=== PATIENT | female | born 1990 | race African-American/Black ===

== ENCOUNTER 2021-01-15 01:08 | Inpatient (IN) ==
[2021-01-15] MEDS ORDERED: PIPERACILLIN/TAZOBACTAM 3,375 MG in SODIUM CHLORIDE 0.9% 100 ML IV STA (02:18)
[2021-01-15] MEDS ORDERED: ONDANSETRON 4 MG/2 ML VIAL IV STA (02:18)
[2021-01-15] MEDS ORDERED: AZITHROMYCIN INJ 500 MG in SODIUM CHLORIDE 0.9% 250 ML IV STA (02:18)
[2021-01-15] MEDS ORDERED: SODIUM CHLORIDE 0.9% 500 ML IV STA (02:18)
[2021-01-15] MEDS ORDERED: ENOXAPARIN 100 MG/ML SYRINGE SUBCUT STA (02:18)
[2021-01-15] MEDS ORDERED: DEXAMETHASONE 4 MG/1 ML VIAL MISC INJ STA (02:18)
[2021-01-15] MEDS ORDERED: FUROSEMIDE 40 MG/4 ML VIAL ONE (02:50)
[2021-01-15 02:53] LABS: Basophils % 0.2 % (0.0-0.8); Hematocrit 34.8 VOL% (35.7-47.0); Hemoglobin 10.3 GM/DL (12.0-16.0); Immature Granulocytes % 0.5 %; Immature Granulocytes Absolute 0.03 #; Lymphocytes # 1.1 10*3/uL (1.4-4.0); Lymphocytes % 16.1 % (21.3-54.2); Mean Corpuscular HGB Conc 29.6 GM/DL (32-36); Mean Corpuscular Volume 82.9 FL (87-102); Mean Platelet Volume 11.2 FL (9.6-12.0); Monocytes % 2.9 % (1.7-12.7); Neutrophils % 80.3 % (38.7-73.9); Platelet Count 293 T/CUMM (130-400); White Blood Count 6.7 T/CUMM (4-12)
[2021-01-15 02:53] LABS: ABG Base Excess -2.7 MMOL/L (-2.5-2.5); ABG HCO3 21.8 MMOL/L (20-26); ABG Oxygen Saturation 78.5 % (95-100); ABG PCO2 38.6 MM HG (35-48); ABG PH 7.368 (7.35-7.45); ABG PO2 49.6 MM HG (80-95); ABG TCO2 20.4 MMOL/L (23-27); Allen Test Positive; Pt O2 Delivery Device Other
[2021-01-15 03:05] LABS: PT Patient Result 10.9 SECS (10.5-12.0)
[2021-01-15] MEDS ORDERED: FUROSEMIDE 40 MG/4 ML VIAL IV STA (03:10)
[2021-01-15 03:19] LABS: Band Neutrophils 3 % (0-10); Lymphocytes 15 % (20-55); Segmented Neutrophils 78 % (50-85)
[2021-01-15 03:20] LABS: Hypochromasia 1+; Platelet Estimate Normal; Total Cells Counted 100
[2021-01-15] MEDS ORDERED: GLUCAGON 1 MG VIAL IM PRN (03:34)
[2021-01-15] MEDS ORDERED: DEXTROSE 50% 25 GM/50 ML VIAL IV PRN (03:34)
[2021-01-15 03:51] LABS: Albumin 2.7 G/DL (3.4-5.0); Bilirubin,Total 0.6 MG/DL (0.20-1.00); Calcium 7.9 MG/DL (8.5-10.1); Ferritin 444.6 ng/ml (8-252); Osmolality,Calculated 280.3 MOS/KG (273-304); Potassium 4.1 MMOL/L (3.5-5.1); Total Protein 6.7 G/DL (6.4-8.2)
[2021-01-15 04:03] LABS: Bacteria,Urine Occasional /HPF (Few); Bilirubin,Urine Negative (Negative); Blood, Urine Negative (Negative); Glucose,Urine (UA) Negative (Negative); Granular Casts,Urine 1 /LPF (0-1); Ketones,Urine Negative (Negative); Mucus,Urine Occasional /LPF (Occasional); Nitrite,Urine Negative (Negative); Protein,Urine 100 MG/DL; RBC,Urine 1 /HPF (0-4); Renal Epithelial Cells,Urine Occasional /HPF (<1); Squamous Epithelial Cell,Urine Occasional /HPF (0-10); Urine Appearance Slightly Hazy (Clear); Urine Color Yellow (Yellow); Urine Specific Gravity 1.015 (1.001-1.035); Urine Urobilinogen < 2.0 EU/DL (0.2-1.0)
[2021-01-15 06:01] LABS: Basophils % 0.1 % (0.0-0.8); Hematocrit 35.6 VOL% (35.7-47.0); Hemoglobin 10.7 GM/DL (12.0-16.0); Immature Granulocytes % 0.4 %; Immature Granulocytes Absolute 0.03 #; Lymphocytes % 12.8 % (21.3-54.2); Mean Corpuscular HGB Conc 30.1 GM/DL (32-36); Mean Corpuscular Volume 83.6 FL (87-102); Mean Platelet Volume 11.2 FL (9.6-12.0); Monocytes % 1.6 % (1.7-12.7); Neutrophils % 85.1 % (38.7-73.9); Platelet Count 278 T/CUMM (130-400); Red Blood Count 4.26 MC/CUMM (3.8-5.5); Red Cell Distribution Width 17.1 % (9.3-17.3); White Blood Count 8.1 T/CUMM (4-12)
[2021-01-15 06:37] LABS: Ferritin 415.6 ng/ml (8-252)
[2021-01-15 06:39] LABS: Anisocytosis 1+; Band Neutrophils 29 % (0-10); Lymphocytes 12 % (20-55); Platelet Estimate Normal; Segmented Neutrophils 56 % (50-85); Total Cells Counted 100
[2021-01-15] MEDS ORDERED: ENOXAPARIN 40 MG/0.4 ML SYRINGE SUBCUT SCH (09:00)
[2021-01-15] MEDS: CETIRIZINE 10 MG TABLET PO SCH (10:24)
[2021-01-15] MEDS: ASCORBIC ACID 500 MG TABLET PO SCH ×2 (10:24→20:25)
[2021-01-15] MEDS: CHOLECALCIFEROL 1,000 UNIT TABLET PO SCH (10:24)
[2021-01-15] MEDS: FAMOTIDINE 20 MG TABLET PO SCH ×2 (10:25→20:25)
[2021-01-15] MEDS: ZINC GLUCONATE 50 MG TABLET PO SCH (10:25)
[2021-01-15] MEDS: PIPERACILLIN/TAZOBACTAM 3,375 MG in SODIUM CHLORIDE 0.9% 100 ML IV SCH ×2 (10:29→18:35)
[2021-01-15] MEDS ORDERED: REMDESIVIR 200 MG in SODIUM CHLORIDE 0.9% 210 ML IV ONE (14:00)
[2021-01-15] MEDS: ONDANSETRON 4 MG/2 ML VIAL IV PRN ×2 (18:34→22:31)
[2021-01-15 19:48] LABS: Bilirubin,Urine Negative (Negative); Blood, Urine Negative (Negative); Glucose,Urine (UA) Negative (Negative); Ketones,Urine Negative (Negative); Nitrite,Urine Negative (Negative); Protein,Urine 30 MG/DL; RBC,Urine 1 /HPF (0-4); Squamous Epithelial Cell,Urine Occasional /HPF (0-10); Urine Appearance CLEAR (Clear); Urine Color Yellow (Yellow); Urine Specific Gravity 1.033 (1.001-1.035); Urine Urobilinogen < 2.0 EU/DL (0.2-1.0)
[2021-01-15] MEDS: ENOXAPARIN 60 MG/0.6 ML SYRINGE SUBCUT SCH (20:24)
[2021-01-15] MEDS: MELATONIN 3 MG TABLET PO PRN (22:31)
[2021-01-16] MEDS: PIPERACILLIN/TAZOBACTAM 3,375 MG in SODIUM CHLORIDE 0.9% 100 ML IV SCH ×3 (01:38→17:58)
[2021-01-16 06:00] LABS: Albumin 2.5 G/DL (3.4-5.0); Bilirubin,Total 0.7 MG/DL (0.20-1.00); Calcium 7.8 MG/DL (8.5-10.1); Potassium 4.4 MMOL/L (3.5-5.1)
[2021-01-16 06:01] LABS: Basophils % 0.2 % (0.0-0.8); Hematocrit 31.9 VOL% (35.7-47.0); Hemoglobin 9.9 GM/DL (12.0-16.0); Immature Granulocytes Absolute 0.06 #; Lymphocytes # 1.6 10*3/uL (1.4-4.0); Lymphocytes % 25.1 % (21.3-54.2); Mean Corpuscular Volume 82.2 FL (87-102); Mean Platelet Volume 10.9 FL (9.6-12.0); Monocytes % 10.2 % (1.7-12.7); NRBC # 0.02 10*3/uL; Neutrophils % 63.5 % (38.7-73.9); Platelet Count 252 T/CUMM (130-400); Red Blood Count 3.88 MC/CUMM (3.8-5.5); Red Cell Distribution Width 16.9 % (9.3-17.3); White Blood Count 6.3 T/CUMM (4-12)
[2021-01-16 06:08] LABS: Ferritin 593.6 ng/ml (8-252)
[2021-01-16 06:10] LABS: Lymphocytes 29 % (20-55); Metamyelocytes 1 %; Segmented Neutrophils 56 % (50-85); Total Cells Counted 100
[2021-01-16 06:12] LABS: Hypochromasia 1+; Platelet Estimate Normal; Reactive Lymphocytes Few
[2021-01-16] MEDS: AZITHROMYCIN INJ 500 MG in SODIUM CHLORIDE 0.9% 250 ML IV SCH (08:15)
[2021-01-16] MEDS: ZINC GLUCONATE 50 MG TABLET PO SCH (08:45)
[2021-01-16] MEDS: ENOXAPARIN 60 MG/0.6 ML SYRINGE SUBCUT SCH ×2 (08:45→21:55)
[2021-01-16] MEDS: DEXAMETHASONE 10 MG/1 ML VIAL IV SCH (08:45)
[2021-01-16] MEDS: CETIRIZINE 10 MG TABLET PO SCH (08:45)
[2021-01-16] MEDS: ASCORBIC ACID 500 MG TABLET PO SCH ×2 (08:45→22:00)
[2021-01-16] MEDS: FAMOTIDINE 20 MG TABLET PO SCH ×2 (08:45→22:00)
[2021-01-16] MEDS: CHOLECALCIFEROL 1,000 UNIT TABLET PO SCH (08:45)
[2021-01-16] MEDS: ONDANSETRON 4 MG/2 ML VIAL IV PRN ×2 (08:47→22:00)
[2021-01-16] MEDS: REMDESIVIR 100 MG in SODIUM CHLORIDE 0.9% 100 ML IV SCH (10:33)
[2021-01-16] MEDS: ALBUTEROL INHALER 18 GM INH SCH ×2 (13:45→19:20)
[2021-01-17] MEDS: ALBUTEROL INHALER 18 GM INH SCH ×4 (01:00→18:35)
[2021-01-17] MEDS: PIPERACILLIN/TAZOBACTAM 3,375 MG in SODIUM CHLORIDE 0.9% 100 ML IV SCH ×3 (03:25→18:35)
[2021-01-17 04:28] LABS: ABG Base Excess -1.7 MMOL/L (-2.5-2.5); ABG PCO2 36.3 MM HG (35-48); ABG PH 7.403 (7.35-7.45); ABG TCO2 20.8 MMOL/L (23-27); Allen Test Positive; Pt O2 Delivery Device BIPAP
[2021-01-17 05:38] LABS: Albumin 2.5 G/DL (3.4-5.0); Potassium 4.1 MMOL/L (3.5-5.1); Total Protein 7.1 G/DL (6.4-8.2)
[2021-01-17 05:56] LABS: Ferritin 432.1 ng/ml (8-252)
[2021-01-17 06:38] LABS: Basophils % 0.2 % (0.0-0.8); Hematocrit 32.6 VOL% (35.7-47.0); Hemoglobin 9.8 GM/DL (12.0-16.0); Immature Granulocytes % 2.7 %; Immature Granulocytes Absolute 0.15 #; Lymphocytes % 18.2 % (21.3-54.2); Mean Corpuscular HGB Conc 30.1 GM/DL (32-36); Mean Corpuscular Volume 83.6 FL (87-102); Monocytes % 14.7 % (1.7-12.7); NRBC # 0.03 10*3/uL; Neutrophils % 64.2 % (38.7-73.9); Platelet Count 301 T/CUMM (130-400); Red Cell Distribution Width 17.7 % (9.3-17.3); White Blood Count 5.6 T/CUMM (4-12)
[2021-01-17 06:57] LABS: % Iron Saturation 34.9 % (18-50); Ferritin 400.5 ng/ml (8-252)
[2021-01-17 06:59] LABS: Folate > 24.00 NG/ML (5.38-24.0); Vitamin B12 1602 PG/ML (211-911)
[2021-01-17 07:07] LABS: Hypochromasia 1+; Lymphocytes 21 % (20-55); Nucleated Red Blood Cells 1 (0-5); Segmented Neutrophils 64 % (50-85); Total Cells Counted 100
[2021-01-17 07:08] LABS: Microcytosis 1+; Platelet Estimate Normal
[2021-01-17 07:56] LABS: Sedimentation Rate-Westergren 28 MM/HR (0-20)
[2021-01-17 08:35] LABS: Hemoglobin A1 (Alkaline) 97.8 % (96.5-98.5); Hemoglobin A2 (Alkaline) 2.2 % (1.5-3.5)
[2021-01-17] MEDS: AZITHROMYCIN INJ 500 MG in SODIUM CHLORIDE 0.9% 250 ML IV SCH (09:13)
[2021-01-17] MEDS: DEXAMETHASONE 10 MG/1 ML VIAL IV SCH (09:14)
[2021-01-17] MEDS: ASCORBIC ACID 500 MG TABLET PO SCH ×2 (09:15→20:58)
[2021-01-17] MEDS: ENOXAPARIN 60 MG/0.6 ML SYRINGE SUBCUT SCH ×2 (09:15→20:57)
[2021-01-17] MEDS: CETIRIZINE 10 MG TABLET PO SCH (09:15)
[2021-01-17] MEDS: FAMOTIDINE 20 MG TABLET PO SCH ×2 (09:15→20:58)
[2021-01-17] MEDS: CHOLECALCIFEROL 1,000 UNIT TABLET PO SCH (09:16)
[2021-01-17] MEDS: ZINC GLUCONATE 50 MG TABLET PO SCH (09:16)
[2021-01-17] MEDS: REMDESIVIR 100 MG in SODIUM CHLORIDE 0.9% 100 ML IV SCH (10:11)
[2021-01-17] MEDS ORDERED: SODIUM BICARBONATE 50 MEQ/50 ML VIAL IV ONE (16:31)
[2021-01-18] MEDS: PIPERACILLIN/TAZOBACTAM 3,375 MG in SODIUM CHLORIDE 0.9% 100 ML IV SCH ×3 (01:37→23:52)
[2021-01-18] MEDS: ALBUTEROL INHALER 18 GM INH SCH ×4 (01:37→18:21)
[2021-01-18 04:35] LABS: ABG Base Excess -1.4 MMOL/L (-2.5-2.5); ABG HCO3 23.2 MMOL/L (20-26); ABG Oxygen Saturation 95.4 % (95-100); ABG PH 7.446 (7.35-7.45); ABG PO2 78.6 MM HG (80-95); ABG TCO2 20.1 MMOL/L (23-27)
[2021-01-18 06:29] LABS: Basophils % 0.1 % (0.0-0.8); Hematocrit 31.7 VOL% (35.7-47.0); Hemoglobin 9.7 GM/DL (12.0-16.0); Immature Granulocytes % 3.2 %; Immature Granulocytes Absolute 0.25 #; Lymphocytes # 1.2 10*3/uL (1.4-4.0); Lymphocytes % 14.8 % (21.3-54.2); Mean Corpuscular HGB Conc 30.6 GM/DL (32-36); Mean Corpuscular Volume 82.3 FL (87-102); Mean Platelet Volume 11.1 FL (9.6-12.0); Monocytes % 12.8 % (1.7-12.7); Neutrophils % 69.1 % (38.7-73.9); Platelet Count 284 T/CUMM (130-400); Red Blood Count 3.85 MC/CUMM (3.8-5.5); Red Cell Distribution Width 16.4 % (9.3-17.3); White Blood Count 7.9 T/CUMM (4-12)
[2021-01-18 07:00] LABS: Albumin 2.8 G/DL (3.4-5.0); Bilirubin,Total 0.9 MG/DL (0.20-1.00); Calcium 8.4 MG/DL (8.5-10.1); Osmolality,Calculated 294.4 MOS/KG (273-304); Potassium 3.5 MMOL/L (3.5-5.1); Total Protein 7.1 G/DL (6.4-8.2)
[2021-01-18 07:01] LABS: Risk Ratio 3.67; VLDL Cholesterol 39.2 MG/DL
[2021-01-18 07:07] LABS: Ferritin 295.2 ng/ml (8-252)
[2021-01-18 07:52] LABS: Hypochromasia 1+; Microcytosis 2+; Ovalocytes Few; Platelet Estimate Normal
[2021-01-18] MEDS: ASPIRIN EC 325 MG TABLET PO SCH (08:09)
[2021-01-18] MEDS: CHOLECALCIFEROL 1,000 UNIT TABLET PO SCH (08:10)
[2021-01-18] MEDS: ZINC GLUCONATE 50 MG TABLET PO SCH (08:10)
[2021-01-18] MEDS: ASCORBIC ACID 500 MG TABLET PO SCH ×2 (08:10→20:23)
[2021-01-18] MEDS: CETIRIZINE 10 MG TABLET PO SCH (08:10)
[2021-01-18] MEDS: AZITHROMYCIN INJ 500 MG in SODIUM CHLORIDE 0.9% 250 ML IV SCH (09:13)
[2021-01-18] MEDS: ENOXAPARIN 60 MG/0.6 ML SYRINGE SUBCUT SCH ×2 (09:13→20:24)
[2021-01-18] MEDS: DEXAMETHASONE 10 MG/1 ML VIAL IV SCH (09:14)
[2021-01-18] MEDS: ONDANSETRON 4 MG/2 ML VIAL IV PRN (09:48)
[2021-01-18] MEDS ORDERED: LORazepam 2 MG/1 ML VIAL IV ONE (09:52)
[2021-01-18] MEDS ORDERED: LORazepam 2 MG/1 ML VIAL ONE (09:55)
[2021-01-18] MEDS: LACTULOSE 20 GM/30 ML UDCUP PO SCH ×2 (10:05→20:23)
[2021-01-18] MEDS: atenoloL 50 MG TABLET PO SCH ×2 (11:30→20:23)
[2021-01-18] MEDS: FAMOTIDINE 20 MG TABLET PO SCH ×2 (11:42→20:22)
[2021-01-18] MEDS: REMDESIVIR 100 MG in SODIUM CHLORIDE 0.9% 100 ML IV SCH (11:42)
[2021-01-18] MEDS: hydrALAZINE 20 MG/1 ML VIAL IV PRN (12:39)
[2021-01-18] MEDS: MENTHOL/ZINC OXIDE OINT 71 GM JAR TOP SCH ×2 (13:27→20:24)
[2021-01-18] MEDS: amLODIPine 5 MG TABLET PO SCH (16:50)
[2021-01-18] MEDS: INSULIN REGULAR 100 UNIT/ML SUBCUT SCH (18:20)
[2021-01-18 22:08] LABS: Bilirubin,Urine Negative (Negative); Blood, Urine Negative (Negative); Glucose,Urine (UA) Negative (Negative); Ketones,Urine 20 mg/dL (Negative); Nitrite,Urine Negative (Negative); Protein,Urine 30 MG/DL; RBC,Urine 4 /HPF (0-4); Urine Appearance CLEAR (Clear); Urine Color Yellow (Yellow); Urine Specific Gravity 1.021 (1.001-1.035); Urine Urobilinogen < 2.0 EU/DL (0.2-1.0)
[2021-01-19] MEDS: ALBUTEROL INHALER 18 GM INH SCH ×4 (00:49→19:18)
[2021-01-19] MEDS: INSULIN REGULAR 100 UNIT/ML SUBCUT SCH ×4 (00:49→18:05)
[2021-01-19] MEDS: hydrALAZINE 20 MG/1 ML VIAL IV PRN (03:37)
[2021-01-19 05:28] LABS: ABG Base Excess -2.7 MMOL/L (-2.5-2.5); ABG HCO3 22.1 MMOL/L (20-26); ABG Oxygen Saturation 93.5 % (95-100); ABG PCO2 31.4 MM HG (35-48); ABG PO2 70.9 MM HG (80-95); ABG TCO2 18.9 MMOL/L (23-27); Allen Test Positive; Pt O2 Delivery Device BIPAP
[2021-01-19 05:46] LABS: Basophils % 0.3 % (0.0-0.8); Hemoglobin 9.8 GM/DL (12.0-16.0); Immature Granulocytes % 6.4 %; Immature Granulocytes Absolute 0.66 #; Lymphocytes # 1.4 10*3/uL (1.4-4.0); Lymphocytes % 13.3 % (21.3-54.2); Mean Corpuscular HGB Conc 30.6 GM/DL (32-36); Mean Corpuscular Volume 81.8 FL (87-102); Mean Platelet Volume 11.2 FL (9.6-12.0); NRBC # 0.03 10*3/uL; Platelet Count 324 T/CUMM (130-400); Red Blood Count 3.91 MC/CUMM (3.8-5.5); Red Cell Distribution Width 16.6 % (9.3-17.3); White Blood Count 10.4 T/CUMM (4-12)
[2021-01-19] MEDS: PIPERACILLIN/TAZOBACTAM 3,375 MG in SODIUM CHLORIDE 0.9% 100 ML IV SCH ×2 (05:55→15:46)
[2021-01-19 06:23] LABS: Calcium 8.9 MG/DL (8.5-10.1); Osmolality,Calculated 307.6 MOS/KG (273-304); Potassium 3.3 MMOL/L (3.5-5.1)
[2021-01-19 06:35] LABS: Ferritin 239.4 ng/ml (8-252)
[2021-01-19 06:42] LABS: Anisocytosis 1+; Band Neutrophils 5 % (0-10); Lymphocytes 12 % (20-55); Metamyelocytes 2 %; Nucleated Red Blood Cells 1 (0-5); Platelet Estimate Normal; Segmented Neutrophils 69 % (50-85); Total Cells Counted 100
[2021-01-19] MEDS: amLODIPine 5 MG TABLET PO SCH (08:00)
[2021-01-19] MEDS: atenoloL 50 MG TABLET PO SCH ×2 (08:00→20:57)
[2021-01-19] MEDS: FAMOTIDINE 20 MG TABLET PO SCH ×2 (08:00→20:57)
[2021-01-19] MEDS: CHOLECALCIFEROL 1,000 UNIT TABLET PO SCH (08:00)
[2021-01-19] MEDS: ASPIRIN EC 325 MG TABLET PO SCH (08:00)
[2021-01-19] MEDS: CETIRIZINE 10 MG TABLET PO SCH (08:01)
[2021-01-19] MEDS: MULTIVITAMIN LIQUID (CENTRUM) 60 ML BOTTLE PO SCH (08:01)
[2021-01-19] MEDS: ENOXAPARIN 60 MG/0.6 ML SYRINGE SUBCUT SCH ×2 (08:01→21:01)
[2021-01-19] MEDS: LACTULOSE 20 GM/30 ML UDCUP PO SCH ×2 (08:01→21:00)
[2021-01-19] MEDS: ZINC GLUCONATE 50 MG TABLET PO SCH (08:01)
[2021-01-19] MEDS: MENTHOL/ZINC OXIDE OINT 71 GM JAR TOP SCH ×2 (08:02→21:00)
[2021-01-19] MEDS ORDERED: ASCORBIC ACID 500 MG/1 ML VIAL IV SCH (09:00)
[2021-01-19] MEDS: REMDESIVIR 100 MG in SODIUM CHLORIDE 0.9% 100 ML IV SCH (10:24)
[2021-01-19] MEDS ORDERED: AZITHROMYCIN INJ 500 MG in SODIUM CHLORIDE 0.9% 250 ML IV SCH (11:45)
[2021-01-19] MEDS: ASCORBIC ACID 500 MG TABLET PO SCH ×2 (11:48→20:57)
[2021-01-19] MEDS: AZITHROMYCIN INJ 500 MG in SODIUM CHLORIDE 0.9% 250 ML IV SCH (11:50)
[2021-01-19] MEDS: methylPREDNISolone SOD SUC 40 MG/1 ML VIAL IV SCH ×2 (11:50→19:18)
[2021-01-19] MEDS: POTASSIUM CHLORIDE RIDER 10 MEQ/100 ML PREMIX IV PRN ×3 (14:00→21:02)
[2021-01-20] MEDS: PIPERACILLIN/TAZOBACTAM 3,375 MG in SODIUM CHLORIDE 0.9% 100 ML IV SCH ×4 (00:14→21:35)
[2021-01-20] MEDS: methylPREDNISolone SOD SUC 40 MG/1 ML VIAL IV SCH ×5 (00:38→23:18)
[2021-01-20] MEDS: INSULIN REGULAR 100 UNIT/ML SUBCUT SCH ×5 (00:38→23:26)
[2021-01-20] MEDS: ALBUTEROL INHALER 18 GM INH SCH ×4 (01:00→18:17)
[2021-01-20] MEDS: POTASSIUM CHLORIDE RIDER 10 MEQ/100 ML PREMIX IV PRN ×3 (01:13→14:29)
[2021-01-20 04:38] LABS: ABG HCO3 17.6 MMOL/L (20-26); ABG Oxygen Saturation 92.6 % (95-100); ABG PCO2 28.6 MM HG (35-48); ABG PH 7.407 (7.35-7.45); ABG PO2 68.9 MM HG (80-95); ABG TCO2 18.5 MMOL/L (23-27); Allen Test Positive; Pt O2 Delivery Device BIPAP
[2021-01-20 05:27] LABS: Basophils % 0.3 % (0.0-0.8); Eosinophils % 0.1 % (0.00-10.9); Hematocrit 31.8 VOL% (35.7-47.0); Hemoglobin 9.8 GM/DL (12.0-16.0); Immature Granulocytes % 9.4 %; Lymphocytes # 1.4 10*3/uL (1.4-4.0); Lymphocytes % 10.9 % (21.3-54.2); Mean Corpuscular HGB Conc 30.8 GM/DL (32-36); Mean Platelet Volume 11.3 FL (9.6-12.0); Monocytes % 6.1 % (1.7-12.7); NRBC # 0.07 10*3/uL; Neutrophils % 73.2 % (38.7-73.9); Platelet Count 306 T/CUMM (130-400); Red Blood Count 3.88 MC/CUMM (3.8-5.5); White Blood Count 12.8 T/CUMM (4-12)
[2021-01-20 05:59] LABS: Band Neutrophils 9 % (0-10); Lymphocytes 12 % (20-55); Metamyelocytes 4 %; Nucleated Red Blood Cells 1 (0-5); Platelet Estimate Normal; Segmented Neutrophils 70 % (50-85); Smudge Cells Few; Total Cells Counted 100
[2021-01-20 06:00] LABS: Anisocytosis 1+
[2021-01-20 06:08] LABS: Ferritin 187.2 ng/ml (8-252)
[2021-01-20 06:17] LABS: Calcium 8.8 MG/DL (8.5-10.1); Osmolality,Calculated 312.6 MOS/KG (273-304); Potassium 3.8 MMOL/L (3.5-5.1)
[2021-01-20] MEDS: CETIRIZINE 10 MG TABLET PO SCH (08:51)
[2021-01-20] MEDS: CHOLECALCIFEROL 1,000 UNIT TABLET PO SCH (08:51)
[2021-01-20] MEDS: LACTULOSE 20 GM/30 ML UDCUP PO SCH ×3 (08:51→23:17)
[2021-01-20] MEDS: atenoloL 50 MG TABLET PO SCH ×2 (08:51→20:40)
[2021-01-20] MEDS: ZINC GLUCONATE 50 MG TABLET PO SCH (08:51)
[2021-01-20] MEDS: ASCORBIC ACID 500 MG TABLET PO SCH ×2 (08:51→20:39)
[2021-01-20] MEDS: FAMOTIDINE 20 MG TABLET PO SCH ×2 (08:51→20:40)
[2021-01-20] MEDS: amLODIPine 5 MG TABLET PO SCH (08:51)
[2021-01-20] MEDS: ENOXAPARIN 60 MG/0.6 ML SYRINGE SUBCUT SCH ×2 (08:51→20:37)
[2021-01-20] MEDS: ASPIRIN EC 325 MG TABLET PO SCH (08:51)
[2021-01-20] MEDS: MENTHOL/ZINC OXIDE OINT 71 GM JAR TOP SCH ×2 (08:52→21:10)
[2021-01-20] MEDS: MULTIVITAMIN LIQUID (CENTRUM) 60 ML BOTTLE PO SCH (08:52)
[2021-01-20 09:03] LABS: Alanine Aminotransferase 31 U/L (13-56); Albumin 2.7 G/DL (3.4-5.0); Alkaline Phosphatase 66 U/L (45-117); Aspartate Amino Transferase 29 U/L (0-37); Bilirubin,Direct < 0.100 MG/DL (0.0-0.20); Bilirubin,Indirect 0.3 MG/DL (0.0-1.0); Bilirubin,Total < 0.39 MG/DL (0.20-1.00); Total Protein 7.2 G/DL (6.4-8.2)
[2021-01-20 10:00] LABS: Calcium 8.9 MG/DL (8.5-10.1); Osmolality,Calculated 309.9 MOS/KG (273-304); Potassium 3.6 MMOL/L (3.5-5.1)
[2021-01-20] MEDS ORDERED: ALBUMIN 5% 25 GM/500 ML VIAL IV SCH ×2 (11:30→14:00)
[2021-01-20] MEDS: ALBUMIN 25% 25 GM/100 ML VIAL IV SCH ×4 (13:34→23:43)
[2021-01-20] MEDS: FUROSEMIDE 20 MG/2 ML VIAL IV SCH ×3 (14:28→21:39)
[2021-01-20] MEDS ORDERED: INSULIN GLARGINE 100 UNIT/ML SUBCUT SCH (21:00)
[2021-01-20] MEDS: ACETAMINOPHEN 325 MG TABLET PO PRN (21:17)
[2021-01-21] MEDS: FUROSEMIDE 20 MG/2 ML VIAL IV SCH ×3 (00:48→12:25)
[2021-01-21] MEDS: ALBUTEROL INHALER 18 GM INH SCH ×4 (00:48→21:14)
[2021-01-21] MEDS: ALBUMIN 25% 25 GM/100 ML VIAL IV SCH ×2 (04:07→10:15)
[2021-01-21 04:51] LABS: Basophils % 0.2 % (0.0-0.8); Hematocrit 28.6 VOL% (35.7-47.0); Hemoglobin 8.6 GM/DL (12.0-16.0); Immature Granulocytes % 8.1 %; Immature Granulocytes Absolute 1.05 #; Lymphocytes # 1.2 10*3/uL (1.4-4.0); Lymphocytes % 9.5 % (21.3-54.2); Mean Corpuscular HGB Conc 30.1 GM/DL (32-36); Mean Corpuscular Volume 83.4 FL (87-102); Mean Platelet Volume 11.1 FL (9.6-12.0); Monocytes % 3.5 % (1.7-12.7); NRBC # 0.09 10*3/uL; Neutrophils % 78.7 % (38.7-73.9); Platelet Count 379 T/CUMM (130-400); Red Blood Count 3.43 MC/CUMM (3.8-5.5); Red Cell Distribution Width 17.3 % (9.3-17.3)
[2021-01-21 05:04] LABS: ABG HCO3 21.4 MMOL/L (20-26); ABG Oxygen Saturation 97.5 % (95-100); ABG PCO2 35.8 MM HG (35-48); ABG PH 7.395 (7.35-7.45); ABG PO2 113.4 MM HG (80-95); ABG TCO2 22.5 MMOL/L (23-27); Allen Test Positive; Pt O2 Delivery Device BIPAP
[2021-01-21 05:14] LABS: Calcium 9.6 MG/DL (8.5-10.1); Osmolality,Calculated 317.7 MOS/KG (273-304); Potassium 3.5 MMOL/L (3.5-5.1)
[2021-01-21] MEDS: PIPERACILLIN/TAZOBACTAM 3,375 MG in SODIUM CHLORIDE 0.9% 100 ML IV SCH ×3 (05:42→21:16)
[2021-01-21] MEDS: methylPREDNISolone SOD SUC 40 MG/1 ML VIAL IV SCH (05:42)
[2021-01-21] MEDS: INSULIN REGULAR 100 UNIT/ML SUBCUT SCH ×3 (05:42→18:37)
[2021-01-21 06:19] LABS: Anisocytosis 2+; Band Neutrophils 9 % (0-10); Hypersegmented Neutrophil Few; Lymphocytes 7 % (20-55); Metamyelocytes 6 %; Myelocytes 1 %; Nucleated Red Blood Cells 2 (0-5); Platelet Estimate Normal; Polychromasia Slight; Segmented Neutrophils 74 % (50-85); Total Cells Counted 100
[2021-01-21 06:20] LABS: Ovalocytes Few; Poikilocytosis Slight
[2021-01-21] MEDS: FAMOTIDINE 20 MG TABLET PO SCH ×2 (08:05→21:13)
[2021-01-21] MEDS: ZINC GLUCONATE 50 MG TABLET PO SCH (08:05)
[2021-01-21] MEDS: ASCORBIC ACID 500 MG TABLET PO SCH ×2 (08:05→21:13)
[2021-01-21] MEDS: ASPIRIN EC 325 MG TABLET PO SCH (08:05)
[2021-01-21] MEDS: atenoloL 50 MG TABLET PO SCH ×2 (08:05→21:13)
[2021-01-21] MEDS: LACTULOSE 20 GM/30 ML UDCUP PO SCH ×2 (08:05→16:14)
[2021-01-21] MEDS: CHOLECALCIFEROL 1,000 UNIT TABLET PO SCH (08:05)
[2021-01-21] MEDS: amLODIPine 5 MG TABLET PO SCH (08:06)
[2021-01-21] MEDS: CETIRIZINE 10 MG TABLET PO SCH (08:06)
[2021-01-21] MEDS: MENTHOL/ZINC OXIDE OINT 71 GM JAR TOP SCH ×2 (08:06→21:14)
[2021-01-21] MEDS: MULTIVITAMIN LIQUID (CENTRUM) 60 ML BOTTLE PO SCH (08:06)
[2021-01-21] MEDS: ENOXAPARIN 60 MG/0.6 ML SYRINGE SUBCUT SCH ×2 (08:07→21:14)
[2021-01-21] MEDS ORDERED: FUROSEMIDE 20 MG/2 ML VIAL IV ONE (12:25)
[2021-01-21] MEDS: ACETAMINOPHEN 325 MG TABLET PO PRN ×2 (16:55→21:49)
[2021-01-21] MEDS ORDERED: methylPREDNISolone SOD SUC 125 MG/2 ML VIAL IV SCH (18:00)
[2021-01-21] MEDS: methylPREDNISolone SOD SUC 125 MG/2 ML VIAL IV SCH (18:38)
[2021-01-21] MEDS ORDERED: INSULIN GLARGINE 100 UNIT/ML SUBCUT SCH (21:00)
[2021-01-22] MEDS: LACTULOSE 20 GM/30 ML UDCUP PO SCH ×4 (00:52→23:10)
[2021-01-22] MEDS: INSULIN REGULAR 100 UNIT/ML SUBCUT SCH ×5 (00:52→23:42)
[2021-01-22] MEDS: methylPREDNISolone SOD SUC 125 MG/2 ML VIAL IV SCH ×3 (01:23→18:17)
[2021-01-22] MEDS: ONDANSETRON 4 MG/2 ML VIAL IV PRN (01:49)
[2021-01-22] MEDS: ALBUTEROL INHALER 18 GM INH SCH ×4 (01:51→18:21)
[2021-01-22 03:50] LABS: ABG Base Excess -3.7 MMOL/L (-2.5-2.5); ABG HCO3 21.3 MMOL/L (20-26); ABG Oxygen Saturation 94.9 % (95-100); ABG PCO2 37.8 MM HG (35-48); ABG PO2 80.1 MM HG (80-95); ABG TCO2 19.7 MMOL/L (23-27)
[2021-01-22 05:38] LABS: Basophils % 0.2 % (0.0-0.8); Hematocrit 31.1 VOL% (35.7-47.0); Hemoglobin 9.3 GM/DL (12.0-16.0); Immature Granulocytes % 4.8 %; Immature Granulocytes Absolute 0.77 #; Lymphocytes # 0.8 10*3/uL (1.4-4.0); Lymphocytes % 4.8 % (21.3-54.2); Mean Corpuscular HGB Conc 29.9 GM/DL (32-36); Mean Corpuscular Volume 84.3 FL (87-102); Mean Platelet Volume 11.4 FL (9.6-12.0); Monocytes % 3.8 % (1.7-12.7); NRBC # 0.05 10*3/uL; Neutrophils % 86.4 % (38.7-73.9); Platelet Count 417 T/CUMM (130-400); Red Blood Count 3.69 MC/CUMM (3.8-5.5); Red Cell Distribution Width 17.7 % (9.3-17.3); White Blood Count 16.1 T/CUMM (4-12)
[2021-01-22 06:07] LABS: Hypochromasia 1+; Lymphocytes 4 % (20-55); Microcytosis 1+; Platelet Estimate Adequate; Segmented Neutrophils 90 % (50-85); Total Cells Counted 100
[2021-01-22 06:19] LABS: Albumin 4.8 G/DL (3.4-5.0); Bilirubin,Total 0.8 MG/DL (0.20-1.00); Calcium 9.7 MG/DL (8.5-10.1); Osmolality,Calculated 326.2 MOS/KG (273-304); Potassium 3.5 MMOL/L (3.5-5.1); Total Protein 8.5 G/DL (6.4-8.2)
[2021-01-22] MEDS: PIPERACILLIN/TAZOBACTAM 3,375 MG in SODIUM CHLORIDE 0.9% 100 ML IV SCH (06:25)
[2021-01-22] MEDS: CHOLECALCIFEROL 1,000 UNIT TABLET PO SCH (08:31)
[2021-01-22] MEDS: ENOXAPARIN 60 MG/0.6 ML SYRINGE SUBCUT SCH ×2 (08:31→20:13)
[2021-01-22] MEDS: ASPIRIN EC 325 MG TABLET PO SCH (08:32)
[2021-01-22] MEDS: FAMOTIDINE 20 MG TABLET PO SCH ×2 (08:32→20:14)
[2021-01-22] MEDS: amLODIPine 5 MG TABLET PO SCH (08:32)
[2021-01-22] MEDS: ZINC GLUCONATE 50 MG TABLET PO SCH (08:32)
[2021-01-22] MEDS: ASCORBIC ACID 500 MG TABLET PO SCH ×2 (08:32→20:14)
[2021-01-22] MEDS: CETIRIZINE 10 MG TABLET PO SCH (08:32)
[2021-01-22] MEDS: atenoloL 50 MG TABLET PO SCH ×2 (08:32→20:14)
[2021-01-22] MEDS: MULTIVITAMIN LIQUID (CENTRUM) 60 ML BOTTLE PO SCH (08:33)
[2021-01-22] MEDS: MENTHOL/ZINC OXIDE OINT 71 GM JAR TOP SCH ×2 (08:33→20:14)
[2021-01-22] MEDS ORDERED: cefTRIAXone 1,000 MG in SODIUM CHLORIDE 0.9% 100 ML IV SCH (09:00)
[2021-01-22] MEDS: ACETAMINOPHEN 325 MG TABLET PO PRN ×2 (09:46→16:43)
[2021-01-22] MEDS ORDERED: SODIUM CHLORIDE 0.45% 500 ML IV ONE (11:42)
[2021-01-22] MEDS: INSULIN GLARGINE 100 UNIT/ML SUBCUT SCH (20:14)
[2021-01-22] MEDS: IBUPROFEN 100 MG/5 ML UDCUP PO PRN (23:22)
[2021-01-23] MEDS: ALBUTEROL INHALER 18 GM INH SCH ×4 (00:57→18:00)
[2021-01-23] MEDS: ACETAMINOPHEN 325 MG TABLET PO PRN (00:57)
[2021-01-23] MEDS: methylPREDNISolone SOD SUC 125 MG/2 ML VIAL IV SCH ×2 (01:21→11:23)
[2021-01-23] MEDS ORDERED: KETOROLAC 15 MG/1 ML VIAL IV ONE (02:43)
[2021-01-23 03:26] LABS: ABG Base Excess -4.3 MMOL/L (-2.5-2.5); ABG HCO3 20.9 MMOL/L (20-26); ABG Oxygen Saturation 98.9 % (95-100); ABG PCO2 38.3 MM HG (35-48); ABG PH 7.346 (7.35-7.45); ABG TCO2 19.2 MMOL/L (23-27)
[2021-01-23 05:26] LABS: Basophils % 0.2 % (0.0-0.8); Eosinophils # 0.1 10*3/uL (0.0-0.87); Eosinophils % 0.4 % (0.00-10.9); Hematocrit 32.5 VOL% (35.7-47.0); Hemoglobin 9.7 GM/DL (12.0-16.0); Immature Granulocytes % 2.1 %; Lymphocytes % 5.1 % (21.3-54.2); Mean Corpuscular HGB Conc 29.8 GM/DL (32-36); Mean Corpuscular Volume 85.3 FL (87-102); Mean Platelet Volume 11.6 FL (9.6-12.0); Monocytes % 2.3 % (1.7-12.7); NRBC # 0.04 10*3/uL; Neutrophils % 89.9 % (38.7-73.9); Platelet Count 404 T/CUMM (130-400); Red Blood Count 3.81 MC/CUMM (3.8-5.5); Red Cell Distribution Width 17.9 % (9.3-17.3)
[2021-01-23 05:40] LABS: Hypochromasia 1+; Microcytosis 1+; Ovalocytes Slight; Platelet Estimate Adequate
[2021-01-23 05:45] LABS: Calcium 9.4 MG/DL (8.5-10.1); Potassium 3.4 MMOL/L (3.5-5.1)
[2021-01-23] MEDS: IBUPROFEN 100 MG/5 ML UDCUP PO PRN ×2 (06:34→19:46)
[2021-01-23] MEDS: INSULIN REGULAR 100 UNIT/ML SUBCUT SCH ×4 (06:35→23:56)
[2021-01-23] MEDS: POTASSIUM CHLORIDE RIDER 10 MEQ/100 ML PREMIX IV PRN ×2 (07:42→08:52)
[2021-01-23] MEDS: amLODIPine 5 MG TABLET PO SCH (08:48)
[2021-01-23] MEDS: atenoloL 50 MG TABLET PO SCH ×2 (08:48→20:04)
[2021-01-23] MEDS: ENOXAPARIN 60 MG/0.6 ML SYRINGE SUBCUT SCH ×2 (08:48→20:03)
[2021-01-23] MEDS: ZINC GLUCONATE 50 MG TABLET PO SCH (08:48)
[2021-01-23] MEDS: FAMOTIDINE 20 MG TABLET PO SCH ×2 (08:48→20:04)
[2021-01-23] MEDS: ASPIRIN EC 325 MG TABLET PO SCH (08:48)
[2021-01-23] MEDS: MULTIVITAMIN LIQUID (CENTRUM) 60 ML BOTTLE PO SCH (08:49)
[2021-01-23] MEDS: MENTHOL/ZINC OXIDE OINT 71 GM JAR TOP SCH ×2 (08:49→20:04)
[2021-01-23] MEDS: ASCORBIC ACID 500 MG TABLET PO SCH ×2 (08:49→20:03)
[2021-01-23] MEDS: CHOLECALCIFEROL 1,000 UNIT TABLET PO SCH (08:52)
[2021-01-23] MEDS: CETIRIZINE 10 MG TABLET PO SCH (08:52)
[2021-01-23] MEDS: LACTULOSE 20 GM/30 ML UDCUP PO SCH ×3 (08:52→23:57)
[2021-01-23] MEDS ORDERED: VANCOMYCIN INJ 2,000 MG in SODIUM CHLORIDE 0.9% 500 ML IV ONE (10:00)
[2021-01-23] MEDS: LEVOFLOXACIN INJ 750 MG/150 ML PREMIX IV SCH (11:23)
[2021-01-23] MEDS: methylPREDNISolone SOD SUC 40 MG/1 ML VIAL IV SCH (17:26)
[2021-01-23] MEDS: INSULIN GLARGINE 100 UNIT/ML SUBCUT SCH (20:04)
[2021-01-23] MEDS: VANCOMYCIN INJ 1,500 MG in SODIUM CHLORIDE 0.9% 500 ML IV SCH (22:35)
[2021-01-24] MEDS: ALBUTEROL INHALER 18 GM INH SCH ×4 (00:13→18:58)
[2021-01-24] MEDS: MORPHINE 2 MG/1 ML SYRINGE IV PRN ×3 (01:03→12:04)
[2021-01-24] MEDS: methylPREDNISolone SOD SUC 40 MG/1 ML VIAL IV SCH ×3 (01:03→20:17)
[2021-01-24 04:36] LABS: Basophils % 0.1 % (0.0-0.8); Hematocrit 30.2 VOL% (35.7-47.0); Hemoglobin 8.9 GM/DL (12.0-16.0); Immature Granulocytes % 2.2 %; Immature Granulocytes Absolute 0.23 #; Lymphocytes # 0.7 10*3/uL (1.4-4.0); Lymphocytes % 6.9 % (21.3-54.2); Mean Corpuscular HGB Conc 29.5 GM/DL (32-36); Mean Corpuscular Volume 84.4 FL (87-102); Mean Platelet Volume 11.1 FL (9.6-12.0); Monocytes % 2.4 % (1.7-12.7); NRBC # 0.02 10*3/uL; Neutrophils % 88.4 % (38.7-73.9); Platelet Count 358 T/CUMM (130-400); Red Blood Count 3.58 MC/CUMM (3.8-5.5); Red Cell Distribution Width 17.9 % (9.3-17.3); White Blood Count 10.2 T/CUMM (4-12)
[2021-01-24 04:54] LABS: Osmolality,Calculated 316.9 MOS/KG (273-304); Potassium 3.9 MMOL/L (3.5-5.1)
[2021-01-24 05:13] LABS: Allen Test Positive; Pt O2 Delivery Device Other
[2021-01-24 05:17] LABS: ABG Base Excess -5.2 MMOL/L (-2.5-2.5); ABG HCO3 19.6 MMOL/L (20-26); ABG Oxygen Saturation 97.7 % (95-100); ABG PCO2 35.5 MM HG (35-48); ABG PO2 123.7 MM HG (80-95); ABG TCO2 20.7 MMOL/L (23-27)
[2021-01-24] MEDS: INSULIN REGULAR 100 UNIT/ML SUBCUT SCH ×3 (06:05→18:30)
[2021-01-24] MEDS: LACTULOSE 20 GM/30 ML UDCUP PO SCH ×2 (08:29→18:24)
[2021-01-24] MEDS: MULTIVITAMIN LIQUID (CENTRUM) 60 ML BOTTLE PO SCH (08:30)
[2021-01-24] MEDS: MENTHOL/ZINC OXIDE OINT 71 GM JAR TOP SCH ×2 (08:30→20:19)
[2021-01-24] MEDS: ZINC GLUCONATE 50 MG TABLET PO SCH (08:30)
[2021-01-24] MEDS: ASPIRIN EC 325 MG TABLET PO SCH (08:30)
[2021-01-24] MEDS: CHOLECALCIFEROL 1,000 UNIT TABLET PO SCH (08:30)
[2021-01-24] MEDS: amLODIPine 5 MG TABLET PO SCH (08:30)
[2021-01-24] MEDS: LEVOFLOXACIN INJ 750 MG/150 ML PREMIX IV SCH (08:30)
[2021-01-24] MEDS: atenoloL 50 MG TABLET PO SCH ×2 (08:31→20:19)
[2021-01-24] MEDS: ASCORBIC ACID 500 MG TABLET PO SCH ×2 (08:38→20:18)
[2021-01-24] MEDS: ENOXAPARIN 60 MG/0.6 ML SYRINGE SUBCUT SCH ×2 (08:38→20:17)
[2021-01-24] MEDS: FAMOTIDINE 20 MG TABLET PO SCH ×2 (08:38→20:19)
[2021-01-24] MEDS: CETIRIZINE 10 MG TABLET PO SCH (08:38)
[2021-01-24] MEDS: VANCOMYCIN INJ 1,500 MG in SODIUM CHLORIDE 0.9% 500 ML IV SCH ×2 (11:56→23:15)
[2021-01-24] MEDS ORDERED: ALPRAZolam 0.25 MG TABLET PO PRN (14:28)
[2021-01-24] MEDS ORDERED: ETOMIDATE 20 MG/10 ML VIAL IV ONE ×6 (16:36→17:18)
[2021-01-24] MEDS ORDERED: SUCCINYLCHOLINE 200 MG/10 ML VIAL ONE ×2 (16:37→17:16)
[2021-01-24] MEDS ORDERED: SUCCINYLCHOLINE 200 MG/10 ML VIAL IV ONE ×3 (16:43→17:17)
[2021-01-24] MEDS ORDERED: METOPROLOL TARTRATE 5 MG/5 ML VIAL IV ONE ×2 (17:10→17:11)
[2021-01-24] MEDS ORDERED: MIDAZOLAM 2 MG/2 ML VIAL ONE (17:17)
[2021-01-24] MEDS ORDERED: MIDAZOLAM 2 MG/2 ML VIAL IV ONE (17:18)
[2021-01-24] MEDS: fentaNYL INJ 1,250 MCG in SODIUM CHLORIDE 0.9% 225 ML IV PRN (17:41)
[2021-01-24] MEDS: ROCURONIUM 500 MG in SODIUM CHLORIDE 0.9% 500 ML IV PRN (17:42)
[2021-01-24] MEDS: MIDAZOLAM 100 MG in SODIUM CHLORIDE 0.9% 80 ML IV PRN (17:42)
[2021-01-24 20:04] LABS: ABG Base Excess -6.7 MMOL/L (-2.5-2.5); ABG Oxygen Saturation 97.6 % (95-100); ABG TCO2 22.3 MMOL/L (23-27)
[2021-01-24 20:11] LABS: ABG PCO2 70.4 MM HG (35-48); ABG PH 7.142 (7.35-7.45)
[2021-01-24] MEDS ORDERED: INSULIN GLARGINE 100 UNIT/ML SUBCUT SCH (21:00)
[2021-01-25] MEDS: LACTULOSE 20 GM/30 ML UDCUP PO SCH ×4 (00:27→23:39)
[2021-01-25] MEDS: INSULIN REGULAR 100 UNIT/ML SUBCUT SCH ×5 (00:28→23:39)
[2021-01-25] MEDS: ALBUTEROL INHALER 18 GM INH SCH ×4 (00:55→20:20)
[2021-01-25] MEDS: ROCURONIUM 500 MG in SODIUM CHLORIDE 0.9% 500 ML IV PRN ×2 (03:45→14:00)
[2021-01-25 04:10] LABS: ABG Base Excess -5.3 MMOL/L (-2.5-2.5); ABG HCO3 21.3 MMOL/L (20-26); ABG Oxygen Saturation 98.4 % (95-100); ABG PCO2 46.7 MM HG (35-48); ABG PH 7.277 (7.35-7.45); ABG PO2 171.3 MM HG (80-95); ABG TCO2 22.7 MMOL/L (23-27)
[2021-01-25 04:29] LABS: Basophils % 0.1 % (0.0-0.8); Hematocrit 28.4 VOL% (35.7-47.0); Hemoglobin 8.4 GM/DL (12.0-16.0); Immature Granulocytes % 0.8 %; Lymphocytes # 0.6 10*3/uL (1.4-4.0); Lymphocytes % 4.5 % (21.3-54.2); Mean Corpuscular HGB Conc 29.6 GM/DL (32-36); Mean Corpuscular Volume 87.1 FL (87-102); Mean Platelet Volume 11.4 FL (9.6-12.0); Monocytes % 2.6 % (1.7-12.7); Platelet Count 345 T/CUMM (130-400); Red Blood Count 3.26 MC/CUMM (3.8-5.5); Red Cell Distribution Width 17.8 % (9.3-17.3); White Blood Count 12.7 T/CUMM (4-12)
[2021-01-25 04:54] LABS: Calcium 8.6 MG/DL (8.5-10.1); Osmolality,Calculated 313.1 MOS/KG (273-304); Potassium 4.5 MMOL/L (3.5-5.1)
[2021-01-25 04:56] LABS: Hypochromasia Slight; Lymphocytes 4 % (20-55); Platelet Estimate Normal; Segmented Neutrophils 95 % (50-85); Total Cells Counted 100
[2021-01-25] MEDS: fentaNYL INJ 1,250 MCG in SODIUM CHLORIDE 0.9% 225 ML IV PRN ×2 (05:08→18:12)
[2021-01-25] MEDS: methylPREDNISolone SOD SUC 40 MG/1 ML VIAL IV SCH ×3 (08:11→19:13)
[2021-01-25] MEDS: ENOXAPARIN 60 MG/0.6 ML SYRINGE SUBCUT SCH ×2 (08:11→20:12)
[2021-01-25] MEDS: ASCORBIC ACID 500 MG TABLET PO SCH ×2 (08:12→20:12)
[2021-01-25] MEDS: FAMOTIDINE 20 MG TABLET PO SCH ×2 (08:12→20:12)
[2021-01-25] MEDS: atenoloL 50 MG TABLET PO SCH ×2 (08:12→20:12)
[2021-01-25] MEDS: ZINC GLUCONATE 50 MG TABLET PO SCH (08:12)
[2021-01-25] MEDS: CHOLECALCIFEROL 1,000 UNIT TABLET PO SCH (08:12)
[2021-01-25] MEDS: amLODIPine 5 MG TABLET PO SCH (08:12)
[2021-01-25] MEDS: CETIRIZINE 10 MG TABLET PO SCH (08:12)
[2021-01-25] MEDS: ASPIRIN EC 325 MG TABLET PO SCH (08:12)
[2021-01-25] MEDS ORDERED: FUROSEMIDE 40 MG/4 ML VIAL IV ONE (09:23)
[2021-01-25] MEDS: LEVOFLOXACIN INJ 750 MG/150 ML PREMIX IV SCH (09:31)
[2021-01-25] MEDS: MULTIVITAMIN LIQUID (CENTRUM) 60 ML BOTTLE PO SCH (10:00)
[2021-01-25] MEDS: MENTHOL/ZINC OXIDE OINT 71 GM JAR TOP SCH ×2 (10:00→20:19)
[2021-01-25] MEDS: VANCOMYCIN INJ 1,500 MG in SODIUM CHLORIDE 0.9% 500 ML IV SCH ×2 (13:45→23:38)
[2021-01-25] MEDS ORDERED: DIGOXIN 0.5 MG/2 ML AMP IV ONE ×3 (14:34→18:13)
[2021-01-25] MEDS ORDERED: DIGOXIN 0.5 MG/2 ML AMP ONE (14:37)
[2021-01-25] MEDS ORDERED: METOPROLOL TARTRATE 5 MG/5 ML VIAL IV ONE ×2 (16:51→16:55)
[2021-01-25] MEDS ORDERED: INSULIN GLARGINE 100 UNIT/ML SUBCUT SCH (21:00)
[2021-01-26] MEDS: ROCURONIUM 500 MG in SODIUM CHLORIDE 0.9% 500 ML IV PRN ×2 (00:10→14:03)
[2021-01-26] MEDS: ALBUTEROL INHALER 18 GM INH SCH ×4 (00:49→19:10)
[2021-01-26] MEDS: methylPREDNISolone SOD SUC 40 MG/1 ML VIAL IV SCH ×3 (00:50→17:43)
[2021-01-26 04:15] LABS: Calcium 8.3 MG/DL (8.5-10.1); Osmolality,Calculated 309.7 MOS/KG (273-304); Potassium 4.6 MMOL/L (3.5-5.1)
[2021-01-26 04:36] LABS: ABG Base Excess -4.5 MMOL/L (-2.5-2.5); ABG HCO3 20.3 MMOL/L (20-26); ABG Oxygen Saturation 69.1 % (95-100); ABG PCO2 57.2 MM HG (35-48); ABG PH 7.227 (7.35-7.45); ABG PO2 43.8 MM HG (80-95); ABG TCO2 22.3 MMOL/L (23-27)
[2021-01-26] MEDS: INSULIN REGULAR 100 UNIT/ML SUBCUT SCH ×4 (06:07→23:31)
[2021-01-26 06:51] LABS: Basophils % 0.2 % (0.0-0.8); Eosinophils % 0.1 % (0.00-10.9); Hematocrit 37.8 VOL% (35.7-47.0); Immature Granulocytes % 1.5 %; Immature Granulocytes Absolute 0.17 #; Lymphocytes # 0.5 10*3/uL (1.4-4.0); Lymphocytes % 4.5 % (21.3-54.2); Mean Corpuscular Volume 90.4 FL (87-102); Mean Platelet Volume 12.1 FL (9.6-12.0); Monocytes % 2.4 % (1.7-12.7); NRBC # 0.04 10*3/uL; Neutrophils % 91.3 % (38.7-73.9); Red Cell Distribution Width 17.9 % (9.3-17.3)
[2021-01-26 06:52] LABS: Hemoglobin 10.6 GM/DL (12.0-16.0); Platelet Count 452 T/CUMM (130-400); Red Blood Count 4.18 MC/CUMM (3.8-5.5)
[2021-01-26] MEDS: MIDAZOLAM 100 MG in SODIUM CHLORIDE 0.9% 80 ML IV PRN (06:52)
[2021-01-26 07:04] LABS: Anisocytosis 1+; Hypochromasia 1+; Lymphocytes 3 % (20-55); Microcytosis 1+; Segmented Neutrophils 95 % (50-85); Total Cells Counted 100
[2021-01-26 07:05] LABS: Platelet Estimate Increased
[2021-01-26] MEDS: CHOLECALCIFEROL 1,000 UNIT TABLET PO SCH (08:01)
[2021-01-26] MEDS: ASPIRIN EC 325 MG TABLET PO SCH (08:01)
[2021-01-26] MEDS: CETIRIZINE 10 MG TABLET PO SCH (08:01)
[2021-01-26] MEDS: LACTULOSE 20 GM/30 ML UDCUP PO SCH ×3 (08:01→23:31)
[2021-01-26] MEDS: ENOXAPARIN 60 MG/0.6 ML SYRINGE SUBCUT SCH ×2 (08:01→20:51)
[2021-01-26] MEDS: ASCORBIC ACID 500 MG TABLET PO SCH ×2 (08:02→20:49)
[2021-01-26] MEDS: amLODIPine 5 MG TABLET PO SCH (08:02)
[2021-01-26] MEDS: atenoloL 50 MG TABLET PO SCH ×2 (08:02→20:49)
[2021-01-26] MEDS: FAMOTIDINE 20 MG TABLET PO SCH ×2 (08:02→20:49)
[2021-01-26] MEDS: ZINC GLUCONATE 50 MG TABLET PO SCH (08:02)
[2021-01-26] MEDS: LEVOFLOXACIN INJ 750 MG/150 ML PREMIX IV SCH (08:05)
[2021-01-26] MEDS: MULTIVITAMIN LIQUID (CENTRUM) 60 ML BOTTLE PO SCH (08:58)
[2021-01-26] MEDS: MENTHOL/ZINC OXIDE OINT 71 GM JAR TOP SCH ×2 (08:58→20:51)
[2021-01-26] MEDS: MICAFUNGIN 100 MG in SODIUM CHLORIDE 0.9% 100 ML IV SCH (09:59)
[2021-01-26] MEDS: fentaNYL INJ 1,250 MCG in SODIUM CHLORIDE 0.9% 225 ML IV PRN ×2 (10:20→21:47)
[2021-01-26 10:41] LABS: ABG Base Excess -3.6 MMOL/L (-2.5-2.5); ABG HCO3 21.4 MMOL/L (20-26); ABG Oxygen Saturation 98.2 % (95-100); ABG PCO2 52.3 MM HG (35-48); ABG PH 7.265 (7.35-7.45); ABG TCO2 22.2 MMOL/L (23-27)
[2021-01-26] MEDS: VANCOMYCIN INJ 1,500 MG in SODIUM CHLORIDE 0.9% 500 ML IV SCH ×2 (11:40→23:31)
[2021-01-26] MEDS: DIGOXIN 0.125 MG TABLET PO SCH (14:07)
[2021-01-26] MEDS: INSULIN GLARGINE 100 UNIT/ML SUBCUT SCH (20:50)
[2021-01-27] MEDS: ALBUTEROL INHALER 18 GM INH SCH ×4 (01:09→20:14)
[2021-01-27] MEDS: methylPREDNISolone SOD SUC 40 MG/1 ML VIAL IV SCH ×3 (01:09→17:44)
[2021-01-27 04:20] LABS: ABG Base Excess -1.7 MMOL/L (-2.5-2.5); ABG HCO3 24.6 MMOL/L (20-26); ABG Oxygen Saturation 85.9 % (95-100); ABG PCO2 49.5 MM HG (35-48); ABG PH 7.314 (7.35-7.45); ABG PO2 56.2 MM HG (80-95); ABG TCO2 26.1 MMOL/L (23-27)
[2021-01-27] MEDS: fentaNYL INJ 2,500 MCG in SODIUM CHLORIDE 0.9% 75 ML IV PRN ×2 (04:31→15:32)
[2021-01-27 04:50] LABS: Calcium 8.5 MG/DL (8.5-10.1); Osmolality,Calculated 303.6 MOS/KG (273-304); Potassium 3.6 MMOL/L (3.5-5.1)
[2021-01-27 05:08] LABS: Basophils % 0.1 % (0.0-0.8); Eosinophils % 0.3 % (0.00-10.9); Immature Granulocytes % 1.5 %; Immature Granulocytes Absolute 0.17 #; Lymphocytes # 0.5 10*3/uL (1.4-4.0); Mean Corpuscular HGB Conc 30.4 GM/DL (32-36); Mean Corpuscular Volume 86.4 FL (87-102); Mean Platelet Volume 12.3 FL (9.6-12.0); Monocytes % 2.6 % (1.7-12.7); NRBC # 0.02 10*3/uL; Neutrophils % 91.5 % (38.7-73.9); Platelet Count 374 T/CUMM (130-400); Red Cell Distribution Width 16.4 % (9.3-17.3); White Blood Count 11.6 T/CUMM (4-12)
[2021-01-27 05:29] LABS: Hemoglobin 8.5 GM/DL (12.0-16.0); Red Blood Count 3.24 MC/CUMM (3.8-5.5)
[2021-01-27 05:43] LABS: Band Neutrophils 1 % (0-10); Lymphocytes 3 % (20-55); Segmented Neutrophils 95 % (50-85); Total Cells Counted 100
[2021-01-27 05:44] LABS: Hypochromasia 1+; Platelet Estimate Normal
[2021-01-27] MEDS: INSULIN REGULAR 100 UNIT/ML SUBCUT SCH ×4 (06:27→23:49)
[2021-01-27] MEDS: MIDAZOLAM 100 MG in SODIUM CHLORIDE 0.9% 80 ML IV PRN ×2 (06:33→18:56)
[2021-01-27] MEDS: ENOXAPARIN 60 MG/0.6 ML SYRINGE SUBCUT SCH ×2 (08:11→20:16)
[2021-01-27] MEDS: LACTULOSE 20 GM/30 ML UDCUP PO SCH ×3 (08:11→23:48)
[2021-01-27] MEDS: ASPIRIN EC 325 MG TABLET PO SCH (08:11)
[2021-01-27] MEDS: ASCORBIC ACID 500 MG TABLET PO SCH ×2 (08:12→20:16)
[2021-01-27] MEDS: CHOLECALCIFEROL 1,000 UNIT TABLET PO SCH (08:12)
[2021-01-27] MEDS: ZINC GLUCONATE 50 MG TABLET PO SCH (08:12)
[2021-01-27] MEDS: FAMOTIDINE 20 MG TABLET PO SCH ×2 (08:12→20:16)
[2021-01-27] MEDS: amLODIPine 5 MG TABLET PO SCH (08:12)
[2021-01-27] MEDS: atenoloL 50 MG TABLET PO SCH ×2 (08:12→20:16)
[2021-01-27] MEDS: CETIRIZINE 10 MG TABLET PO SCH (08:13)
[2021-01-27] MEDS: FUROSEMIDE 40 MG/4 ML VIAL IV SCH (08:18)
[2021-01-27] MEDS: MENTHOL/ZINC OXIDE OINT 71 GM JAR TOP SCH ×2 (09:13→20:14)
[2021-01-27] MEDS: LEVOFLOXACIN INJ 750 MG/150 ML PREMIX IV SCH (09:14)
[2021-01-27] MEDS: MULTIVITAMIN LIQUID (CENTRUM) 60 ML BOTTLE PO SCH (09:14)
[2021-01-27 10:13] LABS: ABG Base Excess 0.7 MMOL/L (-2.5-2.5); ABG PCO2 46.9 MM HG (35-48); ABG PH 7.359 (7.35-7.45); ABG TCO2 24.5 MMOL/L (23-27)
[2021-01-27] MEDS: MICAFUNGIN 100 MG in SODIUM CHLORIDE 0.9% 100 ML IV SCH (10:52)
[2021-01-27] MEDS: VANCOMYCIN INJ 1,500 MG in SODIUM CHLORIDE 0.9% 500 ML IV SCH ×2 (12:30→23:04)
[2021-01-27] MEDS: DIGOXIN 0.125 MG TABLET PO SCH (14:50)
[2021-01-27] MEDS: INSULIN GLARGINE 100 UNIT/ML SUBCUT SCH (20:16)
[2021-01-27] MEDS: ROCURONIUM 500 MG in SODIUM CHLORIDE 0.9% 500 ML IV PRN (21:52)
[2021-01-28] MEDS: ALBUTEROL INHALER 18 GM INH SCH ×4 (00:24→20:05)
[2021-01-28] MEDS: methylPREDNISolone SOD SUC 40 MG/1 ML VIAL IV SCH ×3 (00:47→16:51)
[2021-01-28 03:43] LABS: Basophils % 0.1 % (0.0-0.8); Eosinophils % 0.3 % (0.00-10.9); Hematocrit 25.5 VOL% (35.7-47.0); Hemoglobin 7.5 GM/DL (12.0-16.0); Immature Granulocytes % 5.3 %; Immature Granulocytes Absolute 0.57 #; Lymphocytes # 0.7 10*3/uL (1.4-4.0); Lymphocytes % 6.5 % (21.3-54.2); Mean Corpuscular HGB Conc 29.4 GM/DL (32-36); Mean Platelet Volume 11.5 FL (9.6-12.0); Monocytes % 2.7 % (1.7-12.7); NRBC # 0.04 10*3/uL; Neutrophils % 85.1 % (38.7-73.9); Platelet Count 355 T/CUMM (130-400); Red Cell Distribution Width 16.3 % (9.3-17.3); White Blood Count 10.7 T/CUMM (4-12)
[2021-01-28] MEDS: fentaNYL INJ 2,500 MCG in SODIUM CHLORIDE 0.9% 75 ML IV PRN ×2 (03:46→16:25)
[2021-01-28 03:59] LABS: Alanine Aminotransferase 30 U/L (13-56); Albumin 2.5 G/DL (3.4-5.0); Alkaline Phosphatase 35 U/L (45-117); Aspartate Amino Transferase 11 U/L (0-37); Bilirubin,Total < 0.39 MG/DL (0.20-1.00); Blood Urea Nitrogen 28 MG/DL (7-18); Calcium 8.3 MG/DL (8.5-10.1); Estimated Glom Filtration Rate 159 ML/MIN; Glucose 258 MG/DL (74-106); Potassium 3.5 MMOL/L (3.5-5.1); Total Protein 6.1 G/DL (6.4-8.2)
[2021-01-28 04:05] LABS: Osmolality,Calculated 300.8 MOS/KG (273-304); Sodium 144 MMOL/L (136-145)
[2021-01-28 04:08] LABS: Carbon Dioxide 28 MMOL/L (21-32)
[2021-01-28 04:32] LABS: Eosinophils 1 % (0-10); Hypochromasia 1+; Lymphocytes 6 % (20-55); Microcytosis 1+; Platelet Estimate Adequate; Segmented Neutrophils 92 % (50-85); Total Cells Counted 100
[2021-01-28 05:02] LABS: ABG Base Excess 1.3 MMOL/L (-2.5-2.5); ABG HCO3 26.4 MMOL/L (20-26); ABG Oxygen Saturation 98.3 % (95-100); ABG PCO2 44.9 MM HG (35-48); ABG PH 7.388 (7.35-7.45); ABG PO2 121.3 MM HG (80-95); ABG TCO2 27.8 MMOL/L (23-27)
[2021-01-28] MEDS: INSULIN REGULAR 100 UNIT/ML SUBCUT SCH (06:10)
[2021-01-28] MEDS: MIDAZOLAM 100 MG in SODIUM CHLORIDE 0.9% 80 ML IV PRN ×2 (07:52→23:06)
[2021-01-28] MEDS: CHOLECALCIFEROL 1,000 UNIT TABLET PO SCH (08:35)
[2021-01-28] MEDS: ZINC GLUCONATE 50 MG TABLET PO SCH (08:35)
[2021-01-28] MEDS: ASPIRIN EC 325 MG TABLET PO SCH (08:35)
[2021-01-28] MEDS: LACTULOSE 20 GM/30 ML UDCUP PO SCH ×2 (08:35→15:54)
[2021-01-28] MEDS: ASCORBIC ACID 500 MG TABLET PO SCH ×2 (08:35→20:01)
[2021-01-28] MEDS: CETIRIZINE 10 MG TABLET PO SCH (08:35)
[2021-01-28] MEDS: atenoloL 50 MG TABLET PO SCH ×2 (08:35→20:06)
[2021-01-28] MEDS: FAMOTIDINE 20 MG TABLET PO SCH ×2 (08:35→20:06)
[2021-01-28] MEDS: MULTIVITAMIN LIQUID (CENTRUM) 60 ML BOTTLE PO SCH (08:36)
[2021-01-28] MEDS: FUROSEMIDE 40 MG/4 ML VIAL IV SCH (08:36)
[2021-01-28] MEDS: ENOXAPARIN 60 MG/0.6 ML SYRINGE SUBCUT SCH ×2 (08:36→20:04)
[2021-01-28] MEDS: MENTHOL/ZINC OXIDE OINT 71 GM JAR TOP SCH ×2 (08:36→20:05)
[2021-01-28] MEDS: amLODIPine 5 MG TABLET PO SCH (08:36)
[2021-01-28] MEDS: MICAFUNGIN 100 MG in SODIUM CHLORIDE 0.9% 100 ML IV SCH (09:36)
[2021-01-28] MEDS: LEVOFLOXACIN INJ 750 MG/150 ML PREMIX IV SCH (09:36)
[2021-01-28] MEDS: FLUCONAZOLE INJ 200 MG/100 ML PREMIX IV SCH (10:22)
[2021-01-28] MEDS ORDERED: INSULIN REGULAR 100 UNIT/ML SUBCUT ONE (11:32)
[2021-01-28] MEDS ORDERED: SODIUM CHLORIDE 0.9% 1,000 ML IV PRN (11:34)
[2021-01-28] MEDS: DIGOXIN 0.125 MG TABLET PO SCH (13:52)
[2021-01-28] MEDS ORDERED: INSULIN LISPRO 100 UNIT/ML SUBCUT SCH ×2 (14:00→16:00)
[2021-01-28] MEDS: MINERAL OIL/PETROLATUM OPH OINT 3.5 GM TUBE BOTH EYES SCH ×2 (15:54→20:10)
[2021-01-28] MEDS: INSULIN LISPRO 100 UNIT/ML SUBCUT SCH (20:04)
[2021-01-28] MEDS: INSULIN GLARGINE 100 UNIT/ML SUBCUT SCH (20:05)
[2021-01-29] MEDS: LACTULOSE 20 GM/30 ML UDCUP PO SCH ×3 (00:56→16:21)
[2021-01-29] MEDS: INSULIN LISPRO 100 UNIT/ML SUBCUT SCH ×6 (00:56→21:08)
[2021-01-29] MEDS: ALBUTEROL INHALER 18 GM INH SCH ×4 (00:56→19:01)
[2021-01-29] MEDS: methylPREDNISolone SOD SUC 40 MG/1 ML VIAL IV SCH ×2 (00:56→11:57)
[2021-01-29 05:05] LABS: Basophils # 0.1 10*3/uL (0.0-0.2); Basophils % 0.5 % (0.0-0.8); Eosinophils # 0.1 10*3/uL (0.0-0.87); Eosinophils % 0.3 % (0.00-10.9); Hematocrit 30.1 VOL% (35.7-47.0); Immature Granulocytes % 7.7 %; Lymphocytes # 1.2 10*3/uL (1.4-4.0); Lymphocytes % 7.7 % (21.3-54.2); Mean Corpuscular HGB Conc 31.6 GM/DL (32-36); Mean Corpuscular Volume 85.3 FL (87-102); Mean Platelet Volume 11.3 FL (9.6-12.0); Monocytes % 3.5 % (1.7-12.7); NRBC # 0.13 10*3/uL; Neutrophils % 80.3 % (38.7-73.9); Platelet Count 422 T/CUMM (130-400); Red Blood Count 3.53 MC/CUMM (3.8-5.5); Red Cell Distribution Width 16.8 % (9.3-17.3)
[2021-01-29 05:07] LABS: Hemoglobin 9.5 GM/DL (12.0-16.0); White Blood Count 15.5 T/CUMM (4-12)
[2021-01-29 05:09] LABS: ABG HCO3 27.1 MMOL/L (20-26); ABG Oxygen Saturation 97.4 % (95-100); ABG PCO2 44.5 MM HG (35-48); ABG PH 7.402 (7.35-7.45); ABG PO2 105.9 MM HG (80-95); ABG TCO2 28.4 MMOL/L (23-27)
[2021-01-29 05:13] LABS: Alanine Aminotransferase 29 U/L (13-56); Albumin 2.4 G/DL (3.4-5.0); Alkaline Phosphatase 35 U/L (45-117); Aspartate Amino Transferase 14 U/L (0-37); Bilirubin,Total < 0.39 MG/DL (0.20-1.00); Blood Urea Nitrogen 26 MG/DL (7-18); Calcium 8.6 MG/DL (8.5-10.1); Carbon Dioxide 28 MMOL/L (21-32); Estimated Glom Filtration Rate 160 ML/MIN; Ferritin 56.7 ng/ml (8-252); Glucose 180 MG/DL (74-106); Hypochromasia 1+; Lymphocytes 14 % (20-55); Microcytosis 1+; Osmolality,Calculated 295.8 MOS/KG (273-304); Platelet Estimate Adequate; Potassium 3.3 MMOL/L (3.5-5.1); Segmented Neutrophils 85 % (50-85); Sodium 144 MMOL/L (136-145); Total Cells Counted 100; Total Protein 6.2 G/DL (6.4-8.2)
[2021-01-29] MEDS: fentaNYL INJ 2,500 MCG in SODIUM CHLORIDE 0.9% 75 ML IV PRN ×2 (05:32→18:56)
[2021-01-29] MEDS: FAMOTIDINE 20 MG TABLET PO SCH ×2 (08:19→21:06)
[2021-01-29] MEDS: ASCORBIC ACID 500 MG TABLET PO SCH ×2 (08:19→21:05)
[2021-01-29] MEDS: FUROSEMIDE 40 MG/4 ML VIAL IV SCH (08:20)
[2021-01-29] MEDS: atenoloL 50 MG TABLET PO SCH ×2 (08:20→21:05)
[2021-01-29] MEDS: CHOLECALCIFEROL 1,000 UNIT TABLET PO SCH (08:20)
[2021-01-29] MEDS: ASPIRIN EC 325 MG TABLET PO SCH (08:20)
[2021-01-29] MEDS: amLODIPine 5 MG TABLET PO SCH (08:20)
[2021-01-29] MEDS: ZINC GLUCONATE 50 MG TABLET PO SCH (08:20)
[2021-01-29] MEDS: CETIRIZINE 10 MG TABLET PO SCH (08:20)
[2021-01-29] MEDS: ENOXAPARIN 60 MG/0.6 ML SYRINGE SUBCUT SCH ×2 (08:22→21:07)
[2021-01-29] MEDS: ASPIRIN 325 MG TABLET NG SCH (09:00)
[2021-01-29] MEDS: MENTHOL/ZINC OXIDE OINT 71 GM JAR TOP SCH ×2 (09:00→21:05)
[2021-01-29] MEDS: MULTIVITAMIN LIQUID (CENTRUM) 60 ML BOTTLE PO SCH (09:01)
[2021-01-29] MEDS: MINERAL OIL/PETROLATUM OPH OINT 3.5 GM TUBE BOTH EYES SCH ×3 (09:01→21:05)
[2021-01-29] MEDS: FLUCONAZOLE INJ 200 MG/100 ML PREMIX IV SCH (10:05)
[2021-01-29] MEDS: MIDAZOLAM 100 MG in SODIUM CHLORIDE 0.9% 80 ML IV PRN ×2 (11:08→23:51)
[2021-01-29] MEDS: POTASSIUM CHLORIDE RIDER 10 MEQ/100 ML PREMIX IV PRN (11:40)
[2021-01-29] MEDS: DIGOXIN 0.125 MG TABLET PO SCH (12:03)
[2021-01-29] MEDS: INSULIN GLARGINE 100 UNIT/ML SUBCUT SCH (21:08)
[2021-01-30] MEDS: INSULIN LISPRO 100 UNIT/ML SUBCUT SCH ×6 (00:38→21:32)
[2021-01-30] MEDS: ALBUTEROL INHALER 18 GM INH SCH ×4 (01:10→21:24)
[2021-01-30] MEDS: LACTULOSE 20 GM/30 ML UDCUP PO SCH ×3 (01:13→16:07)
[2021-01-30] MEDS: methylPREDNISolone SOD SUC 40 MG/1 ML VIAL IV SCH ×2 (01:14→12:19)
[2021-01-30] MEDS ORDERED: POTASSIUM CHLORIDE RIDER 20 MEQ/100 ML PREMIX IV ONE (01:52)
[2021-01-30] MEDS: POTASSIUM CHLORIDE RIDER 20 MEQ/100 ML PREMIX IV PRN (02:02)
[2021-01-30 04:38] LABS: Basophils # 0.1 10*3/uL (0.0-0.2); Basophils % 0.4 % (0.0-0.8); Eosinophils % 0.2 % (0.00-10.9); Hematocrit 31.2 VOL% (35.7-47.0); Hemoglobin 9.7 GM/DL (12.0-16.0); Immature Granulocytes % 10.2 %; Immature Granulocytes Absolute 1.59 #; Lymphocytes # 1.3 10*3/uL (1.4-4.0); Lymphocytes % 8.4 % (21.3-54.2); Mean Corpuscular HGB Conc 31.1 GM/DL (32-36); Mean Corpuscular Volume 83.6 FL (87-102); Mean Platelet Volume 10.8 FL (9.6-12.0); Monocytes % 3.6 % (1.7-12.7); Neutrophils % 77.2 % (38.7-73.9); Platelet Count 413 T/CUMM (130-400); Red Blood Count 3.73 MC/CUMM (3.8-5.5); Red Cell Distribution Width 16.9 % (9.3-17.3); White Blood Count 15.6 T/CUMM (4-12)
[2021-01-30 04:47] LABS: ABG Base Excess 4.3 MMOL/L (-2.5-2.5); ABG HCO3 28.2 MMOL/L (20-26); ABG Oxygen Saturation 98.1 % (95-100); ABG PCO2 39.5 MM HG (35-48); ABG PH 7.472 (7.35-7.45); ABG TCO2 29.4 MMOL/L (23-27)
[2021-01-30 05:00] LABS: Hypochromasia 1+; Lymphocytes 9 % (20-55); Microcytosis 1+; Nucleated Red Blood Cells 1 (0-5); Platelet Estimate Adequate; Segmented Neutrophils 87 % (50-85); Total Cells Counted 100
[2021-01-30 05:01] LABS: Albumin 2.5 G/DL (3.4-5.0); Bilirubin,Total 0.4 MG/DL (0.20-1.00); Calcium 8.6 MG/DL (8.5-10.1); Osmolality,Calculated 293.1 MOS/KG (273-304); Potassium 3.3 MMOL/L (3.5-5.1); Total Protein 6.3 G/DL (6.4-8.2)
[2021-01-30 05:08] LABS: Ferritin 38.9 ng/ml (8-252)
[2021-01-30] MEDS: fentaNYL INJ 2,500 MCG in SODIUM CHLORIDE 0.9% 75 ML IV PRN ×2 (08:27→21:48)
[2021-01-30] MEDS: ZINC GLUCONATE 50 MG TABLET PO SCH (09:00)
[2021-01-30] MEDS: ASPIRIN 325 MG TABLET NG SCH (09:00)
[2021-01-30] MEDS: amLODIPine 5 MG TABLET PO SCH (09:00)
[2021-01-30] MEDS: CHOLECALCIFEROL 1,000 UNIT TABLET PO SCH (09:00)
[2021-01-30] MEDS: FAMOTIDINE 20 MG TABLET PO SCH ×2 (09:00→21:24)
[2021-01-30] MEDS: atenoloL 50 MG TABLET PO SCH ×2 (09:00→21:24)
[2021-01-30] MEDS: CETIRIZINE 10 MG TABLET PO SCH (09:00)
[2021-01-30] MEDS: ENOXAPARIN 60 MG/0.6 ML SYRINGE SUBCUT SCH ×2 (09:01→21:27)
[2021-01-30] MEDS: FUROSEMIDE 40 MG/4 ML VIAL IV SCH (09:05)
[2021-01-30] MEDS: MENTHOL/ZINC OXIDE OINT 71 GM JAR TOP SCH ×2 (10:26→21:24)
[2021-01-30] MEDS: MINERAL OIL/PETROLATUM OPH OINT 3.5 GM TUBE BOTH EYES SCH ×3 (10:27→21:32)
[2021-01-30] MEDS: ASCORBIC ACID 500 MG TABLET PO SCH ×2 (10:30→21:24)
[2021-01-30] MEDS: FLUCONAZOLE INJ 200 MG/100 ML PREMIX IV SCH (11:14)
[2021-01-30] MEDS: ASPIRIN EC 81 MG TABLET PO SCH (12:18)
[2021-01-30] MEDS: MIDAZOLAM 100 MG in SODIUM CHLORIDE 0.9% 80 ML IV PRN (13:15)
[2021-01-30] MEDS: DIGOXIN 0.125 MG TABLET PO SCH (14:38)
[2021-01-30] MEDS: MULTIVITAMIN LIQUID (CENTRUM) 60 ML BOTTLE PO SCH (14:38)
[2021-01-30] MEDS: INSULIN GLARGINE 100 UNIT/ML SUBCUT SCH (21:32)
[2021-01-31] MEDS: LACTULOSE 20 GM/30 ML UDCUP PO SCH ×4 (00:06→23:31)
[2021-01-31] MEDS: methylPREDNISolone SOD SUC 40 MG/1 ML VIAL IV SCH ×3 (00:07→22:03)
[2021-01-31] MEDS: MIDAZOLAM 100 MG in SODIUM CHLORIDE 0.9% 80 ML IV PRN ×2 (01:39→16:27)
[2021-01-31] MEDS: ALBUTEROL INHALER 18 GM INH SCH ×4 (01:40→20:25)
[2021-01-31 03:39] LABS: Basophils % 0.2 % (0.0-0.8); Eosinophils % 0.2 % (0.00-10.9); Hematocrit 30.8 VOL% (35.7-47.0); Hemoglobin 9.3 GM/DL (12.0-16.0); Immature Granulocytes % 7.6 %; Immature Granulocytes Absolute 0.95 #; Mean Corpuscular HGB Conc 30.2 GM/DL (32-36); Mean Corpuscular Volume 86.5 FL (87-102); Monocytes % 2.7 % (1.7-12.7); NRBC # 0.12 10*3/uL; Neutrophils % 81.3 % (38.7-73.9); Platelet Count 388 T/CUMM (130-400); Red Blood Count 3.56 MC/CUMM (3.8-5.5); Red Cell Distribution Width 17.2 % (9.3-17.3); White Blood Count 12.5 T/CUMM (4-12)
[2021-01-31 03:53] LABS: ABG Base Excess 5.2 MMOL/L (-2.5-2.5); ABG HCO3 29.1 MMOL/L (20-26); ABG Oxygen Saturation 96.8 % (95-100); ABG PCO2 41.1 MM HG (35-48); ABG PH 7.463 (7.35-7.45); ABG PO2 83.7 MM HG (80-95); ABG TCO2 26.7 MMOL/L (23-27)
[2021-01-31 03:59] LABS: Calcium 8.5 MG/DL (8.5-10.1); Osmolality,Calculated 286.5 MOS/KG (273-304); Potassium 3.4 MMOL/L (3.5-5.1)
[2021-01-31 04:00] LABS: Lymphocytes 13 % (20-55); Nucleated Red Blood Cells 2 (0-5); Segmented Neutrophils 84 % (50-85); Total Cells Counted 100
[2021-01-31 04:01] LABS: Hypochromasia 1+; Microcytosis 1+; Platelet Estimate Adequate
[2021-01-31] MEDS: INSULIN LISPRO 100 UNIT/ML SUBCUT SCH ×7 (05:04→23:31)
[2021-01-31] MEDS: CHOLECALCIFEROL 1,000 UNIT TABLET PO SCH (08:34)
[2021-01-31] MEDS: ASCORBIC ACID 500 MG TABLET PO SCH ×2 (08:34→20:25)
[2021-01-31] MEDS: amLODIPine 5 MG TABLET PO SCH (08:34)
[2021-01-31] MEDS: atenoloL 50 MG TABLET PO SCH ×2 (08:34→20:47)
[2021-01-31] MEDS: FUROSEMIDE 40 MG/4 ML VIAL IV SCH (08:35)
[2021-01-31] MEDS: ZINC GLUCONATE 50 MG TABLET PO SCH (08:35)
[2021-01-31] MEDS: FAMOTIDINE 20 MG TABLET PO SCH ×2 (08:35→20:25)
[2021-01-31] MEDS: ASPIRIN EC 81 MG TABLET PO SCH (08:35)
[2021-01-31] MEDS: ENOXAPARIN 60 MG/0.6 ML SYRINGE SUBCUT SCH ×2 (08:35→20:47)
[2021-01-31] MEDS: CETIRIZINE 10 MG TABLET PO SCH (08:35)
[2021-01-31] MEDS: fentaNYL INJ 2,500 MCG in SODIUM CHLORIDE 0.9% 75 ML IV PRN (09:58)
[2021-01-31] MEDS: MULTIVITAMIN LIQUID (CENTRUM) 60 ML BOTTLE PO SCH (10:39)
[2021-01-31] MEDS: MINERAL OIL/PETROLATUM OPH OINT 3.5 GM TUBE BOTH EYES SCH ×3 (10:39→20:44)
[2021-01-31] MEDS: MENTHOL/ZINC OXIDE OINT 71 GM JAR TOP SCH ×2 (10:39→20:44)
[2021-01-31] MEDS: ASPIRIN 325 MG TABLET NG SCH (10:40)
[2021-01-31] MEDS: FLUCONAZOLE INJ 200 MG/100 ML PREMIX IV SCH (11:34)
[2021-01-31] MEDS: DIGOXIN 0.125 MG TABLET PO SCH (14:15)
[2021-01-31] MEDS: POTASSIUM CHLORIDE RIDER 20 MEQ/100 ML PREMIX IV PRN (17:15)
[2021-01-31] MEDS: INSULIN GLARGINE 100 UNIT/ML SUBCUT SCH (20:28)
[2021-01-31] MEDS: POTASSIUM CHLORIDE RIDER 10 MEQ/100 ML PREMIX IV PRN (22:03)
[2021-02-01] MEDS: fentaNYL INJ 2,500 MCG in SODIUM CHLORIDE 0.9% 75 ML IV PRN (01:43)
[2021-02-01] MEDS: ALBUTEROL INHALER 18 GM INH SCH ×4 (01:43→21:16)
[2021-02-01 03:05] LABS: ABG Base Excess 1.8 MMOL/L (-2.5-2.5); ABG HCO3 25.5 MMOL/L (20-26); ABG PCO2 36.3 MM HG (35-48); ABG PH 7.464 (7.35-7.45); ABG PO2 88.3 MM HG (80-95); ABG TCO2 26.6 MMOL/L (23-27)
[2021-02-01] MEDS: INSULIN LISPRO 100 UNIT/ML SUBCUT SCH ×6 (04:00→23:39)
[2021-02-01 04:13] LABS: Basophils % 0.1 % (0.0-0.8); Eosinophils % 0.1 % (0.00-10.9); Hematocrit 31.3 VOL% (35.7-47.0); Hemoglobin 9.7 GM/DL (12.0-16.0); Immature Granulocytes % 5.7 %; Immature Granulocytes Absolute 0.76 #; Lymphocytes # 0.8 10*3/uL (1.4-4.0); Lymphocytes % 5.9 % (21.3-54.2); Monocytes % 2.1 % (1.7-12.7); NRBC # 0.12 10*3/uL; Neutrophils % 86.1 % (38.7-73.9); Platelet Count 379 T/CUMM (130-400); Red Blood Count 3.64 MC/CUMM (3.8-5.5); Red Cell Distribution Width 18.1 % (9.3-17.3); White Blood Count 13.4 T/CUMM (4-12)
[2021-02-01 04:38] LABS: Calcium 8.7 MG/DL (8.5-10.1); Ferritin 37.6 ng/ml (8-252); Osmolality,Calculated 275.4 MOS/KG (273-304); Potassium 3.8 MMOL/L (3.5-5.1)
[2021-02-01 04:49] LABS: Band Neutrophils 1 % (0-10); Hypochromasia 1+; Lymphocytes 7 % (20-55); Microcytosis Slight; Nucleated Red Blood Cells 2 (0-5); Platelet Estimate Adequate; Segmented Neutrophils 89 % (50-85); Total Cells Counted 100
[2021-02-01] MEDS: MIDAZOLAM 100 MG in SODIUM CHLORIDE 0.9% 80 ML IV PRN ×2 (05:07→18:37)
[2021-02-01] MEDS: methylPREDNISolone SOD SUC 40 MG/1 ML VIAL IV SCH ×2 (08:50→21:18)
[2021-02-01] MEDS: ASPIRIN EC 81 MG TABLET PO SCH (08:57)
[2021-02-01] MEDS: LACTULOSE 20 GM/30 ML UDCUP PO SCH (08:57)
[2021-02-01] MEDS: ENOXAPARIN 60 MG/0.6 ML SYRINGE SUBCUT SCH ×2 (08:57→21:19)
[2021-02-01] MEDS: amLODIPine 5 MG TABLET PO SCH (08:57)
[2021-02-01] MEDS: MENTHOL/ZINC OXIDE OINT 71 GM JAR TOP SCH ×2 (08:57→21:16)
[2021-02-01] MEDS: FAMOTIDINE 20 MG TABLET PO SCH ×2 (08:58→21:16)
[2021-02-01] MEDS: atenoloL 50 MG TABLET PO SCH ×2 (08:59→21:16)
[2021-02-01] MEDS: ASCORBIC ACID 500 MG TABLET PO SCH ×2 (08:59→21:16)
[2021-02-01] MEDS: CHOLECALCIFEROL 1,000 UNIT TABLET PO SCH (09:00)
[2021-02-01] MEDS: ZINC GLUCONATE 50 MG TABLET PO SCH (09:00)
[2021-02-01] MEDS: FLUCONAZOLE INJ 200 MG/100 ML PREMIX IV SCH (09:01)
[2021-02-01] MEDS: MINERAL OIL/PETROLATUM OPH OINT 3.5 GM TUBE BOTH EYES SCH ×3 (09:26→21:16)
[2021-02-01] MEDS: MULTIVITAMIN LIQUID (CENTRUM) 60 ML BOTTLE PO SCH (09:26)
[2021-02-01] MEDS: CETIRIZINE 10 MG TABLET PO SCH (10:06)
[2021-02-01] MEDS: DIGOXIN 0.125 MG TABLET PO SCH (12:49)
[2021-02-01] MEDS ORDERED: LACTULOSE 20 GM/30 ML UDCUP PO PRN (12:57)
[2021-02-01] MEDS ORDERED: DEXTROSE 50% 25 GM/50 ML VIAL IV PRN (14:58)
[2021-02-01] MEDS: INSULIN GLARGINE 100 UNIT/ML SUBCUT SCH (21:19)
[2021-02-02] MEDS: ALBUTEROL INHALER 18 GM INH SCH ×4 (00:40→18:26)
[2021-02-02] MEDS: fentaNYL INJ 2,500 MCG in SODIUM CHLORIDE 0.9% 75 ML IV PRN ×2 (01:21→18:26)
[2021-02-02] MEDS: INSULIN LISPRO 100 UNIT/ML SUBCUT SCH ×5 (04:30→20:08)
[2021-02-02 05:22] LABS: Basophils % 0.2 % (0.0-0.8); Hematocrit 34.6 VOL% (35.7-47.0); Hemoglobin 10.9 GM/DL (12.0-16.0); Immature Granulocytes % 4.6 %; Immature Granulocytes Absolute 0.81 #; Lymphocytes # 0.8 10*3/uL (1.4-4.0); Lymphocytes % 4.6 % (21.3-54.2); Mean Corpuscular HGB Conc 31.5 GM/DL (32-36); Mean Corpuscular Volume 86.7 FL (87-102); Mean Platelet Volume 11.2 FL (9.6-12.0); Monocytes % 1.9 % (1.7-12.7); NRBC # 0.13 10*3/uL; Neutrophils % 88.7 % (38.7-73.9); Platelet Count 411 T/CUMM (130-400); Red Blood Count 3.99 MC/CUMM (3.8-5.5); Red Cell Distribution Width 19.1 % (9.3-17.3); White Blood Count 17.7 T/CUMM (4-12)
[2021-02-02 05:30] LABS: ABG Base Excess 1.1 MMOL/L (-2.5-2.5); ABG HCO3 25.4 MMOL/L (20-26); ABG Oxygen Saturation 93.5 % (95-100); ABG PH 7.431 (7.35-7.45); ABG PO2 72.6 MM HG (80-95); ABG TCO2 26.6 MMOL/L (23-27)
[2021-02-02 05:51] LABS: Calcium 9.3 MG/DL (8.5-10.1); Potassium 4.5 MMOL/L (3.5-5.1)
[2021-02-02] MEDS: MIDAZOLAM 100 MG in SODIUM CHLORIDE 0.9% 80 ML IV PRN ×2 (06:39→20:20)
[2021-02-02] MEDS: ENOXAPARIN 60 MG/0.6 ML SYRINGE SUBCUT SCH ×2 (08:36→20:09)
[2021-02-02] MEDS: CHOLECALCIFEROL 1,000 UNIT TABLET PO SCH (08:36)
[2021-02-02] MEDS: methylPREDNISolone SOD SUC 40 MG/1 ML VIAL IV SCH ×2 (08:36→20:07)
[2021-02-02] MEDS: CETIRIZINE 10 MG TABLET PO SCH (08:37)
[2021-02-02] MEDS: amLODIPine 5 MG TABLET PO SCH (08:37)
[2021-02-02] MEDS: atenoloL 50 MG TABLET PO SCH ×2 (08:37→20:07)
[2021-02-02] MEDS: ASCORBIC ACID 500 MG TABLET PO SCH ×2 (08:37→20:07)
[2021-02-02] MEDS: MINERAL OIL/PETROLATUM OPH OINT 3.5 GM TUBE BOTH EYES SCH (08:37)
[2021-02-02] MEDS: MENTHOL/ZINC OXIDE OINT 71 GM JAR TOP SCH ×2 (08:37→20:10)
[2021-02-02] MEDS: ASPIRIN EC 81 MG TABLET PO SCH (08:37)
[2021-02-02] MEDS: MULTIVITAMIN LIQUID (CENTRUM) 60 ML BOTTLE PO SCH (08:37)
[2021-02-02] MEDS: ZINC GLUCONATE 50 MG TABLET PO SCH (08:37)
[2021-02-02] MEDS: FAMOTIDINE 20 MG TABLET PO SCH ×2 (08:39→20:07)
[2021-02-02] MEDS ORDERED: DEXMEDETOMIDINE 200 MCG in SODIUM CHLORIDE 0.9% 48 ML IV PRN (09:20)
[2021-02-02 09:23] LABS: Hypochromasia 1+; Lymphocytes 3 % (20-55); Microcytosis Slight; Nucleated Red Blood Cells 1 (0-5); Platelet Estimate Normal; Segmented Neutrophils 94 % (50-85); Total Cells Counted 100
[2021-02-02] MEDS: FUROSEMIDE 40 MG/4 ML VIAL IV SCH ×2 (09:34→20:37)
[2021-02-02] MEDS: FLUCONAZOLE INJ 200 MG/100 ML PREMIX IV SCH (09:34)
[2021-02-02 12:00] LABS: Alanine Aminotransferase 41 U/L (13-56); Albumin 2.8 G/DL (3.4-5.0); Alkaline Phosphatase 45 U/L (45-117); Aspartate Amino Transferase 25 U/L (0-37); Bilirubin,Direct < 0.100 MG/DL (0.0-0.20); Bilirubin,Indirect 0.3 MG/DL (0.0-1.0); Bilirubin,Total < 0.39 MG/DL (0.20-1.00)
[2021-02-02] MEDS: DIGOXIN 0.125 MG TABLET PO SCH (12:06)
[2021-02-02] MEDS: INSULIN GLARGINE 100 UNIT/ML SUBCUT SCH (20:09)
[2021-02-03] MEDS: INSULIN LISPRO 100 UNIT/ML SUBCUT SCH ×7 (00:46→20:49)
[2021-02-03] MEDS: ALBUTEROL INHALER 18 GM INH SCH ×4 (00:49→18:05)
[2021-02-03 04:37] LABS: Basophils % 0.1 % (0.0-0.8); Eosinophils % 0.1 % (0.00-10.9); Hematocrit 35.5 VOL% (35.7-47.0); Hemoglobin 10.8 GM/DL (12.0-16.0); Immature Granulocytes % 1.8 %; Immature Granulocytes Absolute 0.29 #; Lymphocytes # 0.8 10*3/uL (1.4-4.0); Lymphocytes % 5.1 % (21.3-54.2); Mean Corpuscular HGB Conc 30.4 GM/DL (32-36); Mean Corpuscular Volume 86.4 FL (87-102); Mean Platelet Volume 10.9 FL (9.6-12.0); Monocytes % 1.2 % (1.7-12.7); NRBC # 0.06 10*3/uL; Neutrophils % 91.7 % (38.7-73.9); Platelet Count 389 T/CUMM (130-400); Red Blood Count 4.11 MC/CUMM (3.8-5.5); Red Cell Distribution Width 18.7 % (9.3-17.3); White Blood Count 16.1 T/CUMM (4-12)
[2021-02-03] MEDS: fentaNYL INJ 2,500 MCG in SODIUM CHLORIDE 0.9% 75 ML IV PRN ×2 (04:52→16:15)
[2021-02-03 04:54] LABS: ABG Base Excess 2.3 MMOL/L (-2.5-2.5); ABG HCO3 26.5 MMOL/L (20-26); ABG Oxygen Saturation 96.9 % (95-100); ABG PCO2 39.7 MM HG (35-48); ABG PH 7.442 (7.35-7.45); ABG PO2 95.3 MM HG (80-95); ABG TCO2 27.7 MMOL/L (23-27)
[2021-02-03 05:04] LABS: Albumin 2.8 G/DL (3.4-5.0); Calcium 9.2 MG/DL (8.5-10.1); Ferritin 41.6 ng/ml (8-252); Osmolality,Calculated 277.2 MOS/KG (273-304); Potassium 4.5 MMOL/L (3.5-5.1); Total Protein 7.3 G/DL (6.4-8.2)
[2021-02-03] MEDS: MIDAZOLAM 100 MG in SODIUM CHLORIDE 0.9% 80 ML IV PRN ×2 (06:06→16:53)
[2021-02-03] MEDS: ENOXAPARIN 60 MG/0.6 ML SYRINGE SUBCUT SCH ×2 (08:48→20:50)
[2021-02-03] MEDS: CHOLECALCIFEROL 1,000 UNIT TABLET PO SCH (08:49)
[2021-02-03] MEDS: FUROSEMIDE 40 MG/4 ML VIAL IV SCH ×2 (08:49→20:50)
[2021-02-03] MEDS: ASCORBIC ACID 500 MG TABLET PO SCH ×2 (08:49→20:44)
[2021-02-03] MEDS: methylPREDNISolone SOD SUC 40 MG/1 ML VIAL IV SCH ×2 (08:49→20:46)
[2021-02-03] MEDS: amLODIPine 5 MG TABLET PO SCH (08:50)
[2021-02-03] MEDS: CETIRIZINE 10 MG TABLET PO SCH (08:50)
[2021-02-03] MEDS: ASPIRIN EC 81 MG TABLET PO SCH (08:50)
[2021-02-03] MEDS: atenoloL 50 MG TABLET PO SCH ×2 (08:50→20:44)
[2021-02-03] MEDS: ZINC GLUCONATE 50 MG TABLET PO SCH (08:50)
[2021-02-03] MEDS: FAMOTIDINE 20 MG TABLET PO SCH ×2 (08:50→20:44)
[2021-02-03] MEDS: MULTIVITAMIN LIQUID (CENTRUM) 60 ML BOTTLE PO SCH (08:51)
[2021-02-03] MEDS: MENTHOL/ZINC OXIDE OINT 71 GM JAR TOP SCH ×2 (08:51→20:50)
[2021-02-03] MEDS: FLUCONAZOLE INJ 200 MG/100 ML PREMIX IV SCH (09:06)
[2021-02-03 10:28] LABS: Band Neutrophils 1 % (0-10); Lymphocytes 4 % (20-55); Platelet Estimate Normal; Segmented Neutrophils 94 % (50-85); Total Cells Counted 100
[2021-02-03 10:29] LABS: Hypochromasia 2+
[2021-02-03] MEDS: DIGOXIN 0.125 MG TABLET PO SCH (12:50)
[2021-02-03] MEDS: INSULIN GLARGINE 100 UNIT/ML SUBCUT SCH (20:48)
[2021-02-03] MEDS: QUEtiapine 25 MG TABLET PO SCH (22:42)
[2021-02-04] MEDS: ALBUTEROL INHALER 18 GM INH SCH ×4 (00:09→20:36)
[2021-02-04] MEDS: INSULIN LISPRO 100 UNIT/ML SUBCUT SCH ×6 (00:51→20:35)
[2021-02-04] MEDS: fentaNYL INJ 2,500 MCG in SODIUM CHLORIDE 0.9% 75 ML IV PRN ×3 (01:35→19:57)
[2021-02-04] MEDS: MIDAZOLAM 100 MG in SODIUM CHLORIDE 0.9% 80 ML IV PRN ×2 (03:30→13:45)
[2021-02-04 04:40] LABS: Basophils % 0.1 % (0.0-0.8); Hemoglobin 10.6 GM/DL (12.0-16.0); Immature Granulocytes % 1.4 %; Immature Granulocytes Absolute 0.21 #; Lymphocytes # 0.9 10*3/uL (1.4-4.0); Lymphocytes % 6.3 % (21.3-54.2); Mean Corpuscular HGB Conc 31.2 GM/DL (32-36); Mean Corpuscular Volume 84.8 FL (87-102); Mean Platelet Volume 10.6 FL (9.6-12.0); Monocytes % 1.7 % (1.7-12.7); NRBC # 0.03 10*3/uL; Neutrophils % 90.5 % (38.7-73.9); Platelet Count 341 T/CUMM (130-400); Red Blood Count 4.01 MC/CUMM (3.8-5.5); Red Cell Distribution Width 18.3 % (9.3-17.3)
[2021-02-04 04:48] LABS: Osmolality,Calculated 281.2 MOS/KG (273-304); Potassium 4.8 MMOL/L (3.5-5.1)
[2021-02-04 05:06] LABS: ABG Base Excess 4.4 MMOL/L (-2.5-2.5); ABG HCO3 28.3 MMOL/L (20-26); ABG Oxygen Saturation 93.3 % (95-100); ABG PCO2 40.5 MM HG (35-48); ABG PH 7.457 (7.35-7.45); ABG PO2 69.9 MM HG (80-95); ABG TCO2 25.2 MMOL/L (23-27)
[2021-02-04] MEDS: CHOLECALCIFEROL 1,000 UNIT TABLET PO SCH (08:42)
[2021-02-04] MEDS: CETIRIZINE 10 MG TABLET PO SCH (08:42)
[2021-02-04] MEDS: ASPIRIN EC 81 MG TABLET PO SCH (08:42)
[2021-02-04] MEDS: ASCORBIC ACID 500 MG TABLET PO SCH ×2 (08:42→20:33)
[2021-02-04] MEDS: amLODIPine 5 MG TABLET PO SCH (08:42)
[2021-02-04] MEDS: ZINC GLUCONATE 50 MG TABLET PO SCH (08:42)
[2021-02-04] MEDS: atenoloL 50 MG TABLET PO SCH ×2 (08:42→20:32)
[2021-02-04] MEDS: MENTHOL/ZINC OXIDE OINT 71 GM JAR TOP SCH ×2 (08:43→20:36)
[2021-02-04] MEDS: MULTIVITAMIN LIQUID (CENTRUM) 60 ML BOTTLE PO SCH (08:43)
[2021-02-04] MEDS: ENOXAPARIN 60 MG/0.6 ML SYRINGE SUBCUT SCH ×2 (08:43→20:38)
[2021-02-04] MEDS: FUROSEMIDE 40 MG/4 ML VIAL IV SCH ×2 (08:44→20:35)
[2021-02-04] MEDS: methylPREDNISolone SOD SUC 40 MG/1 ML VIAL IV SCH ×2 (08:44→20:36)
[2021-02-04] MEDS: DIGOXIN 0.125 MG TABLET PO SCH (13:28)
[2021-02-04] MEDS: FAMOTIDINE 20 MG TABLET PO SCH ×2 (13:28→20:33)
[2021-02-04] MEDS: QUEtiapine 25 MG TABLET PO SCH (20:33)
[2021-02-04] MEDS: INSULIN GLARGINE 100 UNIT/ML SUBCUT SCH (20:37)
[2021-02-05] MEDS: ALBUTEROL INHALER 18 GM INH SCH ×4 (00:42→20:30)
[2021-02-05] MEDS: INSULIN LISPRO 100 UNIT/ML SUBCUT SCH ×6 (00:58→20:39)
[2021-02-05] MEDS: MIDAZOLAM 100 MG in SODIUM CHLORIDE 0.9% 80 ML IV PRN ×3 (01:05→20:30)
[2021-02-05 03:48] LABS: ABG Base Excess 5.5 MMOL/L (-2.5-2.5); ABG HCO3 30.6 MMOL/L (20-26); ABG Oxygen Saturation 90.7 % (95-100); ABG PCO2 47.2 MM HG (35-48); ABG PO2 63.9 MM HG (80-95); ABG TCO2 32.1 MMOL/L (23-27)
[2021-02-05] MEDS: fentaNYL INJ 2,500 MCG in SODIUM CHLORIDE 0.9% 75 ML IV PRN ×3 (04:05→17:30)
[2021-02-05 05:01] LABS: Basophils % 0.1 % (0.0-0.8); Hemoglobin 10.4 GM/DL (12.0-16.0); Immature Granulocytes % 0.9 %; Immature Granulocytes Absolute 0.11 #; Lymphocytes # 0.4 10*3/uL (1.4-4.0); Lymphocytes % 3.4 % (21.3-54.2); Mean Corpuscular HGB Conc 30.6 GM/DL (32-36); Mean Platelet Volume 11.1 FL (9.6-12.0); Monocytes % 2.1 % (1.7-12.7); NRBC # 0.03 10*3/uL; Neutrophils % 93.5 % (38.7-73.9); Platelet Count 280 T/CUMM (130-400); Red Blood Count 3.91 MC/CUMM (3.8-5.5); Red Cell Distribution Width 17.9 % (9.3-17.3); White Blood Count 12.6 T/CUMM (4-12)
[2021-02-05 05:24] LABS: Calcium 8.9 MG/DL (8.5-10.1); Osmolality,Calculated 279.2 MOS/KG (273-304); Potassium 4.3 MMOL/L (3.5-5.1)
[2021-02-05 05:31] LABS: Hypochromasia 1+; Lymphocytes 4 % (20-55); Microcytosis 1+; Platelet Estimate Adequate; Segmented Neutrophils 95 % (50-85); Total Cells Counted 100
[2021-02-05] MEDS: ENOXAPARIN 60 MG/0.6 ML SYRINGE SUBCUT SCH ×2 (09:09→20:38)
[2021-02-05] MEDS: ASPIRIN EC 81 MG TABLET PO SCH (09:10)
[2021-02-05] MEDS: ASCORBIC ACID 500 MG TABLET PO SCH ×2 (09:10→20:35)
[2021-02-05] MEDS: FAMOTIDINE 20 MG TABLET PO SCH ×2 (09:10→20:37)
[2021-02-05] MEDS: ZINC GLUCONATE 50 MG TABLET PO SCH (09:10)
[2021-02-05] MEDS: atenoloL 50 MG TABLET PO SCH ×2 (09:10→20:37)
[2021-02-05] MEDS: amLODIPine 5 MG TABLET PO SCH (09:10)
[2021-02-05] MEDS: methylPREDNISolone SOD SUC 40 MG/1 ML VIAL IV SCH ×2 (09:10→20:38)
[2021-02-05] MEDS: FUROSEMIDE 40 MG/4 ML VIAL IV SCH ×2 (09:11→20:40)
[2021-02-05] MEDS: ACETAMINOPHEN 325 MG TABLET PO PRN ×2 (09:42→18:28)
[2021-02-05] MEDS: MENTHOL/ZINC OXIDE OINT 71 GM JAR TOP SCH ×2 (10:46→20:40)
[2021-02-05] MEDS: CHOLECALCIFEROL 1,000 UNIT TABLET PO SCH (10:54)
[2021-02-05] MEDS: MULTIVITAMIN LIQUID (CENTRUM) 60 ML BOTTLE PO SCH (10:54)
[2021-02-05] MEDS: CETIRIZINE 10 MG TABLET PO SCH (14:39)
[2021-02-05] MEDS: DIGOXIN 0.125 MG TABLET PO SCH (14:39)
[2021-02-05] MEDS: QUEtiapine 25 MG TABLET PO SCH (20:37)
[2021-02-05] MEDS: INSULIN GLARGINE 100 UNIT/ML SUBCUT SCH (20:39)
[2021-02-06] MEDS: fentaNYL INJ 2,500 MCG in SODIUM CHLORIDE 0.9% 75 ML IV PRN ×4 (00:12→19:01)
[2021-02-06] MEDS: INSULIN LISPRO 100 UNIT/ML SUBCUT SCH ×6 (00:55→21:30)
[2021-02-06] MEDS: ALBUTEROL INHALER 18 GM INH SCH ×4 (00:55→21:29)
[2021-02-06] MEDS: ACETAMINOPHEN 325 MG TABLET PO PRN ×3 (00:59→17:36)
[2021-02-06 03:44] LABS: ABG Base Excess 7.2 MMOL/L (-2.5-2.5); ABG HCO3 30.9 MMOL/L (20-26); ABG Oxygen Saturation 92.9 % (95-100); ABG PCO2 45.3 MM HG (35-48); ABG PH 7.456 (7.35-7.45); ABG PO2 66.3 MM HG (80-95); ABG TCO2 29.1 MMOL/L (23-27)
[2021-02-06 04:54] LABS: Basophils % 0.1 % (0.0-0.8); Hemoglobin 9.5 GM/DL (12.0-16.0); Immature Granulocytes % 2.4 %; Lymphocytes # 0.9 10*3/uL (1.4-4.0); Lymphocytes % 5.2 % (21.3-54.2); Mean Corpuscular HGB Conc 30.6 GM/DL (32-36); Mean Corpuscular Volume 85.6 FL (87-102); Mean Platelet Volume 11.4 FL (9.6-12.0); NRBC # 0.04 10*3/uL; Neutrophils % 90.3 % (38.7-73.9); Platelet Count 170 T/CUMM (130-400); Red Blood Count 3.62 MC/CUMM (3.8-5.5); Red Cell Distribution Width 17.7 % (9.3-17.3); White Blood Count 16.9 T/CUMM (4-12)
[2021-02-06 05:18] LABS: Calcium 8.7 MG/DL (8.5-10.1); Osmolality,Calculated 276.7 MOS/KG (273-304); Potassium 4.3 MMOL/L (3.5-5.1)
[2021-02-06] MEDS: MIDAZOLAM 100 MG in SODIUM CHLORIDE 0.9% 80 ML IV PRN ×2 (05:40→14:55)
[2021-02-06] MEDS: ENOXAPARIN 60 MG/0.6 ML SYRINGE SUBCUT SCH ×2 (09:09→21:30)
[2021-02-06] MEDS: ASPIRIN EC 81 MG TABLET PO SCH (09:09)
[2021-02-06] MEDS: methylPREDNISolone SOD SUC 40 MG/1 ML VIAL IV SCH ×2 (09:09→17:36)
[2021-02-06] MEDS: atenoloL 50 MG TABLET PO SCH ×2 (09:10→21:31)
[2021-02-06] MEDS: MULTIVITAMIN LIQUID (CENTRUM) 60 ML BOTTLE PO SCH (09:10)
[2021-02-06] MEDS: FUROSEMIDE 40 MG/4 ML VIAL IV SCH ×2 (09:10→21:31)
[2021-02-06] MEDS: ASCORBIC ACID 500 MG TABLET PO SCH ×2 (09:10→21:36)
[2021-02-06] MEDS: CETIRIZINE 10 MG TABLET PO SCH (09:10)
[2021-02-06] MEDS: amLODIPine 5 MG TABLET PO SCH (09:10)
[2021-02-06] MEDS: MENTHOL/ZINC OXIDE OINT 71 GM JAR TOP SCH ×2 (09:10→21:30)
[2021-02-06] MEDS: ZINC GLUCONATE 50 MG TABLET PO SCH (09:10)
[2021-02-06] MEDS: CHOLECALCIFEROL 1,000 UNIT TABLET PO SCH (09:10)
[2021-02-06] MEDS: FAMOTIDINE 20 MG TABLET PO SCH ×2 (09:10→21:31)
[2021-02-06] MEDS: DIGOXIN 0.125 MG TABLET PO SCH (13:05)
[2021-02-06] MEDS ORDERED: AMIODARONE INJ 150 MG in DEXTROSE 5% 100 ML IV ONE (17:53)
[2021-02-06] MEDS ORDERED: AMIODARONE 150 MG/3 ML VIAL ONE (17:53)
[2021-02-06] MEDS: AMIODARONE INJ 450 MG in DEXTROSE 5% 241 ML IV SCH (18:30)
[2021-02-06] MEDS ORDERED: AMIODARONE INJ 450 MG in DEXTROSE 5% 241 ML IV SCH (19:00)
[2021-02-06] MEDS: INSULIN GLARGINE 100 UNIT/ML SUBCUT SCH (21:30)
[2021-02-06] MEDS: QUEtiapine 25 MG TABLET PO SCH (21:31)
[2021-02-07] MEDS: INSULIN LISPRO 100 UNIT/ML SUBCUT SCH ×7 (00:30→23:45)
[2021-02-07] MEDS: ACETAMINOPHEN 325 MG TABLET PO PRN ×4 (00:30→17:49)
[2021-02-07] MEDS: fentaNYL INJ 2,500 MCG in SODIUM CHLORIDE 0.9% 75 ML IV PRN ×2 (01:01→21:01)
[2021-02-07] MEDS: methylPREDNISolone SOD SUC 40 MG/1 ML VIAL IV SCH ×2 (01:33→15:00)
[2021-02-07] MEDS: ALBUTEROL INHALER 18 GM INH SCH ×4 (01:33→18:36)
[2021-02-07] MEDS: AMIODARONE INJ 450 MG in DEXTROSE 5% 241 ML IV SCH ×2 (02:43→11:09)
[2021-02-07] MEDS: MIDAZOLAM 100 MG in SODIUM CHLORIDE 0.9% 80 ML IV PRN ×2 (02:48→21:01)
[2021-02-07 04:46] LABS: Basophils % 0.2 % (0.0-0.8); Eosinophils # 0.1 10*3/uL (0.0-0.87); Eosinophils % 0.4 % (0.00-10.9); Hematocrit 32.2 VOL% (35.7-47.0); Hemoglobin 9.8 GM/DL (12.0-16.0); Immature Granulocytes % 8.7 %; Immature Granulocytes Absolute 1.84 #; Lymphocytes # 0.7 10*3/uL (1.4-4.0); Lymphocytes % 3.1 % (21.3-54.2); Mean Corpuscular HGB Conc 30.4 GM/DL (32-36); Mean Corpuscular Volume 86.3 FL (87-102); Mean Platelet Volume 12.3 FL (9.6-12.0); Monocytes % 1.1 % (1.7-12.7); NRBC # 0.02 10*3/uL; Neutrophils % 86.5 % (38.7-73.9); Red Blood Count 3.73 MC/CUMM (3.8-5.5); Red Cell Distribution Width 18.2 % (9.3-17.3); White Blood Count 21.2 T/CUMM (4-12)
[2021-02-07 04:53] LABS: Platelet Count 84 T/CUMM (130-400)
[2021-02-07 05:01] LABS: ABG Base Excess 4.8 MMOL/L (-2.5-2.5); ABG HCO3 28.5 MMOL/L (20-26); ABG Oxygen Saturation 85.1 % (95-100); ABG PCO2 36.8 MM HG (35-48); ABG PH 7.493 (7.35-7.45); ABG PO2 50.2 MM HG (80-95); ABG TCO2 25.6 MMOL/L (23-27); Allen Test Positive; Pt O2 Delivery Device Ventilator
[2021-02-07 05:02] LABS: Calcium 8.4 MG/DL (8.5-10.1); Osmolality,Calculated 281.1 MOS/KG (273-304); Potassium 4.5 MMOL/L (3.5-5.1)
[2021-02-07 05:17] LABS: Band Neutrophils 6 % (0-10); Hypochromasia 1+; Lymphocytes 4 % (20-55); Microcytosis 1+; Polychromasia Slight; Segmented Neutrophils 89 % (50-85); Total Cells Counted 100
[2021-02-07 05:18] LABS: Platelet Estimate Decreased
[2021-02-07] MEDS: ZINC GLUCONATE 50 MG TABLET PO SCH (08:28)
[2021-02-07] MEDS: FAMOTIDINE 20 MG TABLET PO SCH ×2 (08:28→21:00)
[2021-02-07] MEDS: ASPIRIN EC 81 MG TABLET PO SCH (08:28)
[2021-02-07] MEDS: atenoloL 50 MG TABLET PO SCH ×2 (08:29→22:50)
[2021-02-07] MEDS: CETIRIZINE 10 MG TABLET PO SCH (08:29)
[2021-02-07] MEDS: ENOXAPARIN 60 MG/0.6 ML SYRINGE SUBCUT SCH (08:29)
[2021-02-07] MEDS: CHOLECALCIFEROL 1,000 UNIT TABLET PO SCH (08:29)
[2021-02-07] MEDS: ASCORBIC ACID 500 MG TABLET PO SCH ×2 (08:29→21:00)
[2021-02-07] MEDS: MENTHOL/ZINC OXIDE OINT 71 GM JAR TOP SCH ×2 (08:30→21:00)
[2021-02-07] MEDS: MULTIVITAMIN LIQUID (CENTRUM) 60 ML BOTTLE PO SCH (08:30)
[2021-02-07] MEDS: FUROSEMIDE 40 MG/4 ML VIAL IV SCH ×2 (08:31→22:50)
[2021-02-07] MEDS: amLODIPine 5 MG TABLET PO SCH (09:32)
[2021-02-07] MEDS ORDERED: DIGOXIN 0.5 MG/2 ML AMP IV ONE (11:56)
[2021-02-07] MEDS: DIGOXIN 0.125 MG TABLET PO SCH (12:07)
[2021-02-07] MEDS: IBUPROFEN 100 MG/5 ML UDCUP PO PRN (15:52)
[2021-02-07] MEDS: QUEtiapine 25 MG TABLET PO SCH (21:00)
[2021-02-07] MEDS: FONDAPARINUX 7.5 MG/0.6 ML SYRINGE SUBCUT SCH (21:00)
[2021-02-07] MEDS: INSULIN GLARGINE 100 UNIT/ML SUBCUT SCH (21:00)
[2021-02-07] MEDS ORDERED: SODIUM CHLORIDE 0.9% 250 ML IV ONE ×2 (22:25→23:00)
[2021-02-07] MEDS ORDERED: SODIUM CHLORIDE 0.9% 500 ML IV ONE (23:37)
[2021-02-07] MEDS ORDERED: NOREPINEPHRINE 8 MG in SODIUM CHLORIDE 0.9% 242 ML IV PRN (23:37)
[2021-02-08] MEDS: methylPREDNISolone SOD SUC 40 MG/1 ML VIAL IV SCH ×2 (01:25→16:08)
[2021-02-08] MEDS: ALBUTEROL INHALER 18 GM INH SCH ×4 (01:25→20:09)
[2021-02-08 04:14] LABS: ABG HCO3 28.9 MMOL/L (20-26); ABG Oxygen Saturation 95.3 % (95-100); ABG PCO2 44.7 MM HG (35-48); ABG PH 7.428 (7.35-7.45); ABG PO2 85.6 MM HG (80-95); ABG TCO2 30.2 MMOL/L (23-27); Allen Test Positive; Pt O2 Delivery Device Ventilator
[2021-02-08] MEDS: INSULIN LISPRO 100 UNIT/ML SUBCUT SCH ×6 (04:30→23:36)
[2021-02-08 04:34] LABS: Basophils % 0.1 % (0.0-0.8); Hematocrit 29.7 VOL% (35.7-47.0); Hemoglobin 9.2 GM/DL (12.0-16.0); Immature Granulocytes % 10.3 %; Immature Granulocytes Absolute 1.87 #; Lymphocytes # 1.6 10*3/uL (1.4-4.0); Lymphocytes % 8.9 % (21.3-54.2); Mean Corpuscular Volume 87.1 FL (87-102); Mean Platelet Volume 13.2 FL (9.6-12.0); Monocytes % 2.3 % (1.7-12.7); NRBC # 0.12 10*3/uL; Neutrophils % 78.4 % (38.7-73.9); Red Blood Count 3.41 MC/CUMM (3.8-5.5); Red Cell Distribution Width 17.8 % (9.3-17.3); White Blood Count 18.2 T/CUMM (4-12)
[2021-02-08 04:50] LABS: Platelet Count 69 T/CUMM (130-400)
[2021-02-08 05:05] LABS: Calcium 8.1 MG/DL (8.5-10.1); Osmolality,Calculated 287.5 MOS/KG (273-304)
[2021-02-08 05:24] LABS: Band Neutrophils 2 % (0-10); Hypochromasia 1+; Lymphocytes 8 % (20-55); Segmented Neutrophils 89 % (50-85); Total Cells Counted 100
[2021-02-08] MEDS: fentaNYL INJ 5,000 MCG in SODIUM CHLORIDE 0.9% 150 ML IV PRN (05:24)
[2021-02-08 05:25] LABS: Anisocytosis 1+; Microcytosis 1+; Platelet Estimate Decreased; Polychromasia Slight
[2021-02-08] MEDS: FUROSEMIDE 40 MG/4 ML VIAL IV SCH ×2 (09:05→20:48)
[2021-02-08] MEDS: MENTHOL/ZINC OXIDE OINT 71 GM JAR TOP SCH ×2 (09:06→20:49)
[2021-02-08] MEDS: ZINC GLUCONATE 50 MG TABLET PO SCH (09:06)
[2021-02-08] MEDS: amLODIPine 5 MG TABLET PO SCH (09:06)
[2021-02-08] MEDS: CHOLECALCIFEROL 1,000 UNIT TABLET PO SCH (09:06)
[2021-02-08] MEDS: ASCORBIC ACID 500 MG TABLET PO SCH ×2 (09:06→20:46)
[2021-02-08] MEDS: MULTIVITAMIN LIQUID (CENTRUM) 60 ML BOTTLE PO SCH (09:06)
[2021-02-08] MEDS: atenoloL 50 MG TABLET PO SCH ×2 (09:06→20:49)
[2021-02-08] MEDS: FAMOTIDINE 20 MG TABLET PO SCH ×2 (09:06→20:46)
[2021-02-08] MEDS: CETIRIZINE 10 MG TABLET PO SCH (09:06)
[2021-02-08] MEDS: ASPIRIN EC 81 MG TABLET PO SCH (09:06)
[2021-02-08] MEDS: MEROPENEM 500 MG in SODIUM CHLORIDE 0.9% 100 ML IV SCH ×3 (09:32→20:57)
[2021-02-08] MEDS: DIGOXIN 0.125 MG TABLET PO SCH (12:35)
[2021-02-08] MEDS: GENTAMICIN INJ 120 MG/100 ML PREMIX IV SCH ×2 (13:20→20:04)
[2021-02-08] MEDS: QUEtiapine 25 MG TABLET PO SCH (20:46)
[2021-02-08] MEDS: FONDAPARINUX 7.5 MG/0.6 ML SYRINGE SUBCUT SCH (20:47)
[2021-02-08] MEDS: INSULIN GLARGINE 100 UNIT/ML SUBCUT SCH (20:48)
[2021-02-09] MEDS: ALBUTEROL INHALER 18 GM INH SCH ×4 (00:14→18:20)
[2021-02-09] MEDS: methylPREDNISolone SOD SUC 40 MG/1 ML VIAL IV SCH ×2 (02:00→02:17)
[2021-02-09] MEDS: MEROPENEM 500 MG in SODIUM CHLORIDE 0.9% 100 ML IV SCH ×4 (02:17→21:10)
[2021-02-09 04:04] LABS: ABG Base Excess 8.6 MMOL/L (-2.5-2.5); ABG HCO3 32.3 MMOL/L (20-26); ABG Oxygen Saturation 95.2 % (95-100); ABG PCO2 46.5 MM HG (35-48); ABG PH 7.465 (7.35-7.45); ABG PO2 76.4 MM HG (80-95); ABG TCO2 30.8 MMOL/L (23-27)
[2021-02-09 04:36] LABS: Basophils % 0.1 % (0.0-0.8); Hematocrit 28.9 VOL% (35.7-47.0); Hemoglobin 8.8 GM/DL (12.0-16.0); Immature Granulocytes % 1.3 %; Immature Granulocytes Absolute 0.14 #; Lymphocytes # 0.9 10*3/uL (1.4-4.0); Lymphocytes % 8.3 % (21.3-54.2); Mean Corpuscular HGB Conc 30.4 GM/DL (32-36); Mean Corpuscular Volume 86.8 FL (87-102); Mean Platelet Volume 13.1 FL (9.6-12.0); Monocytes % 4.1 % (1.7-12.7); NRBC # 0.15 10*3/uL; Neutrophils % 86.2 % (38.7-73.9); Platelet Count 99 T/CUMM (130-400); Red Blood Count 3.33 MC/CUMM (3.8-5.5); Red Cell Distribution Width 17.2 % (9.3-17.3); White Blood Count 10.8 T/CUMM (4-12)
[2021-02-09] MEDS: INSULIN LISPRO 100 UNIT/ML SUBCUT SCH ×5 (04:40→20:31)
[2021-02-09] MEDS: GENTAMICIN INJ 120 MG/100 ML PREMIX IV SCH ×3 (04:40→20:31)
[2021-02-09 04:53] LABS: Calcium 8.6 MG/DL (8.5-10.1); Osmolality,Calculated 291.8 MOS/KG (273-304); Potassium 3.8 MMOL/L (3.5-5.1)
[2021-02-09 05:02] LABS: Lymphocytes 7 % (20-55); Segmented Neutrophils 92 % (50-85); Total Cells Counted 100
[2021-02-09 05:03] LABS: Hypochromasia 1+; Microcytosis 1+; Platelet Estimate Decreased
[2021-02-09] MEDS: fentaNYL INJ 5,000 MCG in SODIUM CHLORIDE 0.9% 150 ML IV PRN (08:02)
[2021-02-09] MEDS: MENTHOL/ZINC OXIDE OINT 71 GM JAR TOP SCH ×2 (08:26→20:34)
[2021-02-09] MEDS: ZINC GLUCONATE 50 MG TABLET PO SCH (08:26)
[2021-02-09] MEDS: CHOLECALCIFEROL 1,000 UNIT TABLET PO SCH (08:26)
[2021-02-09] MEDS: CETIRIZINE 10 MG TABLET PO SCH (08:26)
[2021-02-09] MEDS: MULTIVITAMIN LIQUID (CENTRUM) 60 ML BOTTLE PO SCH (08:26)
[2021-02-09] MEDS: ASPIRIN EC 81 MG TABLET PO SCH (08:26)
[2021-02-09] MEDS: ASCORBIC ACID 500 MG TABLET PO SCH ×2 (08:26→20:33)
[2021-02-09] MEDS: FAMOTIDINE 20 MG TABLET PO SCH ×2 (08:26→20:33)
[2021-02-09] MEDS: atenoloL 50 MG TABLET PO SCH ×2 (08:27→20:33)
[2021-02-09] MEDS: FUROSEMIDE 40 MG/4 ML VIAL IV SCH ×2 (08:30→20:33)
[2021-02-09] MEDS: amLODIPine 5 MG TABLET PO SCH (10:49)
[2021-02-09] MEDS: DIGOXIN 0.125 MG TABLET PO SCH (12:30)
[2021-02-09] MEDS: FONDAPARINUX 7.5 MG/0.6 ML SYRINGE SUBCUT SCH (20:32)
[2021-02-09] MEDS: INSULIN GLARGINE 100 UNIT/ML SUBCUT SCH (20:32)
[2021-02-09] MEDS: QUEtiapine 25 MG TABLET PO SCH (20:33)
[2021-02-10] MEDS: INSULIN LISPRO 100 UNIT/ML SUBCUT SCH ×7 (01:00→23:46)
[2021-02-10] MEDS: ALBUTEROL INHALER 18 GM INH SCH ×4 (01:01→18:17)
[2021-02-10] MEDS: methylPREDNISolone SOD SUC 40 MG/1 ML VIAL IV SCH ×2 (01:05→15:12)
[2021-02-10] MEDS: MEROPENEM 500 MG in SODIUM CHLORIDE 0.9% 100 ML IV SCH ×4 (02:17→20:43)
[2021-02-10] MEDS: GENTAMICIN INJ 120 MG/100 ML PREMIX IV SCH (04:29)
[2021-02-10 04:40] LABS: ABG Base Excess 9.4 MMOL/L (-2.5-2.5); ABG HCO3 33.8 MMOL/L (20-26); ABG Oxygen Saturation 96.4 % (95-100); ABG PCO2 45.1 MM HG (35-48); ABG PH 7.492 (7.35-7.45); ABG PO2 91.6 MM HG (80-95); ABG TCO2 35.1 MMOL/L (23-27); Allen Test Positive; Pt O2 Delivery Device Ventilator
[2021-02-10 04:47] LABS: Basophils % 0.1 % (0.0-0.8); Eosinophils % 0.1 % (0.00-10.9); Hematocrit 28.5 VOL% (35.7-47.0); Hemoglobin 8.8 GM/DL (12.0-16.0); Lymphocytes # 0.9 10*3/uL (1.4-4.0); Lymphocytes % 11.7 % (21.3-54.2); Mean Corpuscular HGB Conc 30.9 GM/DL (32-36); Mean Corpuscular Volume 86.1 FL (87-102); Mean Platelet Volume 12.7 FL (9.6-12.0); Monocytes % 5.3 % (1.7-12.7); NRBC # 0.27 10*3/uL; Neutrophils % 78.8 % (38.7-73.9); Platelet Count 153 T/CUMM (130-400); Red Blood Count 3.31 MC/CUMM (3.8-5.5); Red Cell Distribution Width 17.2 % (9.3-17.3); White Blood Count 7.5 T/CUMM (4-12)
[2021-02-10 06:05] LABS: Band Neutrophils 1 % (0-10); Hypochromasia 1+; Lymphocytes 8 % (20-55); Microcytosis 1+; Nucleated Red Blood Cells 6 (0-5); Platelet Estimate Adequate; Segmented Neutrophils 85 % (50-85); Total Cells Counted 100
[2021-02-10 06:31] LABS: Calcium 8.8 MG/DL (8.5-10.1); Osmolality,Calculated 300.4 MOS/KG (273-304)
[2021-02-10] MEDS: CETIRIZINE 10 MG TABLET PO SCH (08:37)
[2021-02-10] MEDS: amLODIPine 5 MG TABLET PO SCH (08:37)
[2021-02-10] MEDS: CHOLECALCIFEROL 1,000 UNIT TABLET PO SCH (08:37)
[2021-02-10] MEDS: ASCORBIC ACID 500 MG TABLET PO SCH ×2 (08:37→20:29)
[2021-02-10] MEDS: ASPIRIN EC 81 MG TABLET PO SCH (08:37)
[2021-02-10] MEDS: FUROSEMIDE 40 MG/4 ML VIAL IV SCH ×2 (08:38→20:32)
[2021-02-10] MEDS: ZINC GLUCONATE 50 MG TABLET PO SCH (08:38)
[2021-02-10] MEDS: FAMOTIDINE 20 MG TABLET PO SCH ×2 (08:38→20:30)
[2021-02-10] MEDS: MENTHOL/ZINC OXIDE OINT 71 GM JAR TOP SCH ×2 (08:39→20:43)
[2021-02-10] MEDS: atenoloL 50 MG TABLET PO SCH ×2 (08:39→20:32)
[2021-02-10] MEDS: MULTIVITAMIN LIQUID (CENTRUM) 60 ML BOTTLE PO SCH (08:39)
[2021-02-10] MEDS: fentaNYL INJ 5,000 MCG in SODIUM CHLORIDE 0.9% 150 ML IV PRN (10:08)
[2021-02-10] MEDS: DIGOXIN 0.125 MG TABLET PO SCH (12:58)
[2021-02-10] MEDS ORDERED: VANCOMYCIN INJ 2,500 MG in SODIUM CHLORIDE 0.9% 500 ML IV ONE (14:00)
[2021-02-10] MEDS: MICAFUNGIN 100 MG in SODIUM CHLORIDE 0.9% 100 ML IV SCH (14:20)
[2021-02-10] MEDS: QUEtiapine 25 MG TABLET PO SCH (20:30)
[2021-02-10] MEDS: FONDAPARINUX 7.5 MG/0.6 ML SYRINGE SUBCUT SCH (20:31)
[2021-02-10] MEDS: INSULIN GLARGINE 100 UNIT/ML SUBCUT SCH (20:31)
[2021-02-11] MEDS: ALBUTEROL INHALER 18 GM INH SCH ×4 (00:04→19:03)
[2021-02-11] MEDS: methylPREDNISolone SOD SUC 40 MG/1 ML VIAL IV SCH ×2 (02:07→13:47)
[2021-02-11] MEDS: VANCOMYCIN INJ 1,250 MG in SODIUM CHLORIDE 0.9% 250 ML IV SCH ×2 (02:08→19:02)
[2021-02-11] MEDS: MEROPENEM 500 MG in SODIUM CHLORIDE 0.9% 100 ML IV SCH ×4 (02:59→21:20)
[2021-02-11 04:01] LABS: ABG Base Excess 10.5 MMOL/L (-2.5-2.5); ABG HCO3 34.3 MMOL/L (20-26); ABG Oxygen Saturation 98.3 % (95-100); ABG PCO2 47.1 MM HG (35-48); ABG PH 7.484 (7.35-7.45); ABG TCO2 32.2 MMOL/L (23-27)
[2021-02-11] MEDS: INSULIN LISPRO 100 UNIT/ML SUBCUT SCH ×5 (04:52→21:17)
[2021-02-11 05:10] LABS: Basophils % 0.4 % (0.0-0.8); Eosinophils # 0.1 10*3/uL (0.0-0.87); Eosinophils % 0.5 % (0.00-10.9); Hematocrit 33.1 VOL% (35.7-47.0); Hemoglobin 10.1 GM/DL (12.0-16.0); Immature Granulocytes % 6.4 %; Immature Granulocytes Absolute 0.62 #; Lymphocytes # 1.6 10*3/uL (1.4-4.0); Lymphocytes % 16.1 % (21.3-54.2); Mean Corpuscular HGB Conc 30.5 GM/DL (32-36); Monocytes % 5.2 % (1.7-12.7); Neutrophils % 71.4 % (38.7-73.9); Platelet Count 257 T/CUMM (130-400); Red Blood Count 3.76 MC/CUMM (3.8-5.5); Red Cell Distribution Width 18.7 % (9.3-17.3); White Blood Count 9.8 T/CUMM (4-12)
[2021-02-11 05:21] LABS: Hypochromasia 1+; Lymphocytes 11 % (20-55); Nucleated Red Blood Cells 4 (0-5); Platelet Estimate Adequate; Segmented Neutrophils 81 % (50-85); Total Cells Counted 100
[2021-02-11 05:22] LABS: Macrocytosis Slight; Polychromasia Slight
[2021-02-11 05:38] LABS: Osmolality,Calculated 291.5 MOS/KG (273-304); Potassium 3.9 MMOL/L (3.5-5.1)
[2021-02-11] MEDS: FUROSEMIDE 40 MG/4 ML VIAL IV SCH ×2 (09:12→21:18)
[2021-02-11] MEDS: MULTIVITAMIN LIQUID (CENTRUM) 60 ML BOTTLE PO SCH (09:13)
[2021-02-11] MEDS: CETIRIZINE 10 MG TABLET PO SCH (09:13)
[2021-02-11] MEDS: ASPIRIN EC 81 MG TABLET PO SCH (09:13)
[2021-02-11] MEDS: ZINC GLUCONATE 50 MG TABLET PO SCH (09:13)
[2021-02-11] MEDS: amLODIPine 5 MG TABLET PO SCH (09:13)
[2021-02-11] MEDS: ASCORBIC ACID 500 MG TABLET PO SCH ×2 (09:13→21:14)
[2021-02-11] MEDS: MENTHOL/ZINC OXIDE OINT 71 GM JAR TOP SCH ×2 (09:13→21:21)
[2021-02-11] MEDS: atenoloL 50 MG TABLET PO SCH ×2 (09:13→21:17)
[2021-02-11] MEDS: FAMOTIDINE 20 MG TABLET PO SCH ×2 (09:13→21:15)
[2021-02-11] MEDS: CHOLECALCIFEROL 1,000 UNIT TABLET PO SCH (09:13)
[2021-02-11] MEDS: MICAFUNGIN 100 MG in SODIUM CHLORIDE 0.9% 100 ML IV SCH (13:40)
[2021-02-11] MEDS: DIGOXIN 0.125 MG TABLET PO SCH (13:47)
[2021-02-11] MEDS: ACETAMINOPHEN 325 MG TABLET PO PRN ×2 (14:21→21:16)
[2021-02-11 18:37] LABS: Bilirubin,Urine Negative (Negative); Blood, Urine Negative (Negative); Glucose,Urine (UA) 50 mg/dL (Negative); Hyaline Casts,Urine 4 /LPF (0-3); Ketones,Urine Negative (Negative); Mucus,Urine Occasional /LPF (Occasional); Nitrite,Urine Negative (Negative); Protein,Urine 30 MG/DL; RBC,Urine 4 /HPF (0-4); Squamous Epithelial Cell,Urine Occasional /HPF (0-10); Urine Appearance CLEAR (Clear); Urine Color Yellow (Yellow); Urine Specific Gravity 1.033 (1.001-1.035)
[2021-02-11] MEDS: QUEtiapine 25 MG TABLET PO SCH (21:17)
[2021-02-11] MEDS: INSULIN GLARGINE 100 UNIT/ML SUBCUT SCH (21:18)
[2021-02-11] MEDS: FONDAPARINUX 7.5 MG/0.6 ML SYRINGE SUBCUT SCH (21:19)
[2021-02-12] MEDS: INSULIN LISPRO 100 UNIT/ML SUBCUT SCH ×6 (00:04→20:22)
[2021-02-12] MEDS: ALBUTEROL INHALER 18 GM INH SCH ×4 (00:05→19:50)
[2021-02-12] MEDS: IBUPROFEN 100 MG/5 ML UDCUP PO PRN ×2 (00:48→06:50)
[2021-02-12] MEDS: methylPREDNISolone SOD SUC 40 MG/1 ML VIAL IV SCH ×2 (02:35→13:15)
[2021-02-12] MEDS: MEROPENEM 500 MG in SODIUM CHLORIDE 0.9% 100 ML IV SCH ×4 (03:38→20:32)
[2021-02-12 04:42] LABS: Basophils % 0.2 % (0.0-0.8); Eosinophils # 0.2 10*3/uL (0.0-0.87); Eosinophils % 1.7 % (0.00-10.9); Hematocrit 35.4 VOL% (35.7-47.0); Hemoglobin 10.5 GM/DL (12.0-16.0); Immature Granulocytes % 6.1 %; Immature Granulocytes Absolute 0.66 #; Lymphocytes # 1.3 10*3/uL (1.4-4.0); Lymphocytes % 12.3 % (21.3-54.2); Mean Corpuscular HGB Conc 29.7 GM/DL (32-36); Mean Corpuscular Volume 88.5 FL (87-102); Mean Platelet Volume 11.3 FL (9.6-12.0); Monocytes % 1.7 % (1.7-12.7); NRBC # 0.36 10*3/uL; Platelet Count 300 T/CUMM (130-400); Red Cell Distribution Width 18.8 % (9.3-17.3); White Blood Count 10.9 T/CUMM (4-12)
[2021-02-12 04:58] LABS: Calcium 8.9 MG/DL (8.5-10.1); Potassium 3.4 MMOL/L (3.5-5.1)
[2021-02-12] MEDS: fentaNYL INJ 5,000 MCG in SODIUM CHLORIDE 0.9% 150 ML IV PRN (05:00)
[2021-02-12 05:08] LABS: Allen Test Positive; Pt O2 Delivery Device Ventilator
[2021-02-12 05:10] LABS: ABG Base Excess 9.2 MMOL/L (-2.5-2.5); ABG HCO3 32.8 MMOL/L (20-26); ABG Oxygen Saturation 90.9 % (95-100); ABG PCO2 40.5 MM HG (35-48); ABG PH 7.526 (7.35-7.45); ABG PO2 62.8 MM HG (80-95)
[2021-02-12 05:28] LABS: Band Neutrophils 2 % (0-10); Eosinophils 3 % (0-10); Hypochromasia Slight; Lymphocytes 9 % (20-55); Macrocytosis Slight; Nucleated Red Blood Cells 5 (0-5); Platelet Estimate Adequate; Polychromasia Slight; Segmented Neutrophils 85 % (50-85); Total Cells Counted 100
[2021-02-12] MEDS: VANCOMYCIN INJ 1,250 MG in SODIUM CHLORIDE 0.9% 250 ML IV SCH ×2 (05:54→17:07)
[2021-02-12] MEDS: POTASSIUM CHLORIDE RIDER 20 MEQ/100 ML PREMIX IV PRN (06:55)
[2021-02-12] MEDS: ZINC GLUCONATE 50 MG TABLET PO SCH (08:07)
[2021-02-12] MEDS: ASCORBIC ACID 500 MG TABLET PO SCH ×2 (08:07→20:21)
[2021-02-12] MEDS: ASPIRIN CHEW 81 MG TABLET PO SCH (08:07)
[2021-02-12] MEDS: CHOLECALCIFEROL 1,000 UNIT TABLET PO SCH (08:07)
[2021-02-12] MEDS: FAMOTIDINE 20 MG TABLET PO SCH ×2 (08:08→20:20)
[2021-02-12] MEDS: CETIRIZINE 10 MG TABLET PO SCH (08:08)
[2021-02-12] MEDS: amLODIPine 5 MG TABLET PO SCH (08:10)
[2021-02-12] MEDS: atenoloL 50 MG TABLET PO SCH ×2 (08:10→20:21)
[2021-02-12] MEDS: FUROSEMIDE 40 MG/4 ML VIAL IV SCH ×2 (08:32→20:31)
[2021-02-12] MEDS: MENTHOL/ZINC OXIDE OINT 71 GM JAR TOP SCH ×2 (08:32→20:22)
[2021-02-12] MEDS: MULTIVITAMIN LIQUID (CENTRUM) 60 ML BOTTLE PO SCH (08:32)
[2021-02-12] MEDS: POTASSIUM CHLORIDE RIDER 10 MEQ/100 ML PREMIX IV PRN (10:34)
[2021-02-12] MEDS: MICAFUNGIN 100 MG in SODIUM CHLORIDE 0.9% 100 ML IV SCH (11:27)
[2021-02-12] MEDS: DIGOXIN 0.125 MG TABLET PO SCH (12:13)
[2021-02-12] MEDS: QUEtiapine 25 MG TABLET PO SCH (20:20)
[2021-02-12] MEDS: ACETAMINOPHEN 325 MG TABLET PO PRN (20:20)
[2021-02-12] MEDS: FONDAPARINUX 7.5 MG/0.6 ML SYRINGE SUBCUT SCH (20:21)
[2021-02-12] MEDS: INSULIN GLARGINE 100 UNIT/ML SUBCUT SCH (20:22)
[2021-02-13] MEDS: ALBUTEROL INHALER 18 GM INH SCH ×4 (01:49→19:32)
[2021-02-13] MEDS: methylPREDNISolone SOD SUC 40 MG/1 ML VIAL IV SCH ×2 (02:11→14:45)
[2021-02-13] MEDS: MEROPENEM 500 MG in SODIUM CHLORIDE 0.9% 100 ML IV SCH ×4 (02:11→20:38)
[2021-02-13] MEDS: INSULIN LISPRO 100 UNIT/ML SUBCUT SCH ×6 (04:26→19:31)
[2021-02-13] MEDS: ACETAMINOPHEN 325 MG TABLET PO PRN (04:27)
[2021-02-13 04:28] LABS: Allen Test Positive; Pt O2 Delivery Device Ventilator
[2021-02-13 04:39] LABS: ABG Base Excess 9.8 MMOL/L (-2.5-2.5); ABG HCO3 33.8 MMOL/L (20-26); ABG Oxygen Saturation 89.7 % (95-100); ABG PCO2 43.1 MM HG (35-48); ABG PH 7.512 (7.35-7.45); ABG TCO2 35.1 MMOL/L (23-27)
[2021-02-13 05:10] LABS: Basophils % 0.3 % (0.0-0.8); Eosinophils # 0.1 10*3/uL (0.0-0.87); Eosinophils % 0.9 % (0.00-10.9); Hematocrit 32.7 VOL% (35.7-47.0); Hemoglobin 10.1 GM/DL (12.0-16.0); Immature Granulocytes % 5.2 %; Lymphocytes % 8.9 % (21.3-54.2); Mean Corpuscular HGB Conc 30.9 GM/DL (32-36); Mean Platelet Volume 11.6 FL (9.6-12.0); Monocytes % 1.6 % (1.7-12.7); NRBC # 0.21 10*3/uL; Neutrophils % 83.1 % (38.7-73.9); Platelet Count 260 T/CUMM (130-400); Red Blood Count 3.76 MC/CUMM (3.8-5.5); Red Cell Distribution Width 17.7 % (9.3-17.3); White Blood Count 11.6 T/CUMM (4-12)
[2021-02-13] MEDS: VANCOMYCIN INJ 1,250 MG in SODIUM CHLORIDE 0.9% 250 ML IV SCH (05:26)
[2021-02-13 05:30] LABS: Calcium 8.8 MG/DL (8.5-10.1); Osmolality,Calculated 285.8 MOS/KG (273-304); Potassium 3.4 MMOL/L (3.5-5.1)
[2021-02-13 05:33] LABS: Eosinophils 3 % (0-10); Hypochromasia 1+; Lymphocytes 9 % (20-55); Microcytosis 1+; Nucleated Red Blood Cells 1 (0-5); Platelet Estimate Adequate; Segmented Neutrophils 85 % (50-85); Total Cells Counted 100
[2021-02-13] MEDS: CHOLECALCIFEROL 1,000 UNIT TABLET PO SCH (08:48)
[2021-02-13] MEDS: FUROSEMIDE 40 MG/4 ML VIAL IV SCH ×2 (08:48→20:39)
[2021-02-13] MEDS: FAMOTIDINE 20 MG TABLET PO SCH ×2 (08:48→20:37)
[2021-02-13] MEDS: ASPIRIN CHEW 81 MG TABLET PO SCH (08:48)
[2021-02-13] MEDS: ASCORBIC ACID 500 MG TABLET PO SCH ×2 (08:48→20:38)
[2021-02-13] MEDS: CETIRIZINE 10 MG TABLET PO SCH (08:48)
[2021-02-13] MEDS: ZINC GLUCONATE 50 MG TABLET PO SCH (08:48)
[2021-02-13] MEDS: POTASSIUM CHLORIDE RIDER 20 MEQ/100 ML PREMIX IV PRN (08:49)
[2021-02-13 09:28] LABS: Albumin 2.6 G/DL (3.4-5.0); Bilirubin,Direct 0.46 MG/DL (0.0-0.20); Bilirubin,Indirect 0.4 MG/DL (0.0-1.0); Bilirubin,Total 0.9 MG/DL (0.20-1.00); Total Protein 7.2 G/DL (6.4-8.2)
[2021-02-13] MEDS: MENTHOL/ZINC OXIDE OINT 71 GM JAR TOP SCH ×2 (10:00→20:39)
[2021-02-13] MEDS: MULTIVITAMIN LIQUID (CENTRUM) 60 ML BOTTLE PO SCH (10:00)
[2021-02-13] MEDS: IBUPROFEN 100 MG/5 ML UDCUP PO PRN (10:17)
[2021-02-13] MEDS: atenoloL 50 MG TABLET PO SCH ×2 (11:52→20:37)
[2021-02-13] MEDS: amLODIPine 5 MG TABLET PO SCH (11:52)
[2021-02-13] MEDS: MICAFUNGIN 100 MG in SODIUM CHLORIDE 0.9% 100 ML IV SCH (12:17)
[2021-02-13] MEDS: DIGOXIN 0.125 MG TABLET PO SCH (12:44)
[2021-02-13] MEDS: POTASSIUM CHLORIDE RIDER 10 MEQ/100 ML PREMIX IV PRN (13:27)
[2021-02-13] MEDS: fentaNYL INJ 5,000 MCG in SODIUM CHLORIDE 0.9% 150 ML IV PRN (18:51)
[2021-02-13] MEDS: QUEtiapine 25 MG TABLET PO SCH (20:37)
[2021-02-13] MEDS: INSULIN GLARGINE 100 UNIT/ML SUBCUT SCH (20:37)
[2021-02-13] MEDS: FONDAPARINUX 7.5 MG/0.6 ML SYRINGE SUBCUT SCH (20:37)
[2021-02-14] MEDS: ALBUTEROL INHALER 18 GM INH SCH ×4 (00:10→20:12)
[2021-02-14] MEDS: INSULIN LISPRO 100 UNIT/ML SUBCUT SCH ×6 (00:32→20:26)
[2021-02-14] MEDS: ACETAMINOPHEN 325 MG TABLET PO PRN ×4 (00:33→20:25)
[2021-02-14] MEDS: MEROPENEM 500 MG in SODIUM CHLORIDE 0.9% 100 ML IV SCH ×4 (02:04→20:26)
[2021-02-14] MEDS: methylPREDNISolone SOD SUC 40 MG/1 ML VIAL IV SCH ×2 (02:04→16:00)
[2021-02-14] MEDS: IBUPROFEN 100 MG/5 ML UDCUP PO PRN ×3 (03:17→16:47)
[2021-02-14 03:54] LABS: ABG Base Excess 3.8 MMOL/L (-2.5-2.5); ABG HCO3 27.8 MMOL/L (20-26); ABG Oxygen Saturation 97.9 % (95-100); ABG PCO2 39.8 MM HG (35-48); ABG PH 7.454 (7.35-7.45); ABG TCO2 25.5 MMOL/L (23-27)
[2021-02-14 05:05] LABS: Basophils % 0.1 % (0.0-0.8); Eosinophils # 0.1 10*3/uL (0.0-0.87); Eosinophils % 0.5 % (0.00-10.9); Hematocrit 28.6 VOL% (35.7-47.0); Hemoglobin 8.7 GM/DL (12.0-16.0); Immature Granulocytes % 2.9 %; Immature Granulocytes Absolute 0.37 #; Lymphocytes # 0.7 10*3/uL (1.4-4.0); Lymphocytes % 5.5 % (21.3-54.2); Mean Corpuscular HGB Conc 30.4 GM/DL (32-36); Mean Corpuscular Volume 86.4 FL (87-102); Mean Platelet Volume 12.1 FL (9.6-12.0); Monocytes % 2.3 % (1.7-12.7); Neutrophils % 88.7 % (38.7-73.9); Platelet Count 226 T/CUMM (130-400); Red Blood Count 3.31 MC/CUMM (3.8-5.5); Red Cell Distribution Width 17.4 % (9.3-17.3); White Blood Count 12.8 T/CUMM (4-12)
[2021-02-14 05:30] LABS: Calcium 8.6 MG/DL (8.5-10.1); Osmolality,Calculated 279.2 MOS/KG (273-304); Potassium 3.3 MMOL/L (3.5-5.1)
[2021-02-14 05:34] LABS: Band Neutrophils 6 % (0-10); Eosinophils 1 % (0-10); Hypochromasia 1+; Lymphocytes 3 % (20-55); Macrocytosis Slight; Platelet Estimate Adequate; Polychromasia Slight; Segmented Neutrophils 89 % (50-85); Total Cells Counted 100
[2021-02-14 05:48] LABS: Ferritin 54.8 ng/mL (8-252)
[2021-02-14] MEDS: ASPIRIN CHEW 81 MG TABLET PO SCH (08:31)
[2021-02-14] MEDS: ASCORBIC ACID 500 MG TABLET PO SCH ×2 (08:31→20:25)
[2021-02-14] MEDS: FAMOTIDINE 20 MG TABLET PO SCH ×2 (08:31→20:25)
[2021-02-14] MEDS: ZINC GLUCONATE 50 MG TABLET PO SCH (08:32)
[2021-02-14] MEDS: CETIRIZINE 10 MG TABLET PO SCH (08:32)
[2021-02-14] MEDS: CHOLECALCIFEROL 1,000 UNIT TABLET PO SCH (08:32)
[2021-02-14] MEDS: POTASSIUM BICARB EFFERVESCENT 20 MEQ TAB.EFF PER TUBE PRN ×3 (08:33→12:52)
[2021-02-14] MEDS: FUROSEMIDE 40 MG/4 ML VIAL IV SCH (08:33)
[2021-02-14] MEDS: atenoloL 50 MG TABLET PO SCH ×2 (09:00→20:27)
[2021-02-14] MEDS: amLODIPine 5 MG TABLET PO SCH (09:00)
[2021-02-14] MEDS: MULTIVITAMIN LIQUID (CENTRUM) 60 ML BOTTLE PO SCH (09:31)
[2021-02-14] MEDS: MENTHOL/ZINC OXIDE OINT 71 GM JAR TOP SCH ×2 (09:31→20:27)
[2021-02-14 10:19] LABS: Hemoglobin 8.9 GM/DL (12.0-16.0)
[2021-02-14] MEDS: METOPROLOL TARTRATE 5 MG/5 ML VIAL IV PRN (10:47)
[2021-02-14] MEDS: fentaNYL INJ 5,000 MCG in SODIUM CHLORIDE 0.9% 150 ML IV PRN (11:31)
[2021-02-14] MEDS: DIGOXIN 0.125 MG TABLET PO SCH (12:09)
[2021-02-14] MEDS: MICAFUNGIN 100 MG in SODIUM CHLORIDE 0.9% 100 ML IV SCH (12:52)
[2021-02-14] MEDS ORDERED: SODIUM CHLORIDE 0.9% 1,000 ML IV ONE (13:30)
[2021-02-14 17:58] LABS: Hematocrit 27.7 VOL% (35.7-47.0); Hemoglobin 8.3 GM/DL (12.0-16.0)
[2021-02-14] MEDS: QUEtiapine 25 MG TABLET PO SCH (20:25)
[2021-02-14] MEDS: INSULIN GLARGINE 100 UNIT/ML SUBCUT SCH (20:26)
[2021-02-15] MEDS: ALBUTEROL INHALER 18 GM INH SCH ×4 (00:23→18:10)
[2021-02-15] MEDS: INSULIN LISPRO 100 UNIT/ML SUBCUT SCH ×6 (00:23→19:38)
[2021-02-15] MEDS: methylPREDNISolone SOD SUC 40 MG/1 ML VIAL IV SCH ×2 (01:03→14:32)
[2021-02-15] MEDS: MEROPENEM 500 MG in SODIUM CHLORIDE 0.9% 100 ML IV SCH ×4 (02:13→21:14)
[2021-02-15 03:54] LABS: ABG Base Excess 9.5 MMOL/L (-2.5-2.5); ABG HCO3 33.3 MMOL/L (20-26); ABG Oxygen Saturation 99.6 % (95-100); ABG PCO2 39.3 MM HG (35-48); ABG PH 7.533 (7.35-7.45); ABG TCO2 30.7 MMOL/L (23-27)
[2021-02-15 04:51] LABS: Basophils % 0.1 % (0.0-0.8); Eosinophils % 0.2 % (0.00-10.9); Hematocrit 23.6 VOL% (35.7-47.0); Immature Granulocytes % 5.3 %; Immature Granulocytes Absolute 0.47 #; Lymphocytes % 11.4 % (21.3-54.2); Mean Corpuscular HGB Conc 29.7 GM/DL (32-36); Mean Corpuscular Volume 87.4 FL (87-102); Mean Platelet Volume 11.7 FL (9.6-12.0); Monocytes % 2.4 % (1.7-12.7); Neutrophils % 80.6 % (38.7-73.9); Platelet Count 247 T/CUMM (130-400); Red Cell Distribution Width 17.6 % (9.3-17.3); White Blood Count 8.9 T/CUMM (4-12)
[2021-02-15] MEDS: fentaNYL INJ 5,000 MCG in SODIUM CHLORIDE 0.9% 150 ML IV PRN ×2 (04:51→20:45)
[2021-02-15 05:11] LABS: Hypochromasia 1+; Lymphocytes 7 % (20-55); Microcytosis 1+; Platelet Estimate Adequate; Segmented Neutrophils 92 % (50-85); Total Cells Counted 100
[2021-02-15 05:12] LABS: Calcium 8.4 MG/DL (8.5-10.1); Osmolality,Calculated 285.7 MOS/KG (273-304); Potassium 3.2 MMOL/L (3.5-5.1)
[2021-02-15] MEDS: POTASSIUM BICARB EFFERVESCENT 20 MEQ TAB.EFF PER TUBE PRN ×3 (05:45→22:57)
[2021-02-15] MEDS ORDERED: SODIUM CHLORIDE 0.9% 1,000 ML IV PRN (07:15)
[2021-02-15] MEDS: ASPIRIN CHEW 81 MG TABLET PO SCH (09:52)
[2021-02-15] MEDS: MULTIVITAMIN LIQUID (CENTRUM) 60 ML BOTTLE PO SCH (09:53)
[2021-02-15] MEDS: ASCORBIC ACID 500 MG TABLET PO SCH ×2 (09:53→21:13)
[2021-02-15] MEDS: MENTHOL/ZINC OXIDE OINT 71 GM JAR TOP SCH ×2 (09:53→21:12)
[2021-02-15] MEDS: FUROSEMIDE 40 MG/4 ML VIAL IV SCH (09:53)
[2021-02-15] MEDS: CHOLECALCIFEROL 1,000 UNIT TABLET PO SCH (09:53)
[2021-02-15] MEDS: FAMOTIDINE 20 MG TABLET PO SCH ×2 (09:53→21:13)
[2021-02-15] MEDS: atenoloL 50 MG TABLET PO SCH ×2 (09:53→21:54)
[2021-02-15] MEDS: CETIRIZINE 10 MG TABLET PO SCH (09:54)
[2021-02-15] MEDS: ZINC GLUCONATE 50 MG TABLET PO SCH (09:54)
[2021-02-15] MEDS: METOPROLOL TARTRATE 5 MG/5 ML VIAL IV PRN (11:01)
[2021-02-15] MEDS: MICAFUNGIN 100 MG in SODIUM CHLORIDE 0.9% 100 ML IV SCH (13:25)
[2021-02-15] MEDS: DIGOXIN 0.125 MG TABLET PO SCH (14:21)
[2021-02-15] MEDS: INSULIN GLARGINE 100 UNIT/ML SUBCUT SCH (21:12)
[2021-02-15] MEDS: QUEtiapine 25 MG TABLET PO SCH (21:13)
[2021-02-15] MEDS: ACETAMINOPHEN 325 MG TABLET PO PRN (21:13)
[2021-02-16] MEDS: INSULIN LISPRO 100 UNIT/ML SUBCUT SCH ×6 (00:59→19:29)
[2021-02-16] MEDS: ALBUTEROL INHALER 18 GM INH SCH ×4 (00:59→18:45)
[2021-02-16] MEDS: methylPREDNISolone SOD SUC 40 MG/1 ML VIAL IV SCH ×2 (02:54→15:25)
[2021-02-16] MEDS: MEROPENEM 500 MG in SODIUM CHLORIDE 0.9% 100 ML IV SCH ×4 (02:54→20:17)
[2021-02-16 04:41] LABS: Basophils % 0.2 % (0.0-0.8); Eosinophils % 0.2 % (0.00-10.9); Immature Granulocytes % 3.2 %; Immature Granulocytes Absolute 0.41 #; Lymphocytes # 1.9 10*3/uL (1.4-4.0); Lymphocytes % 15.1 % (21.3-54.2); Mean Corpuscular HGB Conc 30.6 GM/DL (32-36); Mean Corpuscular Volume 89.5 FL (87-102); Mean Platelet Volume 11.4 FL (9.6-12.0); Monocytes % 3.4 % (1.7-12.7); NRBC # 0.57 10*3/uL; Neutrophils % 77.9 % (38.7-73.9); Red Cell Distribution Width 17.3 % (9.3-17.3)
[2021-02-16 04:44] LABS: ABG Base Excess 12.1 MMOL/L (-2.5-2.5); ABG HCO3 35.9 MMOL/L (20-26); ABG Oxygen Saturation 88.3 % (95-100); ABG PCO2 43.7 MM HG (35-48); ABG PH 7.533 (7.35-7.45); ABG PO2 56.3 MM HG (80-95); ABG TCO2 37.3 MMOL/L (23-27)
[2021-02-16 04:46] LABS: Hematocrit 29.7 VOL% (35.7-47.0); Hemoglobin 9.1 GM/DL (12.0-16.0); Platelet Count 307 T/CUMM (130-400); Red Blood Count 3.32 MC/CUMM (3.8-5.5); White Blood Count 12.8 T/CUMM (4-12)
[2021-02-16 04:59] LABS: Calcium 8.9 MG/DL (8.5-10.1); Osmolality,Calculated 283.5 MOS/KG (273-304); Potassium 3.5 MMOL/L (3.5-5.1)
[2021-02-16] MEDS: POTASSIUM BICARB EFFERVESCENT 20 MEQ TAB.EFF PER TUBE PRN (06:10)
[2021-02-16] MEDS: MENTHOL/ZINC OXIDE OINT 71 GM JAR TOP SCH ×2 (08:31→20:17)
[2021-02-16] MEDS: FUROSEMIDE 40 MG/4 ML VIAL IV SCH (08:31)
[2021-02-16] MEDS: ASPIRIN CHEW 81 MG TABLET PO SCH (08:31)
[2021-02-16] MEDS: MULTIVITAMIN LIQUID (CENTRUM) 60 ML BOTTLE PO SCH (08:31)
[2021-02-16] MEDS: FAMOTIDINE 20 MG TABLET PO SCH ×2 (08:32→20:05)
[2021-02-16] MEDS: atenoloL 50 MG TABLET PO SCH ×2 (08:32→20:04)
[2021-02-16] MEDS: ASCORBIC ACID 500 MG TABLET PO SCH ×2 (08:32→20:04)
[2021-02-16] MEDS: CETIRIZINE 10 MG TABLET PO SCH (08:32)
[2021-02-16] MEDS: CHOLECALCIFEROL 1,000 UNIT TABLET PO SCH (08:32)
[2021-02-16] MEDS: ZINC GLUCONATE 50 MG TABLET PO SCH (08:32)
[2021-02-16] MEDS: POTASSIUM CHLORIDE RIDER 10 MEQ/100 ML PREMIX IV PRN (10:11)
[2021-02-16 11:07] LABS: ABG HCO3 36.8 MMOL/L (20-26); ABG Oxygen Saturation 96.5 % (95-100); ABG PCO2 44.8 MM HG (35-48); ABG PH 7.529 (7.35-7.45); ABG PO2 77.8 MM HG (80-95); ABG TCO2 34.3 MMOL/L (23-27); Allen Test Positive; Pt O2 Delivery Device Ventilator
[2021-02-16] MEDS: MICAFUNGIN 100 MG in SODIUM CHLORIDE 0.9% 100 ML IV SCH (13:10)
[2021-02-16] MEDS: DIGOXIN 0.125 MG TABLET PO SCH (13:13)
[2021-02-16] MEDS: fentaNYL INJ 5,000 MCG in SODIUM CHLORIDE 0.9% 150 ML IV PRN (15:27)
[2021-02-16] MEDS: QUEtiapine 25 MG TABLET PO SCH (20:04)
[2021-02-16] MEDS: INSULIN GLARGINE 100 UNIT/ML SUBCUT SCH (20:04)
[2021-02-17] MEDS: INSULIN LISPRO 100 UNIT/ML SUBCUT SCH ×6 (00:03→20:18)
[2021-02-17] MEDS: ALBUTEROL INHALER 18 GM INH SCH ×4 (01:25→19:33)
[2021-02-17] MEDS: methylPREDNISolone SOD SUC 40 MG/1 ML VIAL IV SCH ×2 (01:35→14:58)
[2021-02-17] MEDS: MEROPENEM 500 MG in SODIUM CHLORIDE 0.9% 100 ML IV SCH ×4 (02:08→20:28)
[2021-02-17 04:01] LABS: Basophils % 0.2 % (0.0-0.8); Eosinophils % 0.2 % (0.00-10.9); Hematocrit 30.1 VOL% (35.7-47.0); Hemoglobin 9.2 GM/DL (12.0-16.0); Immature Granulocytes % 2.8 %; Immature Granulocytes Absolute 0.36 #; Lymphocytes # 1.5 10*3/uL (1.4-4.0); Lymphocytes % 11.7 % (21.3-54.2); Mean Corpuscular HGB Conc 30.6 GM/DL (32-36); Mean Corpuscular Volume 90.1 FL (87-102); Mean Platelet Volume 11.3 FL (9.6-12.0); Monocytes % 3.4 % (1.7-12.7); NRBC # 0.55 10*3/uL; Neutrophils % 81.7 % (38.7-73.9); Platelet Count 361 T/CUMM (130-400); Red Blood Count 3.34 MC/CUMM (3.8-5.5); Red Cell Distribution Width 17.5 % (9.3-17.3); White Blood Count 12.7 T/CUMM (4-12)
[2021-02-17 04:11] LABS: Calcium 9.2 MG/DL (8.5-10.1); Osmolality,Calculated 281.8 MOS/KG (273-304); Potassium 3.4 MMOL/L (3.5-5.1)
[2021-02-17 04:45] LABS: ABG Base Excess 10.4 MMOL/L (-2.5-2.5); ABG HCO3 34.1 MMOL/L (20-26); ABG Oxygen Saturation 96.5 % (95-100); ABG PCO2 43.9 MM HG (35-48); ABG PH 7.505 (7.35-7.45); ABG PO2 82.1 MM HG (80-95); ABG TCO2 31.7 MMOL/L (23-27); Allen Test Positive; Pt O2 Delivery Device Ventilator
[2021-02-17] MEDS: POTASSIUM CHLORIDE RIDER 10 MEQ/100 ML PREMIX IV PRN ×3 (04:52→09:20)
[2021-02-17 05:48] LABS: Ferritin 52.5 ng/mL (8-252)
[2021-02-17] MEDS: fentaNYL INJ 5,000 MCG in SODIUM CHLORIDE 0.9% 150 ML IV PRN ×2 (06:01→22:36)
[2021-02-17] MEDS: ASPIRIN CHEW 81 MG TABLET PO SCH (09:47)
[2021-02-17] MEDS: MENTHOL/ZINC OXIDE OINT 71 GM JAR TOP SCH ×2 (09:48→20:29)
[2021-02-17] MEDS: ASCORBIC ACID 500 MG TABLET PO SCH ×2 (09:48→20:28)
[2021-02-17] MEDS: CHOLECALCIFEROL 1,000 UNIT TABLET PO SCH (09:48)
[2021-02-17] MEDS: atenoloL 50 MG TABLET PO SCH ×2 (09:48→20:28)
[2021-02-17] MEDS: ZINC GLUCONATE 50 MG TABLET PO SCH (09:48)
[2021-02-17] MEDS: CETIRIZINE 10 MG TABLET PO SCH (09:48)
[2021-02-17] MEDS: MULTIVITAMIN LIQUID (CENTRUM) 60 ML BOTTLE PO SCH (09:48)
[2021-02-17] MEDS: FUROSEMIDE 40 MG/4 ML VIAL IV SCH (09:48)
[2021-02-17] MEDS: FAMOTIDINE 20 MG TABLET PO SCH ×2 (09:48→20:28)
[2021-02-17] MEDS: FONDAPARINUX 7.5 MG/0.6 ML SYRINGE SUBCUT SCH (10:49)
[2021-02-17] MEDS: MICAFUNGIN 100 MG in SODIUM CHLORIDE 0.9% 100 ML IV SCH (12:46)
[2021-02-17] MEDS: DIGOXIN 0.125 MG TABLET PO SCH (13:33)
[2021-02-17] MEDS: INSULIN GLARGINE 100 UNIT/ML SUBCUT SCH (20:19)
[2021-02-17] MEDS: QUEtiapine 25 MG TABLET PO SCH (20:28)
[2021-02-18] MEDS: ALBUTEROL INHALER 18 GM INH SCH ×4 (00:53→18:39)
[2021-02-18] MEDS: INSULIN LISPRO 100 UNIT/ML SUBCUT SCH ×6 (00:53→20:17)
[2021-02-18] MEDS: MEROPENEM 500 MG in SODIUM CHLORIDE 0.9% 100 ML IV SCH ×4 (02:21→20:41)
[2021-02-18] MEDS: methylPREDNISolone SOD SUC 40 MG/1 ML VIAL IV SCH ×2 (02:21→14:12)
[2021-02-18 04:27] LABS: Basophils % 0.1 % (0.0-0.8); Eosinophils % 0.3 % (0.00-10.9); Hematocrit 31.6 VOL% (35.7-47.0); Hemoglobin 9.6 GM/DL (12.0-16.0); Immature Granulocytes % 2.1 %; Immature Granulocytes Absolute 0.26 #; Lymphocytes # 1.2 10*3/uL (1.4-4.0); Lymphocytes % 9.7 % (21.3-54.2); Mean Corpuscular HGB Conc 30.4 GM/DL (32-36); Mean Corpuscular Volume 90.3 FL (87-102); Mean Platelet Volume 10.6 FL (9.6-12.0); Monocytes % 2.8 % (1.7-12.7); NRBC # 0.22 10*3/uL; Platelet Count 425 T/CUMM (130-400); Red Cell Distribution Width 18.2 % (9.3-17.3); White Blood Count 12.6 T/CUMM (4-12)
[2021-02-18 04:42] LABS: ABG Base Excess 10.2 MMOL/L (-2.5-2.5); ABG HCO3 33.9 MMOL/L (20-26); ABG Oxygen Saturation 95.2 % (95-100); ABG PCO2 43.2 MM HG (35-48); ABG PH 7.509 (7.35-7.45); ABG PO2 75.9 MM HG (80-95); Allen Test Positive; Pt O2 Delivery Device Ventilator
[2021-02-18 04:51] LABS: Calcium 9.1 MG/DL (8.5-10.1); Ferritin 48.4 ng/mL (8-252); Osmolality,Calculated 273.1 MOS/KG (273-304); Potassium 3.4 MMOL/L (3.5-5.1)
[2021-02-18] MEDS: MULTIVITAMIN LIQUID (CENTRUM) 60 ML BOTTLE PO SCH (08:54)
[2021-02-18] MEDS: FUROSEMIDE 40 MG/4 ML VIAL IV SCH (08:55)
[2021-02-18] MEDS: CHOLECALCIFEROL 1,000 UNIT TABLET PO SCH (08:55)
[2021-02-18] MEDS: ASCORBIC ACID 500 MG TABLET PO SCH ×2 (08:55→20:42)
[2021-02-18] MEDS: atenoloL 50 MG TABLET PO SCH ×2 (08:55→20:42)
[2021-02-18] MEDS: ZINC GLUCONATE 50 MG TABLET PO SCH (08:56)
[2021-02-18] MEDS: FAMOTIDINE 20 MG TABLET PO SCH ×2 (08:56→20:42)
[2021-02-18] MEDS: POTASSIUM CHLORIDE RIDER 10 MEQ/100 ML PREMIX IV PRN ×2 (08:56→10:55)
[2021-02-18] MEDS: CETIRIZINE 10 MG TABLET PO SCH (08:56)
[2021-02-18] MEDS: ASPIRIN CHEW 81 MG TABLET PO SCH (08:56)
[2021-02-18] MEDS: MENTHOL/ZINC OXIDE OINT 71 GM JAR TOP SCH ×2 (08:57→20:43)
[2021-02-18] MEDS: FONDAPARINUX 7.5 MG/0.6 ML SYRINGE SUBCUT SCH (10:31)
[2021-02-18] MEDS: MICAFUNGIN 100 MG in SODIUM CHLORIDE 0.9% 100 ML IV SCH (12:15)
[2021-02-18] MEDS: DIGOXIN 0.125 MG TABLET PO SCH (12:15)
[2021-02-18] MEDS: fentaNYL INJ 5,000 MCG in SODIUM CHLORIDE 0.9% 150 ML IV PRN (16:48)
[2021-02-18] MEDS: INSULIN GLARGINE 100 UNIT/ML SUBCUT SCH (20:17)
[2021-02-18] MEDS: QUEtiapine 25 MG TABLET PO SCH (20:42)
[2021-02-19] MEDS: INSULIN LISPRO 100 UNIT/ML SUBCUT SCH ×4 (00:04→17:34)
[2021-02-19] MEDS: ALBUTEROL INHALER 18 GM INH SCH ×4 (00:04→18:21)
[2021-02-19] MEDS: methylPREDNISolone SOD SUC 40 MG/1 ML VIAL IV SCH ×2 (02:22→15:06)
[2021-02-19] MEDS: MEROPENEM 500 MG in SODIUM CHLORIDE 0.9% 100 ML IV SCH ×4 (03:12→20:47)
[2021-02-19 03:14] LABS: Basophils % 0.1 % (0.0-0.8); Eosinophils % 0.4 % (0.00-10.9); Hemoglobin 8.5 GM/DL (12.0-16.0); Immature Granulocytes % 3.2 %; Immature Granulocytes Absolute 0.29 #; Lymphocytes # 1.6 10*3/uL (1.4-4.0); Lymphocytes % 18.2 % (21.3-54.2); Mean Corpuscular HGB Conc 30.4 GM/DL (32-36); Mean Corpuscular Volume 89.7 FL (87-102); Mean Platelet Volume 10.1 FL (9.6-12.0); Monocytes % 2.5 % (1.7-12.7); NRBC # 0.17 10*3/uL; Neutrophils % 75.6 % (38.7-73.9); Platelet Count 396 T/CUMM (130-400); Red Blood Count 3.12 MC/CUMM (3.8-5.5); Red Cell Distribution Width 17.8 % (9.3-17.3); White Blood Count 8.9 T/CUMM (4-12)
[2021-02-19 03:44] LABS: PT Patient Result 11.6 SECS (10.5-12.0)
[2021-02-19 03:50] LABS: Calcium 8.6 MG/DL (8.5-10.1); Ferritin 55.1 ng/mL (8-252)
[2021-02-19] MEDS ORDERED: POTASSIUM BICARB EFFERVESCENT 20 MEQ TAB.EFF PER TUBE ONE (04:00)
[2021-02-19] MEDS: POTASSIUM CHLORIDE RIDER 10 MEQ/100 ML PREMIX IV PRN ×5 (04:17→08:18)
[2021-02-19 04:26] LABS: Allen Test Positive; Pt O2 Delivery Device Ventilator
[2021-02-19 04:37] LABS: ABG Base Excess 9.4 MMOL/L (-2.5-2.5); ABG HCO3 33.1 MMOL/L (20-26); ABG Oxygen Saturation 92.4 % (95-100); ABG PCO2 47.4 MM HG (35-48); ABG PH 7.469 (7.35-7.45); ABG PO2 66.9 MM HG (80-95); ABG TCO2 31.3 MMOL/L (23-27)
[2021-02-19] MEDS ORDERED: LACTATED RINGERS 1,000 ML IV SCH (08:00)
[2021-02-19] MEDS: atenoloL 50 MG TABLET PO SCH ×2 (09:17→20:48)
[2021-02-19] MEDS: MENTHOL/ZINC OXIDE OINT 71 GM JAR TOP SCH ×2 (09:17→20:49)
[2021-02-19] MEDS: FAMOTIDINE 20 MG TABLET PO SCH ×2 (09:17→20:48)
[2021-02-19] MEDS: ASPIRIN CHEW 81 MG TABLET PO SCH (09:17)
[2021-02-19] MEDS: MULTIVITAMIN LIQUID (CENTRUM) 60 ML BOTTLE PO SCH (09:17)
[2021-02-19] MEDS: CHOLECALCIFEROL 1,000 UNIT TABLET PO SCH (09:18)
[2021-02-19] MEDS: ZINC GLUCONATE 50 MG TABLET PO SCH (09:18)
[2021-02-19] MEDS: CETIRIZINE 10 MG TABLET PO SCH (09:18)
[2021-02-19] MEDS: ASCORBIC ACID 500 MG TABLET PO SCH ×2 (09:18→20:48)
[2021-02-19] MEDS: FUROSEMIDE 40 MG/4 ML VIAL IV SCH (09:27)
[2021-02-19] MEDS: MICAFUNGIN 100 MG in SODIUM CHLORIDE 0.9% 100 ML IV SCH (11:28)
[2021-02-19] MEDS ORDERED: BUPIVACAINE MPF 0.25% 30 ML VIAL ONE (11:37)
[2021-02-19] MEDS ORDERED: MIDAZOLAM 2 MG/2 ML VIAL ONE ×2 (11:45)
[2021-02-19] MEDS ORDERED: ROCURONIUM 50 MG/5 ML VIAL IV ONE (11:45)
[2021-02-19] MEDS ORDERED: fentaNYL 100 MCG/2 ML VIAL ONE (12:23)
[2021-02-19] MEDS ORDERED: SEVOFLURANE 1 UNIT/15 MINUTE INH ONE (13:03)
[2021-02-19] MEDS ORDERED: PHENYLEPHRINE 1 MG/10 ML SYRINGE IV ONE (13:25)
[2021-02-19] MEDS: DIGOXIN 0.125 MG TABLET PO SCH (14:51)
[2021-02-19] MEDS: METOPROLOL TARTRATE 5 MG/5 ML VIAL IV PRN (20:47)
[2021-02-19] MEDS: QUEtiapine 25 MG TABLET PO SCH (20:48)
[2021-02-19] MEDS: fentaNYL INJ 5,000 MCG in SODIUM CHLORIDE 0.9% 150 ML IV PRN (21:17)
[2021-02-19] MEDS ORDERED: SODIUM CHLORIDE 0.9% 500 ML IV ONE (22:10)
[2021-02-19] MEDS ORDERED: SODIUM BICARBONATE 50 MEQ/50 ML VIAL IV ONE (22:30)
[2021-02-20] MEDS: ALBUTEROL INHALER 18 GM INH SCH ×4 (00:26→18:55)
[2021-02-20] MEDS: INSULIN LISPRO 100 UNIT/ML SUBCUT SCH ×4 (00:26→18:46)
[2021-02-20] MEDS: methylPREDNISolone SOD SUC 40 MG/1 ML VIAL IV SCH ×2 (02:38→13:54)
[2021-02-20] MEDS: MEROPENEM 500 MG in SODIUM CHLORIDE 0.9% 100 ML IV SCH ×4 (02:39→20:51)
[2021-02-20 03:25] LABS: ABG Base Excess 9.2 MMOL/L (-2.5-2.5); ABG PCO2 40.7 MM HG (35-48); ABG PH 7.517 (7.35-7.45); ABG TCO2 30.7 MMOL/L (23-27)
[2021-02-20 04:57] LABS: Basophils % 0.1 % (0.0-0.8); Eosinophils % 0.2 % (0.00-10.9); Hematocrit 29.9 VOL% (35.7-47.0); Immature Granulocytes % 3.1 %; Immature Granulocytes Absolute 0.33 #; Lymphocytes # 1.1 10*3/uL (1.4-4.0); Lymphocytes % 10.6 % (21.3-54.2); Mean Corpuscular HGB Conc 30.1 GM/DL (32-36); Mean Corpuscular Volume 90.6 FL (87-102); Mean Platelet Volume 9.5 FL (9.6-12.0); Monocytes % 2.2 % (1.7-12.7); NRBC # 0.15 10*3/uL; Neutrophils % 83.8 % (38.7-73.9); Platelet Count 432 T/CUMM (130-400); Red Cell Distribution Width 18.2 % (9.3-17.3); White Blood Count 10.8 T/CUMM (4-12)
[2021-02-20 05:09] LABS: PT Patient Result 11.5 SECS (10.5-12.0)
[2021-02-20 05:16] LABS: Calcium 8.8 MG/DL (8.5-10.1); Ferritin 54.2 ng/mL (8-252); Potassium 3.5 MMOL/L (3.5-5.1)
[2021-02-20] MEDS: ASCORBIC ACID 500 MG TABLET PO SCH ×2 (08:42→20:57)
[2021-02-20] MEDS: CETIRIZINE 10 MG TABLET PO SCH (08:42)
[2021-02-20] MEDS: ZINC GLUCONATE 50 MG TABLET PO SCH (08:42)
[2021-02-20] MEDS: CHOLECALCIFEROL 1,000 UNIT TABLET PO SCH (08:43)
[2021-02-20] MEDS: FAMOTIDINE 20 MG TABLET PO SCH ×2 (08:43→20:57)
[2021-02-20] MEDS: ASPIRIN CHEW 81 MG TABLET PO SCH (08:43)
[2021-02-20] MEDS: MULTIVITAMIN LIQUID (CENTRUM) 60 ML BOTTLE PO SCH (09:02)
[2021-02-20] MEDS: LACTATED RINGERS 1,000 ML IV SCH (09:02)
[2021-02-20] MEDS: MENTHOL/ZINC OXIDE OINT 71 GM JAR TOP SCH ×2 (09:02→21:00)
[2021-02-20] MEDS: atenoloL 50 MG TABLET PO SCH ×2 (09:02→20:57)
[2021-02-20] MEDS: FUROSEMIDE 40 MG/4 ML VIAL IV SCH (09:02)
[2021-02-20] MEDS: MICAFUNGIN 100 MG in SODIUM CHLORIDE 0.9% 100 ML IV SCH (12:01)
[2021-02-20] MEDS: DIGOXIN 0.125 MG TABLET PO SCH (13:54)
[2021-02-20] MEDS: QUEtiapine 25 MG TABLET PO SCH (20:57)
[2021-02-21] MEDS: INSULIN LISPRO 100 UNIT/ML SUBCUT SCH ×5 (00:21→23:49)
[2021-02-21] MEDS: fentaNYL INJ 5,000 MCG in SODIUM CHLORIDE 0.9% 150 ML IV PRN (01:58)
[2021-02-21] MEDS: ALBUTEROL INHALER 18 GM INH SCH ×4 (01:58→20:46)
[2021-02-21] MEDS: MEROPENEM 500 MG in SODIUM CHLORIDE 0.9% 100 ML IV SCH ×4 (02:30→20:46)
[2021-02-21] MEDS: methylPREDNISolone SOD SUC 40 MG/1 ML VIAL IV SCH ×2 (02:39→14:50)
[2021-02-21 04:02] LABS: ABG Base Excess 10.6 MMOL/L (-2.5-2.5); ABG HCO3 33.1 MMOL/L (20-26); ABG Oxygen Saturation 98.2 % (95-100); ABG PCO2 35.8 MM HG (35-48); ABG PH 7.584 (7.35-7.45); ABG PO2 114.7 MM HG (80-95); ABG TCO2 34.2 MMOL/L (23-27)
[2021-02-21 04:44] LABS: Eosinophils % 0.3 % (0.00-10.9); Hematocrit 27.3 VOL% (35.7-47.0); Hemoglobin 8.2 GM/DL (12.0-16.0); Immature Granulocytes Absolute 0.14 #; Lymphocytes # 1.4 10*3/uL (1.4-4.0); Lymphocytes % 19.4 % (21.3-54.2); Mean Corpuscular Volume 90.1 FL (87-102); Monocytes % 2.2 % (1.7-12.7); NRBC # 0.06 10*3/uL; Neutrophils % 76.1 % (38.7-73.9); Platelet Count 446 T/CUMM (130-400); Red Blood Count 3.03 MC/CUMM (3.8-5.5); Red Cell Distribution Width 17.5 % (9.3-17.3); White Blood Count 7.2 T/CUMM (4-12)
[2021-02-21 05:48] LABS: Calcium 8.9 MG/DL (8.5-10.1); Osmolality,Calculated 272.8 MOS/KG (273-304); Potassium 2.9 MMOL/L (3.5-5.1)
[2021-02-21] MEDS: POTASSIUM BICARB EFFERVESCENT 20 MEQ TAB.EFF PER TUBE PRN ×4 (06:14→15:00)
[2021-02-21] MEDS: MULTIVITAMIN LIQUID (CENTRUM) 60 ML BOTTLE PO SCH (08:10)
[2021-02-21] MEDS: atenoloL 50 MG TABLET PO SCH ×2 (08:10→20:47)
[2021-02-21] MEDS: FAMOTIDINE 20 MG TABLET PO SCH ×2 (08:10→20:46)
[2021-02-21] MEDS: ASPIRIN CHEW 81 MG TABLET PO SCH (08:10)
[2021-02-21] MEDS: FUROSEMIDE 40 MG/4 ML VIAL IV SCH (08:10)
[2021-02-21] MEDS: ASCORBIC ACID 500 MG TABLET PO SCH ×2 (08:10→20:47)
[2021-02-21] MEDS: MENTHOL/ZINC OXIDE OINT 71 GM JAR TOP SCH ×2 (08:10→20:47)
[2021-02-21] MEDS: CHOLECALCIFEROL 1,000 UNIT TABLET PO SCH (08:11)
[2021-02-21] MEDS: ZINC GLUCONATE 50 MG TABLET PO SCH (08:11)
[2021-02-21] MEDS: CETIRIZINE 10 MG TABLET PO SCH (08:11)
[2021-02-21 08:18] LABS: Albumin 2.5 G/DL (3.4-5.0); Calcium 8.9 MG/DL (8.5-10.1); Osmolality,Calculated 272.8 MOS/KG (273-304); Potassium 2.9 MMOL/L (3.5-5.1)
[2021-02-21] MEDS: LACTATED RINGERS 1,000 ML IV SCH (09:11)
[2021-02-21] MEDS: MICAFUNGIN 100 MG in SODIUM CHLORIDE 0.9% 100 ML IV SCH (12:57)
[2021-02-21] MEDS: DIGOXIN 0.125 MG TABLET PO SCH (14:10)
[2021-02-21] MEDS: QUEtiapine 25 MG TABLET PO SCH (20:47)
[2021-02-22] MEDS: ALBUTEROL INHALER 18 GM INH SCH ×4 (00:35→18:11)
[2021-02-22] MEDS: POTASSIUM BICARB EFFERVESCENT 20 MEQ TAB.EFF PER TUBE PRN (00:35)
[2021-02-22] MEDS: methylPREDNISolone SOD SUC 40 MG/1 ML VIAL IV SCH ×2 (01:24→14:10)
[2021-02-22] MEDS: fentaNYL INJ 5,000 MCG in SODIUM CHLORIDE 0.9% 150 ML IV PRN (04:49)
[2021-02-22 05:47] LABS: Basophils % 0.1 % (0.0-0.8); Hematocrit 28.8 VOL% (35.7-47.0); Hemoglobin 8.7 GM/DL (12.0-16.0); Immature Granulocytes % 1.3 %; Immature Granulocytes Absolute 0.12 #; Lymphocytes # 0.8 10*3/uL (1.4-4.0); Lymphocytes % 8.9 % (21.3-54.2); Mean Corpuscular HGB Conc 30.2 GM/DL (32-36); Mean Corpuscular Volume 90.3 FL (87-102); Mean Platelet Volume 9.9 FL (9.6-12.0); Monocytes % 1.7 % (1.7-12.7); NRBC # 0.08 10*3/uL; Platelet Count 465 T/CUMM (130-400); Red Blood Count 3.19 MC/CUMM (3.8-5.5); White Blood Count 9.4 T/CUMM (4-12)
[2021-02-22] MEDS: INSULIN LISPRO 100 UNIT/ML SUBCUT SCH ×4 (06:10→23:19)
[2021-02-22] MEDS: LACTATED RINGERS 1,000 ML IV SCH (08:04)
[2021-02-22] MEDS: ASCORBIC ACID 500 MG TABLET PO SCH ×2 (08:44→20:28)
[2021-02-22] MEDS: ZINC GLUCONATE 50 MG TABLET PO SCH (08:44)
[2021-02-22] MEDS: ASPIRIN CHEW 81 MG TABLET PO SCH (08:44)
[2021-02-22] MEDS: CHOLECALCIFEROL 1,000 UNIT TABLET PO SCH (08:44)
[2021-02-22] MEDS: atenoloL 50 MG TABLET PO SCH ×2 (08:44→20:28)
[2021-02-22] MEDS: MENTHOL/ZINC OXIDE OINT 71 GM JAR TOP SCH ×2 (08:44→20:45)
[2021-02-22] MEDS: CETIRIZINE 10 MG TABLET PO SCH (08:44)
[2021-02-22] MEDS: FAMOTIDINE 20 MG TABLET PO SCH ×2 (08:44→20:28)
[2021-02-22] MEDS: MULTIVITAMIN LIQUID (CENTRUM) 60 ML BOTTLE PO SCH (08:44)
[2021-02-22] MEDS: FUROSEMIDE 40 MG/4 ML VIAL IV SCH (08:44)
[2021-02-22 10:42] LABS: Albumin 2.4 G/DL (3.4-5.0); Bilirubin,Total 0.7 MG/DL (0.20-1.00); Calcium 8.9 MG/DL (8.5-10.1); Total Protein 6.1 G/DL (6.4-8.2)
[2021-02-22 10:57] LABS: ABG Base Excess 9.8 MMOL/L (-2.5-2.5); ABG HCO3 33.4 MMOL/L (20-26); ABG Oxygen Saturation 94.5 % (95-100); ABG PCO2 44.3 MM HG (35-48); ABG PH 7.495 (7.35-7.45); ABG PO2 70.4 MM HG (80-95); ABG TCO2 31.1 MMOL/L (23-27)
[2021-02-22] MEDS: DIGOXIN 0.125 MG TABLET PO SCH (12:44)
[2021-02-22] MEDS: MICAFUNGIN 100 MG in SODIUM CHLORIDE 0.9% 100 ML IV SCH (12:44)
[2021-02-22] MEDS: QUEtiapine 25 MG TABLET PO SCH (20:28)
[2021-02-23] MEDS: ALBUTEROL INHALER 18 GM INH SCH ×4 (01:46→18:16)
[2021-02-23] MEDS: methylPREDNISolone SOD SUC 40 MG/1 ML VIAL IV SCH ×2 (01:46→14:25)
[2021-02-23 03:00] LABS: ABG Base Excess 10.2 MMOL/L (-2.5-2.5); ABG HCO3 34.9 MMOL/L (20-26); ABG Oxygen Saturation 95.7 % (95-100); ABG PCO2 47.7 MM HG (35-48); ABG PH 7.482 (7.35-7.45); ABG PO2 81.8 MM HG (80-95); ABG TCO2 36.4 MMOL/L (23-27)
[2021-02-23 04:08] LABS: Basophils % 0.1 % (0.0-0.8); Hematocrit 28.9 VOL% (35.7-47.0); Hemoglobin 8.6 GM/DL (12.0-16.0); Immature Granulocytes % 1.4 %; Immature Granulocytes Absolute 0.14 #; Lymphocytes # 0.9 10*3/uL (1.4-4.0); Lymphocytes % 8.5 % (21.3-54.2); Mean Corpuscular HGB Conc 29.8 GM/DL (32-36); Mean Platelet Volume 9.4 FL (9.6-12.0); Monocytes % 1.6 % (1.7-12.7); NRBC # 0.09 10*3/uL; Neutrophils % 88.4 % (38.7-73.9); Platelet Count 418 T/CUMM (130-400); Red Blood Count 3.21 MC/CUMM (3.8-5.5); Red Cell Distribution Width 17.5 % (9.3-17.3); White Blood Count 10.2 T/CUMM (4-12)
[2021-02-23 04:24] LABS: Calcium 9.2 MG/DL (8.5-10.1); Osmolality,Calculated 271.2 MOS/KG (273-304); Potassium 3.9 MMOL/L (3.5-5.1)
[2021-02-23] MEDS: POTASSIUM BICARB EFFERVESCENT 20 MEQ TAB.EFF PER TUBE PRN (05:20)
[2021-02-23] MEDS: INSULIN LISPRO 100 UNIT/ML SUBCUT SCH ×3 (06:23→18:16)
[2021-02-23] MEDS: fentaNYL INJ 5,000 MCG in SODIUM CHLORIDE 0.9% 150 ML IV PRN (06:34)
[2021-02-23] MEDS: atenoloL 50 MG TABLET PO SCH ×2 (08:14→20:19)
[2021-02-23] MEDS: CETIRIZINE 10 MG TABLET PO SCH (08:14)
[2021-02-23] MEDS: CHOLECALCIFEROL 1,000 UNIT TABLET PO SCH (08:14)
[2021-02-23] MEDS: ZINC GLUCONATE 50 MG TABLET PO SCH (08:14)
[2021-02-23] MEDS: FUROSEMIDE 40 MG/4 ML VIAL IV SCH ×2 (08:14→16:18)
[2021-02-23] MEDS: ASPIRIN CHEW 81 MG TABLET PO SCH (08:14)
[2021-02-23] MEDS: ASCORBIC ACID 500 MG TABLET PO SCH ×2 (08:14→20:19)
[2021-02-23] MEDS: FAMOTIDINE 20 MG TABLET PO SCH ×2 (08:14→20:19)
[2021-02-23] MEDS: LACTATED RINGERS 1,000 ML IV SCH (08:15)
[2021-02-23] MEDS: MENTHOL/ZINC OXIDE OINT 71 GM JAR TOP SCH ×2 (08:15→21:25)
[2021-02-23] MEDS: MULTIVITAMIN LIQUID (CENTRUM) 60 ML BOTTLE PO SCH (08:15)
[2021-02-23] MEDS: MICAFUNGIN 100 MG in SODIUM CHLORIDE 0.9% 100 ML IV SCH (12:01)
[2021-02-23] MEDS: DIGOXIN 0.125 MG TABLET PO SCH (12:01)
[2021-02-23] MEDS: MEROPENEM 500 MG in SODIUM CHLORIDE 0.9% 100 ML IV SCH ×2 (14:25→20:19)
[2021-02-23] MEDS: QUEtiapine 25 MG TABLET PO SCH (20:19)
[2021-02-23] MEDS: ACETAMINOPHEN 325 MG TABLET PO PRN (22:55)
[2021-02-24] MEDS: INSULIN LISPRO 100 UNIT/ML SUBCUT SCH ×4 (00:41→18:13)
[2021-02-24] MEDS: ALBUTEROL INHALER 18 GM INH SCH ×4 (00:52→18:13)
[2021-02-24] MEDS: MEROPENEM 500 MG in SODIUM CHLORIDE 0.9% 100 ML IV SCH ×4 (01:00→20:50)
[2021-02-24] MEDS: methylPREDNISolone SOD SUC 40 MG/1 ML VIAL IV SCH ×3 (01:05→20:51)
[2021-02-24 03:59] LABS: ABG Base Excess 8.4 MMOL/L (-2.5-2.5); ABG HCO3 32.1 MMOL/L (20-26); ABG Oxygen Saturation 93.3 % (95-100); ABG PCO2 40.2 MM HG (35-48); ABG PH 7.512 (7.35-7.45); ABG PO2 67.1 MM HG (80-95); ABG TCO2 29.2 MMOL/L (23-27)
[2021-02-24 06:12] LABS: Calcium 9.5 MG/DL (8.5-10.1); Osmolality,Calculated 274.1 MOS/KG (273-304)
[2021-02-24] MEDS: ASPIRIN CHEW 81 MG TABLET PO SCH (08:00)
[2021-02-24] MEDS: ASCORBIC ACID 500 MG TABLET PO SCH ×2 (08:00→20:51)
[2021-02-24] MEDS: ACETAMINOPHEN 325 MG TABLET PO PRN (08:01)
[2021-02-24] MEDS: FAMOTIDINE 20 MG TABLET PO SCH ×2 (08:01→20:51)
[2021-02-24] MEDS: CETIRIZINE 10 MG TABLET PO SCH (08:01)
[2021-02-24] MEDS: CHOLECALCIFEROL 1,000 UNIT TABLET PO SCH (08:01)
[2021-02-24] MEDS: atenoloL 50 MG TABLET PO SCH ×2 (08:01→20:51)
[2021-02-24] MEDS: ZINC GLUCONATE 50 MG TABLET PO SCH (08:01)
[2021-02-24] MEDS: MULTIVITAMIN LIQUID (CENTRUM) 60 ML BOTTLE PO SCH (08:04)
[2021-02-24] MEDS: LACTATED RINGERS 1,000 ML IV SCH (08:04)
[2021-02-24] MEDS: MENTHOL/ZINC OXIDE OINT 71 GM JAR TOP SCH ×2 (08:04→20:51)
[2021-02-24] MEDS ORDERED: FUROSEMIDE 40 MG/4 ML VIAL IV SCH (09:00)
[2021-02-24] MEDS: fentaNYL INJ 5,000 MCG in SODIUM CHLORIDE 0.9% 150 ML IV PRN (11:18)
[2021-02-24] MEDS: DIGOXIN 0.125 MG TABLET PO SCH (12:41)
[2021-02-24] MEDS: MICAFUNGIN 100 MG in SODIUM CHLORIDE 0.9% 100 ML IV SCH (12:42)
[2021-02-24] MEDS: fentaNYL 25 MCG/HR PATCH TRANSDERM SCH (16:09)
[2021-02-24] MEDS: QUEtiapine 25 MG TABLET PO SCH (20:51)
[2021-02-24] MEDS ORDERED: fentaNYL 100 MCG/2 ML VIAL IV ONE (23:06)
[2021-02-25] MEDS: INSULIN LISPRO 100 UNIT/ML SUBCUT SCH ×4 (00:27→18:16)
[2021-02-25] MEDS: ALBUTEROL INHALER 18 GM INH SCH ×4 (00:27→18:17)
[2021-02-25 02:31] LABS: ABG Base Excess 10.2 MMOL/L (-2.5-2.5); ABG HCO3 34.2 MMOL/L (20-26); ABG Oxygen Saturation 96.8 % (95-100); ABG PCO2 43.7 MM HG (35-48); ABG PH 7.511 (7.35-7.45); ABG PO2 88.4 MM HG (80-95); ABG TCO2 35.5 MMOL/L (23-27)
[2021-02-25] MEDS: MEROPENEM 500 MG in SODIUM CHLORIDE 0.9% 100 ML IV SCH ×3 (02:56→15:53)
[2021-02-25 04:51] LABS: Calcium 9.1 MG/DL (8.5-10.1); Potassium 3.7 MMOL/L (3.5-5.1)
[2021-02-25 07:40] LABS: Basophils % 0.2 % (0.0-0.8); Eosinophils % 0.1 % (0.00-10.9); Hematocrit 31.4 VOL% (35.7-47.0); Hemoglobin 9.3 GM/DL (12.0-16.0); Immature Granulocytes % 1.1 %; Immature Granulocytes Absolute 0.16 #; Lymphocytes # 1.5 10*3/uL (1.4-4.0); Lymphocytes % 10.2 % (21.3-54.2); Mean Corpuscular HGB Conc 29.6 GM/DL (32-36); Mean Corpuscular Volume 92.9 FL (87-102); Mean Platelet Volume 9.8 FL (9.6-12.0); Monocytes % 2.5 % (1.7-12.7); Neutrophils % 85.9 % (38.7-73.9); Platelet Count 467 T/CUMM (130-400); Red Blood Count 3.38 MC/CUMM (3.8-5.5); Red Cell Distribution Width 17.6 % (9.3-17.3); White Blood Count 14.6 T/CUMM (4-12)
[2021-02-25] MEDS: ASCORBIC ACID 500 MG TABLET PO SCH ×2 (08:08→20:48)
[2021-02-25] MEDS: atenoloL 50 MG TABLET PO SCH ×2 (08:08→20:48)
[2021-02-25] MEDS: FAMOTIDINE 20 MG TABLET PO SCH ×2 (08:09→20:48)
[2021-02-25] MEDS: CHOLECALCIFEROL 1,000 UNIT TABLET PO SCH (08:09)
[2021-02-25] MEDS: CETIRIZINE 10 MG TABLET PO SCH (08:09)
[2021-02-25] MEDS: ASPIRIN CHEW 81 MG TABLET PO SCH (08:09)
[2021-02-25] MEDS: MULTIVITAMIN LIQUID (CENTRUM) 60 ML BOTTLE PO SCH (08:09)
[2021-02-25] MEDS: MENTHOL/ZINC OXIDE OINT 71 GM JAR TOP SCH ×2 (08:09→20:49)
[2021-02-25] MEDS: ZINC GLUCONATE 50 MG TABLET PO SCH (08:09)
[2021-02-25] MEDS: LACTATED RINGERS 1,000 ML IV SCH (08:38)
[2021-02-25] MEDS: methylPREDNISolone SOD SUC 40 MG/1 ML VIAL IV SCH ×2 (08:39→20:48)
[2021-02-25] MEDS: FONDAPARINUX 7.5 MG/0.6 ML SYRINGE SUBCUT SCH (10:32)
[2021-02-25] MEDS: MICAFUNGIN 100 MG in SODIUM CHLORIDE 0.9% 100 ML IV SCH (13:08)
[2021-02-25] MEDS: DIGOXIN 0.125 MG TABLET PO SCH (14:34)
[2021-02-25] MEDS: QUEtiapine 25 MG TABLET PO SCH (20:49)
[2021-02-25] MEDS: ACETAMINOPHEN 325 MG TABLET PO PRN (21:05)
[2021-02-26] MEDS: INSULIN LISPRO 100 UNIT/ML SUBCUT SCH ×5 (00:12→23:38)
[2021-02-26] MEDS: IBUPROFEN 100 MG/5 ML UDCUP PO PRN ×2 (00:13→23:38)
[2021-02-26] MEDS: MELATONIN 3 MG TABLET PO PRN (00:13)
[2021-02-26] MEDS: ALBUTEROL INHALER 18 GM INH SCH ×3 (00:25→12:17)
[2021-02-26 03:42] LABS: ABG Base Excess 7.4 MMOL/L (-2.5-2.5); ABG HCO3 30.7 MMOL/L (20-26); ABG Oxygen Saturation 94.2 % (95-100); ABG PCO2 38.4 MM HG (35-48); ABG PH 7.521 (7.35-7.45); ABG PO2 69.7 MM HG (80-95); ABG TCO2 31.9 MMOL/L (23-27)
[2021-02-26 04:43] LABS: Basophils % 0.1 % (0.0-0.8); Eosinophils % 0.1 % (0.00-10.9); Hematocrit 31.7 VOL% (35.7-47.0); Hemoglobin 9.5 GM/DL (12.0-16.0); Immature Granulocytes % 1.7 %; Immature Granulocytes Absolute 0.23 #; Lymphocytes % 14.6 % (21.3-54.2); Mean Corpuscular Volume 89.5 FL (87-102); Mean Platelet Volume 9.5 FL (9.6-12.0); Monocytes % 2.6 % (1.7-12.7); NRBC # 0.22 10*3/uL; Neutrophils % 80.9 % (38.7-73.9); Platelet Count 528 T/CUMM (130-400); Red Blood Count 3.54 MC/CUMM (3.8-5.5); Red Cell Distribution Width 17.1 % (9.3-17.3); White Blood Count 13.7 T/CUMM (4-12)
[2021-02-26 05:17] LABS: Calcium 9.2 MG/DL (8.5-10.1); Osmolality,Calculated 274.1 MOS/KG (273-304)
[2021-02-26] MEDS: ALBUTEROL/IPRATROPIUM 3 ML NEB RESP TX SCH ×2 (07:35→20:52)
[2021-02-26] MEDS: ASPIRIN CHEW 81 MG TABLET PO SCH (08:58)
[2021-02-26] MEDS: MENTHOL/ZINC OXIDE OINT 71 GM JAR TOP SCH ×2 (08:59→20:04)
[2021-02-26] MEDS: MULTIVITAMIN LIQUID (CENTRUM) 60 ML BOTTLE PO SCH (08:59)
[2021-02-26] MEDS: atenoloL 50 MG TABLET PO SCH ×2 (08:59→20:03)
[2021-02-26] MEDS: FAMOTIDINE 20 MG TABLET PO SCH ×2 (08:59→20:04)
[2021-02-26] MEDS: CHOLECALCIFEROL 1,000 UNIT TABLET PO SCH (08:59)
[2021-02-26] MEDS: ZINC GLUCONATE 50 MG TABLET PO SCH (08:59)
[2021-02-26] MEDS: CETIRIZINE 10 MG TABLET PO SCH (08:59)
[2021-02-26] MEDS: ASCORBIC ACID 500 MG TABLET PO SCH ×2 (08:59→20:03)
[2021-02-26] MEDS: methylPREDNISolone SOD SUC 40 MG/1 ML VIAL IV SCH ×2 (08:59→21:35)
[2021-02-26] MEDS: FONDAPARINUX 7.5 MG/0.6 ML SYRINGE SUBCUT SCH (09:00)
[2021-02-26] MEDS: METOPROLOL TARTRATE 5 MG/5 ML VIAL IV PRN (09:00)
[2021-02-26] MEDS: LACTATED RINGERS 1,000 ML IV SCH (09:31)
[2021-02-26] MEDS: HYDROcod/ACETAMIN 7.5-325 MG/15 ML UDCUP PO PRN (09:43)
[2021-02-26] MEDS: ACETAMINOPHEN 325 MG TABLET PO PRN ×2 (09:43→20:03)
[2021-02-26] MEDS: DIGOXIN 0.125 MG TABLET PO SCH (12:16)
[2021-02-26] MEDS: MICAFUNGIN 100 MG in SODIUM CHLORIDE 0.9% 100 ML IV SCH (12:16)
[2021-02-26] MEDS: MORPHINE 2 MG/1 ML SYRINGE IV PRN (16:00)
[2021-02-26] MEDS: QUEtiapine 25 MG TABLET PO SCH (20:03)
[2021-02-27] MEDS: ALBUTEROL/IPRATROPIUM 3 ML NEB RESP TX SCH ×4 (01:25→21:49)
[2021-02-27 04:29] LABS: Basophils % 0.1 % (0.0-0.8); Eosinophils % 0.1 % (0.00-10.9); Hematocrit 28.3 VOL% (35.7-47.0); Hemoglobin 8.6 GM/DL (12.0-16.0); Immature Granulocytes % 1.5 %; Immature Granulocytes Absolute 0.16 #; Lymphocytes # 1.9 10*3/uL (1.4-4.0); Lymphocytes % 17.7 % (21.3-54.2); Mean Corpuscular HGB Conc 30.4 GM/DL (32-36); Mean Corpuscular Volume 89.3 FL (87-102); Mean Platelet Volume 9.5 FL (9.6-12.0); Monocytes % 3.8 % (1.7-12.7); NRBC # 0.24 10*3/uL; Neutrophils % 76.8 % (38.7-73.9); Platelet Count 464 T/CUMM (130-400); Red Blood Count 3.17 MC/CUMM (3.8-5.5); Red Cell Distribution Width 17.2 % (9.3-17.3); White Blood Count 10.9 T/CUMM (4-12)
[2021-02-27 04:56] LABS: Calcium 8.9 MG/DL (8.5-10.1); Osmolality,Calculated 273.1 MOS/KG (273-304)
[2021-02-27] MEDS: INSULIN LISPRO 100 UNIT/ML SUBCUT SCH ×3 (05:12→17:48)
[2021-02-27] MEDS: MORPHINE 2 MG/1 ML SYRINGE IV PRN ×4 (06:20→16:23)
[2021-02-27] MEDS: atenoloL 50 MG TABLET PO SCH ×2 (08:44→20:34)
[2021-02-27] MEDS: FAMOTIDINE 20 MG TABLET PO SCH ×2 (08:44→20:34)
[2021-02-27] MEDS: ACETAMINOPHEN 325 MG TABLET PO PRN (08:45)
[2021-02-27] MEDS: ASCORBIC ACID 500 MG TABLET PO SCH ×2 (08:45→20:34)
[2021-02-27] MEDS: ZINC GLUCONATE 50 MG TABLET PO SCH (08:45)
[2021-02-27] MEDS: ASPIRIN CHEW 81 MG TABLET PO SCH (08:46)
[2021-02-27] MEDS: CHOLECALCIFEROL 1,000 UNIT TABLET PO SCH (08:46)
[2021-02-27] MEDS: fentaNYL 25 MCG/HR PATCH TRANSDERM SCH (08:47)
[2021-02-27] MEDS: CETIRIZINE 10 MG TABLET PO SCH (08:49)
[2021-02-27] MEDS: methylPREDNISolone SOD SUC 40 MG/1 ML VIAL IV SCH ×2 (08:51→20:33)
[2021-02-27] MEDS: METOPROLOL TARTRATE 5 MG/5 ML VIAL IV PRN ×2 (08:52→16:09)
[2021-02-27] MEDS: MENTHOL/ZINC OXIDE OINT 71 GM JAR TOP SCH ×2 (08:55→20:35)
[2021-02-27] MEDS: MULTIVITAMIN LIQUID (CENTRUM) 60 ML BOTTLE PO SCH (08:55)
[2021-02-27] MEDS ORDERED: ALBUTEROL 1.25 MG/3 ML NEB RESP TX PRN (10:30)
[2021-02-27] MEDS: LEVALBUTEROL 0.63 MG/3 ML NEB RESP TX PRN ×3 (10:40→19:59)
[2021-02-27] MEDS: FONDAPARINUX 7.5 MG/0.6 ML SYRINGE SUBCUT SCH (11:00)
[2021-02-27] MEDS: LACTATED RINGERS 1,000 ML IV SCH (11:10)
[2021-02-27 11:28] LABS: Bilirubin,Urine Negative (Negative); Blood, Urine Large mg/dL (Negative); Glucose,Urine (UA) 50 mg/dL (Negative); Ketones,Urine Negative (Negative); Mucus,Urine Many /LPF (Occasional); Nitrite,Urine Negative (Negative); Protein,Urine 30 MG/DL; RBC,Urine 905 /HPF (0-4); Squamous Epithelial Cell,Urine Occasional /HPF (0-10); Urine Appearance CLOUDY (Clear); Urine Color Amber (Yellow); Urine Specific Gravity 1.036 (1.001-1.035)
[2021-02-27 12:00] LABS: Hematocrit 28.2 VOL% (35.7-47.0); Hemoglobin 8.3 GM/DL (12.0-16.0)
[2021-02-27] MEDS ORDERED: LACTATED RINGERS 1,000 ML IV ONE ×2 (13:47→16:51)
[2021-02-27] MEDS: DIGOXIN 0.125 MG TABLET PO SCH (13:50)
[2021-02-27] MEDS: MICAFUNGIN 100 MG in SODIUM CHLORIDE 0.9% 100 ML IV SCH (13:51)
[2021-02-27 16:20] LABS: Hematocrit 24.2 VOL% (35.7-47.0); Hemoglobin 7.1 GM/DL (12.0-16.0)
[2021-02-27] MEDS ORDERED: MORPHINE 2 MG/1 ML SYRINGE IV ONE (16:21)
[2021-02-27] MEDS ORDERED: SODIUM CHLORIDE 0.9% 1,000 ML IV PRN (16:47)
[2021-02-27] MEDS ORDERED: DIGOXIN 0.5 MG/2 ML AMP IV ONE (17:02)
[2021-02-27] MEDS ORDERED: LORazepam 2 MG/1 ML VIAL IV ONE ×2 (17:13→18:19)
[2021-02-27] MEDS ORDERED: LORazepam 2 MG/1 ML VIAL ONE (17:14)
[2021-02-27 17:24] LABS: ABG HCO3 29.9 MMOL/L (20-26); ABG Oxygen Saturation 95.4 % (95-100); ABG PH 7.491 (7.35-7.45); ABG PO2 77.3 MM HG (80-95); ABG TCO2 28.3 MMOL/L (23-27)
[2021-02-27 17:37] LABS: INR 1.1; PT Patient Result 12.4 SECS (10.5-12.0)
[2021-02-27] MEDS ORDERED: METOPROLOL TARTRATE 5 MG/5 ML VIAL IV ONE ×2 (17:59→18:30)
[2021-02-27] MEDS: QUEtiapine 25 MG TABLET PO SCH (20:35)
[2021-02-28] MEDS: INSULIN LISPRO 100 UNIT/ML SUBCUT SCH ×4 (00:29→17:32)
[2021-02-28] MEDS: ALBUTEROL/IPRATROPIUM 3 ML NEB RESP TX SCH ×5 (01:56→19:20)
[2021-02-28 02:31] LABS: Hematocrit 32.6 VOL% (35.7-47.0)
[2021-02-28 02:39] LABS: Hemoglobin 10.7 GM/DL (12.0-16.0)
[2021-02-28 05:08] LABS: Basophils % 0.2 % (0.0-0.8); Hematocrit 30.9 VOL% (35.7-47.0); Hemoglobin 10.1 GM/DL (12.0-16.0); Immature Granulocytes % 4.4 %; Immature Granulocytes Absolute 0.42 #; Lymphocytes # 1.7 10*3/uL (1.4-4.0); Lymphocytes % 17.6 % (21.3-54.2); Mean Corpuscular HGB Conc 32.7 GM/DL (32-36); Mean Corpuscular Volume 88.5 FL (87-102); Mean Platelet Volume 10.3 FL (9.6-12.0); Monocytes % 3.3 % (1.7-12.7); NRBC # 0.32 10*3/uL; Neutrophils % 74.5 % (38.7-73.9); Platelet Count 311 T/CUMM (130-400); Red Blood Count 3.49 MC/CUMM (3.8-5.5); White Blood Count 9.6 T/CUMM (4-12)
[2021-02-28 05:32] LABS: Calcium 8.6 MG/DL (8.5-10.1); Osmolality,Calculated 278.7 MOS/KG (273-304); Potassium 4.1 MMOL/L (3.5-5.1)
[2021-02-28] MEDS: CETIRIZINE 10 MG TABLET PO SCH (08:15)
[2021-02-28] MEDS: FAMOTIDINE 20 MG TABLET PO SCH ×3 (08:15→20:38)
[2021-02-28] MEDS: ASCORBIC ACID 500 MG TABLET PO SCH ×2 (08:15→20:38)
[2021-02-28] MEDS: atenoloL 50 MG TABLET PO SCH ×3 (08:15→20:38)
[2021-02-28] MEDS: CHOLECALCIFEROL 1,000 UNIT TABLET PO SCH (08:15)
[2021-02-28] MEDS: MULTIVITAMIN LIQUID (CENTRUM) 60 ML BOTTLE PO SCH (08:16)
[2021-02-28] MEDS: ASPIRIN CHEW 81 MG TABLET PO SCH (08:16)
[2021-02-28] MEDS: ZINC GLUCONATE 50 MG TABLET PO SCH (08:16)
[2021-02-28] MEDS: MENTHOL/ZINC OXIDE OINT 71 GM JAR TOP SCH ×2 (08:16→21:44)
[2021-02-28] MEDS: methylPREDNISolone SOD SUC 40 MG/1 ML VIAL IV SCH ×2 (08:39→20:39)
[2021-02-28] MEDS: METOPROLOL TARTRATE 5 MG/5 ML VIAL IV PRN ×2 (09:07→18:24)
[2021-02-28] MEDS ORDERED: FUROSEMIDE 40 MG/4 ML VIAL IV ONE ×2 (09:59→13:44)
[2021-02-28 12:35] LABS: Hematocrit 33.8 VOL% (35.7-47.0); Hemoglobin 10.6 GM/DL (12.0-16.0)
[2021-02-28] MEDS: DIGOXIN 0.125 MG TABLET PO SCH (12:44)
[2021-02-28] MEDS: MICAFUNGIN 100 MG in SODIUM CHLORIDE 0.9% 100 ML IV SCH (12:44)
[2021-02-28 14:19] LABS: ABG Base Excess 8.3 MMOL/L (-2.5-2.5); ABG HCO3 32.1 MMOL/L (20-26); ABG TCO2 28.6 MMOL/L (23-27)
[2021-02-28] MEDS: ONDANSETRON 4 MG/2 ML VIAL IV PRN (16:32)
[2021-02-28] MEDS: MORPHINE 2 MG/1 ML SYRINGE IV PRN ×2 (17:18→20:39)
[2021-02-28] MEDS: QUEtiapine 25 MG TABLET PO SCH (20:38)
[2021-02-28] MEDS: LORazepam 2 MG/1 ML VIAL IV PRN (23:00)
[2021-03-01] MEDS: INSULIN LISPRO 100 UNIT/ML SUBCUT SCH ×4 (00:38→17:13)
[2021-03-01] MEDS: ALBUTEROL/IPRATROPIUM 3 ML NEB RESP TX SCH ×4 (01:10→22:17)
[2021-03-01 04:09] LABS: ABG HCO3 30.8 MMOL/L (20-26); ABG Oxygen Saturation 94.7 % (95-100); ABG PCO2 36.3 MM HG (35-48); ABG PH 7.547 (7.35-7.45); ABG TCO2 31.9 MMOL/L (23-27)
[2021-03-01 06:08] LABS: Basophils % 0.2 % (0.0-0.8); Eosinophils % 0.1 % (0.00-10.9); Hematocrit 30.7 VOL% (35.7-47.0); Hemoglobin 9.9 GM/DL (12.0-16.0); Immature Granulocytes % 3.2 %; Lymphocytes # 1.4 10*3/uL (1.4-4.0); Lymphocytes % 15.3 % (21.3-54.2); Mean Corpuscular HGB Conc 32.2 GM/DL (32-36); Mean Corpuscular Volume 87.7 FL (87-102); Mean Platelet Volume 9.9 FL (9.6-12.0); Monocytes % 1.9 % (1.7-12.7); Neutrophils % 79.3 % (38.7-73.9); Platelet Count 361 T/CUMM (130-400); Red Cell Distribution Width 15.1 % (9.3-17.3); White Blood Count 9.3 T/CUMM (4-12)
[2021-03-01 06:26] LABS: Blood Urea Nitrogen 13 MG/DL (7-18); Calcium 8.8 MG/DL (8.5-10.1); Carbon Dioxide 31 MMOL/L (21-32); Estimated Glom Filtration Rate 233 ML/MIN; Glucose 137 MG/DL (74-106); Osmolality,Calculated 274.8 MOS/KG (273-304); Potassium 3.9 MMOL/L (3.5-5.1); Sodium 137 MMOL/L (136-145)
[2021-03-01 06:36] LABS: Ferritin 50.5 ng/mL (8-252)
[2021-03-01] MEDS: METOPROLOL TARTRATE 5 MG/5 ML VIAL IV PRN (07:50)
[2021-03-01] MEDS: ZINC GLUCONATE 50 MG TABLET PO SCH (08:04)
[2021-03-01] MEDS: CHOLECALCIFEROL 1,000 UNIT TABLET PO SCH (08:05)
[2021-03-01] MEDS: FAMOTIDINE 20 MG TABLET PO SCH ×2 (08:05→20:26)
[2021-03-01] MEDS: ASCORBIC ACID 500 MG TABLET PO SCH ×2 (08:06→20:26)
[2021-03-01] MEDS: CETIRIZINE 10 MG TABLET PO SCH (08:06)
[2021-03-01] MEDS: ASPIRIN CHEW 81 MG TABLET PO SCH (08:06)
[2021-03-01] MEDS: MULTIVITAMIN LIQUID (CENTRUM) 60 ML BOTTLE PO SCH (08:08)
[2021-03-01] MEDS: atenoloL 50 MG TABLET PO SCH (08:14)
[2021-03-01] MEDS: MENTHOL/ZINC OXIDE OINT 71 GM JAR TOP SCH ×2 (08:19→23:39)
[2021-03-01] MEDS: methylPREDNISolone SOD SUC 40 MG/1 ML VIAL IV SCH ×2 (08:46→20:32)
[2021-03-01] MEDS: MICAFUNGIN 100 MG in SODIUM CHLORIDE 0.9% 100 ML IV SCH (12:46)
[2021-03-01] MEDS: DIGOXIN 0.125 MG TABLET PO SCH (12:47)
[2021-03-01] MEDS: QUEtiapine 25 MG TABLET PO SCH (20:26)
[2021-03-01] MEDS: METOPROLOL TARTRATE 50 MG TABLET PO SCH (20:26)
[2021-03-01] MEDS: MELATONIN 3 MG TABLET PO PRN (20:26)
[2021-03-01] MEDS: MORPHINE 2 MG/1 ML SYRINGE IV PRN (21:35)
[2021-03-02] MEDS: INSULIN LISPRO 100 UNIT/ML SUBCUT SCH ×4 (01:46→17:42)
[2021-03-02] MEDS: ALBUTEROL/IPRATROPIUM 3 ML NEB RESP TX SCH ×4 (02:15→19:00)
[2021-03-02] MEDS: MORPHINE 2 MG/1 ML SYRINGE IV PRN ×3 (07:32→20:26)
[2021-03-02] MEDS: ONDANSETRON 4 MG/2 ML VIAL IV PRN (07:36)
[2021-03-02 07:48] LABS: Basophils % 0.1 % (0.0-0.8); Hematocrit 31.3 VOL% (35.7-47.0); Hemoglobin 9.7 GM/DL (12.0-16.0); Immature Granulocytes % 2.6 %; Immature Granulocytes Absolute 0.26 #; Lymphocytes # 1.8 10*3/uL (1.4-4.0); Lymphocytes % 17.5 % (21.3-54.2); Mean Corpuscular Volume 88.9 FL (87-102); Mean Platelet Volume 9.9 FL (9.6-12.0); Monocytes % 3.4 % (1.7-12.7); NRBC # 0.41 10*3/uL; Neutrophils % 76.4 % (38.7-73.9); Platelet Count 392 T/CUMM (130-400); Red Blood Count 3.52 MC/CUMM (3.8-5.5); Red Cell Distribution Width 15.4 % (9.3-17.3); White Blood Count 10.1 T/CUMM (4-12)
[2021-03-02 08:30] LABS: Calcium 9.2 MG/DL (8.5-10.1); Osmolality,Calculated 280.4 MOS/KG (273-304); Potassium 3.9 MMOL/L (3.5-5.1)
[2021-03-02] MEDS: ASPIRIN CHEW 81 MG TABLET PO SCH (09:54)
[2021-03-02] MEDS: ASCORBIC ACID 500 MG TABLET PO SCH ×2 (09:54→20:24)
[2021-03-02] MEDS: ZINC GLUCONATE 50 MG TABLET PO SCH (09:55)
[2021-03-02] MEDS: CHOLECALCIFEROL 1,000 UNIT TABLET PO SCH (09:56)
[2021-03-02] MEDS: FAMOTIDINE 20 MG TABLET PO SCH ×2 (10:00→20:24)
[2021-03-02] MEDS: MENTHOL/ZINC OXIDE OINT 71 GM JAR TOP SCH ×2 (10:01→21:10)
[2021-03-02] MEDS: METOPROLOL TARTRATE 50 MG TABLET PO SCH (10:01)
[2021-03-02] MEDS: MULTIVITAMIN LIQUID (CENTRUM) 60 ML BOTTLE PO SCH (10:02)
[2021-03-02] MEDS: CETIRIZINE 10 MG TABLET PO SCH (10:02)
[2021-03-02] MEDS: methylPREDNISolone SOD SUC 40 MG/1 ML VIAL IV SCH ×2 (10:03→22:41)
[2021-03-02] MEDS: ALBUMIN 25% 12.5 GM/50 ML VIAL IV SCH ×2 (13:05→20:25)
[2021-03-02] MEDS: HYDROcod/ACETAMIN 7.5-325 MG/15 ML UDCUP PO PRN (13:08)
[2021-03-02] MEDS: DIGOXIN 0.125 MG TABLET PO SCH (13:08)
[2021-03-02] MEDS: MEROPENEM 500 MG in SODIUM CHLORIDE 0.9% 100 ML IV SCH ×2 (13:12→17:23)
[2021-03-02] MEDS: MICAFUNGIN 100 MG in SODIUM CHLORIDE 0.9% 100 ML IV SCH (13:35)
[2021-03-02] MEDS ORDERED: methylPREDNISolone SOD SUC 40 MG/1 ML VIAL ONE (20:21)
[2021-03-02] MEDS: METOPROLOL TARTRATE 25 MG TABLET PO SCH (20:23)
[2021-03-02] MEDS: QUEtiapine 25 MG TABLET PO SCH (20:24)
[2021-03-02] MEDS: FUROSEMIDE 40 MG/4 ML VIAL IV SCH (22:41)
[2021-03-03] MEDS: MEROPENEM 500 MG in SODIUM CHLORIDE 0.9% 100 ML IV SCH ×4 (00:15→17:49)
[2021-03-03] MEDS: MORPHINE 2 MG/1 ML SYRINGE IV PRN ×2 (00:30→19:43)
[2021-03-03] MEDS: ALBUTEROL/IPRATROPIUM 3 ML NEB RESP TX SCH ×4 (01:02→19:00)
[2021-03-03] MEDS ORDERED: SODIUM CHLORIDE 0.9% 500 ML IV ONE (01:11)
[2021-03-03] MEDS: INSULIN LISPRO 100 UNIT/ML SUBCUT SCH ×4 (03:09→17:49)
[2021-03-03] MEDS: ALBUMIN 25% 12.5 GM/50 ML VIAL IV SCH ×3 (04:12→21:05)
[2021-03-03 05:59] LABS: Basophils % 0.2 % (0.0-0.8); Eosinophils % 0.2 % (0.00-10.9); Hematocrit 32.4 VOL% (35.7-47.0); Hemoglobin 9.9 GM/DL (12.0-16.0); Immature Granulocytes % 1.7 %; Immature Granulocytes Absolute 0.17 #; Lymphocytes # 1.1 10*3/uL (1.4-4.0); Lymphocytes % 10.8 % (21.3-54.2); Mean Corpuscular HGB Conc 30.6 GM/DL (32-36); Mean Corpuscular Volume 91.3 FL (87-102); Mean Platelet Volume 10.4 FL (9.6-12.0); Monocytes % 2.2 % (1.7-12.7); NRBC # 0.24 10*3/uL; Neutrophils % 84.9 % (38.7-73.9); Platelet Count 420 T/CUMM (130-400); Red Blood Count 3.55 MC/CUMM (3.8-5.5); Red Cell Distribution Width 15.3 % (9.3-17.3); White Blood Count 9.7 T/CUMM (4-12)
[2021-03-03 06:33] LABS: Albumin 3.3 G/DL (3.4-5.0); Bilirubin,Total 0.8 MG/DL (0.20-1.00); Calcium 9.6 MG/DL (8.5-10.1); Total Protein 7.2 G/DL (6.4-8.2)
[2021-03-03] MEDS: FUROSEMIDE 40 MG/4 ML VIAL IV SCH ×2 (08:24→15:38)
[2021-03-03] MEDS: METOPROLOL TARTRATE 25 MG TABLET PO SCH ×2 (08:25→20:58)
[2021-03-03] MEDS: FAMOTIDINE 20 MG TABLET PO SCH ×2 (08:25→20:58)
[2021-03-03] MEDS: ASCORBIC ACID 500 MG TABLET PO SCH ×2 (08:25→20:58)
[2021-03-03] MEDS: CHOLECALCIFEROL 1,000 UNIT TABLET PO SCH (08:25)
[2021-03-03] MEDS: ZINC GLUCONATE 50 MG TABLET PO SCH (08:25)
[2021-03-03] MEDS: ASPIRIN CHEW 81 MG TABLET PO SCH (08:26)
[2021-03-03] MEDS: CETIRIZINE 10 MG TABLET PO SCH (08:26)
[2021-03-03] MEDS: MENTHOL/ZINC OXIDE OINT 71 GM JAR TOP SCH ×2 (08:27→20:59)
[2021-03-03] MEDS: MULTIVITAMIN LIQUID (CENTRUM) 60 ML BOTTLE PO SCH (08:33)
[2021-03-03] MEDS: methylPREDNISolone SOD SUC 40 MG/1 ML VIAL IV SCH ×2 (09:50→21:06)
[2021-03-03] MEDS: MICAFUNGIN 100 MG in SODIUM CHLORIDE 0.9% 100 ML IV SCH (12:25)
[2021-03-03] MEDS: ACETYLCYSTEINE 20% 800 MG/4 ML VIAL RESP TX SCH ×2 (14:58→19:00)
[2021-03-03] MEDS: DIGOXIN 0.125 MG TABLET PO SCH (15:38)
[2021-03-03] MEDS ORDERED: CLORAZEPATE 7.5 MG TABLET PO PRN (20:50)
[2021-03-03] MEDS: LORazepam 2 MG/1 ML VIAL IV PRN (20:57)
[2021-03-03] MEDS: QUEtiapine 25 MG TABLET PO SCH (20:58)
[2021-03-04] MEDS: MEROPENEM 500 MG in SODIUM CHLORIDE 0.9% 100 ML IV SCH ×5 (01:35→23:15)
[2021-03-04] MEDS: METOPROLOL TARTRATE 5 MG/5 ML VIAL IV PRN ×2 (01:55→14:04)
[2021-03-04] MEDS: ALBUTEROL/IPRATROPIUM 3 ML NEB RESP TX SCH ×4 (02:10→19:55)
[2021-03-04] MEDS: INSULIN LISPRO 100 UNIT/ML SUBCUT SCH ×5 (02:10→23:55)
[2021-03-04] MEDS: MORPHINE 2 MG/1 ML SYRINGE IV PRN ×3 (02:19→23:15)
[2021-03-04] MEDS: ALBUMIN 25% 12.5 GM/50 ML VIAL IV SCH (06:09)
[2021-03-04] MEDS: ACETYLCYSTEINE 20% 800 MG/4 ML VIAL RESP TX SCH ×2 (08:05→19:55)
[2021-03-04] MEDS: FUROSEMIDE 40 MG/4 ML VIAL IV SCH ×2 (08:29→15:41)
[2021-03-04] MEDS: ASPIRIN CHEW 81 MG TABLET PO SCH (08:29)
[2021-03-04] MEDS: FAMOTIDINE 20 MG TABLET PO SCH ×2 (08:29→20:26)
[2021-03-04] MEDS: ZINC GLUCONATE 50 MG TABLET PO SCH (08:30)
[2021-03-04] MEDS: ASCORBIC ACID 500 MG TABLET PO SCH ×2 (08:30→20:26)
[2021-03-04] MEDS: METOPROLOL TARTRATE 25 MG TABLET PO SCH ×2 (08:30→20:26)
[2021-03-04] MEDS: CHOLECALCIFEROL 1,000 UNIT TABLET PO SCH (08:30)
[2021-03-04] MEDS: CETIRIZINE 10 MG TABLET PO SCH (08:31)
[2021-03-04] MEDS: MENTHOL/ZINC OXIDE OINT 71 GM JAR TOP SCH ×2 (08:31→20:27)
[2021-03-04] MEDS: MULTIVITAMIN LIQUID (CENTRUM) 60 ML BOTTLE PO SCH (08:37)
[2021-03-04] MEDS: methylPREDNISolone SOD SUC 40 MG/1 ML VIAL IV SCH ×2 (09:02→22:49)
[2021-03-04] MEDS: LORazepam 2 MG/1 ML VIAL IV PRN ×2 (11:05→20:27)
[2021-03-04] MEDS: MICAFUNGIN 100 MG in SODIUM CHLORIDE 0.9% 100 ML IV SCH (11:06)
[2021-03-04 11:23] LABS: Basophils % 0.3 % (0.0-0.8); Eosinophils % 0.2 % (0.00-10.9); Hematocrit 33.7 VOL% (35.7-47.0); Hemoglobin 10.6 GM/DL (12.0-16.0); Immature Granulocytes % 2.3 %; Lymphocytes # 1.7 10*3/uL (1.4-4.0); Lymphocytes % 12.7 % (21.3-54.2); Mean Corpuscular HGB Conc 31.5 GM/DL (32-36); Mean Corpuscular Volume 90.1 FL (87-102); Mean Platelet Volume 9.7 FL (9.6-12.0); Monocytes % 3.1 % (1.7-12.7); NRBC # 0.21 10*3/uL; Neutrophils % 81.4 % (38.7-73.9); Platelet Count 462 T/CUMM (130-400); Red Blood Count 3.74 MC/CUMM (3.8-5.5); Red Cell Distribution Width 14.9 % (9.3-17.3); White Blood Count 13.3 T/CUMM (4-12)
[2021-03-04 11:38] LABS: Calcium 9.9 MG/DL (8.5-10.1); Osmolality,Calculated 277.8 MOS/KG (273-304); Potassium 3.5 MMOL/L (3.5-5.1)
[2021-03-04] MEDS: POTASSIUM CHLORIDE RIDER 10 MEQ/100 ML PREMIX IV PRN ×3 (12:57→15:00)
[2021-03-04] MEDS: DIGOXIN 0.125 MG TABLET PO SCH (13:01)
[2021-03-04] MEDS ORDERED: METOPROLOL TARTRATE 5 MG/5 ML VIAL IV ONE (16:04)
[2021-03-04] MEDS: HYDROcod/ACETAMIN 7.5-325 MG/15 ML UDCUP PO PRN (20:25)
[2021-03-04] MEDS: MELATONIN 3 MG TABLET PO PRN (20:26)
[2021-03-04] MEDS: QUEtiapine 25 MG TABLET PO SCH (20:26)
[2021-03-05] MEDS: ACETYLCYSTEINE 20% 800 MG/4 ML VIAL RESP TX SCH ×3 (01:13→10:27)
[2021-03-05] MEDS: ALBUTEROL/IPRATROPIUM 3 ML NEB RESP TX SCH ×4 (01:13→18:17)
[2021-03-05] MEDS: METOPROLOL TARTRATE 5 MG/5 ML VIAL IV PRN ×2 (02:06→16:06)
[2021-03-05] MEDS: MEROPENEM 500 MG in SODIUM CHLORIDE 0.9% 100 ML IV SCH ×4 (06:25→23:37)
[2021-03-05] MEDS: INSULIN LISPRO 100 UNIT/ML SUBCUT SCH ×3 (06:26→17:23)
[2021-03-05] MEDS: methylPREDNISolone SOD SUC 40 MG/1 ML VIAL IV SCH ×2 (09:02→22:03)
[2021-03-05] MEDS: FUROSEMIDE 40 MG/4 ML VIAL IV SCH ×2 (09:02→16:06)
[2021-03-05] MEDS: ASPIRIN CHEW 81 MG TABLET PO SCH (09:03)
[2021-03-05] MEDS: ZINC GLUCONATE 50 MG TABLET PO SCH (09:03)
[2021-03-05] MEDS: FAMOTIDINE 20 MG TABLET PO SCH ×2 (09:03→20:07)
[2021-03-05] MEDS: ASCORBIC ACID 500 MG TABLET PO SCH ×2 (09:03→20:07)
[2021-03-05] MEDS: CHOLECALCIFEROL 1,000 UNIT TABLET PO SCH (09:03)
[2021-03-05] MEDS: METOPROLOL TARTRATE 25 MG TABLET PO SCH ×2 (09:03→20:07)
[2021-03-05] MEDS: CETIRIZINE 10 MG TABLET PO SCH (09:04)
[2021-03-05] MEDS: MENTHOL/ZINC OXIDE OINT 71 GM JAR TOP SCH ×2 (09:04→20:08)
[2021-03-05 10:48] LABS: Basophils % 0.2 % (0.0-0.8); Eosinophils % 0.1 % (0.00-10.9); Hematocrit 38.5 VOL% (35.7-47.0); Immature Granulocytes % 3.2 %; Immature Granulocytes Absolute 0.47 #; Lymphocytes # 2.7 10*3/uL (1.4-4.0); Lymphocytes % 18.6 % (21.3-54.2); Mean Corpuscular HGB Conc 31.2 GM/DL (32-36); Mean Corpuscular Volume 88.5 FL (87-102); Mean Platelet Volume 10.2 FL (9.6-12.0); Monocytes % 3.7 % (1.7-12.7); NRBC # 0.23 10*3/uL; Neutrophils % 74.2 % (38.7-73.9); Platelet Count 689 T/CUMM (130-400); Red Blood Count 4.35 MC/CUMM (3.8-5.5); Red Cell Distribution Width 14.7 % (9.3-17.3); White Blood Count 14.6 T/CUMM (4-12)
[2021-03-05 10:59] LABS: Osmolality,Calculated 271.4 MOS/KG (273-304); Potassium 3.5 MMOL/L (3.5-5.1)
[2021-03-05] MEDS: MICAFUNGIN 100 MG in SODIUM CHLORIDE 0.9% 100 ML IV SCH (11:45)
[2021-03-05] MEDS: MULTIVITAMIN LIQUID (CENTRUM) 60 ML BOTTLE PO SCH (12:12)
[2021-03-05] MEDS ORDERED: SODIUM CHLORIDE 0.9% 500 ML IV ONE (12:15)
[2021-03-05] MEDS: POTASSIUM CHLORIDE RIDER 10 MEQ/100 ML PREMIX IV PRN ×3 (12:18→15:09)
[2021-03-05] MEDS: DIGOXIN 0.125 MG TABLET PO SCH (12:29)
[2021-03-05] MEDS: LEVALBUTEROL 0.63 MG/3 ML NEB RESP TX PRN (12:58)
[2021-03-05] MEDS: LORazepam 2 MG/1 ML VIAL IV PRN ×2 (16:53→22:28)
[2021-03-05] MEDS ORDERED: HALOPERIDOL 5 MG/ML AMP IM PRN (17:39)
[2021-03-05] MEDS: CLORAZEPATE 7.5 MG TABLET PO SCH ×2 (18:18→23:36)
[2021-03-05] MEDS: QUEtiapine 25 MG TABLET PO SCH (20:07)
[2021-03-05] MEDS: MORPHINE 2 MG/1 ML SYRINGE IV PRN (20:07)
[2021-03-05] MEDS: MELATONIN 3 MG TABLET PO PRN (20:08)
[2021-03-05] MEDS: ONDANSETRON 4 MG/2 ML VIAL IV PRN (22:06)
[2021-03-05] MEDS: HYDROcod/ACETAMIN 7.5-325 MG/15 ML UDCUP PO PRN (23:36)
[2021-03-06] MEDS: ACETYLCYSTEINE 20% 800 MG/4 ML VIAL RESP TX SCH ×3 (00:10→15:08)
[2021-03-06] MEDS: ALBUTEROL/IPRATROPIUM 3 ML NEB RESP TX SCH ×4 (00:18→22:09)
[2021-03-06 00:45] LABS: ABG Base Excess 3.7 MMOL/L (-2.5-2.5); ABG HCO3 27.7 MMOL/L (20-26); ABG Oxygen Saturation 97.4 % (95-100); ABG PCO2 34.3 MM HG (35-48); ABG PH 7.498 (7.35-7.45); ABG PO2 88.4 MM HG (80-95); ABG TCO2 23.5 MMOL/L (23-27)
[2021-03-06] MEDS: INSULIN LISPRO 100 UNIT/ML SUBCUT SCH ×5 (00:46→23:41)
[2021-03-06] MEDS: METOPROLOL TARTRATE 5 MG/5 ML VIAL IV PRN ×3 (00:50→14:55)
[2021-03-06] MEDS: MORPHINE 2 MG/1 ML SYRINGE IV PRN ×4 (01:16→23:41)
[2021-03-06] MEDS: hydrALAZINE 20 MG/1 ML VIAL IV PRN (04:05)
[2021-03-06] MEDS: LORazepam 2 MG/1 ML VIAL IV PRN ×2 (06:37→14:54)
[2021-03-06] MEDS: MEROPENEM 500 MG in SODIUM CHLORIDE 0.9% 100 ML IV SCH ×4 (06:37→23:38)
[2021-03-06] MEDS: CLORAZEPATE 7.5 MG TABLET PO SCH ×3 (06:37→17:28)
[2021-03-06] MEDS: LEVALBUTEROL 0.63 MG/3 ML NEB RESP TX PRN (07:40)
[2021-03-06] MEDS: FUROSEMIDE 40 MG/4 ML VIAL IV SCH ×2 (07:46→15:32)
[2021-03-06] MEDS: FAMOTIDINE 20 MG TABLET PO SCH ×2 (08:02→21:17)
[2021-03-06] MEDS: ZINC GLUCONATE 50 MG TABLET PO SCH (08:02)
[2021-03-06] MEDS: ASPIRIN CHEW 81 MG TABLET PO SCH (08:02)
[2021-03-06] MEDS: MULTIVITAMIN LIQUID (CENTRUM) 60 ML BOTTLE PO SCH (08:02)
[2021-03-06] MEDS: ASCORBIC ACID 500 MG TABLET PO SCH ×2 (08:03→21:16)
[2021-03-06] MEDS: CHOLECALCIFEROL 1,000 UNIT TABLET PO SCH (08:03)
[2021-03-06] MEDS: CETIRIZINE 10 MG TABLET PO SCH (08:04)
[2021-03-06] MEDS: MENTHOL/ZINC OXIDE OINT 71 GM JAR TOP SCH ×2 (08:04→21:18)
[2021-03-06] MEDS: METOPROLOL TARTRATE 25 MG TABLET PO SCH (08:04)
[2021-03-06] MEDS ORDERED: METOPROLOL TARTRATE 25 MG TABLET PO ONE (10:25)
[2021-03-06] MEDS: methylPREDNISolone SOD SUC 40 MG/1 ML VIAL IV SCH (10:33)
[2021-03-06] MEDS: MICAFUNGIN 100 MG in SODIUM CHLORIDE 0.9% 100 ML IV SCH (11:44)
[2021-03-06] MEDS: DIGOXIN 0.125 MG TABLET PO SCH (12:00)
[2021-03-06 13:48] LABS: Basophils # 0.1 10*3/uL (0.0-0.2); Basophils % 0.4 % (0.0-0.8); Hematocrit 39.5 VOL% (35.7-47.0); Hemoglobin 12.6 GM/DL (12.0-16.0); Immature Granulocytes % 5.2 %; Immature Granulocytes Absolute 0.99 #; Lymphocytes % 15.8 % (21.3-54.2); Mean Corpuscular HGB Conc 31.9 GM/DL (32-36); Mean Corpuscular Volume 87.8 FL (87-102); Mean Platelet Volume 9.8 FL (9.6-12.0); Monocytes % 2.9 % (1.7-12.7); NRBC # 0.18 10*3/uL; Neutrophils % 75.7 % (38.7-73.9); Platelet Count 763 T/CUMM (130-400); Red Cell Distribution Width 14.9 % (9.3-17.3)
[2021-03-06 14:05] LABS: Calcium 9.7 MG/DL (8.5-10.1); Osmolality,Calculated 270.4 MOS/KG (273-304); Potassium 4.1 MMOL/L (3.5-5.1)
[2021-03-06 14:49] LABS: Band Neutrophils 1 % (0-10); Lymphocytes 16 % (20-55); Nucleated Red Blood Cells 2 (0-5); Platelet Estimate Increased; Segmented Neutrophils 80 % (50-85); Total Cells Counted 100
[2021-03-06 14:50] LABS: Macrocytosis Slight; Polychromasia Slight
[2021-03-06] MEDS: HYDROcod/ACETAMIN 7.5-325 MG/15 ML UDCUP PO PRN (19:28)
[2021-03-06] MEDS ORDERED: OLANZapine 5 MG TABLET PO SCH (19:30)
[2021-03-06] MEDS ORDERED: tiZANidine 4 MG TABLET PO PRN (20:47)
[2021-03-06] MEDS ORDERED: TROKENDI PO SCH (21:15)
[2021-03-06] MEDS: PREGABALIN 100 MG CAPSULE PO SCH (21:16)
[2021-03-06] MEDS: QUEtiapine 25 MG TABLET PO SCH (21:16)
[2021-03-06] MEDS: MELATONIN 3 MG TABLET PO PRN (21:17)
[2021-03-06] MEDS: METOPROLOL TARTRATE 100 MG TABLET PO SCH (21:17)
[2021-03-06] MEDS: TOPIRAMATE 100 MG TABLET PO SCH (21:44)
[2021-03-07] MEDS: ACETYLCYSTEINE 20% 800 MG/4 ML VIAL RESP TX SCH ×3 (00:01→19:50)
[2021-03-07] MEDS: ALBUTEROL/IPRATROPIUM 3 ML NEB RESP TX SCH ×4 (00:25→19:40)
[2021-03-07] MEDS: CLORAZEPATE 7.5 MG TABLET PO SCH ×5 (00:55→23:40)
[2021-03-07] MEDS: INSULIN LISPRO 100 UNIT/ML SUBCUT SCH ×3 (06:24→18:25)
[2021-03-07] MEDS: MEROPENEM 500 MG in SODIUM CHLORIDE 0.9% 100 ML IV SCH (06:26)
[2021-03-07] MEDS: MORPHINE 2 MG/1 ML SYRINGE IV PRN ×2 (06:26→10:20)
[2021-03-07] MEDS: ONDANSETRON 4 MG/2 ML VIAL IV PRN (06:47)
[2021-03-07 07:08] LABS: Basophils # 0.1 10*3/uL (0.0-0.2); Basophils % 0.4 % (0.0-0.8); Eosinophils # 0.1 10*3/uL (0.0-0.87); Eosinophils % 0.8 % (0.00-10.9); Hematocrit 36.9 VOL% (35.7-47.0); Hemoglobin 11.6 GM/DL (12.0-16.0); Immature Granulocytes % 5.6 %; Immature Granulocytes Absolute 0.92 #; Lymphocytes # 4.3 10*3/uL (1.4-4.0); Lymphocytes % 26.4 % (21.3-54.2); Mean Corpuscular HGB Conc 31.4 GM/DL (32-36); Mean Corpuscular Volume 88.1 FL (87-102); Mean Platelet Volume 9.9 FL (9.6-12.0); Monocytes % 5.6 % (1.7-12.7); NRBC # 0.13 10*3/uL; Neutrophils % 61.2 % (38.7-73.9); Platelet Count 674 T/CUMM (130-400); Red Blood Count 4.19 MC/CUMM (3.8-5.5); Red Cell Distribution Width 14.8 % (9.3-17.3); White Blood Count 16.4 T/CUMM (4-12)
[2021-03-07 07:25] LABS: Calcium 9.5 MG/DL (8.5-10.1); Osmolality,Calculated 274.2 MOS/KG (273-304); Potassium 3.6 MMOL/L (3.5-5.1)
[2021-03-07 07:28] LABS: Eosinophils 1 % (0-10); Hypochromasia 1+; Lymphocytes 25 % (20-55); Microcytosis 1+; Nucleated Red Blood Cells 2 (0-5); Polychromasia Slight; Segmented Neutrophils 62 % (50-85); Total Cells Counted 100
[2021-03-07 07:29] LABS: Platelet Estimate Increased
[2021-03-07] MEDS: FUROSEMIDE 40 MG/4 ML VIAL IV SCH ×2 (07:44→16:34)
[2021-03-07] MEDS: METOPROLOL TARTRATE 5 MG/5 ML VIAL IV PRN ×2 (07:44→15:39)
[2021-03-07] MEDS: LORazepam 2 MG/1 ML VIAL IV PRN ×2 (07:46→14:46)
[2021-03-07] MEDS: FAMOTIDINE 20 MG TABLET PO SCH ×2 (08:03→21:06)
[2021-03-07] MEDS: CETIRIZINE 10 MG TABLET PO SCH (08:03)
[2021-03-07] MEDS: ASPIRIN CHEW 81 MG TABLET PO SCH (08:03)
[2021-03-07] MEDS: CHOLECALCIFEROL 1,000 UNIT TABLET PO SCH (08:03)
[2021-03-07] MEDS: ZINC GLUCONATE 50 MG TABLET PO SCH (08:03)
[2021-03-07] MEDS: TOPIRAMATE 100 MG TABLET PO SCH ×2 (08:03→21:05)
[2021-03-07] MEDS: PREGABALIN 100 MG CAPSULE PO SCH ×3 (08:04→21:06)
[2021-03-07] MEDS: ASCORBIC ACID 500 MG TABLET PO SCH ×2 (08:04→21:06)
[2021-03-07] MEDS: MENTHOL/ZINC OXIDE OINT 71 GM JAR TOP SCH ×2 (08:04→23:41)
[2021-03-07] MEDS: METOPROLOL TARTRATE 100 MG TABLET PO SCH ×2 (08:04→21:07)
[2021-03-07] MEDS: MULTIVITAMIN LIQUID (CENTRUM) 60 ML BOTTLE PO SCH (08:04)
[2021-03-07] MEDS ORDERED: methylPREDNISolone SOD SUC 40 MG/1 ML VIAL IV SCH (09:00)
[2021-03-07] MEDS: amLODIPine 5 MG TABLET PO SCH (10:20)
[2021-03-07] MEDS: MICAFUNGIN 100 MG in SODIUM CHLORIDE 0.9% 100 ML IV SCH (12:23)
[2021-03-07] MEDS: DIGOXIN 0.125 MG TABLET PO SCH (12:24)
[2021-03-07] MEDS: QUEtiapine 25 MG TABLET PO SCH (21:07)
[2021-03-08] MEDS: INSULIN LISPRO 100 UNIT/ML SUBCUT SCH ×4 (00:05→19:07)
[2021-03-08] MEDS: ALBUTEROL/IPRATROPIUM 3 ML NEB RESP TX SCH ×4 (01:23→19:56)
[2021-03-08] MEDS: CLORAZEPATE 7.5 MG TABLET PO SCH ×4 (06:15→23:38)
[2021-03-08 06:51] LABS: Basophils # 0.1 10*3/uL (0.0-0.2); Basophils % 0.4 % (0.0-0.8); Eosinophils # 0.1 10*3/uL (0.0-0.87); Eosinophils % 0.7 % (0.00-10.9); Hematocrit 37.5 VOL% (35.7-47.0); Hemoglobin 12.2 GM/DL (12.0-16.0); Immature Granulocytes Absolute 0.82 #; Lymphocytes # 4.4 10*3/uL (1.4-4.0); Lymphocytes % 26.5 % (21.3-54.2); Mean Corpuscular HGB Conc 32.5 GM/DL (32-36); Mean Corpuscular Volume 87.2 FL (87-102); Monocytes % 5.2 % (1.7-12.7); NRBC # 0.24 10*3/uL; Neutrophils % 62.2 % (38.7-73.9); Platelet Count 740 T/CUMM (130-400); White Blood Count 16.4 T/CUMM (4-12)
[2021-03-08 07:12] LABS: Calcium 9.8 MG/DL (8.5-10.1); Osmolality,Calculated 266.7 MOS/KG (273-304); Potassium 2.7 MMOL/L (3.5-5.1)
[2021-03-08 07:24] LABS: Band Neutrophils 1 % (0-10); Eosinophils 2 % (0-10); Lymphocytes 19 % (20-55); Platelet Estimate Increased; Segmented Neutrophils 71 % (50-85); Total Cells Counted 100
[2021-03-08] MEDS: ACETYLCYSTEINE 20% 800 MG/4 ML VIAL RESP TX SCH ×3 (07:45→19:56)
[2021-03-08] MEDS ORDERED: POTASSIUM CHLORIDE 20 MEQ PACK PEG ONE (09:16)
[2021-03-08] MEDS ORDERED: POTASSIUM CHLORIDE RIDER 20 MEQ/100 ML PREMIX IV PRN (09:19)
[2021-03-08] MEDS: ASPIRIN CHEW 81 MG TABLET PO SCH (11:49)
[2021-03-08] MEDS: MENTHOL/ZINC OXIDE OINT 71 GM JAR TOP SCH ×2 (11:50→21:06)
[2021-03-08] MEDS: POLYETHYLENE GLYCOL POWDER 17 GM PACK PEG SCH ×2 (11:51→20:36)
[2021-03-08] MEDS: CHOLECALCIFEROL 1,000 UNIT TABLET PO SCH (11:52)
[2021-03-08] MEDS: CETIRIZINE 10 MG TABLET PO SCH (11:52)
[2021-03-08] MEDS: ZINC GLUCONATE 50 MG TABLET PO SCH (11:52)
[2021-03-08] MEDS: FAMOTIDINE 20 MG TABLET PO SCH ×2 (11:52→20:35)
[2021-03-08] MEDS: TOPIRAMATE 100 MG TABLET PO SCH ×2 (11:52→20:35)
[2021-03-08] MEDS: PREGABALIN 100 MG CAPSULE PO SCH ×3 (11:52→20:36)
[2021-03-08] MEDS: ASCORBIC ACID 500 MG TABLET PO SCH ×2 (11:52→20:36)
[2021-03-08] MEDS: predniSONE 20 MG TABLET PO SCH (11:53)
[2021-03-08] MEDS: POTASSIUM BICARB EFFERVESCENT 20 MEQ TAB.EFF PO SCH (11:53)
[2021-03-08] MEDS: METOPROLOL TARTRATE 100 MG TABLET PO SCH ×2 (11:53→20:36)
[2021-03-08] MEDS: amLODIPine 5 MG TABLET PO SCH (11:53)
[2021-03-08] MEDS: FUROSEMIDE 40 MG/4 ML VIAL IV SCH ×2 (12:01→18:57)
[2021-03-08] MEDS: MULTIVITAMIN LIQUID (CENTRUM) 60 ML BOTTLE PO SCH (12:01)
[2021-03-08] MEDS: MICAFUNGIN 100 MG in SODIUM CHLORIDE 0.9% 100 ML IV SCH (12:40)
[2021-03-08] MEDS: MORPHINE 2 MG/1 ML SYRINGE IV PRN ×2 (12:47→20:36)
[2021-03-08] MEDS: DIGOXIN 0.125 MG TABLET PO SCH (13:03)
[2021-03-08] MEDS ORDERED: BISACODYL 10 MG SUPP RECTAL PRN (15:40)
[2021-03-08] MEDS: QUEtiapine 25 MG TABLET PO SCH (20:35)
[2021-03-09] MEDS: INSULIN LISPRO 100 UNIT/ML SUBCUT SCH ×4 (00:06→16:46)
[2021-03-09] MEDS: ALBUTEROL/IPRATROPIUM 3 ML NEB RESP TX SCH ×4 (01:51→21:25)
[2021-03-09] MEDS: CLORAZEPATE 7.5 MG TABLET PO SCH ×4 (05:08→23:53)
[2021-03-09 05:41] LABS: Basophils % 0.7 % (0.0-0.8); Eosinophils % 0.7 % (0.00-10.9); Lymphocytes % 27.6 % (21.3-54.2); Mean Corpuscular HGB Conc 30.8 GM/DL (32-36); Mean Platelet Volume 10.1 FL (9.6-12.0); NRBC # 0.27 10*3/uL
[2021-03-09 05:47] LABS: Basophils # 0.1 10*3/uL (0.0-0.2); Eosinophils # 0.1 10*3/uL (0.0-0.87); Hematocrit 40.3 VOL% (35.7-47.0); Hemoglobin 12.4 GM/DL (12.0-16.0); Immature Granulocytes % 4.6 %; Immature Granulocytes Absolute 0.77 #; Lymphocytes # 4.6 10*3/uL (1.4-4.0); Mean Corpuscular Volume 91.2 FL (87-102); Monocytes % 5.1 % (1.7-12.7); Neutrophils % 61.3 % (38.7-73.9); Platelet Count 734 T/CUMM (130-400); Red Blood Count 4.42 MC/CUMM (3.8-5.5); Red Cell Distribution Width 14.8 % (9.3-17.3); White Blood Count 16.8 T/CUMM (4-12)
[2021-03-09 06:07] LABS: Calcium 9.5 MG/DL (8.5-10.1); Osmolality,Calculated 267.7 MOS/KG (273-304); Potassium 2.8 MMOL/L (3.5-5.1)
[2021-03-09 06:16] LABS: Band Neutrophils 1 % (0-10); Lymphocytes 26 % (20-55); Nucleated Red Blood Cells 1 (0-5); Platelet Estimate Increased; Segmented Neutrophils 67 % (50-85); Total Cells Counted 100
[2021-03-09 06:24] LABS: Albumin 3.5 G/DL (3.4-5.0); Bilirubin,Total 1.2 MG/DL (0.20-1.00); Calcium 9.7 MG/DL (8.5-10.1); Osmolality,Calculated 267.7 MOS/KG (273-304); Potassium 2.8 MMOL/L (3.5-5.1); Total Protein 7.5 G/DL (6.4-8.2)
[2021-03-09] MEDS: MORPHINE 2 MG/1 ML SYRINGE IV PRN ×4 (06:32→20:52)
[2021-03-09] MEDS: ACETYLCYSTEINE 20% 800 MG/4 ML VIAL RESP TX SCH ×3 (07:18→21:25)
[2021-03-09] MEDS: ASPIRIN CHEW 81 MG TABLET PO SCH (10:21)
[2021-03-09] MEDS: FAMOTIDINE 20 MG TABLET PO SCH ×2 (10:21→20:53)
[2021-03-09] MEDS: POTASSIUM BICARB EFFERVESCENT 20 MEQ TAB.EFF PO SCH (10:21)
[2021-03-09] MEDS: CHOLECALCIFEROL 1,000 UNIT TABLET PO SCH (10:21)
[2021-03-09] MEDS: ZINC GLUCONATE 50 MG TABLET PO SCH (10:21)
[2021-03-09] MEDS: POTASSIUM BICARB EFFERVESCENT 20 MEQ TAB.EFF PER TUBE PRN ×2 (10:21→10:24)
[2021-03-09] MEDS: TOPIRAMATE 100 MG TABLET PO SCH ×2 (10:21→20:53)
[2021-03-09] MEDS: METOPROLOL TARTRATE 100 MG TABLET PO SCH ×2 (10:22→20:53)
[2021-03-09] MEDS: PREGABALIN 100 MG CAPSULE PO SCH ×3 (10:22→20:53)
[2021-03-09] MEDS: amLODIPine 5 MG TABLET PO SCH (10:22)
[2021-03-09] MEDS: ASCORBIC ACID 500 MG TABLET PO SCH ×2 (10:22→20:53)
[2021-03-09] MEDS: CETIRIZINE 10 MG TABLET PO SCH (10:22)
[2021-03-09] MEDS: POLYETHYLENE GLYCOL POWDER 17 GM PACK PEG SCH ×2 (10:23→20:54)
[2021-03-09] MEDS: predniSONE 20 MG TABLET PO SCH (10:23)
[2021-03-09] MEDS: FUROSEMIDE 40 MG/4 ML VIAL IV SCH (10:24)
[2021-03-09] MEDS: MULTIVITAMIN LIQUID (CENTRUM) 60 ML BOTTLE PO SCH (10:25)
[2021-03-09] MEDS: MENTHOL/ZINC OXIDE OINT 71 GM JAR TOP SCH ×2 (10:25→20:53)
[2021-03-09] MEDS: MICAFUNGIN 100 MG in SODIUM CHLORIDE 0.9% 100 ML IV SCH (12:55)
[2021-03-09] MEDS: DIGOXIN 0.125 MG TABLET PO SCH (12:58)
[2021-03-09 14:33] LABS: Calcium 9.6 MG/DL (8.5-10.1); Osmolality,Calculated 259.2 MOS/KG (273-304); Potassium 5.3 MMOL/L (3.5-5.1)
[2021-03-09] MEDS: LORazepam 2 MG/1 ML VIAL IV PRN (17:26)
[2021-03-09] MEDS ORDERED: NITROGLYCERIN SL 0.4 MG TABLET SL PRN (18:31)
[2021-03-09] MEDS: QUEtiapine 25 MG TABLET PO SCH (20:53)
[2021-03-10] MEDS: INSULIN LISPRO 100 UNIT/ML SUBCUT SCH ×4 (00:57→17:53)
[2021-03-10] MEDS: ALBUTEROL/IPRATROPIUM 3 ML NEB RESP TX SCH ×4 (02:41→18:29)
[2021-03-10] MEDS: LORazepam 2 MG/1 ML VIAL IV PRN (04:08)
[2021-03-10 04:28] LABS: ABG Base Excess 6.1 MMOL/L (-2.5-2.5); ABG HCO3 29.6 MMOL/L (20-26); ABG Oxygen Saturation 80.4 % (95-100); ABG PH 7.553 (7.35-7.45); ABG PO2 43.7 MM HG (80-95); ABG TCO2 24.7 MMOL/L (23-27)
[2021-03-10 04:57] LABS: Basophils # 0.1 10*3/uL (0.0-0.2); Basophils % 0.3 % (0.0-0.8); Eosinophils # 0.1 10*3/uL (0.0-0.87); Eosinophils % 0.8 % (0.00-10.9); Hematocrit 38.1 VOL% (35.7-47.0); Hemoglobin 12.4 GM/DL (12.0-16.0); Immature Granulocytes % 2.4 %; Immature Granulocytes Absolute 0.41 #; Lymphocytes % 23.3 % (21.3-54.2); Mean Corpuscular HGB Conc 32.5 GM/DL (32-36); Mean Corpuscular Volume 85.8 FL (87-102); Mean Platelet Volume 9.7 FL (9.6-12.0); Monocytes % 5.3 % (1.7-12.7); NRBC # 0.23 10*3/uL; Neutrophils % 67.9 % (38.7-73.9); Platelet Count 669 T/CUMM (130-400); Red Blood Count 4.44 MC/CUMM (3.8-5.5); Red Cell Distribution Width 14.7 % (9.3-17.3); White Blood Count 17.2 T/CUMM (4-12)
[2021-03-10 05:17] LABS: Band Neutrophils 2 % (0-10); Eosinophils 2 % (0-10); Lymphocytes 26 % (20-55); Nucleated Red Blood Cells 1 (0-5); Segmented Neutrophils 66 % (50-85); Total Cells Counted 100
[2021-03-10 05:18] LABS: Hypochromasia 1+; Platelet Estimate Increased
[2021-03-10 05:19] LABS: Blood Urea Nitrogen 24 MG/DL (7-18); Calcium 9.5 MG/DL (8.5-10.1); Carbon Dioxide 25 MMOL/L (21-32); Estimated Glom Filtration Rate 177 ML/MIN; Glucose 126 MG/DL (74-106); Osmolality,Calculated 260.2 MOS/KG (273-304); Potassium 4.2 MMOL/L (3.5-5.1); Sodium 127 MMOL/L (136-145)
[2021-03-10] MEDS: CLORAZEPATE 7.5 MG TABLET PO SCH ×3 (05:26→17:53)
[2021-03-10] MEDS: MORPHINE 2 MG/1 ML SYRINGE IV PRN ×4 (05:26→23:25)
[2021-03-10 05:28] LABS: ABG Base Excess 5.1 MMOL/L (-2.5-2.5); ABG PCO2 34.4 MM HG (35-48); ABG PH 7.517 (7.35-7.45); ABG PO2 77.2 MM HG (80-95); ABG TCO2 24.3 MMOL/L (23-27)
[2021-03-10] MEDS: ACETYLCYSTEINE 20% 800 MG/4 ML VIAL RESP TX SCH ×2 (07:45→14:05)
[2021-03-10] MEDS ORDERED: LABETALOL 20 MG/4 ML SYRINGE IV PRN (11:00)
[2021-03-10] MEDS: amLODIPine 5 MG TABLET PO SCH (11:09)
[2021-03-10] MEDS: POLYETHYLENE GLYCOL POWDER 17 GM PACK PEG SCH ×2 (11:14→20:04)
[2021-03-10] MEDS: METOPROLOL TARTRATE 100 MG TABLET PO SCH ×2 (11:14→20:06)
[2021-03-10] MEDS: CETIRIZINE 10 MG TABLET PO SCH (11:14)
[2021-03-10] MEDS: predniSONE 10 MG TABLET PO SCH (11:14)
[2021-03-10] MEDS: TOPIRAMATE 100 MG TABLET PO SCH ×2 (11:15→20:06)
[2021-03-10] MEDS: DILTIAZEM 60 MG TABLET PO SCH ×3 (11:15→20:06)
[2021-03-10] MEDS ORDERED: propofoL 200 MG/20 ML VIAL IV ONE ×2 (11:15→11:26)
[2021-03-10] MEDS: ZINC GLUCONATE 50 MG TABLET PO SCH (11:15)
[2021-03-10] MEDS: ASCORBIC ACID 500 MG TABLET PO SCH ×2 (11:15→20:05)
[2021-03-10] MEDS: FAMOTIDINE 20 MG TABLET PO SCH ×2 (11:15→20:04)
[2021-03-10] MEDS: ASPIRIN CHEW 81 MG TABLET PO SCH (11:53)
[2021-03-10] MEDS: PREGABALIN 100 MG CAPSULE PO SCH ×3 (11:53→20:06)
[2021-03-10] MEDS: MULTIVITAMIN LIQUID (CENTRUM) 60 ML BOTTLE PO SCH (11:54)
[2021-03-10] MEDS: CHOLECALCIFEROL 1,000 UNIT TABLET PO SCH (11:54)
[2021-03-10] MEDS: MENTHOL/ZINC OXIDE OINT 71 GM JAR TOP SCH ×2 (11:54→23:05)
[2021-03-10] MEDS: SODIUM CHLORIDE 1 GM TABLET PO SCH ×2 (11:54→20:06)
[2021-03-10] MEDS: DIGOXIN 0.125 MG TABLET PO SCH (13:41)
[2021-03-10] MEDS: MICAFUNGIN 100 MG in SODIUM CHLORIDE 0.9% 100 ML IV SCH (15:49)
[2021-03-10] MEDS: QUEtiapine 25 MG TABLET PO SCH (20:05)
[2021-03-10] MEDS: MELATONIN 3 MG TABLET PO PRN (23:25)
[2021-03-11] MEDS: ACETYLCYSTEINE 20% 800 MG/4 ML VIAL RESP TX SCH ×2 (01:01→07:42)
[2021-03-11] MEDS: ALBUTEROL/IPRATROPIUM 3 ML NEB RESP TX SCH ×4 (01:01→19:00)
[2021-03-11] MEDS: CLORAZEPATE 7.5 MG TABLET PO SCH ×4 (01:30→18:13)
[2021-03-11] MEDS: INSULIN LISPRO 100 UNIT/ML SUBCUT SCH ×4 (01:34→17:55)
[2021-03-11] MEDS: MORPHINE 2 MG/1 ML SYRINGE IV PRN ×4 (05:15→20:47)
[2021-03-11 05:45] LABS: Basophils # 0.1 10*3/uL (0.0-0.2); Basophils % 0.3 % (0.0-0.8); Eosinophils % 0.2 % (0.00-10.9); Hematocrit 33.8 VOL% (35.7-47.0); Hemoglobin 11.1 GM/DL (12.0-16.0); Immature Granulocytes % 2.3 %; Immature Granulocytes Absolute 0.42 #; Lymphocytes # 2.9 10*3/uL (1.4-4.0); Mean Corpuscular HGB Conc 32.8 GM/DL (32-36); Mean Platelet Volume 10.5 FL (9.6-12.0); Monocytes % 5.2 % (1.7-12.7); NRBC # 0.17 10*3/uL; Platelet Count 581 T/CUMM (130-400); Red Blood Count 3.93 MC/CUMM (3.8-5.5); Red Cell Distribution Width 14.5 % (9.3-17.3); White Blood Count 17.9 T/CUMM (4-12)
[2021-03-11 06:15] LABS: Hypochromasia 1+; Lymphocytes 12 % (20-55); Microcytosis 1+; Polychromasia Slight; Segmented Neutrophils 76 % (50-85); Stomatocytes Slight; Total Cells Counted 100
[2021-03-11 06:22] LABS: Albumin 3.1 G/DL (3.4-5.0); Bilirubin,Total 0.8 MG/DL (0.20-1.00); Calcium 9.6 MG/DL (8.5-10.1); Osmolality,Calculated 269.7 MOS/KG (273-304); Potassium 2.8 MMOL/L (3.5-5.1); Total Protein 7.2 G/DL (6.4-8.2)
[2021-03-11] MEDS: POTASSIUM CHLORIDE RIDER 10 MEQ/100 ML PREMIX IV PRN ×6 (07:10→18:13)
[2021-03-11] MEDS: METOPROLOL TARTRATE 5 MG/5 ML VIAL IV PRN ×2 (08:26→15:30)
[2021-03-11] MEDS: PREGABALIN 100 MG CAPSULE PO SCH ×3 (08:27→20:42)
[2021-03-11] MEDS: METOPROLOL TARTRATE 100 MG TABLET PO SCH ×2 (08:27→20:44)
[2021-03-11] MEDS: ASPIRIN CHEW 81 MG TABLET PO SCH (08:27)
[2021-03-11] MEDS: ZINC GLUCONATE 50 MG TABLET PO SCH (08:27)
[2021-03-11] MEDS: ASCORBIC ACID 500 MG TABLET PO SCH ×2 (08:27→20:43)
[2021-03-11] MEDS: TOPIRAMATE 100 MG TABLET PO SCH ×2 (08:27→20:42)
[2021-03-11] MEDS: FAMOTIDINE 20 MG TABLET PO SCH ×2 (08:27→20:44)
[2021-03-11] MEDS: SODIUM CHLORIDE 1 GM TABLET PO SCH ×2 (08:27→20:52)
[2021-03-11] MEDS: CETIRIZINE 10 MG TABLET PO SCH (08:27)
[2021-03-11] MEDS: predniSONE 10 MG TABLET PO SCH (08:27)
[2021-03-11] MEDS: CHOLECALCIFEROL 1,000 UNIT TABLET PO SCH (08:28)
[2021-03-11] MEDS: POLYETHYLENE GLYCOL POWDER 17 GM PACK PEG SCH ×2 (08:28→20:42)
[2021-03-11] MEDS: DILTIAZEM 60 MG TABLET PO SCH ×3 (08:33→20:53)
[2021-03-11] MEDS: MULTIVITAMIN LIQUID (CENTRUM) 60 ML BOTTLE PO SCH (09:59)
[2021-03-11] MEDS: MENTHOL/ZINC OXIDE OINT 71 GM JAR TOP SCH ×2 (09:59→20:44)
[2021-03-11] MEDS ORDERED: LORazepam 2 MG/1 ML VIAL ONE (12:04)
[2021-03-11] MEDS: LORazepam 2 MG/1 ML VIAL IV PRN ×2 (12:08→15:31)
[2021-03-11] MEDS: DIGOXIN 0.125 MG TABLET PO SCH (12:09)
[2021-03-11 17:46] LABS: Calcium 9.4 MG/DL (8.5-10.1); Osmolality,Calculated 270.5 MOS/KG (273-304); Potassium 3.6 MMOL/L (3.5-5.1)
[2021-03-11] MEDS: ONDANSETRON 4 MG/2 ML VIAL IV PRN (20:40)
[2021-03-11] MEDS: QUEtiapine 25 MG TABLET PO SCH (21:15)
[2021-03-12] MEDS: CLORAZEPATE 7.5 MG TABLET PO SCH ×2 (00:10→06:33)
[2021-03-12] MEDS: INSULIN LISPRO 100 UNIT/ML SUBCUT SCH ×4 (00:10→17:25)
[2021-03-12] MEDS: ALBUTEROL/IPRATROPIUM 3 ML NEB RESP TX SCH ×5 (00:22→20:34)
[2021-03-12] MEDS: DILTIAZEM 60 MG TABLET PO SCH ×4 (03:14→22:15)
[2021-03-12 05:59] LABS: Basophils % 0.3 % (0.0-0.8); Eosinophils # 0.1 10*3/uL (0.0-0.87); Eosinophils % 0.7 % (0.00-10.9); Hematocrit 31.8 VOL% (35.7-47.0); Hemoglobin 9.9 GM/DL (12.0-16.0); Immature Granulocytes % 2.8 %; Immature Granulocytes Absolute 0.42 #; Lymphocytes # 2.3 10*3/uL (1.4-4.0); Lymphocytes % 15.2 % (21.3-54.2); Mean Corpuscular HGB Conc 31.1 GM/DL (32-36); Mean Corpuscular Volume 87.8 FL (87-102); Mean Platelet Volume 10.1 FL (9.6-12.0); Monocytes % 5.6 % (1.7-12.7); NRBC # 0.13 10*3/uL; Neutrophils % 75.4 % (38.7-73.9); Platelet Count 465 T/CUMM (130-400); Red Blood Count 3.62 MC/CUMM (3.8-5.5); Red Cell Distribution Width 14.8 % (9.3-17.3)
[2021-03-12 06:22] LABS: Calcium 9.4 MG/DL (8.5-10.1); Osmolality,Calculated 278.1 MOS/KG (273-304); Potassium 3.1 MMOL/L (3.5-5.1)
[2021-03-12] MEDS: CETIRIZINE 10 MG TABLET PO SCH (08:34)
[2021-03-12] MEDS: TOPIRAMATE 100 MG TABLET PO SCH ×2 (08:34→22:15)
[2021-03-12] MEDS: ASCORBIC ACID 500 MG TABLET PO SCH ×2 (08:34→22:14)
[2021-03-12] MEDS: FAMOTIDINE 20 MG TABLET PO SCH ×2 (08:34→22:14)
[2021-03-12] MEDS: ZINC GLUCONATE 50 MG TABLET PO SCH (08:34)
[2021-03-12] MEDS: CHOLECALCIFEROL 1,000 UNIT TABLET PO SCH (08:34)
[2021-03-12] MEDS: METOPROLOL TARTRATE 100 MG TABLET PO SCH ×2 (08:34→22:14)
[2021-03-12] MEDS: predniSONE 10 MG TABLET PO SCH (08:35)
[2021-03-12] MEDS: POTASSIUM BICARB EFFERVESCENT 20 MEQ TAB.EFF PER TUBE PRN ×3 (08:35→15:30)
[2021-03-12] MEDS: PREGABALIN 100 MG CAPSULE PO SCH ×3 (08:35→22:15)
[2021-03-12] MEDS: ASPIRIN CHEW 81 MG TABLET PO SCH (08:35)
[2021-03-12] MEDS: MENTHOL/ZINC OXIDE OINT 71 GM JAR TOP SCH ×2 (08:36→21:55)
[2021-03-12] MEDS: MULTIVITAMIN LIQUID (CENTRUM) 60 ML BOTTLE PO SCH (08:37)
[2021-03-12] MEDS: POLYETHYLENE GLYCOL POWDER 17 GM PACK PEG SCH ×2 (08:37→22:14)
[2021-03-12] MEDS: DIGOXIN 0.125 MG TABLET PO SCH (13:58)
[2021-03-12] MEDS: HYDROcod/ACETAMIN 7.5-325 MG/15 ML UDCUP PO PRN (15:50)
[2021-03-12] MEDS ORDERED: CLORAZEPATE 3.75 MG TABLET ONE (16:52)
[2021-03-12] MEDS: CLORAZEPATE 3.75 MG TABLET PO SCH (17:25)
[2021-03-12] MEDS: MORPHINE 2 MG/1 ML SYRINGE IV PRN ×2 (17:25→21:10)
[2021-03-12] MEDS: QUEtiapine 25 MG TABLET PO SCH (22:14)
[2021-03-13] MEDS: INSULIN LISPRO 100 UNIT/ML SUBCUT SCH ×4 (00:16→18:18)
[2021-03-13] MEDS: ALBUTEROL/IPRATROPIUM 3 ML NEB RESP TX SCH ×4 (01:06→19:30)
[2021-03-13] MEDS: CLORAZEPATE 3.75 MG TABLET PO SCH ×3 (02:44→18:38)
[2021-03-13] MEDS: MORPHINE 2 MG/1 ML SYRINGE IV PRN ×4 (02:45→20:02)
[2021-03-13] MEDS: DILTIAZEM 60 MG TABLET PO SCH ×4 (02:46→21:21)
[2021-03-13 05:12] LABS: Basophils % 0.3 % (0.0-0.8); Eosinophils # 0.2 10*3/uL (0.0-0.87); Eosinophils % 1.3 % (0.00-10.9); Hematocrit 31.4 VOL% (35.7-47.0); Hemoglobin 9.8 GM/DL (12.0-16.0); Immature Granulocytes % 4.2 %; Immature Granulocytes Absolute 0.58 #; Lymphocytes # 2.2 10*3/uL (1.4-4.0); Mean Corpuscular HGB Conc 31.2 GM/DL (32-36); Mean Platelet Volume 10.2 FL (9.6-12.0); Monocytes % 4.4 % (1.7-12.7); NRBC # 0.26 10*3/uL; Neutrophils % 73.8 % (38.7-73.9); Platelet Count 477 T/CUMM (130-400); Red Blood Count 3.57 MC/CUMM (3.8-5.5); Red Cell Distribution Width 15.1 % (9.3-17.3); White Blood Count 13.9 T/CUMM (4-12)
[2021-03-13 05:30] LABS: Calcium 9.5 MG/DL (8.5-10.1); Osmolality,Calculated 272.4 MOS/KG (273-304); Potassium 3.3 MMOL/L (3.5-5.1)
[2021-03-13 05:38] LABS: Band Neutrophils 1 % (0-10); Eosinophils 3 % (0-10); Hypochromasia 1+; Lymphocytes 16 % (20-55); Microcytosis 1+; Nucleated Red Blood Cells 1 (0-5); Platelet Estimate Adequate; Segmented Neutrophils 71 % (50-85); Total Cells Counted 100
[2021-03-13] MEDS: POLYETHYLENE GLYCOL POWDER 17 GM PACK PEG SCH ×2 (08:53→21:16)
[2021-03-13] MEDS: ASCORBIC ACID 500 MG TABLET PO SCH ×2 (08:54→21:35)
[2021-03-13] MEDS: CETIRIZINE 10 MG TABLET PO SCH (08:54)
[2021-03-13] MEDS: ZINC GLUCONATE 50 MG TABLET PO SCH (08:54)
[2021-03-13] MEDS: TOPIRAMATE 100 MG TABLET PO SCH ×2 (08:54→21:16)
[2021-03-13] MEDS: MENTHOL/ZINC OXIDE OINT 71 GM JAR TOP SCH ×2 (08:54→21:25)
[2021-03-13] MEDS: predniSONE 10 MG TABLET PO SCH (08:54)
[2021-03-13] MEDS: ASPIRIN CHEW 81 MG TABLET PO SCH (08:54)
[2021-03-13] MEDS: PREGABALIN 100 MG CAPSULE PO SCH ×3 (08:55→21:17)
[2021-03-13] MEDS: CHOLECALCIFEROL 1,000 UNIT TABLET PO SCH (08:55)
[2021-03-13] MEDS: METOPROLOL TARTRATE 100 MG TABLET PO SCH ×2 (08:55→21:36)
[2021-03-13] MEDS: FAMOTIDINE 20 MG TABLET PO SCH ×2 (08:55→21:16)
[2021-03-13] MEDS: MULTIVITAMIN LIQUID (CENTRUM) 60 ML BOTTLE PO SCH (08:55)
[2021-03-13] MEDS: HYDROcod/ACETAMIN 7.5-325 MG/15 ML UDCUP PO PRN (09:59)
[2021-03-13] MEDS: ONDANSETRON 4 MG/2 ML VIAL IV PRN (10:25)
[2021-03-13] MEDS: DIGOXIN 0.125 MG TABLET PO SCH (13:41)
[2021-03-13] MEDS: QUEtiapine 25 MG TABLET PO SCH (21:16)
[2021-03-13] MEDS: diphenhydrAMINE CAP 50 MG CAPSULE PO PRN (21:20)
[2021-03-14] MEDS: INSULIN LISPRO 100 UNIT/ML SUBCUT SCH ×4 (00:17→17:57)
[2021-03-14] MEDS: ALBUTEROL/IPRATROPIUM 3 ML NEB RESP TX SCH ×4 (02:04→22:10)
[2021-03-14] MEDS: CLORAZEPATE 3.75 MG TABLET PO SCH ×3 (02:18→17:11)
[2021-03-14] MEDS: DILTIAZEM 60 MG TABLET PO SCH ×4 (02:18→20:38)
[2021-03-14] MEDS: MORPHINE 2 MG/1 ML SYRINGE IV PRN ×4 (02:56→21:29)
[2021-03-14 04:48] LABS: Basophils # 0.1 10*3/uL (0.0-0.2); Basophils % 0.5 % (0.0-0.8); Eosinophils # 0.2 10*3/uL (0.0-0.87); Eosinophils % 1.6 % (0.00-10.9); Hematocrit 32.2 VOL% (35.7-47.0); Hemoglobin 10.2 GM/DL (12.0-16.0); Immature Granulocytes % 4.8 %; Immature Granulocytes Absolute 0.53 #; Lymphocytes # 2.6 10*3/uL (1.4-4.0); Lymphocytes % 23.9 % (21.3-54.2); Mean Corpuscular HGB Conc 31.7 GM/DL (32-36); Mean Corpuscular Volume 87.3 FL (87-102); Mean Platelet Volume 9.9 FL (9.6-12.0); Monocytes % 5.3 % (1.7-12.7); NRBC # 0.29 10*3/uL; Neutrophils % 63.9 % (38.7-73.9); Platelet Count 451 T/CUMM (130-400); Red Blood Count 3.69 MC/CUMM (3.8-5.5); White Blood Count 11.1 T/CUMM (4-12)
[2021-03-14] MEDS: HYDROcod/ACETAMIN 7.5-325 MG/15 ML UDCUP PO PRN (04:53)
[2021-03-14 05:17] LABS: Band Neutrophils 1 % (0-10); Eosinophils 1 % (0-10); Lymphocytes 14 % (20-55); Nucleated Red Blood Cells 2 (0-5); Segmented Neutrophils 76 % (50-85); Total Cells Counted 100
[2021-03-14 05:18] LABS: Platelet Estimate Increased
[2021-03-14 07:33] LABS: Calcium 9.5 MG/DL (8.5-10.1); Osmolality,Calculated 273.2 MOS/KG (273-304)
[2021-03-14] MEDS: POLYETHYLENE GLYCOL POWDER 17 GM PACK PEG SCH ×2 (09:21→20:38)
[2021-03-14] MEDS ORDERED: FUROSEMIDE 40 MG/4 ML VIAL IV ONE (09:45)
[2021-03-14] MEDS: POTASSIUM CHLORIDE 20 MEQ TABLET PO PRN ×3 (09:53→14:57)
[2021-03-14] MEDS: PREGABALIN 100 MG CAPSULE PO SCH ×3 (09:53→20:38)
[2021-03-14] MEDS: CHOLECALCIFEROL 1,000 UNIT TABLET PO SCH (09:53)
[2021-03-14] MEDS: CETIRIZINE 10 MG TABLET PO SCH (09:54)
[2021-03-14] MEDS: predniSONE 20 MG TABLET PO SCH (09:54)
[2021-03-14] MEDS: TOPIRAMATE 100 MG TABLET PO SCH ×2 (09:54→20:38)
[2021-03-14] MEDS: ZINC GLUCONATE 50 MG TABLET PO SCH (09:54)
[2021-03-14] MEDS: ASPIRIN CHEW 81 MG TABLET PO SCH (09:54)
[2021-03-14] MEDS: MULTIVITAMIN LIQUID (CENTRUM) 60 ML BOTTLE PO SCH (09:54)
[2021-03-14] MEDS: FAMOTIDINE 20 MG TABLET PO SCH ×2 (09:54→20:38)
[2021-03-14] MEDS: ASCORBIC ACID 500 MG TABLET PO SCH ×2 (09:54→20:38)
[2021-03-14] MEDS: MENTHOL/ZINC OXIDE OINT 71 GM JAR TOP SCH ×2 (09:58→20:38)
[2021-03-14] MEDS: METOPROLOL TARTRATE 100 MG TABLET PO SCH ×2 (09:58→21:26)
[2021-03-14] MEDS: DIGOXIN 0.125 MG TABLET PO SCH (12:33)
[2021-03-14] MEDS: QUEtiapine 25 MG TABLET PO SCH (20:38)
[2021-03-14] MEDS: METOPROLOL TARTRATE 5 MG/5 ML VIAL IV PRN (20:49)
[2021-03-15] MEDS: INSULIN LISPRO 100 UNIT/ML SUBCUT SCH ×4 (00:58→17:22)
[2021-03-15] MEDS: ALBUTEROL/IPRATROPIUM 3 ML NEB RESP TX SCH ×4 (01:45→19:40)
[2021-03-15] MEDS: DILTIAZEM 60 MG TABLET PO SCH ×4 (02:05→21:19)
[2021-03-15] MEDS: MORPHINE 2 MG/1 ML SYRINGE IV PRN ×2 (02:05→06:22)
[2021-03-15] MEDS: CLORAZEPATE 3.75 MG TABLET PO SCH ×3 (02:06→17:23)
[2021-03-15 06:42] LABS: Basophils # 0.1 10*3/uL (0.0-0.2); Basophils % 0.6 % (0.0-0.8); Eosinophils # 0.2 10*3/uL (0.0-0.87); Eosinophils % 1.8 % (0.00-10.9); Hemoglobin 10.2 GM/DL (12.0-16.0); Immature Granulocytes % 3.8 %; Immature Granulocytes Absolute 0.46 #; Lymphocytes # 3.1 10*3/uL (1.4-4.0); Lymphocytes % 25.8 % (21.3-54.2); Mean Corpuscular HGB Conc 30.9 GM/DL (32-36); Mean Corpuscular Volume 86.4 FL (87-102); Mean Platelet Volume 10.3 FL (9.6-12.0); Monocytes % 5.1 % (1.7-12.7); NRBC # 0.23 10*3/uL; Neutrophils % 62.9 % (38.7-73.9); Platelet Count 466 T/CUMM (130-400); Red Blood Count 3.82 MC/CUMM (3.8-5.5)
[2021-03-15 07:07] LABS: Calcium 9.6 MG/DL (8.5-10.1); Osmolality,Calculated 272.2 MOS/KG (273-304)
[2021-03-15] MEDS ORDERED: POTASSIUM CHLORIDE RIDER 20 MEQ/100 ML PREMIX IV PRN (07:30)
[2021-03-15] MEDS: ZINC GLUCONATE 50 MG TABLET PO SCH (09:51)
[2021-03-15] MEDS: FAMOTIDINE 20 MG TABLET PO SCH ×2 (09:51→21:20)
[2021-03-15] MEDS: METOPROLOL TARTRATE 100 MG TABLET PO SCH ×2 (09:51→21:19)
[2021-03-15] MEDS: predniSONE 20 MG TABLET PO SCH (09:51)
[2021-03-15] MEDS: PREGABALIN 100 MG CAPSULE PO SCH ×3 (09:52→21:19)
[2021-03-15] MEDS: ASCORBIC ACID 500 MG TABLET PO SCH ×2 (09:52→21:19)
[2021-03-15] MEDS: ASPIRIN CHEW 81 MG TABLET PO SCH (09:52)
[2021-03-15] MEDS: TOPIRAMATE 100 MG TABLET PO SCH ×2 (09:52→21:19)
[2021-03-15] MEDS: POTASSIUM BICARB EFFERVESCENT 20 MEQ TAB.EFF PER TUBE PRN ×2 (09:52→21:20)
[2021-03-15] MEDS: CETIRIZINE 10 MG TABLET PO SCH (09:52)
[2021-03-15] MEDS: CHOLECALCIFEROL 1,000 UNIT TABLET PO SCH (09:52)
[2021-03-15] MEDS: oxyCODONE/ACETAMINOPHEN 5-325 MG TABLET PO PRN ×3 (09:52→21:33)
[2021-03-15] MEDS: MENTHOL/ZINC OXIDE OINT 71 GM JAR TOP SCH ×2 (09:53→21:19)
[2021-03-15] MEDS: POLYETHYLENE GLYCOL POWDER 17 GM PACK PEG SCH ×2 (09:53→21:20)
[2021-03-15] MEDS: MULTIVITAMIN LIQUID (CENTRUM) 60 ML BOTTLE PO SCH (11:00)
[2021-03-15] MEDS: DIGOXIN 0.125 MG TABLET PO SCH (15:54)
[2021-03-15] MEDS: QUEtiapine 25 MG TABLET PO SCH (21:19)
[2021-03-16] MEDS: ALBUTEROL/IPRATROPIUM 3 ML NEB RESP TX SCH ×4 (00:21→19:53)
[2021-03-16] MEDS: CLORAZEPATE 3.75 MG TABLET PO SCH ×3 (02:58→17:46)
[2021-03-16] MEDS: DILTIAZEM 60 MG TABLET PO SCH ×4 (02:58→21:16)
[2021-03-16] MEDS: oxyCODONE/ACETAMINOPHEN 5-325 MG TABLET PO PRN ×3 (03:28→17:46)
[2021-03-16 05:33] LABS: Basophils # 0.1 10*3/uL (0.0-0.2); Basophils % 0.5 % (0.0-0.8); Eosinophils # 0.3 10*3/uL (0.0-0.87); Hematocrit 31.8 VOL% (35.7-47.0); Immature Granulocytes % 3.4 %; Immature Granulocytes Absolute 0.44 #; Lymphocytes # 3.5 10*3/uL (1.4-4.0); Lymphocytes % 26.9 % (21.3-54.2); Mean Corpuscular HGB Conc 31.4 GM/DL (32-36); Mean Corpuscular Volume 85.9 FL (87-102); Monocytes % 5.7 % (1.7-12.7); Neutrophils % 61.5 % (38.7-73.9); Platelet Count 453 T/CUMM (130-400); Red Cell Distribution Width 15.2 % (9.3-17.3); White Blood Count 12.9 T/CUMM (4-12)
[2021-03-16 05:59] LABS: Calcium 9.5 MG/DL (8.5-10.1); Osmolality,Calculated 264.5 MOS/KG (273-304); Potassium 3.4 MMOL/L (3.5-5.1)
[2021-03-16] MEDS: INSULIN LISPRO 100 UNIT/ML SUBCUT SCH ×5 (07:03→23:33)
[2021-03-16] MEDS: MORPHINE 2 MG/1 ML SYRINGE IV PRN ×2 (08:18→22:08)
[2021-03-16 09:21] LABS: Band Neutrophils 5 % (0-10); Eosinophils 2 % (0-10); Lymphocytes 31 % (20-55); Myelocytes 2 %; Platelet Estimate Normal; Segmented Neutrophils 56 % (50-85); Total Cells Counted 100
[2021-03-16 09:22] LABS: Smudge Cells Few
[2021-03-16 09:24] LABS: Anisocytosis 2+; Nucleated Red Blood Cells 10 (0-5)
[2021-03-16] MEDS: ASCORBIC ACID 500 MG TABLET PO SCH ×2 (11:05→21:15)
[2021-03-16] MEDS: FAMOTIDINE 20 MG TABLET PO SCH ×2 (11:05→21:15)
[2021-03-16] MEDS: METOPROLOL TARTRATE 100 MG TABLET PO SCH ×2 (11:05→21:16)
[2021-03-16] MEDS: CHOLECALCIFEROL 1,000 UNIT TABLET PO SCH (11:05)
[2021-03-16] MEDS: ASPIRIN CHEW 81 MG TABLET PO SCH (11:05)
[2021-03-16] MEDS: PREGABALIN 100 MG CAPSULE PO SCH ×3 (11:06→21:16)
[2021-03-16] MEDS: TOPIRAMATE 100 MG TABLET PO SCH ×2 (11:06→21:15)
[2021-03-16] MEDS: CETIRIZINE 10 MG TABLET PO SCH (11:06)
[2021-03-16] MEDS: MENTHOL/ZINC OXIDE OINT 71 GM JAR TOP SCH ×2 (11:07→21:14)
[2021-03-16] MEDS: MULTIVITAMIN LIQUID (CENTRUM) 60 ML BOTTLE PO SCH (11:07)
[2021-03-16] MEDS: POLYETHYLENE GLYCOL POWDER 17 GM PACK PEG SCH ×2 (11:07→21:17)
[2021-03-16] MEDS: predniSONE 20 MG TABLET PO SCH (11:07)
[2021-03-16] MEDS: ZINC GLUCONATE 50 MG TABLET PO SCH (15:19)
[2021-03-16] MEDS: DIGOXIN 0.125 MG TABLET PO SCH (17:45)
[2021-03-16] MEDS: QUEtiapine 25 MG TABLET PO SCH (21:17)
[2021-03-17] MEDS: ALBUTEROL/IPRATROPIUM 3 ML NEB RESP TX SCH ×4 (01:05→19:43)
[2021-03-17] MEDS: CLORAZEPATE 3.75 MG TABLET PO SCH ×4 (02:31→17:29)
[2021-03-17] MEDS: DILTIAZEM 60 MG TABLET PO SCH ×4 (02:31→21:09)
[2021-03-17] MEDS: oxyCODONE/ACETAMINOPHEN 5-325 MG TABLET PO PRN ×2 (04:04→21:10)
[2021-03-17] MEDS: MORPHINE 2 MG/1 ML SYRINGE IV PRN ×2 (05:32→22:30)
[2021-03-17] MEDS: INSULIN LISPRO 100 UNIT/ML SUBCUT SCH ×5 (06:20→23:49)
[2021-03-17 08:02] LABS: Basophils # 0.1 10*3/uL (0.0-0.2); Basophils % 0.5 % (0.0-0.8); Eosinophils # 0.3 10*3/uL (0.0-0.87); Eosinophils % 1.7 % (0.00-10.9); Hemoglobin 11.7 GM/DL (12.0-16.0); Immature Granulocytes % 3.8 %; Immature Granulocytes Absolute 0.66 #; Lymphocytes # 5.1 10*3/uL (1.4-4.0); Lymphocytes % 29.5 % (21.3-54.2); Mean Corpuscular HGB Conc 30.8 GM/DL (32-36); Mean Corpuscular Volume 87.4 FL (87-102); Mean Platelet Volume 10.1 FL (9.6-12.0); Monocytes % 5.4 % (1.7-12.7); NRBC # 0.28 10*3/uL; Neutrophils % 59.1 % (38.7-73.9); Platelet Count 524 T/CUMM (130-400); Red Blood Count 4.35 MC/CUMM (3.8-5.5); Red Cell Distribution Width 15.2 % (9.3-17.3); White Blood Count 17.3 T/CUMM (4-12)
[2021-03-17 08:23] LABS: Band Neutrophils 5 % (0-10); Eosinophils 1 % (0-10); Lymphocytes 30 % (20-55); Nucleated Red Blood Cells 2 (0-5); Platelet Estimate Increased; Segmented Neutrophils 56 % (50-85); Smudge Cells Few; Total Cells Counted 100
[2021-03-17 08:24] LABS: Anisocytosis 3+; Polychromasia Slight
[2021-03-17 08:25] LABS: Calcium 9.8 MG/DL (8.5-10.1); Osmolality,Calculated 264.5 MOS/KG (273-304); Potassium 3.5 MMOL/L (3.5-5.1)
[2021-03-17] MEDS: CHOLECALCIFEROL 1,000 UNIT TABLET PO SCH (09:02)
[2021-03-17] MEDS: METOPROLOL TARTRATE 100 MG TABLET PO SCH ×2 (09:02→21:09)
[2021-03-17] MEDS: FAMOTIDINE 20 MG TABLET PO SCH ×2 (09:02→21:09)
[2021-03-17] MEDS: ZINC GLUCONATE 50 MG TABLET PO SCH (09:03)
[2021-03-17] MEDS: predniSONE 20 MG TABLET PO SCH (09:03)
[2021-03-17] MEDS: ASCORBIC ACID 500 MG TABLET PO SCH ×2 (09:03→21:10)
[2021-03-17] MEDS: PREGABALIN 100 MG CAPSULE PO SCH ×3 (09:03→21:09)
[2021-03-17] MEDS: CETIRIZINE 10 MG TABLET PO SCH (09:03)
[2021-03-17] MEDS: TOPIRAMATE 100 MG TABLET PO SCH ×2 (09:03→21:10)
[2021-03-17] MEDS: POLYETHYLENE GLYCOL POWDER 17 GM PACK PEG SCH ×2 (09:04→21:12)
[2021-03-17] MEDS: MENTHOL/ZINC OXIDE OINT 71 GM JAR TOP SCH ×2 (09:04→21:10)
[2021-03-17] MEDS: ASPIRIN CHEW 81 MG TABLET PO SCH (09:04)
[2021-03-17] MEDS: LORazepam 2 MG/1 ML VIAL IV PRN (10:14)
[2021-03-17] MEDS: MULTIVITAMIN LIQUID (CENTRUM) 60 ML BOTTLE PO SCH (12:53)
[2021-03-17] MEDS: DIGOXIN 0.125 MG TABLET PO SCH (13:50)
[2021-03-17] MEDS: QUEtiapine 25 MG TABLET PO SCH (21:10)
[2021-03-18] MEDS: CLORAZEPATE 3.75 MG TABLET PO SCH ×3 (02:14→17:35)
[2021-03-18] MEDS: ALBUTEROL/IPRATROPIUM 3 ML NEB RESP TX SCH ×5 (03:14→21:31)
[2021-03-18] MEDS: DILTIAZEM 60 MG TABLET PO SCH ×4 (04:04→21:03)
[2021-03-18] MEDS: MORPHINE 2 MG/1 ML SYRINGE IV PRN ×2 (05:12→21:29)
[2021-03-18] MEDS: INSULIN LISPRO 100 UNIT/ML SUBCUT SCH ×3 (06:21→17:04)
[2021-03-18 06:31] LABS: Basophils % 0.3 % (0.0-0.8); Eosinophils # 0.3 10*3/uL (0.0-0.87); Eosinophils % 2.4 % (0.00-10.9); Hematocrit 33.1 VOL% (35.7-47.0); Hemoglobin 10.1 GM/DL (12.0-16.0); Immature Granulocytes % 2.4 %; Immature Granulocytes Absolute 0.31 #; Lymphocytes % 23.5 % (21.3-54.2); Mean Corpuscular HGB Conc 30.5 GM/DL (32-36); Mean Corpuscular Volume 86.9 FL (87-102); Mean Platelet Volume 10.2 FL (9.6-12.0); Monocytes % 5.4 % (1.7-12.7); NRBC # 0.22 10*3/uL; Platelet Count 491 T/CUMM (130-400); Red Blood Count 3.81 MC/CUMM (3.8-5.5); Red Cell Distribution Width 15.4 % (9.3-17.3); White Blood Count 12.8 T/CUMM (4-12)
[2021-03-18 07:03] LABS: Blood Urea Nitrogen 15 MG/DL (7-18); Calcium 9.5 MG/DL (8.5-10.1); Carbon Dioxide 28 MMOL/L (21-32); Estimated Glom Filtration Rate 229 ML/MIN; Glucose 98 MG/DL (74-106); Osmolality,Calculated 270.1 MOS/KG (273-304); Potassium 2.9 MMOL/L (3.5-5.1); Sodium 135 MMOL/L (136-145)
[2021-03-18 07:05] LABS: Ferritin 46.4 ng/mL (8-252)
[2021-03-18] MEDS: predniSONE 20 MG TABLET PO SCH (09:11)
[2021-03-18] MEDS: ASCORBIC ACID 500 MG TABLET PO SCH ×2 (09:11→21:02)
[2021-03-18] MEDS: PREGABALIN 100 MG CAPSULE PO SCH ×3 (09:11→21:03)
[2021-03-18] MEDS: FAMOTIDINE 20 MG TABLET PO SCH ×2 (09:12→21:02)
[2021-03-18] MEDS: CHOLECALCIFEROL 1,000 UNIT TABLET PO SCH (09:12)
[2021-03-18] MEDS: POTASSIUM CHLORIDE 20 MEQ TABLET PO PRN ×2 (09:12→10:26)
[2021-03-18] MEDS: METOPROLOL TARTRATE 100 MG TABLET PO SCH ×2 (09:12→21:02)
[2021-03-18] MEDS: TOPIRAMATE 100 MG TABLET PO SCH ×2 (09:12→21:03)
[2021-03-18] MEDS: CETIRIZINE 10 MG TABLET PO SCH (09:13)
[2021-03-18] MEDS: ZINC GLUCONATE 50 MG TABLET PO SCH (09:13)
[2021-03-18] MEDS: ASPIRIN CHEW 81 MG TABLET PO SCH (09:13)
[2021-03-18] MEDS: MULTIVITAMIN LIQUID (CENTRUM) 60 ML BOTTLE PO SCH (09:14)
[2021-03-18] MEDS: POLYETHYLENE GLYCOL POWDER 17 GM PACK PEG SCH ×2 (09:14→21:04)
[2021-03-18] MEDS: MENTHOL/ZINC OXIDE OINT 71 GM JAR TOP SCH ×2 (09:14→21:03)
[2021-03-18] MEDS: oxyCODONE/ACETAMINOPHEN 5-325 MG TABLET PO PRN ×2 (09:16→17:35)
[2021-03-18] MEDS: guaiFENesin/DM ER 600-30 MG TABLET PO PRN ×2 (12:31→21:28)
[2021-03-18] MEDS: DIGOXIN 0.125 MG TABLET PO SCH (12:32)
[2021-03-18] MEDS: POTASSIUM BICARB EFFERVESCENT 20 MEQ TAB.EFF PER TUBE PRN (14:05)
[2021-03-18] MEDS: MELATONIN 3 MG TABLET PO PRN (21:02)
[2021-03-18] MEDS: QUEtiapine 25 MG TABLET PO SCH (21:02)
[2021-03-19] MEDS: ALBUTEROL/IPRATROPIUM 3 ML NEB RESP TX SCH ×4 (00:10→19:58)
[2021-03-19] MEDS: INSULIN LISPRO 100 UNIT/ML SUBCUT SCH ×5 (00:43→23:26)
[2021-03-19] MEDS: DILTIAZEM 60 MG TABLET PO SCH ×4 (02:30→21:49)
[2021-03-19] MEDS: CLORAZEPATE 3.75 MG TABLET PO SCH ×3 (02:30→18:04)
[2021-03-19] MEDS: MORPHINE 2 MG/1 ML SYRINGE IV PRN ×2 (04:53→21:50)
[2021-03-19] MEDS: guaiFENesin/DM ER 600-30 MG TABLET PO PRN ×2 (07:08→18:04)
[2021-03-19] MEDS: CHOLECALCIFEROL 1,000 UNIT TABLET PO SCH (09:48)
[2021-03-19] MEDS: ASCORBIC ACID 500 MG TABLET PO SCH ×2 (09:48→21:49)
[2021-03-19] MEDS: ZINC GLUCONATE 50 MG TABLET PO SCH (09:48)
[2021-03-19] MEDS: oxyCODONE/ACETAMINOPHEN 5-325 MG TABLET PO PRN ×2 (09:48→18:04)
[2021-03-19] MEDS: TOPIRAMATE 100 MG TABLET PO SCH ×2 (09:49→21:49)
[2021-03-19] MEDS: CETIRIZINE 10 MG TABLET PO SCH (09:49)
[2021-03-19] MEDS: predniSONE 20 MG TABLET PO SCH (09:49)
[2021-03-19] MEDS: ASPIRIN CHEW 81 MG TABLET PO SCH (09:49)
[2021-03-19] MEDS: PREGABALIN 100 MG CAPSULE PO SCH ×3 (09:49→21:50)
[2021-03-19] MEDS: METOPROLOL TARTRATE 100 MG TABLET PO SCH ×2 (09:49→21:49)
[2021-03-19] MEDS: FAMOTIDINE 20 MG TABLET PO SCH ×2 (09:49→21:49)
[2021-03-19] MEDS: MENTHOL/ZINC OXIDE OINT 71 GM JAR TOP SCH ×2 (09:49→21:50)
[2021-03-19] MEDS: MULTIVITAMIN LIQUID (CENTRUM) 60 ML BOTTLE PO SCH (09:50)
[2021-03-19] MEDS: POLYETHYLENE GLYCOL POWDER 17 GM PACK PEG SCH ×2 (09:50→21:50)
[2021-03-19 11:09] LABS: Basophils # 0.1 10*3/uL (0.0-0.2); Basophils % 0.5 % (0.0-0.8); Eosinophils # 0.3 10*3/uL (0.0-0.87); Eosinophils % 2.5 % (0.00-10.9); Hematocrit 33.7 VOL% (35.7-47.0); Hemoglobin 10.4 GM/DL (12.0-16.0); Immature Granulocytes Absolute 0.13 #; Lymphocytes # 2.6 10*3/uL (1.4-4.0); Lymphocytes % 20.2 % (21.3-54.2); Mean Corpuscular HGB Conc 30.9 GM/DL (32-36); Mean Corpuscular Volume 86.2 FL (87-102); Mean Platelet Volume 9.7 FL (9.6-12.0); Monocytes % 4.6 % (1.7-12.7); NRBC # 0.09 10*3/uL; Neutrophils % 71.2 % (38.7-73.9); Platelet Count 510 T/CUMM (130-400); Red Blood Count 3.91 MC/CUMM (3.8-5.5); Red Cell Distribution Width 15.5 % (9.3-17.3)
[2021-03-19 11:48] LABS: Calcium 9.3 MG/DL (8.5-10.1); Osmolality,Calculated 266.2 MOS/KG (273-304); Potassium 3.6 MMOL/L (3.5-5.1)
[2021-03-19] MEDS: DIGOXIN 0.125 MG TABLET PO SCH (12:40)
[2021-03-19] MEDS: QUEtiapine 25 MG TABLET PO SCH (21:49)
[2021-03-19] MEDS: MELATONIN 3 MG TABLET PO PRN (21:49)
[2021-03-20] MEDS: ALBUTEROL/IPRATROPIUM 3 ML NEB RESP TX SCH ×4 (00:07→20:48)
[2021-03-20] MEDS: CLORAZEPATE 3.75 MG TABLET PO SCH (01:01)
[2021-03-20] MEDS: DILTIAZEM 60 MG TABLET PO SCH ×4 (02:00→21:14)
[2021-03-20] MEDS: MORPHINE 2 MG/1 ML SYRINGE IV PRN ×3 (03:42→20:50)
[2021-03-20] MEDS: INSULIN LISPRO 100 UNIT/ML SUBCUT SCH ×3 (05:46→18:02)
[2021-03-20] MEDS: CLORAZEPATE 3.75 MG TABLET PO PRN (09:31)
[2021-03-20] MEDS ORDERED: TALC INTRAPLEURAL POWDER 3 GM VIAL INTRAPLEUR ONE (09:32)
[2021-03-20 09:51] LABS: Basophils # 0.1 10*3/uL (0.0-0.2); Basophils % 0.4 % (0.0-0.8); Eosinophils # 0.3 10*3/uL (0.0-0.87); Eosinophils % 2.4 % (0.00-10.9); Hematocrit 34.4 VOL% (35.7-47.0); Hemoglobin 10.5 GM/DL (12.0-16.0); Immature Granulocytes % 0.8 %; Lymphocytes # 3.2 10*3/uL (1.4-4.0); Lymphocytes % 24.2 % (21.3-54.2); Mean Corpuscular HGB Conc 30.5 GM/DL (32-36); Mean Corpuscular Volume 85.6 FL (87-102); Mean Platelet Volume 9.4 FL (9.6-12.0); Monocytes % 5.4 % (1.7-12.7); NRBC # 0.09 10*3/uL; Neutrophils % 66.8 % (38.7-73.9); Platelet Count 554 T/CUMM (130-400); Red Blood Count 4.02 MC/CUMM (3.8-5.5); Red Cell Distribution Width 15.2 % (9.3-17.3); White Blood Count 13.2 T/CUMM (4-12)
[2021-03-20] MEDS: oxyCODONE/ACETAMINOPHEN 5-325 MG TABLET PO PRN ×2 (10:24→18:03)
[2021-03-20 10:46] LABS: Calcium 9.7 MG/DL (8.5-10.1); Osmolality,Calculated 267.2 MOS/KG (273-304); Potassium 3.4 MMOL/L (3.5-5.1)
[2021-03-20] MEDS ORDERED: LIDOCAINE 2% 5 ML VIAL ONE (11:24)
[2021-03-20] MEDS ORDERED: propofoL 200 MG/20 ML VIAL IV ONE (11:24)
[2021-03-20] MEDS ORDERED: ROCURONIUM 50 MG/5 ML VIAL IV ONE (11:24)
[2021-03-20] MEDS ORDERED: MIDAZOLAM 2 MG/2 ML VIAL ONE ×2 (11:25→14:51)
[2021-03-20] MEDS ORDERED: fentaNYL 100 MCG/2 ML VIAL ONE ×2 (11:25→22:30)
[2021-03-20] MEDS ORDERED: LACTATED RINGERS 1,000 ML IV SCH (12:00)
[2021-03-20] MEDS ORDERED: BUPIVACAINE 0.5% 50 ML VIAL ONE (12:42)
[2021-03-20] MEDS ORDERED: LIDOCAINE 1%/EPI INJ 20 ML VIAL ONE (12:42)
[2021-03-20] MEDS ORDERED: VANCOMYCIN INJ 1,000 MG in SODIUM CHLORIDE 0.9% 250 ML IV ONE (13:32)
[2021-03-20] MEDS: MENTHOL/ZINC OXIDE OINT 71 GM JAR TOP SCH ×2 (13:41→21:27)
[2021-03-20] MEDS: ASPIRIN CHEW 81 MG TABLET PO SCH (13:41)
[2021-03-20] MEDS: MULTIVITAMIN LIQUID (CENTRUM) 60 ML BOTTLE PO SCH (13:41)
[2021-03-20] MEDS: METOPROLOL TARTRATE 100 MG TABLET PO SCH ×2 (13:41→21:13)
[2021-03-20] MEDS: PREGABALIN 100 MG CAPSULE PO SCH ×3 (13:42→21:13)
[2021-03-20] MEDS: predniSONE 20 MG TABLET PO SCH (13:42)
[2021-03-20] MEDS: POLYETHYLENE GLYCOL POWDER 17 GM PACK PEG SCH ×2 (13:42→21:32)
[2021-03-20] MEDS: FAMOTIDINE 20 MG TABLET PO SCH ×2 (13:42→21:13)
[2021-03-20] MEDS: TOPIRAMATE 100 MG TABLET PO SCH ×2 (13:43→21:31)
[2021-03-20] MEDS: CETIRIZINE 10 MG TABLET PO SCH (13:43)
[2021-03-20] MEDS: CHOLECALCIFEROL 1,000 UNIT TABLET PO SCH (13:43)
[2021-03-20] MEDS: ASCORBIC ACID 500 MG TABLET PO SCH ×2 (13:43→21:13)
[2021-03-20] MEDS: ZINC GLUCONATE 50 MG TABLET PO SCH (13:43)
[2021-03-20] MEDS ORDERED: PHENYLEPHRINE 10 MG/1 ML VIAL IV ONE (13:50)
[2021-03-20] MEDS: DIGOXIN 0.125 MG TABLET PO SCH (13:59)
[2021-03-20] MEDS ORDERED: SUGAMMADEX 200 MG/2 ML VIAL IV ONE (14:12)
[2021-03-20] MEDS ORDERED: HYDROmorphone 2 MG/1 ML VIAL ONE (15:11)
[2021-03-20] MEDS: HYDROmorphone 2 MG/1 ML VIAL IV PRN ×4 (15:15→16:06)
[2021-03-20] MEDS ORDERED: ONDANSETRON 4 MG/2 ML VIAL IV PRN (15:25)
[2021-03-20] MEDS ORDERED: ALBUTEROL/IPRATROPIUM 3 ML NEB RESP TX ONE (15:26)
[2021-03-20] MEDS: LORazepam 2 MG/1 ML VIAL IV PRN (19:14)
[2021-03-20] MEDS: LEVALBUTEROL 0.63 MG/3 ML NEB RESP TX PRN (19:20)
[2021-03-20] MEDS: MELATONIN 3 MG TABLET PO PRN (20:50)
[2021-03-20] MEDS: guaiFENesin/DM ER 600-30 MG TABLET PO PRN (21:13)
[2021-03-20] MEDS: QUEtiapine 25 MG TABLET PO SCH (21:14)
[2021-03-20] MEDS: diphenhydrAMINE CAP 50 MG CAPSULE PO PRN (21:42)
[2021-03-20] MEDS ORDERED: fentaNYL 100 MCG/2 ML VIAL IV ONE (22:30)
[2021-03-21] MEDS: ALBUTEROL/IPRATROPIUM 3 ML NEB RESP TX SCH ×4 (00:04→20:18)
[2021-03-21] MEDS ORDERED: DEXMEDETOMIDINE 200 MCG in SODIUM CHLORIDE 0.9% 48 ML IV PRN (00:49)
[2021-03-21] MEDS: LORazepam 2 MG/1 ML VIAL IV PRN ×2 (00:56→11:15)
[2021-03-21] MEDS: INSULIN LISPRO 100 UNIT/ML SUBCUT SCH ×4 (01:05→17:56)
[2021-03-21] MEDS: DEXMEDETOMIDINE 400 MCG in SODIUM CHLORIDE 0.9% 96 ML IV PRN ×2 (01:38→17:22)
[2021-03-21] MEDS: DILTIAZEM 60 MG TABLET PO SCH (03:30)
[2021-03-21] MEDS: MORPHINE 2 MG/1 ML SYRINGE IV PRN ×2 (06:24→17:45)
[2021-03-21] MEDS: CLORAZEPATE 3.75 MG TABLET PO PRN (06:25)
[2021-03-21 06:31] LABS: Calcium 8.7 MG/DL (8.5-10.1); Osmolality,Calculated 269.2 MOS/KG (273-304); Potassium 3.4 MMOL/L (3.5-5.1)
[2021-03-21] MEDS ORDERED: FUROSEMIDE 40 MG/4 ML VIAL IV ONE (07:26)
[2021-03-21] MEDS ORDERED: FUROSEMIDE 40 MG/4 ML VIAL ONE (07:35)
[2021-03-21] MEDS: predniSONE 20 MG TABLET PO SCH (08:38)
[2021-03-21] MEDS: ZINC GLUCONATE 50 MG TABLET PO SCH (08:38)
[2021-03-21] MEDS: ASCORBIC ACID 500 MG TABLET PO SCH ×2 (08:38→20:40)
[2021-03-21] MEDS: CHOLECALCIFEROL 1,000 UNIT TABLET PO SCH (08:38)
[2021-03-21] MEDS: ASPIRIN CHEW 81 MG TABLET PO SCH (08:38)
[2021-03-21] MEDS: PREGABALIN 100 MG CAPSULE PO SCH ×3 (08:38→20:40)
[2021-03-21] MEDS: POLYETHYLENE GLYCOL POWDER 17 GM PACK PEG SCH ×2 (08:40→20:40)
[2021-03-21] MEDS: FAMOTIDINE 20 MG TABLET PO SCH ×2 (08:40→20:39)
[2021-03-21] MEDS: CETIRIZINE 10 MG TABLET PO SCH (08:40)
[2021-03-21] MEDS: MENTHOL/ZINC OXIDE OINT 71 GM JAR TOP SCH ×2 (10:18→22:53)
[2021-03-21] MEDS: DILTIAZEM 90 MG TABLET PO SCH ×3 (10:18→20:39)
[2021-03-21] MEDS: MULTIVITAMIN LIQUID (CENTRUM) 60 ML BOTTLE PO SCH (10:19)
[2021-03-21] MEDS: CITALOPRAM 20 MG TABLET PO SCH (10:47)
[2021-03-21] MEDS: fentaNYL 50 MCG/HR PATCH TRANSDERM SCH (10:47)
[2021-03-21] MEDS: METOPROLOL TARTRATE 100 MG TABLET PO SCH ×2 (11:17→20:39)
[2021-03-21] MEDS ORDERED: OLANZapine 10 MG VIAL IM ONE (11:23)
[2021-03-21] MEDS: TOPIRAMATE 100 MG TABLET PO SCH ×2 (12:39→20:39)
[2021-03-21] MEDS: DIGOXIN 0.125 MG TABLET PO SCH (14:06)
[2021-03-21] MEDS ORDERED: INFLUENZA VIRUS VACCINE 0.5 ML SYRINGE IM ONE (15:18)
[2021-03-21] MEDS: LEVALBUTEROL 0.63 MG/3 ML NEB RESP TX PRN (19:30)
[2021-03-21] MEDS: QUEtiapine 25 MG TABLET PO SCH (20:39)
[2021-03-22] MEDS: OLANZapine 10 MG VIAL IM SCH ×2 (00:02→09:29)
[2021-03-22] MEDS: INSULIN LISPRO 100 UNIT/ML SUBCUT SCH ×4 (00:06→17:50)
[2021-03-22] MEDS: ALBUTEROL/IPRATROPIUM 3 ML NEB RESP TX SCH ×4 (01:28→18:59)
[2021-03-22] MEDS: POTASSIUM CHLORIDE 20 MEQ TABLET PO PRN ×5 (01:38→20:14)
[2021-03-22] MEDS: oxyCODONE/ACETAMINOPHEN 5-325 MG TABLET PO PRN ×3 (01:38→21:29)
[2021-03-22 04:23] LABS: ABG Base Excess 5.6 MMOL/L (-2.5-2.5); ABG HCO3 28.4 MMOL/L (20-26); ABG PCO2 34.2 MM HG (35-48); ABG PH 7.537 (7.35-7.45); ABG PO2 67.8 MM HG (80-95); ABG TCO2 29.4 MMOL/L (23-27)
[2021-03-22] MEDS: DEXMEDETOMIDINE 400 MCG in SODIUM CHLORIDE 0.9% 96 ML IV PRN ×4 (04:43→23:20)
[2021-03-22 06:06] LABS: Basophils % 0.3 % (0.0-0.8); Eosinophils # 0.3 10*3/uL (0.0-0.87); Hematocrit 27.1 VOL% (35.7-47.0); Hemoglobin 8.6 GM/DL (12.0-16.0); Immature Granulocytes % 0.6 %; Immature Granulocytes Absolute 0.07 #; Lymphocytes # 1.8 10*3/uL (1.4-4.0); Lymphocytes % 15.8 % (21.3-54.2); Mean Corpuscular HGB Conc 31.7 GM/DL (32-36); Mean Corpuscular Volume 83.6 FL (87-102); Mean Platelet Volume 10.3 FL (9.6-12.0); Monocytes % 3.4 % (1.7-12.7); NRBC # 0.03 10*3/uL; Neutrophils % 76.9 % (38.7-73.9); Red Blood Count 3.24 MC/CUMM (3.8-5.5); Red Cell Distribution Width 15.1 % (9.3-17.3); White Blood Count 11.2 T/CUMM (4-12)
[2021-03-22 06:25] LABS: Platelet Count 444 T/CUMM (130-400)
[2021-03-22] MEDS ORDERED: POLYETHYLENE GLYCOL POWDER 17 GM PACK PO PRN (06:38)
[2021-03-22 06:41] LABS: Calcium 8.3 MG/DL (8.5-10.1); Osmolality,Calculated 266.5 MOS/KG (273-304); Potassium 3.1 MMOL/L (3.5-5.1)
[2021-03-22] MEDS: LORazepam 2 MG/1 ML VIAL IV PRN (07:48)
[2021-03-22] MEDS: DILTIAZEM 90 MG TABLET PO SCH ×3 (08:38→20:14)
[2021-03-22] MEDS: DIAZEPAM 5 MG TABLET PO PRN (08:38)
[2021-03-22] MEDS: ASCORBIC ACID 500 MG TABLET PO SCH ×2 (08:38→20:15)
[2021-03-22] MEDS: ASPIRIN CHEW 81 MG TABLET PO SCH (08:38)
[2021-03-22] MEDS: CITALOPRAM 20 MG TABLET PO SCH (08:38)
[2021-03-22] MEDS: guaiFENesin/DM ER 600-30 MG TABLET PO PRN (08:39)
[2021-03-22] MEDS: CETIRIZINE 10 MG TABLET PO SCH (08:39)
[2021-03-22] MEDS: ZINC GLUCONATE 50 MG TABLET PO SCH (08:39)
[2021-03-22] MEDS: TOPIRAMATE 100 MG TABLET PO SCH ×2 (08:39→20:15)
[2021-03-22] MEDS: PREGABALIN 100 MG CAPSULE PO SCH ×3 (08:39→20:16)
[2021-03-22] MEDS: METOPROLOL TARTRATE 100 MG TABLET PO SCH ×2 (08:39→20:15)
[2021-03-22] MEDS: FAMOTIDINE 20 MG TABLET PO SCH ×2 (08:39→20:15)
[2021-03-22] MEDS: CHOLECALCIFEROL 1,000 UNIT TABLET PO SCH (08:40)
[2021-03-22] MEDS: MENTHOL/ZINC OXIDE OINT 71 GM JAR TOP SCH ×2 (08:40→20:16)
[2021-03-22] MEDS: predniSONE 20 MG TABLET PO SCH (08:40)
[2021-03-22] MEDS: MULTIVITAMIN LIQUID (CENTRUM) 60 ML BOTTLE PO SCH (08:40)
[2021-03-22] MEDS: LEVALBUTEROL 0.63 MG/3 ML NEB RESP TX PRN (10:05)
[2021-03-22] MEDS: DIGOXIN 0.125 MG TABLET PO SCH (12:42)
[2021-03-22] MEDS ORDERED: FUROSEMIDE 40 MG/4 ML VIAL IV ONE (13:37)
[2021-03-22] MEDS: MORPHINE 2 MG/1 ML SYRINGE IV PRN (13:50)
[2021-03-22] MEDS: QUEtiapine 25 MG TABLET PO SCH (20:14)
[2021-03-22] MEDS: OLANZapine 5 MG TABLET PO SCH (20:19)
[2021-03-22] MEDS ORDERED: MIDAZOLAM 100 MG in SODIUM CHLORIDE 0.9% 80 ML IV PRN (21:41)
[2021-03-22] MEDS ORDERED: MIDAZOLAM 10 MG/2 ML VIAL ONE (21:41)
[2021-03-22] MEDS ORDERED: MIDAZOLAM 10 MG/2 ML VIAL IV ONE (21:41)
[2021-03-22] MEDS ORDERED: SODIUM CHLORIDE 0.9% 1,000 ML IV ONE (22:45)
[2021-03-23] MEDS: ALBUTEROL/IPRATROPIUM 3 ML NEB RESP TX SCH ×4 (00:19→19:50)
[2021-03-23] MEDS: INSULIN LISPRO 100 UNIT/ML SUBCUT SCH ×3 (00:30→15:54)
[2021-03-23] MEDS: DIAZEPAM 5 MG TABLET PO PRN ×2 (02:53→14:01)
[2021-03-23 03:53] LABS: ABG Base Excess 1.7 MMOL/L (-2.5-2.5); ABG HCO3 25.9 MMOL/L (20-26); ABG Oxygen Saturation 94.4 % (95-100); ABG PCO2 43.2 MM HG (35-48); ABG PH 7.399 (7.35-7.45); ABG PO2 74.9 MM HG (80-95); ABG TCO2 24.8 MMOL/L (23-27)
[2021-03-23 04:58] LABS: Basophils % 0.2 % (0.0-0.8); Eosinophils # 0.3 10*3/uL (0.0-0.87); Eosinophils % 2.7 % (0.00-10.9); Hemoglobin 9.3 GM/DL (12.0-16.0); Immature Granulocytes Absolute 0.12 #; Lymphocytes # 2.6 10*3/uL (1.4-4.0); Lymphocytes % 21.3 % (21.3-54.2); Mean Corpuscular Volume 87.3 FL (87-102); Mean Platelet Volume 10.4 FL (9.6-12.0); Monocytes % 4.1 % (1.7-12.7); NRBC # 0.11 10*3/uL; Neutrophils % 70.7 % (38.7-73.9); Platelet Count 448 T/CUMM (130-400); Red Blood Count 3.55 MC/CUMM (3.8-5.5)
[2021-03-23 05:29] LABS: Osmolality,Calculated 269.2 MOS/KG (273-304)
[2021-03-23] MEDS: POTASSIUM CHLORIDE 20 MEQ TABLET PO PRN (05:44)
[2021-03-23] MEDS: LEVOFLOXACIN INJ 750 MG/150 ML PREMIX IV SCH (08:24)
[2021-03-23] MEDS: FAMOTIDINE 20 MG TABLET PO SCH ×2 (08:25→20:05)
[2021-03-23] MEDS: PREGABALIN 100 MG CAPSULE PO SCH ×3 (08:25→20:07)
[2021-03-23] MEDS: CHOLECALCIFEROL 1,000 UNIT TABLET PO SCH (08:26)
[2021-03-23] MEDS: CITALOPRAM 20 MG TABLET PO SCH (08:26)
[2021-03-23] MEDS: OLANZapine 5 MG TABLET PO SCH ×2 (08:26→20:06)
[2021-03-23] MEDS: CETIRIZINE 10 MG TABLET PO SCH (08:26)
[2021-03-23] MEDS: METOPROLOL TARTRATE 100 MG TABLET PO SCH ×2 (08:26→20:08)
[2021-03-23] MEDS: ASPIRIN CHEW 81 MG TABLET PO SCH (08:26)
[2021-03-23] MEDS: ASCORBIC ACID 500 MG TABLET PO SCH ×2 (08:26→20:06)
[2021-03-23] MEDS: TOPIRAMATE 100 MG TABLET PO SCH ×2 (08:26→20:04)
[2021-03-23] MEDS: DILTIAZEM 90 MG TABLET PO SCH ×3 (08:27→20:05)
[2021-03-23] MEDS: ZINC GLUCONATE 50 MG TABLET PO SCH (08:27)
[2021-03-23] MEDS: MULTIVITAMIN LIQUID (CENTRUM) 60 ML BOTTLE PO SCH (08:27)
[2021-03-23] MEDS: MENTHOL/ZINC OXIDE OINT 71 GM JAR TOP SCH ×2 (08:52→20:08)
[2021-03-23] MEDS: methylPREDNISolone SOD SUC 40 MG/1 ML VIAL IV SCH ×2 (09:48→20:07)
[2021-03-23] MEDS: DIGOXIN 0.125 MG TABLET PO SCH (13:32)
[2021-03-23] MEDS: oxyCODONE/ACETAMINOPHEN 5-325 MG TABLET PO PRN (13:32)
[2021-03-23] MEDS ORDERED: MIDAZOLAM 2 MG/2 ML VIAL IV ONE (14:33)
[2021-03-23] MEDS ORDERED: ROCURONIUM 100 MG/10 ML VIAL IV ONE (16:32)
[2021-03-23] MEDS: fentaNYL INJ 1,250 MCG in SODIUM CHLORIDE 0.9% 225 ML IV PRN ×2 (17:09→19:45)
[2021-03-23] MEDS: MIDAZOLAM 100 MG in SODIUM CHLORIDE 0.9% 80 ML IV PRN ×2 (17:10→18:56)
[2021-03-23] MEDS ORDERED: MIDAZOLAM 2 MG/2 ML VIAL IV PRN (18:30)
[2021-03-23] MEDS: QUEtiapine 25 MG TABLET PO SCH (20:05)
[2021-03-23] MEDS: fentaNYL INJ 5,000 MCG in SODIUM CHLORIDE 0.9% 150 ML IV PRN (22:25)
[2021-03-24] MEDS: ALBUTEROL/IPRATROPIUM 3 ML NEB RESP TX SCH ×4 (00:44→19:00)
[2021-03-24 04:32] LABS: Calcium 9.1 MG/DL (8.5-10.1); Osmolality,Calculated 282.8 MOS/KG (273-304); Potassium 5.4 MMOL/L (3.5-5.1)
[2021-03-24 04:53] LABS: Basophils % 0.3 % (0.0-0.8); Eosinophils % 0.1 % (0.00-10.9); Hematocrit 29.5 VOL% (35.7-47.0); Hemoglobin 8.5 GM/DL (12.0-16.0); Immature Granulocytes % 3.9 %; Immature Granulocytes Absolute 0.47 #; Lymphocytes # 1.1 10*3/uL (1.4-4.0); Lymphocytes % 9.2 % (21.3-54.2); Mean Corpuscular HGB Conc 28.8 GM/DL (32-36); Mean Corpuscular Volume 93.4 FL (87-102); Mean Platelet Volume 9.4 FL (9.6-12.0); Monocytes % 2.3 % (1.7-12.7); NRBC # 0.23 10*3/uL; Neutrophils % 84.2 % (38.7-73.9); Platelet Count 472 T/CUMM (130-400); Red Blood Count 3.16 MC/CUMM (3.8-5.5); Red Cell Distribution Width 15.2 % (9.3-17.3); White Blood Count 11.9 T/CUMM (4-12)
[2021-03-24] MEDS: INSULIN LISPRO 100 UNIT/ML SUBCUT SCH ×3 (05:30→17:16)
[2021-03-24 05:37] LABS: Hypochromasia 1+; Lymphocytes 8 % (20-55); Microcytosis 1+; Nucleated Red Blood Cells 2 (0-5); Polychromasia Slight; Segmented Neutrophils 90 % (50-85); Stomatocytes Slight; Total Cells Counted 100
[2021-03-24] MEDS: MIDAZOLAM 100 MG in SODIUM CHLORIDE 0.9% 80 ML IV PRN ×2 (06:00→20:23)
[2021-03-24] MEDS: CITALOPRAM 20 MG TABLET PO SCH (08:42)
[2021-03-24] MEDS: CHOLECALCIFEROL 1,000 UNIT TABLET PO SCH (08:43)
[2021-03-24] MEDS: methylPREDNISolone SOD SUC 40 MG/1 ML VIAL IV SCH ×2 (08:43→20:32)
[2021-03-24] MEDS: TOPIRAMATE 100 MG TABLET PO SCH ×2 (08:43→20:32)
[2021-03-24] MEDS: PREGABALIN 100 MG CAPSULE PO SCH ×3 (08:43→20:31)
[2021-03-24] MEDS: OLANZapine 5 MG TABLET PO SCH ×2 (08:44→20:31)
[2021-03-24] MEDS: ASPIRIN CHEW 81 MG TABLET PO SCH (08:44)
[2021-03-24] MEDS: METOPROLOL TARTRATE 100 MG TABLET PO SCH ×2 (08:44→20:33)
[2021-03-24] MEDS: ASCORBIC ACID 500 MG TABLET PO SCH ×2 (08:44→20:31)
[2021-03-24] MEDS: DILTIAZEM 90 MG TABLET PO SCH ×3 (08:44→20:31)
[2021-03-24] MEDS: CETIRIZINE 10 MG TABLET PO SCH (08:44)
[2021-03-24] MEDS: FAMOTIDINE 20 MG TABLET PO SCH ×2 (08:44→20:32)
[2021-03-24] MEDS: LEVOFLOXACIN INJ 750 MG/150 ML PREMIX IV SCH (08:46)
[2021-03-24] MEDS: MULTIVITAMIN LIQUID (CENTRUM) 60 ML BOTTLE PO SCH (08:49)
[2021-03-24] MEDS: MENTHOL/ZINC OXIDE OINT 71 GM JAR TOP SCH ×2 (08:49→20:32)
[2021-03-24] MEDS: ZINC GLUCONATE 50 MG TABLET PO SCH (08:50)
[2021-03-24] MEDS: fentaNYL 50 MCG/HR PATCH TRANSDERM SCH (08:54)
[2021-03-24] MEDS ORDERED: SODIUM POLYSTYRENE SULFATE 15 GM/60 ML BOTTLE PO ONE (10:13)
[2021-03-24] MEDS: FUROSEMIDE 40 MG/4 ML VIAL IV SCH ×2 (10:38→22:00)
[2021-03-24 10:46] LABS: ABG HCO3 23.5 MMOL/L (20-26); ABG PO2 64.5 MM HG (80-95); ABG TCO2 28.4 MMOL/L (23-27)
[2021-03-24 10:48] LABS: ABG PCO2 83.9 MM HG (35-48); ABG PH 7.155 (7.35-7.45)
[2021-03-24 12:17] LABS: ABG Base Excess 1.5 MMOL/L (-2.5-2.5); ABG HCO3 25.7 MMOL/L (20-26); ABG Oxygen Saturation 91.2 % (95-100); ABG PH 7.215 (7.35-7.45); ABG PO2 67.2 MM HG (80-95); ABG TCO2 29.4 MMOL/L (23-27)
[2021-03-24 12:20] LABS: ABG PCO2 76.6 MM HG (35-48)
[2021-03-24] MEDS: DIGOXIN 0.125 MG TABLET PO SCH (14:45)
[2021-03-24 17:49] LABS: Osmolality,Calculated 284.5 MOS/KG (273-304)
[2021-03-24] MEDS: QUEtiapine 25 MG TABLET PO SCH (20:31)
[2021-03-24] MEDS: fentaNYL INJ 5,000 MCG in SODIUM CHLORIDE 0.9% 150 ML IV PRN (22:07)
[2021-03-25] MEDS: ALBUTEROL/IPRATROPIUM 3 ML NEB RESP TX SCH ×4 (00:25→19:25)
[2021-03-25] MEDS: INSULIN LISPRO 100 UNIT/ML SUBCUT SCH ×5 (00:38→23:19)
[2021-03-25 04:12] LABS: ABG Base Excess 8.2 MMOL/L (-2.5-2.5); ABG Oxygen Saturation 99.7 % (95-100); ABG PCO2 49.8 MM HG (35-48); ABG PH 7.435 (7.35-7.45); ABG TCO2 31.5 MMOL/L (23-27)
[2021-03-25 04:42] LABS: Basophils % 0.2 % (0.0-0.8); Hematocrit 26.3 VOL% (35.7-47.0); Hemoglobin 7.6 GM/DL (12.0-16.0); Immature Granulocytes % 4.9 %; Immature Granulocytes Absolute 0.44 #; Lymphocytes # 1.6 10*3/uL (1.4-4.0); Lymphocytes % 17.7 % (21.3-54.2); Mean Corpuscular HGB Conc 28.9 GM/DL (32-36); Mean Corpuscular Volume 89.8 FL (87-102); Mean Platelet Volume 10.2 FL (9.6-12.0); Monocytes % 3.2 % (1.7-12.7); NRBC # 0.64 10*3/uL; Platelet Count 487 T/CUMM (130-400); Red Blood Count 2.93 MC/CUMM (3.8-5.5); Red Cell Distribution Width 15.1 % (9.3-17.3)
[2021-03-25 05:02] LABS: Band Neutrophils 1 % (0-10); Hypochromasia 1+; Lymphocytes 21 % (20-55); Microcytosis 1+; Myelocytes 1 %; Nucleated Red Blood Cells 9 (0-5); Polychromasia Slight; Segmented Neutrophils 75 % (50-85); Stomatocytes Slight; Total Cells Counted 100
[2021-03-25 05:03] LABS: Anisocytosis 1+
[2021-03-25 05:22] LABS: Calcium 8.8 MG/DL (8.5-10.1); Osmolality,Calculated 287.4 MOS/KG (273-304); Potassium 3.9 MMOL/L (3.5-5.1)
[2021-03-25 05:34] LABS: Alanine Aminotransferase 60 U/L (13-56); Albumin 2.5 G/DL (3.4-5.0); Alkaline Phosphatase 93 U/L (45-117); Aspartate Amino Transferase 18 U/L (0-37); Bilirubin,Total < 0.39 MG/DL (0.20-1.00); Blood Urea Nitrogen 28 MG/DL (7-18); Calcium 9.1 MG/DL (8.5-10.1); Carbon Dioxide 34 MMOL/L (21-32); Estimated Glom Filtration Rate 203 ML/MIN; Glucose 150 MG/DL (74-106); Potassium 3.6 MMOL/L (3.5-5.1); Sodium 143 MMOL/L (136-145); Total Protein 6.5 G/DL (6.4-8.2)
[2021-03-25] MEDS: POTASSIUM CHLORIDE 20 MEQ TABLET PO PRN (06:59)
[2021-03-25] MEDS: LEVOFLOXACIN INJ 750 MG/150 ML PREMIX IV SCH (09:00)
[2021-03-25] MEDS: methylPREDNISolone SOD SUC 40 MG/1 ML VIAL IV SCH ×2 (09:53→20:18)
[2021-03-25] MEDS: MIDAZOLAM 100 MG in SODIUM CHLORIDE 0.9% 80 ML IV PRN (09:53)
[2021-03-25] MEDS: METOPROLOL TARTRATE 100 MG TABLET PO SCH ×2 (09:55→20:19)
[2021-03-25] MEDS: ASCORBIC ACID 500 MG TABLET PO SCH ×2 (09:55→20:18)
[2021-03-25] MEDS: OLANZapine 5 MG TABLET PO SCH ×2 (09:55→20:18)
[2021-03-25] MEDS: CHOLECALCIFEROL 1,000 UNIT TABLET PO SCH (09:55)
[2021-03-25] MEDS: ASPIRIN CHEW 81 MG TABLET PO SCH (09:55)
[2021-03-25] MEDS: TOPIRAMATE 100 MG TABLET PO SCH ×2 (09:55→20:18)
[2021-03-25] MEDS: ZINC GLUCONATE 50 MG TABLET PO SCH (09:55)
[2021-03-25] MEDS: PREGABALIN 100 MG CAPSULE PO SCH ×3 (09:56→20:19)
[2021-03-25] MEDS: CETIRIZINE 10 MG TABLET PO SCH (09:56)
[2021-03-25] MEDS: FAMOTIDINE 20 MG TABLET PO SCH ×2 (09:56→20:18)
[2021-03-25] MEDS: CITALOPRAM 20 MG TABLET PO SCH (09:56)
[2021-03-25] MEDS: DILTIAZEM 90 MG TABLET PO SCH ×3 (09:56→20:19)
[2021-03-25] MEDS: MULTIVITAMIN LIQUID (CENTRUM) 60 ML BOTTLE PO SCH (10:49)
[2021-03-25] MEDS: MENTHOL/ZINC OXIDE OINT 71 GM JAR TOP SCH ×2 (10:49→20:19)
[2021-03-25] MEDS: FUROSEMIDE 40 MG/4 ML VIAL IV SCH ×2 (10:54→21:35)
[2021-03-25 12:50] LABS: Hematocrit 27.2 VOL% (35.7-47.0); Hemoglobin 7.9 GM/DL (12.0-16.0)
[2021-03-25] MEDS: DIGOXIN 0.125 MG TABLET PO SCH (15:00)
[2021-03-25] MEDS: QUEtiapine 25 MG TABLET PO SCH (20:18)
[2021-03-26] MEDS: MIDAZOLAM 100 MG in SODIUM CHLORIDE 0.9% 80 ML IV PRN ×2 (00:16→15:58)
[2021-03-26] MEDS: fentaNYL INJ 5,000 MCG in SODIUM CHLORIDE 0.9% 150 ML IV PRN (00:16)
[2021-03-26] MEDS: ALBUTEROL/IPRATROPIUM 3 ML NEB RESP TX SCH ×4 (01:44→19:31)
[2021-03-26 02:48] LABS: Bacteria,Urine Occasional /HPF (Few); Bilirubin,Urine Negative (Negative); Blood, Urine Negative (Negative); Glucose,Urine (UA) Negative (Negative); Ketones,Urine Negative (Negative); Nitrite,Urine Negative (Negative); Protein,Urine Negative; RBC,Urine 17 /HPF (0-4); Squamous Epithelial Cell,Urine Occasional /HPF (0-10); Urine Appearance CLEAR (Clear); Urine Color Yellow (Yellow); Urine Specific Gravity 1.014 (1.001-1.035)
[2021-03-26 04:23] LABS: ABG Base Excess 8.4 MMOL/L (-2.5-2.5); ABG HCO3 32.2 MMOL/L (20-26); ABG PH 7.458 (7.35-7.45); ABG TCO2 30.9 MMOL/L (23-27)
[2021-03-26] MEDS: INSULIN LISPRO 100 UNIT/ML SUBCUT SCH ×3 (05:19→17:24)
[2021-03-26 05:53] LABS: Basophils % 0.2 % (0.0-0.8); Hematocrit 27.1 VOL% (35.7-47.0); Hemoglobin 7.8 GM/DL (12.0-16.0); Immature Granulocytes % 5.7 %; Immature Granulocytes Absolute 0.52 #; Lymphocytes # 1.6 10*3/uL (1.4-4.0); Lymphocytes % 17.2 % (21.3-54.2); Mean Corpuscular HGB Conc 28.8 GM/DL (32-36); Mean Corpuscular Volume 88.3 FL (87-102); Mean Platelet Volume 10.4 FL (9.6-12.0); Monocytes % 4.1 % (1.7-12.7); NRBC # 0.35 10*3/uL; Neutrophils % 72.8 % (38.7-73.9); Platelet Count 486 T/CUMM (130-400); Red Blood Count 3.07 MC/CUMM (3.8-5.5); Red Cell Distribution Width 15.5 % (9.3-17.3); White Blood Count 9.2 T/CUMM (4-12)
[2021-03-26 06:11] LABS: Calcium 9.4 MG/DL (8.5-10.1); Osmolality,Calculated 290.1 MOS/KG (273-304); Potassium 3.8 MMOL/L (3.5-5.1)
[2021-03-26 06:17] LABS: Hypochromasia Slight; Lymphocytes 13 % (20-55); Nucleated Red Blood Cells 5 (0-5); Platelet Estimate Increased; Segmented Neutrophils 81 % (50-85); Total Cells Counted 100
[2021-03-26] MEDS: methylPREDNISolone SOD SUC 40 MG/1 ML VIAL IV SCH ×2 (09:03→21:20)
[2021-03-26] MEDS: LEVOFLOXACIN INJ 750 MG/150 ML PREMIX IV SCH (09:03)
[2021-03-26] MEDS: DILTIAZEM 90 MG TABLET PO SCH ×3 (09:04→21:19)
[2021-03-26] MEDS: OLANZapine 5 MG TABLET PO SCH ×2 (09:05→21:19)
[2021-03-26] MEDS: PREGABALIN 100 MG CAPSULE PO SCH ×3 (09:05→21:19)
[2021-03-26] MEDS: CHOLECALCIFEROL 1,000 UNIT TABLET PO SCH (09:05)
[2021-03-26] MEDS: TOPIRAMATE 100 MG TABLET PO SCH ×2 (09:05→21:19)
[2021-03-26] MEDS: ASCORBIC ACID 500 MG TABLET PO SCH ×2 (09:05→21:19)
[2021-03-26] MEDS: FAMOTIDINE 20 MG TABLET PO SCH ×2 (09:05→21:19)
[2021-03-26] MEDS: ZINC GLUCONATE 50 MG TABLET PO SCH (09:05)
[2021-03-26] MEDS: METOPROLOL TARTRATE 100 MG TABLET PO SCH ×2 (09:06→21:19)
[2021-03-26] MEDS: MENTHOL/ZINC OXIDE OINT 71 GM JAR TOP SCH ×2 (09:06→21:23)
[2021-03-26] MEDS: CITALOPRAM 20 MG TABLET PO SCH (09:06)
[2021-03-26] MEDS: ASPIRIN CHEW 81 MG TABLET PO SCH (09:06)
[2021-03-26] MEDS: CETIRIZINE 10 MG TABLET PO SCH (09:06)
[2021-03-26] MEDS: MULTIVITAMIN LIQUID (CENTRUM) 60 ML BOTTLE PO SCH (09:13)
[2021-03-26] MEDS: FUROSEMIDE 40 MG/4 ML VIAL IV SCH ×2 (09:33→22:34)
[2021-03-26] MEDS: MEROPENEM 500 MG in SODIUM CHLORIDE 0.9% 100 ML IV SCH ×3 (11:59→23:49)
[2021-03-26] MEDS: DIGOXIN 0.125 MG TABLET PO SCH (12:56)
[2021-03-26] MEDS: FLUCONAZOLE INJ 400 MG/200 ML PREMIX IV SCH (13:33)
[2021-03-27] MEDS: ALBUTEROL/IPRATROPIUM 3 ML NEB RESP TX SCH ×4 (00:27→19:00)
[2021-03-27] MEDS: INSULIN LISPRO 100 UNIT/ML SUBCUT SCH ×4 (01:06→17:47)
[2021-03-27] MEDS: MIDAZOLAM 100 MG in SODIUM CHLORIDE 0.9% 80 ML IV PRN ×2 (03:41→09:05)
[2021-03-27 04:03] LABS: ABG Base Excess 6.7 MMOL/L (-2.5-2.5); ABG Oxygen Saturation 96.7 % (95-100); ABG PCO2 49.9 MM HG (35-48); ABG PH 7.425 (7.35-7.45); ABG PO2 94.3 MM HG (80-95); ABG TCO2 33.5 MMOL/L (23-27)
[2021-03-27 05:31] LABS: Basophils % 0.2 % (0.0-0.8); Hematocrit 29.4 VOL% (35.7-47.0); Hemoglobin 8.6 GM/DL (12.0-16.0); Immature Granulocytes % 5.4 %; Immature Granulocytes Absolute 0.65 #; Lymphocytes # 1.8 10*3/uL (1.4-4.0); Lymphocytes % 15.1 % (21.3-54.2); Mean Corpuscular HGB Conc 29.3 GM/DL (32-36); Mean Corpuscular Volume 87.2 FL (87-102); Mean Platelet Volume 10.1 FL (9.6-12.0); Monocytes % 3.3 % (1.7-12.7); NRBC # 0.73 10*3/uL; Platelet Count 512 T/CUMM (130-400); Red Blood Count 3.37 MC/CUMM (3.8-5.5); Red Cell Distribution Width 15.2 % (9.3-17.3)
[2021-03-27] MEDS: MEROPENEM 500 MG in SODIUM CHLORIDE 0.9% 100 ML IV SCH ×4 (05:41→23:55)
[2021-03-27 05:57] LABS: Hypochromasia 1+; Lymphocytes 14 % (20-55); Microcytosis 1+; Nucleated Red Blood Cells 5 (0-5); Platelet Estimate Increased; Segmented Neutrophils 85 % (50-85); Total Cells Counted 100
[2021-03-27 05:59] LABS: Calcium 9.4 MG/DL (8.5-10.1); Osmolality,Calculated 287.4 MOS/KG (273-304); Potassium 3.7 MMOL/L (3.5-5.1)
[2021-03-27] MEDS: CITALOPRAM 20 MG TABLET PO SCH (09:41)
[2021-03-27] MEDS: methylPREDNISolone SOD SUC 40 MG/1 ML VIAL IV SCH ×3 (09:41→22:00)
[2021-03-27] MEDS: MENTHOL/ZINC OXIDE OINT 71 GM JAR TOP SCH ×2 (09:41→22:01)
[2021-03-27] MEDS: ASPIRIN CHEW 81 MG TABLET PO SCH (09:41)
[2021-03-27] MEDS: ASCORBIC ACID 500 MG TABLET PO SCH ×2 (09:42→21:58)
[2021-03-27] MEDS: METOPROLOL TARTRATE 100 MG TABLET PO SCH ×2 (09:42→22:00)
[2021-03-27] MEDS: ZINC GLUCONATE 50 MG TABLET PO SCH (09:42)
[2021-03-27] MEDS: OLANZapine 5 MG TABLET PO SCH ×2 (09:42→21:58)
[2021-03-27] MEDS: DILTIAZEM 90 MG TABLET PO SCH ×3 (09:42→21:58)
[2021-03-27] MEDS: PREGABALIN 100 MG CAPSULE PO SCH ×3 (09:42→21:58)
[2021-03-27] MEDS: TOPIRAMATE 100 MG TABLET PO SCH ×2 (09:42→21:58)
[2021-03-27] MEDS: CHOLECALCIFEROL 1,000 UNIT TABLET PO SCH (09:43)
[2021-03-27] MEDS: FAMOTIDINE 20 MG TABLET PO SCH ×2 (09:43→21:58)
[2021-03-27] MEDS: FUROSEMIDE 40 MG/4 ML VIAL IV SCH ×2 (10:44→22:00)
[2021-03-27] MEDS: DIGOXIN 0.125 MG TABLET PO SCH (15:10)
[2021-03-27] MEDS: MULTIVITAMIN LIQUID (CENTRUM) 60 ML BOTTLE PO SCH (15:10)
[2021-03-27] MEDS: FLUCONAZOLE INJ 400 MG/200 ML PREMIX IV SCH (15:10)
[2021-03-27] MEDS: fentaNYL INJ 5,000 MCG in SODIUM CHLORIDE 0.9% 150 ML IV PRN (19:00)
[2021-03-28] MEDS: INSULIN LISPRO 100 UNIT/ML SUBCUT SCH ×4 (01:14→17:40)
[2021-03-28] MEDS: ALBUTEROL/IPRATROPIUM 3 ML NEB RESP TX SCH ×4 (01:25→19:00)
[2021-03-28] MEDS: MIDAZOLAM 100 MG in SODIUM CHLORIDE 0.9% 80 ML IV PRN ×2 (01:46→17:00)
[2021-03-28 03:57] LABS: ABG Base Excess 6.8 MMOL/L (-2.5-2.5); ABG HCO3 30.6 MMOL/L (20-26); ABG Oxygen Saturation 97.9 % (95-100); ABG PCO2 45.6 MM HG (35-48); ABG PH 7.449 (7.35-7.45); ABG TCO2 29.1 MMOL/L (23-27)
[2021-03-28] MEDS: MEROPENEM 500 MG in SODIUM CHLORIDE 0.9% 100 ML IV SCH ×4 (05:07→23:18)
[2021-03-28 05:08] LABS: Basophils % 0.2 % (0.0-0.8); Hematocrit 28.8 VOL% (35.7-47.0); Hemoglobin 8.4 GM/DL (12.0-16.0); Immature Granulocytes % 5.3 %; Immature Granulocytes Absolute 0.65 #; Lymphocytes # 2.4 10*3/uL (1.4-4.0); Mean Corpuscular HGB Conc 29.2 GM/DL (32-36); Mean Corpuscular Volume 87.5 FL (87-102); Mean Platelet Volume 10.2 FL (9.6-12.0); Monocytes % 3.9 % (1.7-12.7); NRBC # 0.73 10*3/uL; Neutrophils % 71.6 % (38.7-73.9); Platelet Count 498 T/CUMM (130-400); Red Blood Count 3.29 MC/CUMM (3.8-5.5); Red Cell Distribution Width 15.4 % (9.3-17.3); White Blood Count 12.4 T/CUMM (4-12)
[2021-03-28 05:27] LABS: Calcium 9.1 MG/DL (8.5-10.1); Osmolality,Calculated 279.1 MOS/KG (273-304); Potassium 3.9 MMOL/L (3.5-5.1)
[2021-03-28 05:33] LABS: Hypochromasia 1+; Lymphocytes 20 % (20-55); Microcytosis 1+; Nucleated Red Blood Cells 6 (0-5); Platelet Estimate Adequate; Segmented Neutrophils 77 % (50-85); Total Cells Counted 100
[2021-03-28] MEDS: fentaNYL INJ 5,000 MCG in SODIUM CHLORIDE 0.9% 150 ML IV PRN (05:40)
[2021-03-28] MEDS: OLANZapine 5 MG TABLET PO SCH ×2 (08:23→20:47)
[2021-03-28] MEDS: PREGABALIN 100 MG CAPSULE PO SCH ×3 (08:23→20:46)
[2021-03-28] MEDS: CHOLECALCIFEROL 1,000 UNIT TABLET PO SCH (08:23)
[2021-03-28] MEDS: ASPIRIN CHEW 81 MG TABLET PO SCH (08:23)
[2021-03-28] MEDS: METOPROLOL TARTRATE 100 MG TABLET PO SCH ×2 (08:23→20:47)
[2021-03-28] MEDS: CITALOPRAM 20 MG TABLET PO SCH (08:24)
[2021-03-28] MEDS: FAMOTIDINE 20 MG TABLET PO SCH ×2 (08:24→20:48)
[2021-03-28] MEDS: ZINC GLUCONATE 50 MG TABLET PO SCH (08:24)
[2021-03-28] MEDS: TOPIRAMATE 100 MG TABLET PO SCH ×2 (08:24→20:47)
[2021-03-28] MEDS: DILTIAZEM 90 MG TABLET PO SCH ×3 (08:24→20:46)
[2021-03-28] MEDS: ASCORBIC ACID 500 MG TABLET PO SCH ×2 (08:24→20:46)
[2021-03-28] MEDS: MENTHOL/ZINC OXIDE OINT 71 GM JAR TOP SCH ×2 (08:25→20:47)
[2021-03-28] MEDS: MULTIVITAMIN LIQUID (CENTRUM) 60 ML BOTTLE PO SCH (08:26)
[2021-03-28] MEDS: FUROSEMIDE 40 MG/4 ML VIAL IV SCH (11:02)
[2021-03-28] MEDS: methylPREDNISolone SOD SUC 40 MG/1 ML VIAL IV SCH ×2 (11:02→23:22)
[2021-03-28] MEDS: DIAZEPAM 5 MG TABLET PO PRN (11:03)
[2021-03-28] MEDS: POTASSIUM CHLORIDE 20 MEQ TABLET PO PRN (11:03)
[2021-03-28] MEDS: FLUCONAZOLE INJ 400 MG/200 ML PREMIX IV SCH (13:00)
[2021-03-28] MEDS: DIGOXIN 0.125 MG TABLET PO SCH (14:50)
[2021-03-28] MEDS: fentaNYL 25 MCG/HR PATCH TRANSDERM SCH (14:51)
[2021-03-29] MEDS: ALBUTEROL/IPRATROPIUM 3 ML NEB RESP TX SCH ×4 (01:03→19:00)
[2021-03-29] MEDS: INSULIN LISPRO 100 UNIT/ML SUBCUT SCH ×5 (01:35→23:32)
[2021-03-29 03:52] LABS: ABG Base Excess 7.6 MMOL/L (-2.5-2.5); ABG HCO3 33.5 MMOL/L (20-26); ABG Oxygen Saturation 97.8 % (95-100); ABG PCO2 54.9 MM HG (35-48); ABG PH 7.403 (7.35-7.45); ABG PO2 114.3 MM HG (80-95); ABG TCO2 35.2 MMOL/L (23-27)
[2021-03-29] MEDS: MEROPENEM 500 MG in SODIUM CHLORIDE 0.9% 100 ML IV SCH ×4 (06:01→22:58)
[2021-03-29 06:54] LABS: Basophils % 0.2 % (0.0-0.8); Hematocrit 29.7 VOL% (35.7-47.0); Hemoglobin 8.6 GM/DL (12.0-16.0); Immature Granulocytes % 3.7 %; Immature Granulocytes Absolute 0.69 #; Lymphocytes # 1.9 10*3/uL (1.4-4.0); Lymphocytes % 10.1 % (21.3-54.2); Mean Corpuscular Volume 88.4 FL (87-102); Mean Platelet Volume 10.8 FL (9.6-12.0); Monocytes % 4.1 % (1.7-12.7); NRBC # 0.39 10*3/uL; Neutrophils % 81.9 % (38.7-73.9); Platelet Count 508 T/CUMM (130-400); Red Blood Count 3.36 MC/CUMM (3.8-5.5); Red Cell Distribution Width 15.4 % (9.3-17.3); White Blood Count 18.8 T/CUMM (4-12)
[2021-03-29 07:16] LABS: Osmolality,Calculated 287.4 MOS/KG (273-304); Potassium 4.3 MMOL/L (3.5-5.1)
[2021-03-29 07:19] LABS: Hypochromasia 1+; Lymphocytes 5 % (20-55); Microcytosis 1+; Nucleated Red Blood Cells 1 (0-5); Platelet Estimate Increased; Segmented Neutrophils 91 % (50-85); Total Cells Counted 100
[2021-03-29] MEDS ORDERED: FUROSEMIDE 40 MG/4 ML VIAL IV SCH (09:00)
[2021-03-29] MEDS: PREGABALIN 100 MG CAPSULE PO SCH ×3 (09:43→21:05)
[2021-03-29] MEDS: ZINC GLUCONATE 50 MG TABLET PO SCH (09:43)
[2021-03-29] MEDS: ASCORBIC ACID 500 MG TABLET PO SCH ×2 (09:43→21:05)
[2021-03-29] MEDS: TOPIRAMATE 100 MG TABLET PO SCH ×2 (09:43→21:05)
[2021-03-29] MEDS: CHOLECALCIFEROL 1,000 UNIT TABLET PO SCH (09:43)
[2021-03-29] MEDS: ASPIRIN CHEW 81 MG TABLET PO SCH (09:43)
[2021-03-29] MEDS: OLANZapine 5 MG TABLET PO SCH ×2 (09:43→21:05)
[2021-03-29] MEDS: CITALOPRAM 20 MG TABLET PO SCH (09:44)
[2021-03-29] MEDS: DILTIAZEM 90 MG TABLET PO SCH ×3 (09:44→21:05)
[2021-03-29] MEDS: MENTHOL/ZINC OXIDE OINT 71 GM JAR TOP SCH ×2 (09:44→22:26)
[2021-03-29] MEDS: METOPROLOL TARTRATE 100 MG TABLET PO SCH ×2 (09:44→21:05)
[2021-03-29] MEDS: methylPREDNISolone SOD SUC 40 MG/1 ML VIAL IV SCH ×2 (09:45→22:55)
[2021-03-29] MEDS: MULTIVITAMIN LIQUID (CENTRUM) 60 ML BOTTLE PO SCH (09:49)
[2021-03-29] MEDS: FAMOTIDINE 20 MG TABLET PO SCH ×2 (09:55→21:05)
[2021-03-29] MEDS: ENOXAPARIN 40 MG/0.4 ML SYRINGE SUBCUT SCH (10:39)
[2021-03-29] MEDS: POLYETHYLENE GLYCOL POWDER 17 GM PACK PO SCH (10:39)
[2021-03-29] MEDS: MIDAZOLAM 100 MG in SODIUM CHLORIDE 0.9% 80 ML IV PRN (12:09)
[2021-03-29] MEDS: FLUCONAZOLE INJ 400 MG/200 ML PREMIX IV SCH (12:11)
[2021-03-29] MEDS: DIGOXIN 0.125 MG TABLET PO SCH (13:02)
[2021-03-29] MEDS: fentaNYL INJ 5,000 MCG in SODIUM CHLORIDE 0.9% 150 ML IV PRN (21:04)
[2021-03-30] MEDS: ALBUTEROL/IPRATROPIUM 3 ML NEB RESP TX SCH ×4 (01:00→19:00)
[2021-03-30 03:59] LABS: ABG Base Excess 7.1 MMOL/L (-2.5-2.5); ABG Oxygen Saturation 99.6 % (95-100); ABG PCO2 49.7 MM HG (35-48); ABG PH 7.424 (7.35-7.45); ABG TCO2 30.3 MMOL/L (23-27); Allen Test Positive; Pt O2 Delivery Device Ventilator
[2021-03-30] MEDS: INSULIN LISPRO 100 UNIT/ML SUBCUT SCH ×3 (05:57→17:57)
[2021-03-30] MEDS: MEROPENEM 500 MG in SODIUM CHLORIDE 0.9% 100 ML IV SCH ×3 (06:01→17:44)
[2021-03-30 06:53] LABS: Calcium 9.3 MG/DL (8.5-10.1); Osmolality,Calculated 281.7 MOS/KG (273-304); Potassium 4.3 MMOL/L (3.5-5.1)
[2021-03-30 08:04] LABS: Basophils % 0.1 % (0.0-0.8); Hematocrit 30.7 VOL% (35.7-47.0); Immature Granulocytes Absolute 0.44 #; Lymphocytes % 9.1 % (21.3-54.2); Mean Corpuscular HGB Conc 29.3 GM/DL (32-36); Mean Platelet Volume 10.8 FL (9.6-12.0); Monocytes % 3.6 % (1.7-12.7); NRBC # 0.33 10*3/uL; Neutrophils % 85.2 % (38.7-73.9); Platelet Count 502 T/CUMM (130-400); Red Blood Count 3.45 MC/CUMM (3.8-5.5); Red Cell Distribution Width 15.6 % (9.3-17.3); White Blood Count 22.2 T/CUMM (4-12)
[2021-03-30] MEDS: POLYETHYLENE GLYCOL POWDER 17 GM PACK PO SCH (08:23)
[2021-03-30] MEDS: DILTIAZEM 90 MG TABLET PO SCH ×3 (08:24→20:20)
[2021-03-30] MEDS: ASPIRIN CHEW 81 MG TABLET PO SCH (08:24)
[2021-03-30] MEDS: PREGABALIN 100 MG CAPSULE PO SCH ×3 (08:24→20:21)
[2021-03-30] MEDS: FAMOTIDINE 20 MG TABLET PO SCH ×2 (08:24→20:20)
[2021-03-30] MEDS: ZINC GLUCONATE 50 MG TABLET PO SCH (08:24)
[2021-03-30] MEDS: OLANZapine 5 MG TABLET PO SCH ×2 (08:24→20:19)
[2021-03-30] MEDS: CHOLECALCIFEROL 1,000 UNIT TABLET PO SCH (08:24)
[2021-03-30] MEDS: CITALOPRAM 20 MG TABLET PO SCH (08:25)
[2021-03-30] MEDS: METOPROLOL TARTRATE 100 MG TABLET PO SCH ×2 (08:25→20:20)
[2021-03-30] MEDS: TOPIRAMATE 100 MG TABLET PO SCH ×2 (08:25→20:20)
[2021-03-30] MEDS: MENTHOL/ZINC OXIDE OINT 71 GM JAR TOP SCH ×2 (08:25→20:21)
[2021-03-30] MEDS: ASCORBIC ACID 500 MG TABLET PO SCH ×2 (08:25→20:20)
[2021-03-30] MEDS: MULTIVITAMIN LIQUID (CENTRUM) 60 ML BOTTLE PO SCH (08:27)
[2021-03-30 08:41] LABS: Lymphocytes 6 % (20-55); Myelocytes 1 %; Nucleated Red Blood Cells 2 (0-5); Segmented Neutrophils 92 % (50-85); Total Cells Counted 100
[2021-03-30 08:42] LABS: Hypochromasia 1+; Microcytosis 1+; Polychromasia Few; Stomatocytes Slight
[2021-03-30] MEDS: ENOXAPARIN 40 MG/0.4 ML SYRINGE SUBCUT SCH (11:03)
[2021-03-30] MEDS: MIDAZOLAM 100 MG in SODIUM CHLORIDE 0.9% 80 ML IV PRN (11:31)
[2021-03-30] MEDS: FLUCONAZOLE INJ 400 MG/200 ML PREMIX IV SCH (12:07)
[2021-03-30] MEDS: DIGOXIN 0.125 MG TABLET PO SCH (13:41)
[2021-03-30] MEDS: fentaNYL INJ 5,000 MCG in SODIUM CHLORIDE 0.9% 150 ML IV PRN (16:14)
[2021-03-30] MEDS: DIAZEPAM 5 MG TABLET PO SCH (20:20)
[2021-03-31] MEDS: INSULIN LISPRO 100 UNIT/ML SUBCUT SCH ×4 (00:03→17:44)
[2021-03-31] MEDS: MEROPENEM 500 MG in SODIUM CHLORIDE 0.9% 100 ML IV SCH ×4 (00:03→17:46)
[2021-03-31] MEDS: ALBUTEROL/IPRATROPIUM 3 ML NEB RESP TX SCH ×4 (01:00→19:00)
[2021-03-31 04:00] LABS: ABG Base Excess 7.6 MMOL/L (-2.5-2.5); ABG HCO3 31.4 MMOL/L (20-26); ABG Oxygen Saturation 98.9 % (95-100); ABG PCO2 54.4 MM HG (35-48); ABG PH 7.399 (7.35-7.45); ABG TCO2 31.4 MMOL/L (23-27)
[2021-03-31 04:55] LABS: Calcium 8.8 MG/DL (8.5-10.1); Osmolality,Calculated 279.7 MOS/KG (273-304)
[2021-03-31 05:32] LABS: Basophils % 0.1 % (0.0-0.8); Eosinophils # 0.1 10*3/uL (0.0-0.87); Eosinophils % 0.5 % (0.00-10.9); Hematocrit 27.7 VOL% (35.7-47.0); Hemoglobin 7.7 GM/DL (12.0-16.0); Immature Granulocytes % 1.5 %; Immature Granulocytes Absolute 0.25 #; Lymphocytes # 2.8 10*3/uL (1.4-4.0); Lymphocytes % 16.5 % (21.3-54.2); Mean Corpuscular HGB Conc 27.8 GM/DL (32-36); Mean Corpuscular Volume 91.1 FL (87-102); Mean Platelet Volume 10.3 FL (9.6-12.0); Monocytes % 3.9 % (1.7-12.7); NRBC # 0.22 10*3/uL; Neutrophils % 77.5 % (38.7-73.9); Platelet Count 387 T/CUMM (130-400); Red Blood Count 3.04 MC/CUMM (3.8-5.5); Red Cell Distribution Width 15.9 % (9.3-17.3); White Blood Count 16.9 T/CUMM (4-12)
[2021-03-31] MEDS ORDERED: POLYETHYLENE GLYCOL POWDER 17 GM PACK PO PRN (08:09)
[2021-03-31] MEDS: ASPIRIN CHEW 81 MG TABLET PO SCH (08:44)
[2021-03-31] MEDS: METOPROLOL TARTRATE 50 MG TABLET PO SCH ×2 (08:44→21:49)
[2021-03-31] MEDS: DILTIAZEM 90 MG TABLET PO SCH ×3 (08:44→21:49)
[2021-03-31] MEDS: TOPIRAMATE 100 MG TABLET PO SCH ×2 (08:44→21:49)
[2021-03-31] MEDS: OLANZapine 5 MG TABLET PO SCH ×2 (08:44→21:49)
[2021-03-31] MEDS: CITALOPRAM 20 MG TABLET PO SCH (08:45)
[2021-03-31] MEDS: PREGABALIN 100 MG CAPSULE PO SCH ×3 (08:45→21:49)
[2021-03-31] MEDS: DIAZEPAM 5 MG TABLET PO SCH ×2 (08:45→21:49)
[2021-03-31] MEDS: ZINC GLUCONATE 50 MG TABLET PO SCH (08:45)
[2021-03-31] MEDS: CHOLECALCIFEROL 1,000 UNIT TABLET PO SCH (08:45)
[2021-03-31] MEDS: ASCORBIC ACID 500 MG TABLET PO SCH ×2 (08:45→21:49)
[2021-03-31] MEDS: FAMOTIDINE 20 MG TABLET PO SCH ×2 (08:45→21:49)
[2021-03-31] MEDS: methylPREDNISolone SOD SUC 40 MG/1 ML VIAL IV SCH (08:46)
[2021-03-31] MEDS: fentaNYL 25 MCG/HR PATCH TRANSDERM SCH (08:46)
[2021-03-31] MEDS: MENTHOL/ZINC OXIDE OINT 71 GM JAR TOP SCH ×2 (08:46→21:49)
[2021-03-31] MEDS: MULTIVITAMIN LIQUID (CENTRUM) 60 ML BOTTLE PO SCH (08:50)
[2021-03-31] MEDS: FLUCONAZOLE INJ 400 MG/200 ML PREMIX IV SCH (12:37)
[2021-03-31] MEDS: DIGOXIN 0.125 MG TABLET PO SCH (13:48)
[2021-03-31] MEDS: MIDAZOLAM 100 MG in SODIUM CHLORIDE 0.9% 80 ML IV PRN (14:19)
[2021-03-31] MEDS: MELATONIN 3 MG TABLET PO PRN (21:49)
[2021-04-01] MEDS: MEROPENEM 500 MG in SODIUM CHLORIDE 0.9% 100 ML IV SCH ×4 (00:23→17:37)
[2021-04-01] MEDS: INSULIN LISPRO 100 UNIT/ML SUBCUT SCH ×4 (00:31→17:12)
[2021-04-01] MEDS: ALBUTEROL/IPRATROPIUM 3 ML NEB RESP TX SCH ×4 (01:00→21:33)
[2021-04-01 04:47] LABS: ABG Base Excess 8.7 MMOL/L (-2.5-2.5); ABG Oxygen Saturation 95.3 % (95-100); ABG PCO2 59.5 MM HG (35-48); ABG PH 7.387 (7.35-7.45); ABG PO2 76.2 MM HG (80-95); ABG TCO2 36.8 MMOL/L (23-27); Allen Test Positive; Pt O2 Delivery Device Ventilator
[2021-04-01 04:52] LABS: Basophils % 0.1 % (0.0-0.8); Eosinophils % 0.2 % (0.00-10.9); Hematocrit 26.7 VOL% (35.7-47.0); Hemoglobin 7.8 GM/DL (12.0-16.0); Immature Granulocytes % 1.7 %; Immature Granulocytes Absolute 0.29 #; Lymphocytes # 2.5 10*3/uL (1.4-4.0); Lymphocytes % 14.5 % (21.3-54.2); Mean Corpuscular HGB Conc 29.2 GM/DL (32-36); Mean Corpuscular Volume 88.1 FL (87-102); Mean Platelet Volume 10.9 FL (9.6-12.0); Monocytes % 4.6 % (1.7-12.7); NRBC # 0.15 10*3/uL; Neutrophils % 78.9 % (38.7-73.9); Platelet Count 426 T/CUMM (130-400); Red Blood Count 3.03 MC/CUMM (3.8-5.5); Red Cell Distribution Width 16.1 % (9.3-17.3); White Blood Count 16.9 T/CUMM (4-12)
[2021-04-01 05:08] LABS: Calcium 9.2 MG/DL (8.5-10.1); Osmolality,Calculated 275.8 MOS/KG (273-304)
[2021-04-01] MEDS: CHOLECALCIFEROL 1,000 UNIT TABLET PO SCH (08:25)
[2021-04-01] MEDS: PREGABALIN 100 MG CAPSULE PO SCH ×3 (08:25→20:49)
[2021-04-01] MEDS: TOPIRAMATE 100 MG TABLET PO SCH ×2 (08:25→20:49)
[2021-04-01] MEDS: ASPIRIN CHEW 81 MG TABLET PO SCH (08:25)
[2021-04-01] MEDS: DIAZEPAM 5 MG TABLET PO SCH ×2 (08:25→20:49)
[2021-04-01] MEDS: ASCORBIC ACID 500 MG TABLET PO SCH ×2 (08:25→20:49)
[2021-04-01] MEDS: ZINC GLUCONATE 50 MG TABLET PO SCH (08:25)
[2021-04-01] MEDS: CITALOPRAM 20 MG TABLET PO SCH (08:25)
[2021-04-01] MEDS: METOPROLOL TARTRATE 50 MG TABLET PO SCH ×2 (08:26→20:49)
[2021-04-01] MEDS: FAMOTIDINE 20 MG TABLET PO SCH ×2 (08:26→20:49)
[2021-04-01] MEDS: DILTIAZEM 90 MG TABLET PO SCH ×3 (08:27→20:48)
[2021-04-01] MEDS: MULTIVITAMIN LIQUID (CENTRUM) 60 ML BOTTLE PO SCH (08:28)
[2021-04-01] MEDS: OLANZapine 5 MG TABLET PO SCH ×2 (08:28→20:48)
[2021-04-01] MEDS: methylPREDNISolone SOD SUC 40 MG/1 ML VIAL IV SCH (08:29)
[2021-04-01] MEDS: MENTHOL/ZINC OXIDE OINT 71 GM JAR TOP SCH ×2 (08:34→20:49)
[2021-04-01] MEDS: MORPHINE 2 MG/1 ML SYRINGE IV PRN ×2 (09:18→15:59)
[2021-04-01] MEDS: FLUCONAZOLE INJ 400 MG/200 ML PREMIX IV SCH (13:09)
[2021-04-01] MEDS: DIGOXIN 0.125 MG TABLET PO SCH (13:09)
[2021-04-01] MEDS: guaiFENesin/DM ER 600-30 MG TABLET PO PRN (20:49)
[2021-04-01] MEDS: MELATONIN 3 MG TABLET PO PRN (20:49)
[2021-04-02] MEDS: MEROPENEM 500 MG in SODIUM CHLORIDE 0.9% 100 ML IV SCH ×4 (00:15→17:56)
[2021-04-02] MEDS: INSULIN LISPRO 100 UNIT/ML SUBCUT SCH ×5 (00:15→23:53)
[2021-04-02] MEDS: ALBUTEROL/IPRATROPIUM 3 ML NEB RESP TX SCH ×4 (01:00→18:05)
[2021-04-02 03:52] LABS: Basophils % 0.1 % (0.0-0.8); Eosinophils # 0.1 10*3/uL (0.0-0.87); Eosinophils % 0.7 % (0.00-10.9); Hematocrit 26.3 VOL% (35.7-47.0); Hemoglobin 7.6 GM/DL (12.0-16.0); Immature Granulocytes % 1.4 %; Immature Granulocytes Absolute 0.22 #; Lymphocytes # 2.7 10*3/uL (1.4-4.0); Lymphocytes % 17.5 % (21.3-54.2); Mean Corpuscular HGB Conc 28.9 GM/DL (32-36); Mean Corpuscular Volume 87.4 FL (87-102); Mean Platelet Volume 10.7 FL (9.6-12.0); Monocytes % 4.9 % (1.7-12.7); NRBC # 0.07 10*3/uL; Neutrophils % 75.4 % (38.7-73.9); Platelet Count 408 T/CUMM (130-400); Red Blood Count 3.01 MC/CUMM (3.8-5.5); Red Cell Distribution Width 16.4 % (9.3-17.3); White Blood Count 15.3 T/CUMM (4-12)
[2021-04-02 04:06] LABS: Alanine Aminotransferase 71 U/L (13-56); Albumin 2.3 G/DL (3.4-5.0); Alkaline Phosphatase 79 U/L (45-117); Aspartate Amino Transferase 20 U/L (0-37); Bilirubin,Total < 0.39 MG/DL (0.20-1.00); Blood Urea Nitrogen 17 MG/DL (7-18); Calcium 9.2 MG/DL (8.5-10.1); Carbon Dioxide 32 MMOL/L (21-32); Estimated Glom Filtration Rate 234 ML/MIN; Glucose 128 MG/DL (74-106); Osmolality,Calculated 280.5 MOS/KG (273-304); Potassium 3.5 MMOL/L (3.5-5.1); Sodium 139 MMOL/L (136-145)
[2021-04-02 04:13] LABS: ABG Base Excess 5.7 MMOL/L (-2.5-2.5); ABG HCO3 29.5 MMOL/L (20-26); ABG Oxygen Saturation 96.5 % (95-100); ABG PCO2 51.3 MM HG (35-48); ABG PH 7.395 (7.35-7.45); ABG PO2 83.9 MM HG (80-95); ABG TCO2 29.3 MMOL/L (23-27)
[2021-04-02] MEDS: MORPHINE 2 MG/1 ML SYRINGE IV PRN ×2 (04:28→13:21)
[2021-04-02] MEDS ORDERED: SODIUM CHLORIDE 0.9% 1,000 ML IV PRN (07:40)
[2021-04-02] MEDS ORDERED: FUROSEMIDE 40 MG/4 ML VIAL IV ONE (07:41)
[2021-04-02] MEDS: FAMOTIDINE 20 MG TABLET PO SCH ×2 (08:20→20:18)
[2021-04-02] MEDS: DIAZEPAM 5 MG TABLET PO SCH ×2 (08:20→20:17)
[2021-04-02] MEDS: METOPROLOL TARTRATE 50 MG TABLET PO SCH ×2 (08:20→20:20)
[2021-04-02] MEDS: OLANZapine 5 MG TABLET PO SCH ×2 (08:20→20:19)
[2021-04-02] MEDS: POTASSIUM BICARB EFFERVESCENT 20 MEQ TAB.EFF PER TUBE PRN (08:20)
[2021-04-02] MEDS: ZINC GLUCONATE 50 MG TABLET PO SCH (08:20)
[2021-04-02] MEDS: ASCORBIC ACID 500 MG TABLET PO SCH ×2 (08:20→20:19)
[2021-04-02] MEDS: TOPIRAMATE 100 MG TABLET PO SCH ×2 (08:20→20:18)
[2021-04-02] MEDS: ASPIRIN CHEW 81 MG TABLET PO SCH (08:21)
[2021-04-02] MEDS: CHOLECALCIFEROL 1,000 UNIT TABLET PO SCH (08:21)
[2021-04-02] MEDS: CITALOPRAM 20 MG TABLET PO SCH (08:21)
[2021-04-02] MEDS: DILTIAZEM 90 MG TABLET PO SCH ×3 (08:21→20:17)
[2021-04-02] MEDS: methylPREDNISolone SOD SUC 40 MG/1 ML VIAL IV SCH (08:22)
[2021-04-02] MEDS: MENTHOL/ZINC OXIDE OINT 71 GM JAR TOP SCH ×2 (08:22→20:19)
[2021-04-02] MEDS: PREGABALIN 100 MG CAPSULE PO SCH ×3 (08:27→20:18)
[2021-04-02] MEDS: MULTIVITAMIN LIQUID (CENTRUM) 60 ML BOTTLE PO SCH (08:28)
[2021-04-02] MEDS: FLUCONAZOLE INJ 400 MG/200 ML PREMIX IV SCH (13:10)
[2021-04-02] MEDS: DIGOXIN 0.125 MG TABLET PO SCH (13:13)
[2021-04-02] MEDS: oxyCODONE/ACETAMINOPHEN 5-325 MG TABLET PO PRN (20:18)
[2021-04-03] MEDS: ALBUTEROL/IPRATROPIUM 3 ML NEB RESP TX SCH ×4 (01:30→19:55)
[2021-04-03 03:55] LABS: ABG HCO3 31.3 MMOL/L (20-26); ABG Oxygen Saturation 95.5 % (95-100); ABG PCO2 49.1 MM HG (35-48); ABG PH 7.423 (7.35-7.45); ABG PO2 80.5 MM HG (80-95); ABG TCO2 32.9 MMOL/L (23-27)
[2021-04-03 04:15] LABS: Basophils % 0.2 % (0.0-0.8); Eosinophils # 0.2 10*3/uL (0.0-0.87); Eosinophils % 1.1 % (0.00-10.9); Hematocrit 35.9 VOL% (35.7-47.0); Immature Granulocytes % 1.4 %; Immature Granulocytes Absolute 0.22 #; Lymphocytes # 3.5 10*3/uL (1.4-4.0); Lymphocytes % 22.8 % (21.3-54.2); Mean Corpuscular HGB Conc 30.6 GM/DL (32-36); Mean Corpuscular Volume 87.3 FL (87-102); Mean Platelet Volume 10.9 FL (9.6-12.0); Monocytes % 6.8 % (1.7-12.7); NRBC # 0.16 10*3/uL; Neutrophils % 67.7 % (38.7-73.9); Platelet Count 457 T/CUMM (130-400); Red Blood Count 4.11 MC/CUMM (3.8-5.5); Red Cell Distribution Width 16.2 % (9.3-17.3); White Blood Count 15.2 T/CUMM (4-12)
[2021-04-03] MEDS: MORPHINE 2 MG/1 ML SYRINGE IV PRN ×3 (04:29→18:35)
[2021-04-03 04:43] LABS: Calcium 9.6 MG/DL (8.5-10.1); Osmolality,Calculated 281.5 MOS/KG (273-304); Potassium 3.6 MMOL/L (3.5-5.1)
[2021-04-03] MEDS: INSULIN LISPRO 100 UNIT/ML SUBCUT SCH ×3 (05:35→17:44)
[2021-04-03] MEDS: ZINC GLUCONATE 50 MG TABLET PO SCH (08:07)
[2021-04-03] MEDS: OLANZapine 5 MG TABLET PO SCH ×2 (08:07→20:42)
[2021-04-03] MEDS: methylPREDNISolone SOD SUC 40 MG/1 ML VIAL IV SCH (08:07)
[2021-04-03] MEDS: TOPIRAMATE 100 MG TABLET PO SCH ×2 (08:07→20:42)
[2021-04-03] MEDS: ASCORBIC ACID 500 MG TABLET PO SCH ×2 (08:08→20:43)
[2021-04-03] MEDS: DIAZEPAM 5 MG TABLET PO SCH ×2 (08:08→20:42)
[2021-04-03] MEDS: fentaNYL 25 MCG/HR PATCH TRANSDERM SCH (08:09)
[2021-04-03] MEDS: CHOLECALCIFEROL 1,000 UNIT TABLET PO SCH (08:09)
[2021-04-03] MEDS: CITALOPRAM 20 MG TABLET PO SCH (08:09)
[2021-04-03] MEDS: METOPROLOL TARTRATE 50 MG TABLET PO SCH ×2 (08:09→20:42)
[2021-04-03] MEDS: ASPIRIN CHEW 81 MG TABLET PO SCH (08:09)
[2021-04-03] MEDS: DILTIAZEM 90 MG TABLET PO SCH ×3 (08:10→20:43)
[2021-04-03] MEDS: FAMOTIDINE 20 MG TABLET PO SCH ×2 (08:10→20:42)
[2021-04-03] MEDS: PREGABALIN 100 MG CAPSULE PO SCH ×3 (08:10→20:42)
[2021-04-03] MEDS: MENTHOL/ZINC OXIDE OINT 71 GM JAR TOP SCH ×2 (08:11→21:49)
[2021-04-03] MEDS: MULTIVITAMIN LIQUID (CENTRUM) 60 ML BOTTLE PO SCH (08:11)
[2021-04-03] MEDS: DIGOXIN 0.125 MG TABLET PO SCH (14:00)
[2021-04-03] MEDS ORDERED: FUROSEMIDE 40 MG/4 ML VIAL IV ONE (15:00)
[2021-04-03] MEDS: oxyCODONE/ACETAMINOPHEN 5-325 MG TABLET PO PRN (20:44)
[2021-04-04] MEDS: INSULIN LISPRO 100 UNIT/ML SUBCUT SCH ×5 (00:22→23:47)
[2021-04-04] MEDS: ALBUTEROL/IPRATROPIUM 3 ML NEB RESP TX SCH ×4 (02:25→19:51)
[2021-04-04 04:26] LABS: ABG Base Excess 4.7 MMOL/L (-2.5-2.5); ABG HCO3 28.6 MMOL/L (20-26); ABG Oxygen Saturation 96.3 % (95-100); ABG PCO2 42.9 MM HG (35-48); ABG PH 7.443 (7.35-7.45); ABG PO2 81.5 MM HG (80-95); ABG TCO2 26.2 MMOL/L (23-27); Allen Test Positive
[2021-04-04 04:45] LABS: Basophils % 0.1 % (0.0-0.8); Eosinophils # 0.1 10*3/uL (0.0-0.87); Eosinophils % 0.9 % (0.00-10.9); Hematocrit 36.7 VOL% (35.7-47.0); Hemoglobin 11.3 GM/DL (12.0-16.0); Immature Granulocytes % 1.5 %; Immature Granulocytes Absolute 0.23 #; Lymphocytes # 3.7 10*3/uL (1.4-4.0); Lymphocytes % 25.1 % (21.3-54.2); Mean Corpuscular HGB Conc 30.8 GM/DL (32-36); Mean Corpuscular Volume 85.7 FL (87-102); Mean Platelet Volume 10.6 FL (9.6-12.0); NRBC # 0.05 10*3/uL; Neutrophils % 64.4 % (38.7-73.9); Platelet Count 479 T/CUMM (130-400); Red Blood Count 4.28 MC/CUMM (3.8-5.5); Red Cell Distribution Width 16.5 % (9.3-17.3); White Blood Count 14.9 T/CUMM (4-12)
[2021-04-04 05:10] LABS: Calcium 9.6 MG/DL (8.5-10.1); Potassium 3.2 MMOL/L (3.5-5.1)
[2021-04-04] MEDS: ASPIRIN CHEW 81 MG TABLET PO SCH (08:19)
[2021-04-04] MEDS: DILTIAZEM 90 MG TABLET PO SCH ×3 (08:19→20:58)
[2021-04-04] MEDS: ZINC GLUCONATE 50 MG TABLET PO SCH (08:19)
[2021-04-04] MEDS: CITALOPRAM 20 MG TABLET PO SCH (08:19)
[2021-04-04] MEDS: PREGABALIN 100 MG CAPSULE PO SCH ×3 (08:19→20:57)
[2021-04-04] MEDS: oxyCODONE/ACETAMINOPHEN 5-325 MG TABLET PO PRN ×2 (08:20→18:46)
[2021-04-04] MEDS: OLANZapine 5 MG TABLET PO SCH ×2 (08:20→20:58)
[2021-04-04] MEDS: FAMOTIDINE 20 MG TABLET PO SCH ×2 (08:20→20:58)
[2021-04-04] MEDS: METOPROLOL TARTRATE 50 MG TABLET PO SCH ×2 (08:20→20:58)
[2021-04-04] MEDS: guaiFENesin/DM ER 600-30 MG TABLET PO PRN ×2 (08:20→08:21)
[2021-04-04] MEDS: POTASSIUM BICARB EFFERVESCENT 20 MEQ TAB.EFF PER TUBE PRN (08:20)
[2021-04-04] MEDS: ASCORBIC ACID 500 MG TABLET PO SCH ×2 (08:20→20:57)
[2021-04-04] MEDS: CHOLECALCIFEROL 1,000 UNIT TABLET PO SCH (08:20)
[2021-04-04] MEDS: methylPREDNISolone SOD SUC 40 MG/1 ML VIAL IV SCH (08:21)
[2021-04-04] MEDS: TOPIRAMATE 100 MG TABLET PO SCH ×2 (08:22→20:58)
[2021-04-04] MEDS: DIAZEPAM 5 MG TABLET PO SCH ×2 (08:22→20:59)
[2021-04-04] MEDS: MULTIVITAMIN LIQUID (CENTRUM) 60 ML BOTTLE PO SCH (09:02)
[2021-04-04] MEDS: MENTHOL/ZINC OXIDE OINT 71 GM JAR TOP SCH ×2 (09:02→21:00)
[2021-04-04] MEDS: DIGOXIN 0.125 MG TABLET PO SCH (12:30)
[2021-04-05] MEDS: ALBUTEROL/IPRATROPIUM 3 ML NEB RESP TX SCH ×4 (00:10→19:30)
[2021-04-05] MEDS: MORPHINE 2 MG/1 ML SYRINGE IV PRN ×3 (00:58→20:03)
[2021-04-05 03:35] LABS: ABG Base Excess 3.8 MMOL/L (-2.5-2.5); ABG HCO3 27.6 MMOL/L (20-26); ABG Oxygen Saturation 86.4 % (95-100); ABG PH 7.403 (7.35-7.45); ABG PO2 55.9 MM HG (80-95); ABG TCO2 26.3 MMOL/L (23-27)
[2021-04-05] MEDS: INSULIN LISPRO 100 UNIT/ML SUBCUT SCH ×3 (05:52→17:34)
[2021-04-05 06:01] LABS: Basophils % 0.2 % (0.0-0.8); Eosinophils # 0.1 10*3/uL (0.0-0.87); Eosinophils % 1.1 % (0.00-10.9); Hematocrit 35.9 VOL% (35.7-47.0); Hemoglobin 11.2 GM/DL (12.0-16.0); Immature Granulocytes Absolute 0.13 #; Lymphocytes # 3.3 10*3/uL (1.4-4.0); Lymphocytes % 26.1 % (21.3-54.2); Mean Corpuscular HGB Conc 31.2 GM/DL (32-36); Mean Corpuscular Volume 86.9 FL (87-102); Mean Platelet Volume 10.7 FL (9.6-12.0); Monocytes % 9.5 % (1.7-12.7); NRBC # 0.03 10*3/uL; Neutrophils % 62.1 % (38.7-73.9); Platelet Count 507 T/CUMM (130-400); Red Blood Count 4.13 MC/CUMM (3.8-5.5); Red Cell Distribution Width 16.5 % (9.3-17.3); White Blood Count 12.5 T/CUMM (4-12)
[2021-04-05 06:11] LABS: Calcium 9.6 MG/DL (8.5-10.1); Osmolality,Calculated 273.7 MOS/KG (273-304); Potassium 2.9 MMOL/L (3.5-5.1)
[2021-04-05] MEDS: oxyCODONE/ACETAMINOPHEN 5-325 MG TABLET PO PRN ×2 (06:38→18:25)
[2021-04-05] MEDS: METOPROLOL TARTRATE 50 MG TABLET PO SCH ×2 (09:06→20:54)
[2021-04-05] MEDS: DIAZEPAM 5 MG TABLET PO SCH ×2 (10:01→20:54)
[2021-04-05] MEDS: CITALOPRAM 20 MG TABLET PO SCH (10:01)
[2021-04-05] MEDS: FAMOTIDINE 20 MG TABLET PO SCH ×2 (10:01→20:52)
[2021-04-05] MEDS: ZINC GLUCONATE 50 MG TABLET PO SCH (10:02)
[2021-04-05] MEDS: POTASSIUM CHLORIDE 20 MEQ PACK PO ONE ×2 (10:02→10:14)
[2021-04-05] MEDS: CHOLECALCIFEROL 1,000 UNIT TABLET PO SCH (10:02)
[2021-04-05] MEDS: MENTHOL/ZINC OXIDE OINT 71 GM JAR TOP SCH ×2 (10:02→20:55)
[2021-04-05] MEDS: ASPIRIN CHEW 81 MG TABLET PO SCH (10:02)
[2021-04-05] MEDS: ASCORBIC ACID 500 MG TABLET PO SCH ×2 (10:02→20:53)
[2021-04-05] MEDS: DILTIAZEM 90 MG TABLET PO SCH ×3 (10:03→20:52)
[2021-04-05] MEDS: PREGABALIN 100 MG CAPSULE PO SCH ×3 (10:03→20:54)
[2021-04-05] MEDS: TOPIRAMATE 100 MG TABLET PO SCH ×2 (10:03→20:54)
[2021-04-05] MEDS: MULTIVITAMIN LIQUID (CENTRUM) 60 ML BOTTLE PO SCH (10:03)
[2021-04-05] MEDS: methylPREDNISolone SOD SUC 40 MG/1 ML VIAL IV SCH (10:04)
[2021-04-05] MEDS: OLANZapine 5 MG TABLET PO SCH ×2 (10:04→20:53)
[2021-04-05] MEDS: POTASSIUM CHLORIDE 20 MEQ TABLET PO PRN ×4 (10:20→17:15)
[2021-04-05] MEDS: DIGOXIN 0.125 MG TABLET PO SCH (12:26)
[2021-04-06] MEDS: INSULIN LISPRO 100 UNIT/ML SUBCUT SCH ×4 (00:25→17:35)
[2021-04-06] MEDS: ALBUTEROL/IPRATROPIUM 3 ML NEB RESP TX SCH ×4 (01:02→20:19)
[2021-04-06 04:19] LABS: ABG Base Excess 3.1 MMOL/L (-2.5-2.5); ABG HCO3 28.4 MMOL/L (20-26); ABG Oxygen Saturation 95.2 % (95-100); ABG PCO2 46.7 MM HG (35-48); ABG PH 7.402 (7.35-7.45); ABG PO2 81.4 MM HG (80-95); ABG TCO2 29.8 MMOL/L (23-27)
[2021-04-06] MEDS: MORPHINE 2 MG/1 ML SYRINGE IV PRN ×2 (04:32→16:34)
[2021-04-06 05:05] LABS: Basophils % 0.2 % (0.0-0.8); Eosinophils % 0.2 % (0.00-10.9); Hematocrit 35.5 VOL% (35.7-47.0); Hemoglobin 10.6 GM/DL (12.0-16.0); Immature Granulocytes % 1.3 %; Immature Granulocytes Absolute 0.14 #; Lymphocytes # 2.2 10*3/uL (1.4-4.0); Lymphocytes % 19.9 % (21.3-54.2); Mean Corpuscular HGB Conc 29.9 GM/DL (32-36); Mean Corpuscular Volume 88.1 FL (87-102); Mean Platelet Volume 10.7 FL (9.6-12.0); Monocytes % 6.9 % (1.7-12.7); Neutrophils % 71.5 % (38.7-73.9); Platelet Count 513 T/CUMM (130-400); Red Blood Count 4.03 MC/CUMM (3.8-5.5); Red Cell Distribution Width 16.2 % (9.3-17.3)
[2021-04-06 05:22] LABS: Calcium 9.8 MG/DL (8.5-10.1); Osmolality,Calculated 275.5 MOS/KG (273-304); Potassium 3.3 MMOL/L (3.5-5.1)
[2021-04-06] MEDS ORDERED: POTASSIUM CHLORIDE 20 MEQ PACK PO ONE (07:24)
[2021-04-06] MEDS: oxyCODONE/ACETAMINOPHEN 5-325 MG TABLET PO PRN ×2 (09:43→22:05)
[2021-04-06] MEDS: CHOLECALCIFEROL 1,000 UNIT TABLET PO SCH (10:35)
[2021-04-06] MEDS: TOPIRAMATE 100 MG TABLET PO SCH ×2 (10:35→21:55)
[2021-04-06] MEDS: DILTIAZEM 90 MG TABLET PO SCH ×3 (10:35→21:56)
[2021-04-06] MEDS: OLANZapine 5 MG TABLET PO SCH ×2 (10:35→21:55)
[2021-04-06] MEDS: FAMOTIDINE 20 MG TABLET PO SCH ×2 (10:35→21:56)
[2021-04-06] MEDS: PREGABALIN 100 MG CAPSULE PO SCH ×3 (10:35→21:55)
[2021-04-06] MEDS: CITALOPRAM 20 MG TABLET PO SCH (10:35)
[2021-04-06] MEDS: ASPIRIN CHEW 81 MG TABLET PO SCH (10:35)
[2021-04-06] MEDS: METOPROLOL TARTRATE 50 MG TABLET PO SCH ×2 (10:36→21:56)
[2021-04-06] MEDS: ZINC GLUCONATE 50 MG TABLET PO SCH (10:36)
[2021-04-06] MEDS: MULTIVITAMIN LIQUID (CENTRUM) 60 ML BOTTLE PO SCH (10:36)
[2021-04-06] MEDS: methylPREDNISolone SOD SUC 40 MG/1 ML VIAL IV SCH (10:36)
[2021-04-06] MEDS: MENTHOL/ZINC OXIDE OINT 71 GM JAR TOP SCH ×2 (10:36→21:55)
[2021-04-06] MEDS: DIAZEPAM 5 MG TABLET PO SCH ×2 (10:36→21:55)
[2021-04-06] MEDS: ASCORBIC ACID 500 MG TABLET PO SCH ×2 (10:36→21:55)
[2021-04-06] MEDS ORDERED: POTASSIUM CHLORIDE 20 MEQ TABLET PO ONE (12:57)
[2021-04-06] MEDS: DIGOXIN 0.125 MG TABLET PO SCH (15:05)
[2021-04-07] MEDS: INSULIN LISPRO 100 UNIT/ML SUBCUT SCH ×4 (00:40→17:49)
[2021-04-07] MEDS: ALBUTEROL/IPRATROPIUM 3 ML NEB RESP TX SCH ×4 (01:18→20:31)
[2021-04-07 04:21] LABS: ABG Base Excess 1.1 MMOL/L (-2.5-2.5); ABG HCO3 25.3 MMOL/L (20-26); ABG Oxygen Saturation 97.1 % (95-100); ABG PCO2 40.2 MM HG (35-48); ABG PH 7.413 (7.35-7.45); ABG PO2 90.2 MM HG (80-95); ABG TCO2 23.2 MMOL/L (23-27)
[2021-04-07] MEDS: MORPHINE 2 MG/1 ML SYRINGE IV PRN ×4 (04:46→22:20)
[2021-04-07 06:42] LABS: Basophils % 0.1 % (0.0-0.8); Eosinophils # 0.1 10*3/uL (0.0-0.87); Eosinophils % 1.3 % (0.00-10.9); Hematocrit 34.9 VOL% (35.7-47.0); Hemoglobin 10.4 GM/DL (12.0-16.0); Immature Granulocytes % 0.8 %; Immature Granulocytes Absolute 0.09 #; Lymphocytes # 2.9 10*3/uL (1.4-4.0); Lymphocytes % 26.4 % (21.3-54.2); Mean Corpuscular HGB Conc 29.8 GM/DL (32-36); Mean Corpuscular Volume 87.7 FL (87-102); Mean Platelet Volume 10.5 FL (9.6-12.0); Monocytes % 7.4 % (1.7-12.7); Platelet Count 514 T/CUMM (130-400); Red Blood Count 3.98 MC/CUMM (3.8-5.5); Red Cell Distribution Width 16.6 % (9.3-17.3); White Blood Count 10.8 T/CUMM (4-12)
[2021-04-07 06:57] LABS: Calcium 10.2 MG/DL (8.5-10.1); Osmolality,Calculated 270.8 MOS/KG (273-304); Potassium 3.4 MMOL/L (3.5-5.1)
[2021-04-07] MEDS ORDERED: POTASSIUM CHLORIDE 20 MEQ TABLET PO ONE ×2 (07:08→09:00)
[2021-04-07] MEDS: FAMOTIDINE 20 MG TABLET PO SCH ×2 (09:01→22:18)
[2021-04-07] MEDS: CITALOPRAM 20 MG TABLET PO SCH (09:02)
[2021-04-07] MEDS: PREGABALIN 100 MG CAPSULE PO SCH ×3 (09:02→22:18)
[2021-04-07] MEDS: ASCORBIC ACID 500 MG TABLET PO SCH ×2 (09:02→22:18)
[2021-04-07] MEDS: TOPIRAMATE 100 MG TABLET PO SCH ×2 (09:02→22:19)
[2021-04-07] MEDS: MENTHOL/ZINC OXIDE OINT 71 GM JAR TOP SCH ×2 (09:03→22:21)
[2021-04-07] MEDS: OLANZapine 5 MG TABLET PO SCH ×2 (09:03→22:18)
[2021-04-07] MEDS: ASPIRIN CHEW 81 MG TABLET PO SCH (09:03)
[2021-04-07] MEDS: METOPROLOL TARTRATE 50 MG TABLET PO SCH ×2 (09:03→22:19)
[2021-04-07] MEDS: DILTIAZEM 90 MG TABLET PO SCH ×3 (09:03→22:19)
[2021-04-07] MEDS: MULTIVITAMIN LIQUID (CENTRUM) 60 ML BOTTLE PO SCH (09:03)
[2021-04-07] MEDS: CHOLECALCIFEROL 1,000 UNIT TABLET PO SCH (09:03)
[2021-04-07] MEDS: ZINC GLUCONATE 50 MG TABLET PO SCH (09:03)
[2021-04-07] MEDS: methylPREDNISolone SOD SUC 40 MG/1 ML VIAL IV SCH (09:04)
[2021-04-07] MEDS: DIAZEPAM 5 MG TABLET PO SCH ×2 (09:50→22:20)
[2021-04-07] MEDS: oxyCODONE/ACETAMINOPHEN 5-325 MG TABLET PO PRN (11:46)
[2021-04-07] MEDS: DIGOXIN 0.125 MG TABLET PO SCH (14:25)
[2021-04-07] MEDS: DICLOFENAC 1% GEL 100 GM TUBE TOP SCH ×2 (14:25→22:21)
[2021-04-08] MEDS: INSULIN LISPRO 100 UNIT/ML SUBCUT SCH ×4 (00:09→18:08)
[2021-04-08] MEDS: ALBUTEROL/IPRATROPIUM 3 ML NEB RESP TX SCH ×4 (00:40→19:40)
[2021-04-08 04:28] LABS: ABG Base Excess 2.5 MMOL/L (-2.5-2.5); ABG HCO3 26.6 MMOL/L (20-26); ABG Oxygen Saturation 95.6 % (95-100); ABG PCO2 45.1 MM HG (35-48); ABG PH 7.397 (7.35-7.45); ABG PO2 83.3 MM HG (80-95); ABG TCO2 25.2 MMOL/L (23-27)
[2021-04-08] MEDS: oxyCODONE/ACETAMINOPHEN 5-325 MG TABLET PO PRN ×2 (04:47→22:35)
[2021-04-08 05:31] LABS: Calcium 9.8 MG/DL (8.5-10.1); Osmolality,Calculated 275.4 MOS/KG (273-304); Potassium 3.3 MMOL/L (3.5-5.1)
[2021-04-08] MEDS: ZINC GLUCONATE 50 MG TABLET PO SCH (10:11)
[2021-04-08] MEDS: POTASSIUM CHLORIDE 20 MEQ TABLET PO PRN (10:11)
[2021-04-08] MEDS: ASPIRIN CHEW 81 MG TABLET PO SCH (10:11)
[2021-04-08] MEDS: methylPREDNISolone SOD SUC 40 MG/1 ML VIAL IV SCH (10:11)
[2021-04-08] MEDS: CHOLECALCIFEROL 1,000 UNIT TABLET PO SCH (10:12)
[2021-04-08] MEDS: TOPIRAMATE 100 MG TABLET PO SCH ×2 (10:12→20:40)
[2021-04-08] MEDS: FAMOTIDINE 20 MG TABLET PO SCH ×2 (10:12→20:40)
[2021-04-08] MEDS: PREGABALIN 100 MG CAPSULE PO SCH ×3 (10:12→20:40)
[2021-04-08] MEDS: ASCORBIC ACID 500 MG TABLET PO SCH ×2 (10:12→20:39)
[2021-04-08] MEDS: CITALOPRAM 20 MG TABLET PO SCH (10:13)
[2021-04-08] MEDS: METOPROLOL TARTRATE 50 MG TABLET PO SCH ×2 (10:13→20:39)
[2021-04-08] MEDS: OLANZapine 5 MG TABLET PO SCH ×2 (10:14→20:40)
[2021-04-08] MEDS: DIAZEPAM 5 MG TABLET PO SCH ×2 (10:14→20:40)
[2021-04-08] MEDS: DILTIAZEM 90 MG TABLET PO SCH ×3 (10:14→20:39)
[2021-04-08] MEDS: MENTHOL/ZINC OXIDE OINT 71 GM JAR TOP SCH ×2 (10:15→22:51)
[2021-04-08] MEDS: MORPHINE 2 MG/1 ML SYRINGE IV PRN ×2 (10:45→20:40)
[2021-04-08] MEDS: DICLOFENAC 1% GEL 100 GM TUBE TOP SCH ×3 (10:45→22:51)
[2021-04-08] MEDS: MULTIVITAMIN LIQUID (CENTRUM) 60 ML BOTTLE PO SCH (11:25)
[2021-04-08] MEDS: DIGOXIN 0.125 MG TABLET PO SCH (14:02)
[2021-04-09] MEDS: INSULIN LISPRO 100 UNIT/ML SUBCUT SCH ×4 (00:06→19:27)
[2021-04-09] MEDS: ALBUTEROL/IPRATROPIUM 3 ML NEB RESP TX SCH ×4 (00:19→19:30)
[2021-04-09 05:30] LABS: Basophils % 0.1 % (0.0-0.8); Eosinophils # 0.1 10*3/uL (0.0-0.87); Eosinophils % 0.9 % (0.00-10.9); Hematocrit 32.9 VOL% (35.7-47.0); Hemoglobin 9.9 GM/DL (12.0-16.0); Immature Granulocytes % 0.8 %; Immature Granulocytes Absolute 0.08 #; Lymphocytes # 2.9 10*3/uL (1.4-4.0); Lymphocytes % 28.8 % (21.3-54.2); Mean Corpuscular HGB Conc 30.1 GM/DL (32-36); Mean Corpuscular Volume 87.7 FL (87-102); Monocytes % 5.7 % (1.7-12.7); Neutrophils % 63.7 % (38.7-73.9); Platelet Count 490 T/CUMM (130-400); Red Blood Count 3.75 MC/CUMM (3.8-5.5); Red Cell Distribution Width 16.6 % (9.3-17.3); White Blood Count 10.1 T/CUMM (4-12)
[2021-04-09] MEDS: MORPHINE 2 MG/1 ML SYRINGE IV PRN ×2 (05:32→15:27)
[2021-04-09 05:50] LABS: Calcium 9.2 MG/DL (8.5-10.1); Osmolality,Calculated 279.3 MOS/KG (273-304)
[2021-04-09] MEDS: POTASSIUM CHLORIDE 20 MEQ TABLET PO PRN (06:05)
[2021-04-09] MEDS ORDERED: POTASSIUM CHLORIDE 20 MEQ PACK PO ONE (08:30)
[2021-04-09] MEDS: CHOLECALCIFEROL 1,000 UNIT TABLET PO SCH (10:33)
[2021-04-09] MEDS: PREGABALIN 100 MG CAPSULE PO SCH ×3 (10:33→20:42)
[2021-04-09] MEDS: ZINC GLUCONATE 50 MG TABLET PO SCH (10:33)
[2021-04-09] MEDS: OLANZapine 5 MG TABLET PO SCH ×2 (10:33→20:42)
[2021-04-09] MEDS: DIAZEPAM 5 MG TABLET PO SCH ×2 (10:33→20:42)
[2021-04-09] MEDS: ASCORBIC ACID 500 MG TABLET PO SCH ×2 (10:33→20:41)
[2021-04-09] MEDS: DILTIAZEM 90 MG TABLET PO SCH ×3 (10:34→20:39)
[2021-04-09] MEDS: CITALOPRAM 20 MG TABLET PO SCH (10:34)
[2021-04-09] MEDS: ASPIRIN CHEW 81 MG TABLET PO SCH (10:34)
[2021-04-09] MEDS: METOPROLOL TARTRATE 50 MG TABLET PO SCH ×2 (10:34→20:40)
[2021-04-09] MEDS: predniSONE 20 MG TABLET PO SCH (10:35)
[2021-04-09] MEDS: FAMOTIDINE 20 MG TABLET PO SCH ×2 (10:35→20:40)
[2021-04-09] MEDS: TOPIRAMATE 100 MG TABLET PO SCH ×2 (10:35→20:40)
[2021-04-09] MEDS: DICLOFENAC 1% GEL 100 GM TUBE TOP SCH ×3 (10:35→22:10)
[2021-04-09] MEDS: MULTIVITAMIN LIQUID (CENTRUM) 60 ML BOTTLE PO SCH (13:33)
[2021-04-09] MEDS: MENTHOL/ZINC OXIDE OINT 71 GM JAR TOP SCH ×2 (15:25→22:10)
[2021-04-09] MEDS: DIGOXIN 0.125 MG TABLET PO SCH (15:27)
[2021-04-09 15:42] LABS: % Iron Saturation 8.7 % (18-50)
[2021-04-09 15:52] LABS: Folate 13.04 NG/ML (5.38-24.0)
[2021-04-09] MEDS: oxyCODONE/ACETAMINOPHEN 5-325 MG TABLET PO PRN (18:59)
[2021-04-09] MEDS: ACETAMINOPHEN 325 MG TABLET PO PRN (20:40)
[2021-04-10] MEDS: ALBUTEROL/IPRATROPIUM 3 ML NEB RESP TX SCH ×3 (00:38→13:07)
[2021-04-10] MEDS: INSULIN LISPRO 100 UNIT/ML SUBCUT SCH ×3 (00:58→13:22)
[2021-04-10] MEDS: MORPHINE 2 MG/1 ML SYRINGE IV PRN (03:37)
[2021-04-10 05:13] LABS: Basophils % 0.2 % (0.0-0.8); Eosinophils # 0.1 10*3/uL (0.0-0.87); Eosinophils % 0.8 % (0.00-10.9); Hematocrit 36.4 VOL% (35.7-47.0); Hemoglobin 10.8 GM/DL (12.0-16.0); Immature Granulocytes % 0.9 %; Lymphocytes % 25.9 % (21.3-54.2); Mean Corpuscular HGB Conc 29.7 GM/DL (32-36); Mean Corpuscular Volume 89.2 FL (87-102); Mean Platelet Volume 10.1 FL (9.6-12.0); Monocytes % 5.1 % (1.7-12.7); Neutrophils % 67.1 % (38.7-73.9); Platelet Count 534 T/CUMM (130-400); Red Blood Count 4.08 MC/CUMM (3.8-5.5); Red Cell Distribution Width 16.8 % (9.3-17.3); White Blood Count 11.7 T/CUMM (4-12)
[2021-04-10 05:38] LABS: Calcium 9.3 MG/DL (8.5-10.1); Osmolality,Calculated 272.7 MOS/KG (273-304); Potassium 3.3 MMOL/L (3.5-5.1)
[2021-04-10] MEDS: ACETAMINOPHEN 325 MG TABLET PO PRN (05:38)
[2021-04-10] MEDS ORDERED: oxyCODONE/ACETAMINOPHEN 5-325 MG TABLET PO PRN (07:14)
[2021-04-10] MEDS ORDERED: POTASSIUM CHLORIDE 20 MEQ PACK PEG ONE (07:59)
[2021-04-10] MEDS: ZINC GLUCONATE 50 MG TABLET PO SCH (09:22)
[2021-04-10] MEDS: ASPIRIN CHEW 81 MG TABLET PO SCH (09:22)
[2021-04-10] MEDS: OLANZapine 5 MG TABLET PO SCH (09:23)
[2021-04-10] MEDS: DILTIAZEM 90 MG TABLET PO SCH ×2 (09:23→14:26)
[2021-04-10] MEDS: DIAZEPAM 5 MG TABLET PO SCH (09:23)
[2021-04-10] MEDS: predniSONE 20 MG TABLET PO SCH (09:23)
[2021-04-10] MEDS: METOPROLOL TARTRATE 50 MG TABLET PO SCH (09:23)
[2021-04-10] MEDS: PREGABALIN 100 MG CAPSULE PO SCH ×2 (09:23→14:26)
[2021-04-10] MEDS: FAMOTIDINE 20 MG TABLET PO SCH (09:23)
[2021-04-10] MEDS: ASCORBIC ACID 500 MG TABLET PO SCH (09:23)
[2021-04-10] MEDS: CHOLECALCIFEROL 1,000 UNIT TABLET PO SCH (09:23)
[2021-04-10] MEDS: CITALOPRAM 20 MG TABLET PO SCH (09:24)
[2021-04-10] MEDS: TOPIRAMATE 100 MG TABLET PO SCH (09:32)
[2021-04-10] MEDS: MENTHOL/ZINC OXIDE OINT 71 GM JAR TOP SCH (09:32)
[2021-04-10] MEDS: DICLOFENAC 1% GEL 100 GM TUBE TOP SCH ×2 (09:32→15:52)
[2021-04-10] MEDS: MULTIVITAMIN LIQUID (CENTRUM) 60 ML BOTTLE PO SCH (09:32)
[2021-04-10 11:50] VITALS: BP 100/74
[2021-04-10] MEDS: DIGOXIN 0.125 MG TABLET PO SCH (14:25)
[2021-04-10] MEDS ORDERED: TAMSULOSIN 0.4 MG CAPSULE PO SCH (16:36)
== END 2021-04-10 16:02 | disposition home health service (06) | DRG 5 ==
LOC: EDBD → EDUNIT# → N.ED 01:08 → N.EDINP 03:34 → SUATTDRO 03:34 → N.CC 12:40 → N.TELEN 03-07 14:58 → N.CC 03-10 04:47 → N.TELES 03-14 16:45 → N.CC 03-20 16:24 → N.TELEN 04-04 16:08
PROVIDERS: ADMIT Internal Medicine; ATTEND Internal Medicine
PROC: EGDWPEG (ICD-10-PCS; 2021-02-20 10:05)

== ENCOUNTER 2021-04-27 03:16 | Observation (INO) ==
[2021-04-27] MEDS ORDERED: KETOROLAC 30 MG/1 ML VIAL IV STA (04:11)
[2021-04-27 04:32] LABS: Bilirubin,Urine Negative (Negative); Blood, Urine Negative (Negative); Glucose,Urine (UA) Negative (Negative); Ketones,Urine Negative (Negative); Mucus,Urine Occasional /LPF (Occasional); Nitrite,Urine Negative (Negative); Protein,Urine Negative; RBC,Urine 9 /HPF (0-4); Squamous Epithelial Cell,Urine Occasional /HPF (0-10); Urine Appearance CLEAR (Clear); Urine Color Yellow (Yellow); Urine Specific Gravity 1.021 (1.001-1.035)
[2021-04-27 04:45] LABS: Alanine Aminotransferase 28 U/L (13-56); Albumin 2.8 G/DL (3.4-5.0); Alkaline Phosphatase 67 U/L (45-117); Aspartate Amino Transferase 10 U/L (0-37); Bilirubin,Total < 0.39 MG/DL (0.20-1.00); Blood Urea Nitrogen 11 MG/DL (7-18); Calcium 9.1 MG/DL (8.5-10.1); Carbon Dioxide 29 MMOL/L (21-32); Estimated Glom Filtration Rate 187 ML/MIN; Glucose 102 MG/DL (74-106); Osmolality,Calculated 277.4 MOS/KG (273-304); Potassium 3.2 MMOL/L (3.5-5.1); Sodium 140 MMOL/L (136-145); Total Protein 6.2 G/DL (6.4-8.2)
[2021-04-27 04:47] LABS: Basophils % 0.2 % (0.0-0.8); Eosinophils # 0.2 10*3/uL (0.0-0.87); Eosinophils % 1.9 % (0.00-10.9); Hematocrit 40.4 VOL% (35.7-47.0); Hemoglobin 11.9 GM/DL (12.0-16.0); Immature Granulocytes % 0.6 %; Immature Granulocytes Absolute 0.06 #; Lymphocytes # 3.2 10*3/uL (1.4-4.0); Lymphocytes % 32.1 % (21.3-54.2); Mean Corpuscular HGB Conc 29.5 GM/DL (32-36); Mean Corpuscular Volume 88.2 FL (87-102); Mean Platelet Volume 9.7 FL (9.6-12.0); Monocytes % 7.3 % (1.7-12.7); NRBC # 0.02 10*3/uL; Neutrophils % 57.9 % (38.7-73.9); Platelet Count 374 T/CUMM (130-400); Red Blood Count 4.58 MC/CUMM (3.8-5.5); Red Cell Distribution Width 17.3 % (9.3-17.3); White Blood Count 9.9 T/CUMM (4-12)
[2021-04-27] MEDS ORDERED: POTASSIUM CHLORIDE 20 MEQ TABLET PO STA (08:15)
[2021-04-27 09:37] LABS: Barbiturates Screen,Urine Negative (Negative); Benzodiazepines Screen,Urine Positive (Negative); Cannabinoid Screen,Urine Negative (Negative); Opiate Screen,Urine Positive (Negative); Phencyclidine Screen,Urine Negative (Negative)
[2021-04-27] MEDS ORDERED: DEXTROSE 50% 25 GM/50 ML VIAL IV PRN (10:31)
[2021-04-27] MEDS ORDERED: MAGNESIUM SULF RIDER 2 GM/50 ML PREMIX IV PRN (10:31)
[2021-04-27] MEDS ORDERED: GLUCAGON 1 MG VIAL IM PRN (10:31)
[2021-04-27] MEDS ORDERED: ACETAMINOPHEN 325 MG TABLET PO PRN (10:31)
[2021-04-27] MEDS ORDERED: hydrALAZINE 20 MG/1 ML VIAL IV PRN (10:31)
[2021-04-27] MEDS ORDERED: MAGNESIUM SULF RIDER 4 GM/100 ML PREMIX IV PRN (10:31)
[2021-04-27] MEDS ORDERED: MAGNESIUM HYDROXIDE SUSP 30 ML UDCUP PO ONE (10:44)
[2021-04-27 11:11] LABS: Risk Ratio 4.12; Thyroid Stimulating Hormone 1.15 uIU/ml (0.358-3.74); VLDL Cholesterol 50.8 MG/DL
[2021-04-27] MEDS: ENOXAPARIN 40 MG/0.4 ML SYRINGE SUBCUT SCH (11:20)
[2021-04-27] MEDS: PIPERACILLIN/TAZOBACTAM 3,375 MG in SODIUM CHLORIDE 0.9% 100 ML IV SCH ×2 (11:28→20:37)
[2021-04-27] MEDS: INSULIN LISPRO 100 UNIT/ML SUBCUT SCH ×3 (12:14→20:38)
[2021-04-27] MEDS: ONDANSETRON 4 MG/2 ML VIAL IV PRN ×3 (13:52→22:13)
[2021-04-27] MEDS: DOCUSATE SODIUM 100 MG CAPSULE PO SCH (20:37)
[2021-04-27] MEDS ORDERED: oxyCODONE/ACETAMINOPHEN 5-325 MG TABLET PO PRN (21:38)
[2021-04-27] MEDS: oxyCODONE/ACETAMINOPHEN 5-325 MG TABLET PO SCH (22:13)
[2021-04-28] MEDS: PIPERACILLIN/TAZOBACTAM 3,375 MG in SODIUM CHLORIDE 0.9% 100 ML IV SCH (05:05)
[2021-04-28 05:25] LABS: Basophils % 0.4 % (0.0-0.8); Eosinophils # 0.1 10*3/uL (0.0-0.87); Eosinophils % 1.7 % (0.00-10.9); Hematocrit 39.5 VOL% (35.7-47.0); Immature Granulocytes % 0.7 %; Immature Granulocytes Absolute 0.05 #; Lymphocytes # 2.7 10*3/uL (1.4-4.0); Lymphocytes % 35.4 % (21.3-54.2); Mean Corpuscular HGB Conc 29.1 GM/DL (32-36); Monocytes % 8.2 % (1.7-12.7); Neutrophils % 53.6 % (38.7-73.9); Platelet Count 347 T/CUMM (130-400); Red Blood Count 4.44 MC/CUMM (3.8-5.5); Red Cell Distribution Width 17.1 % (9.3-17.3); White Blood Count 7.6 T/CUMM (4-12)
[2021-04-28 05:42] LABS: Calcium 9.1 MG/DL (8.5-10.1); Osmolality,Calculated 273.7 MOS/KG (273-304); Potassium 3.3 MMOL/L (3.5-5.1)
[2021-04-28 05:52] LABS: Hemoglobin 11.5 GM/DL (12.0-16.0)
[2021-04-28] MEDS: INSULIN LISPRO 100 UNIT/ML SUBCUT SCH ×2 (07:30→11:31)
[2021-04-28] MEDS: DOCUSATE SODIUM 100 MG CAPSULE PO SCH (08:46)
[2021-04-28] MEDS: ONDANSETRON 4 MG/2 ML VIAL IV PRN (08:46)
[2021-04-28] MEDS: oxyCODONE/ACETAMINOPHEN 5-325 MG TABLET PO SCH (08:46)
[2021-04-28] MEDS ORDERED: ASPIRIN CHEW 81 MG TABLET PO SCH (09:00)
[2021-04-28] MEDS ORDERED: MORPHINE ER 15 MG TABLET PO ONE (09:53)
[2021-04-28] MEDS ORDERED: MELATONIN 3 MG TABLET PO PRN (10:50)
[2021-04-28] MEDS ORDERED: TAMSULOSIN 0.4 MG CAPSULE PO SCH (11:00)
[2021-04-28] MEDS ORDERED: POTASSIUM CHLORIDE 20 MEQ TABLET PO SCH (11:00)
[2021-04-28] MEDS ORDERED: CITALOPRAM 20 MG TABLET PO SCH (11:00)
[2021-04-28] MEDS ORDERED: CETIRIZINE 10 MG TABLET PO SCH (11:00)
[2021-04-28] MEDS ORDERED: OLANZapine 5 MG TABLET PO SCH (11:00)
[2021-04-28] MEDS ORDERED: ALBUTEROL/IPRATROPIUM 3 ML NEB RESP TX PRN (11:01)
[2021-04-28] MEDS ORDERED: PREGABALIN 100 MG CAPSULE PO SCH (11:30)
[2021-04-28] MEDS ORDERED: DIGOXIN 0.125 MG TABLET PO SCH (11:30)
[2021-04-28] MEDS: ENOXAPARIN 40 MG/0.4 ML SYRINGE SUBCUT SCH (12:11)
[2021-04-28] MEDS ORDERED: FUROSEMIDE 20 MG TABLET PO ONE (12:27)
[2021-04-28] MEDS ORDERED: DICLOFENAC 1% GEL 100 GM TUBE TOP SCH (15:00)
[2021-04-28] MEDS ORDERED: DILTIAZEM 90 MG TABLET PO SCH (15:00)
[2021-04-28 16:44] VITALS: BP 111/53
[2021-04-28] MEDS ORDERED: [UNRECOGNIZED DRUG - OTHER] PO SCH (21:00)
[2021-04-28] MEDS ORDERED: TOPIRAMATE 100 MG PO SCH (21:00)
[2021-04-28] MEDS ORDERED: DIAZEPAM 5 MG TABLET PO SCH (21:00)
== END 2021-04-28 17:17 | disposition home or self-care (01) ==
LOC: N.ED 03:16 → N.5E 03:16
PROVIDERS: ADMIT Internal Medicine; ATTEND Internal Medicine

== ENCOUNTER 2021-05-12 09:05 | Inpatient (IN) ==
[2021-05-12] MEDS ORDERED: SODIUM CHLORIDE 0.9% 500 ML IV STA (09:39)
[2021-05-12 10:26] LABS: Basophils % 0.5 % (0.0-0.8); Eosinophils # 0.2 10*3/uL (0.0-0.87); Hematocrit 34.9 VOL% (35.7-47.0); Hemoglobin 10.4 GM/DL (12.0-16.0); Immature Granulocytes % 0.5 %; Immature Granulocytes Absolute 0.04 #; Lymphocytes # 2.1 10*3/uL (1.4-4.0); Lymphocytes % 27.1 % (21.3-54.2); Mean Corpuscular HGB Conc 29.8 GM/DL (32-36); Mean Corpuscular Volume 86.8 FL (87-102); Mean Platelet Volume 10.2 FL (9.6-12.0); Monocytes % 3.5 % (1.7-12.7); NRBC # 0.03 10*3/uL; Neutrophils % 65.4 % (38.7-73.9); Platelet Count 420 T/CUMM (130-400); Red Blood Count 4.02 MC/CUMM (3.8-5.5); Red Cell Distribution Width 17.5 % (9.3-17.3); White Blood Count 7.9 T/CUMM (4-12)
[2021-05-12 10:51] LABS: Alanine Aminotransferase 33 U/L (13-56); Albumin 2.3 G/DL (3.4-5.0); Alkaline Phosphatase 65 U/L (45-117); Aspartate Amino Transferase 24 U/L (0-37); Bilirubin,Total < 0.39 MG/DL (0.20-1.00); Blood Urea Nitrogen 10 MG/DL (7-18); Calcium 8.8 MG/DL (8.5-10.1); Carbon Dioxide 32 MMOL/L (21-32); Estimated Glom Filtration Rate 253 ML/MIN; Glucose 111 MG/DL (74-106); Osmolality,Calculated 280.3 MOS/KG (273-304); Sodium 141 MMOL/L (136-145); Total Protein 5.2 G/DL (6.4-8.2)
[2021-05-12] MEDS ORDERED: cefTRIAXone 1,000 MG in SODIUM CHLORIDE 0.9% 100 ML IV STA (11:21)
[2021-05-12 11:29] LABS: Sedimentation Rate-Westergren 29 MM/HR (0-20)
[2021-05-12] MEDS ORDERED: POLYETHYLENE GLYCOL POWDER 17 GM PACK PO PRN (12:15)
[2021-05-12] MEDS ORDERED: DOCUSATE SODIUM 100 MG CAPSULE PO PRN (12:15)
[2021-05-12] MEDS ORDERED: MELATONIN 3 MG TABLET PO PRN (12:15)
[2021-05-12] MEDS ORDERED: ONDANSETRON 4 MG/2 ML VIAL IV PRN (12:36)
[2021-05-12] MEDS ORDERED: AZITHROMYCIN INJ 500 MG in SODIUM CHLORIDE 0.9% 250 ML IV SCH (13:00)
[2021-05-12] MEDS ORDERED: PANTOPRAZOLE 40 MG VIAL IV SCH (13:00)
[2021-05-12] MEDS: HEPARIN 5,000 UNIT/1 ML VIAL SUBCUT SCH ×2 (13:18→21:03)
[2021-05-12] MEDS: FUROSEMIDE 40 MG/4 ML VIAL IV SCH ×2 (13:19→21:04)
[2021-05-12] MEDS ORDERED: INFLUENZA VIRUS VACCINE 0.5 ML SYRINGE IM ONE (14:14)
[2021-05-12] MEDS ORDERED: PNEUMOCOCCAL VACCINE (13 VALENT) 0.5 ML SYRINGE IM ONE (14:17)
[2021-05-12] MEDS ORDERED: ACETYLCYSTEINE 20% 800 MG/4 ML VIAL RESP TX SCH (15:00)
[2021-05-12] MEDS: oxyCODONE/ACETAMINOPHEN 5-325 MG TABLET PO PRN ×2 (15:22→23:36)
[2021-05-12] MEDS: PREGABALIN 100 MG CAPSULE PO SCH ×2 (15:22→21:05)
[2021-05-12 15:27] LABS: Bilirubin,Urine Negative (Negative); Blood, Urine Negative (Negative); Glucose,Urine (UA) Negative (Negative); Ketones,Urine Negative (Negative); Nitrite,Urine Negative (Negative); Protein,Urine Negative; Squamous Epithelial Cell,Urine Occasional /HPF (0-10); Urine Appearance CLEAR (Clear); Urine Color Colorless (Yellow); Urine Specific Gravity 1.004 (1.001-1.035); Urine Urobilinogen < 2.0 EU/DL (0.2-1.0)
[2021-05-12] MEDS: methylPREDNISolone SOD SUC 40 MG/1 ML VIAL IV SCH (16:43)
[2021-05-12] MEDS: MEROPENEM 500 MG in SODIUM CHLORIDE 0.9% 100 ML IV SCH ×2 (16:43→21:04)
[2021-05-12 17:30] LABS: ABG Base Excess 4.4 MMOL/L (-2.5-2.5); ABG HCO3 28.3 MMOL/L (20-26); ABG Oxygen Saturation 94.3 % (95-100); ABG PH 7.385 (7.35-7.45); ABG PO2 79.2 MM HG (80-95); ABG TCO2 27.2 MMOL/L (23-27)
[2021-05-12] MEDS: VANCOMYCIN INJ 1,750 MG in SODIUM CHLORIDE 0.9% 500 ML IV SCH (17:36)
[2021-05-12] MEDS: ALBUTEROL/IPRATROPIUM 3 ML NEB RESP TX SCH ×2 (18:45→19:00)
[2021-05-12] MEDS: ACETYLCYSTEINE 20% 800 MG/4 ML VIAL RESP TX SCH (19:00)
[2021-05-12] MEDS: ASCORBIC ACID 500 MG TABLET PO SCH (21:05)
[2021-05-13] MEDS: [UNRECOGNIZED DRUG - OTHER] PO SCH ×2 (01:03→20:50)
[2021-05-13] MEDS: TOPIRAMATE 100 MG PO SCH ×2 (01:03→20:50)
[2021-05-13] MEDS: methylPREDNISolone SOD SUC 40 MG/1 ML VIAL IV SCH ×3 (01:09→17:02)
[2021-05-13] MEDS ORDERED: MORPHINE IR 15 MG TABLET PO PRN (01:45)
[2021-05-13] MEDS: ALBUTEROL/IPRATROPIUM 3 ML NEB RESP TX SCH ×3 (03:07→14:23)
[2021-05-13] MEDS ORDERED: KETOROLAC 30 MG/1 ML VIAL IV ONE (03:44)
[2021-05-13] MEDS: MEROPENEM 500 MG in SODIUM CHLORIDE 0.9% 100 ML IV SCH ×4 (04:14→22:49)
[2021-05-13] MEDS: HEPARIN 5,000 UNIT/1 ML VIAL SUBCUT SCH ×3 (04:15→20:14)
[2021-05-13] MEDS: VANCOMYCIN INJ 1,750 MG in SODIUM CHLORIDE 0.9% 500 ML IV SCH ×2 (04:15→19:00)
[2021-05-13 06:31] LABS: Basophils % 0.1 % (0.0-0.8); Hematocrit 37.2 VOL% (35.7-47.0); Hemoglobin 11.1 GM/DL (12.0-16.0); Immature Granulocytes % 1.4 %; Lymphocytes # 2.2 10*3/uL (1.4-4.0); Lymphocytes % 29.3 % (21.3-54.2); Mean Corpuscular HGB Conc 29.8 GM/DL (32-36); Mean Corpuscular Volume 85.5 FL (87-102); Mean Platelet Volume 10.3 FL (9.6-12.0); NRBC # 0.06 10*3/uL; Neutrophils % 68.2 % (38.7-73.9); Platelet Count 502 T/CUMM (130-400); Red Blood Count 4.35 MC/CUMM (3.8-5.5); Red Cell Distribution Width 17.2 % (9.3-17.3); White Blood Count 7.4 T/CUMM (4-12)
[2021-05-13 06:34] LABS: Calcium 8.3 MG/DL (8.5-10.1); Osmolality,Calculated 282.3 MOS/KG (273-304); Potassium 3.1 MMOL/L (3.5-5.1)
[2021-05-13] MEDS: oxyCODONE/ACETAMINOPHEN 5-325 MG TABLET PO PRN ×3 (07:13→20:14)
[2021-05-13] MEDS: ACETYLCYSTEINE 20% 800 MG/4 ML VIAL RESP TX SCH (08:05)
[2021-05-13] MEDS: FUROSEMIDE 40 MG/4 ML VIAL IV SCH (08:49)
[2021-05-13] MEDS: ASPIRIN CHEW 81 MG TABLET PO SCH (08:50)
[2021-05-13] MEDS: ASCORBIC ACID 500 MG TABLET PO SCH ×2 (08:50→20:12)
[2021-05-13] MEDS: CETIRIZINE 10 MG TABLET PO SCH (08:50)
[2021-05-13] MEDS: POTASSIUM CHLORIDE 20 MEQ TABLET PO SCH (08:50)
[2021-05-13] MEDS: PREGABALIN 100 MG CAPSULE PO SCH ×3 (08:50→20:12)
[2021-05-13] MEDS: CHOLECALCIFEROL 1,000 UNIT TABLET PO SCH (08:54)
[2021-05-13] MEDS ORDERED: cefTRIAXone 1,000 MG in SODIUM CHLORIDE 0.9% 100 ML IV SCH (11:30)
[2021-05-13] MEDS: MORPHINE IR 15 MG TABLET PO SCH ×2 (12:28→20:13)
[2021-05-13] MEDS: IBUPROFEN 400 MG TABLET PO SCH ×3 (12:28→22:49)
[2021-05-13] MEDS: MENTHOL/ZINC OXIDE OINT 71 GM JAR TOP SCH (20:14)
[2021-05-13] MEDS ORDERED: diphenhydrAMINE CAP 25 MG CAPSULE PO PRN (23:19)
[2021-05-14] MEDS: methylPREDNISolone SOD SUC 40 MG/1 ML VIAL IV SCH
[2021-05-14] MEDS: ALBUTEROL/IPRATROPIUM 3 ML NEB RESP TX SCH ×5 (00:30→20:25)
[2021-05-14] MEDS: ACETYLCYSTEINE 20% 800 MG/4 ML VIAL RESP TX SCH ×3 (00:30→20:25)
[2021-05-14] MEDS: oxyCODONE/ACETAMINOPHEN 5-325 MG TABLET PO PRN ×4 (02:53→20:34)
[2021-05-14] MEDS: MEROPENEM 500 MG in SODIUM CHLORIDE 0.9% 100 ML IV SCH ×4 (04:06→20:34)
[2021-05-14] MEDS: IBUPROFEN 400 MG TABLET PO SCH ×4 (04:06→22:14)
[2021-05-14] MEDS: VANCOMYCIN INJ 1,750 MG in SODIUM CHLORIDE 0.9% 500 ML IV SCH (04:41)
[2021-05-14] MEDS: HEPARIN 5,000 UNIT/1 ML VIAL SUBCUT SCH ×3 (04:41→20:35)
[2021-05-14 06:55] LABS: Osmolality,Calculated 283.3 MOS/KG (273-304); Potassium 3.1 MMOL/L (3.5-5.1)
[2021-05-14 06:57] LABS: Basophils % 0.1 % (0.0-0.8); Hematocrit 32.4 VOL% (35.7-47.0); Hemoglobin 9.5 GM/DL (12.0-16.0); Immature Granulocytes % 1.1 %; Immature Granulocytes Absolute 0.11 #; Lymphocytes # 1.6 10*3/uL (1.4-4.0); Lymphocytes % 16.1 % (21.3-54.2); Mean Corpuscular HGB Conc 29.3 GM/DL (32-36); Mean Corpuscular Volume 88.3 FL (87-102); Mean Platelet Volume 10.8 FL (9.6-12.0); Monocytes % 4.5 % (1.7-12.7); NRBC # 0.03 10*3/uL; Neutrophils % 78.2 % (38.7-73.9); Platelet Count 467 T/CUMM (130-400); Red Blood Count 3.67 MC/CUMM (3.8-5.5); Red Cell Distribution Width 17.3 % (9.3-17.3); White Blood Count 9.8 T/CUMM (4-12)
[2021-05-14 07:06] LABS: Platelet Estimate Normal; Tear Drop Cells Few
[2021-05-14] MEDS ORDERED: MAGNESIUM SULF RIDER 4 GM/100 ML PREMIX IV ONE (08:15)
[2021-05-14] MEDS: MORPHINE IR 15 MG TABLET PO SCH ×2 (08:49→20:29)
[2021-05-14] MEDS: ASCORBIC ACID 500 MG TABLET PO SCH ×2 (08:50→20:27)
[2021-05-14] MEDS: CHOLECALCIFEROL 1,000 UNIT TABLET PO SCH (08:50)
[2021-05-14] MEDS: PANTOPRAZOLE 40 MG TABLET PO SCH (08:51)
[2021-05-14] MEDS: ASPIRIN CHEW 81 MG TABLET PO SCH (08:51)
[2021-05-14] MEDS: CETIRIZINE 10 MG TABLET PO SCH (08:52)
[2021-05-14] MEDS: PREGABALIN 100 MG CAPSULE PO SCH ×3 (08:52→20:27)
[2021-05-14] MEDS: POTASSIUM CHLORIDE 20 MEQ TABLET PO SCH ×4 (08:52→15:36)
[2021-05-14] MEDS: FUROSEMIDE 40 MG TABLET PO SCH (08:54)
[2021-05-14] MEDS ORDERED: FUROSEMIDE 20 MG TABLET PO SCH (09:00)
[2021-05-14] MEDS: MENTHOL/ZINC OXIDE OINT 71 GM JAR TOP SCH ×2 (09:54→20:35)
[2021-05-14] MEDS ORDERED: methylPREDNISolone SOD SUC 40 MG/1 ML VIAL IV SCH (12:00)
[2021-05-14] MEDS: [UNRECOGNIZED DRUG - OTHER] PO SCH (22:27)
[2021-05-14] MEDS: TOPIRAMATE 100 MG PO SCH (22:27)
[2021-05-15] MEDS: ALBUTEROL/IPRATROPIUM 3 ML NEB RESP TX SCH ×3 (00:30→13:15)
[2021-05-15] MEDS: oxyCODONE/ACETAMINOPHEN 5-325 MG TABLET PO PRN ×2 (02:19→09:07)
[2021-05-15] MEDS: MEROPENEM 500 MG in SODIUM CHLORIDE 0.9% 100 ML IV SCH ×3 (02:30→16:50)
[2021-05-15] MEDS: IBUPROFEN 400 MG TABLET PO SCH ×3 (05:18→16:49)
[2021-05-15] MEDS: HEPARIN 5,000 UNIT/1 ML VIAL SUBCUT SCH ×2 (05:18→12:44)
[2021-05-15 05:35] LABS: Osmolality,Calculated 284.8 MOS/KG (273-304); Potassium 4.3 MMOL/L (3.5-5.1)
[2021-05-15 06:10] LABS: Basophils % 0.2 % (0.0-0.8); Eosinophils % 0.2 % (0.00-10.9); Hematocrit 34.1 VOL% (35.7-47.0); Immature Granulocytes % 0.9 %; Lymphocytes # 3.4 10*3/uL (1.4-4.0); Lymphocytes % 31.6 % (21.3-54.2); Mean Corpuscular HGB Conc 28.7 GM/DL (32-36); Mean Corpuscular Volume 90.5 FL (87-102); Mean Platelet Volume 10.5 FL (9.6-12.0); Monocytes % 8.7 % (1.7-12.7); NRBC # 0.04 10*3/uL; Neutrophils % 58.4 % (38.7-73.9); Platelet Count 420 T/CUMM (130-400); Red Blood Count 3.77 MC/CUMM (3.8-5.5); Red Cell Distribution Width 17.6 % (9.3-17.3); White Blood Count 10.8 T/CUMM (4-12)
[2021-05-15 06:13] LABS: Hemoglobin 9.8 GM/DL (12.0-16.0)
[2021-05-15 06:24] LABS: Anisocytosis 1+; Platelet Estimate Normal
[2021-05-15 06:25] LABS: Macrocytosis Slight
[2021-05-15] MEDS: ACETYLCYSTEINE 20% 800 MG/4 ML VIAL RESP TX SCH (07:10)
[2021-05-15] MEDS ORDERED: MORPHINE ER 15 MG TABLET PO SCH (09:00)
[2021-05-15] MEDS ORDERED: predniSONE 20 MG TABLET PO SCH (09:00)
[2021-05-15] MEDS: CETIRIZINE 10 MG TABLET PO SCH (09:04)
[2021-05-15] MEDS: CHOLECALCIFEROL 1,000 UNIT TABLET PO SCH (09:04)
[2021-05-15] MEDS: PREGABALIN 100 MG CAPSULE PO SCH ×2 (09:05→16:49)
[2021-05-15] MEDS: ASPIRIN CHEW 81 MG TABLET PO SCH (09:05)
[2021-05-15] MEDS: FUROSEMIDE 40 MG TABLET PO SCH (09:05)
[2021-05-15] MEDS: ASCORBIC ACID 500 MG TABLET PO SCH (09:06)
[2021-05-15] MEDS: PANTOPRAZOLE 40 MG TABLET PO SCH (09:06)
[2021-05-15] MEDS: MENTHOL/ZINC OXIDE OINT 71 GM JAR TOP SCH (09:06)
[2021-05-15] MEDS: POTASSIUM CHLORIDE 20 MEQ TABLET PO SCH (09:06)
[2021-05-15 12:07] VITALS: BP 123/81
== END 2021-05-15 17:15 | disposition home health service (06) | DRG 133 ==
LOC: EDUNIT# → EDBD → N.ED 09:05 → N.EDINP 12:36 → SUATTDRO 12:36 → N.ICU 13:35 → N.5E 05-14 10:33
PROVIDERS: ADMIT Internal Medicine; ATTEND Internal Medicine

== ENCOUNTER 2021-11-11 12:16 | Observation (INO) ==
[2021-11-11] MEDS ORDERED: ACETAMINOPHEN 325 MG TABLET PO PRN (13:06)
[2021-11-11] MEDS ORDERED: GLUCAGON 1 MG VIAL IM PRN (13:06)
[2021-11-11] MEDS ORDERED: ONDANSETRON 4 MG/2 ML VIAL IV PRN (13:06)
[2021-11-11] MEDS ORDERED: DEXTROSE 10% 250 ML BAG IV PRN (13:06)
[2021-11-11] MEDS ORDERED: POTASSIUM CHLORIDE RIDER 10 MEQ/100 ML PREMIX IV PRN (13:06)
[2021-11-11] MEDS ORDERED: MAGNESIUM SULF RIDER 4 GM/100 ML PREMIX IV PRN (13:06)
[2021-11-11] MEDS ORDERED: MAGNESIUM SULF RIDER 2 GM/50 ML PREMIX IV PRN (13:06)
[2021-11-11] MEDS ORDERED: POTASSIUM CHLORIDE 20 MEQ TABLET PO PRN (13:09)
[2021-11-11] MEDS ORDERED: hydrALAZINE 20 MG/1 ML VIAL IV PRN (13:13)
[2021-11-11] MEDS ORDERED: cloNIDine 0.1 MG TABLET PO PRN (13:13)
[2021-11-11] MEDS ORDERED: POLYETHYLENE GLYCOL POWDER 17 GM PACK PO PRN (13:57)
[2021-11-11] MEDS ORDERED: MELATONIN 3 MG TABLET PO PRN (13:57)
[2021-11-11] MEDS ORDERED: cloNIDine 0.1 MG TABLET PO SCH (14:00)
[2021-11-11] MEDS: METOPROLOL TARTRATE 50 MG TABLET PO SCH ×2 (14:39→21:06)
[2021-11-11] MEDS: PANTOPRAZOLE 40 MG TABLET PO SCH (14:39)
[2021-11-11] MEDS: LOSARTAN 25 MG TABLET PO SCH (14:39)
[2021-11-11 14:47] LABS: Basophils % 0.5 % (0.0-0.8); Eosinophils # 0.3 10*3/uL (0.0-0.87); Hematocrit 34.7 VOL% (35.7-47.0); Hemoglobin 10.9 GM/DL (12.0-16.0); Immature Granulocytes % 0.2 %; Immature Granulocytes Absolute 0.01 #; Lymphocytes # 3.2 10*3/uL (1.4-4.0); Lymphocytes % 52.2 % (21.3-54.2); Mean Corpuscular HGB Conc 31.4 GM/DL (32-36); Mean Corpuscular Volume 83.4 FL (87-102); Monocytes # 0.3 10*3/uL (0.11-0.8); Monocytes % 5.4 % (1.7-12.7); Neutrophils % 36.7 % (38.7-73.9); Platelet Count 323 T/CUMM (130-400); Red Blood Count 4.16 MC/CUMM (3.8-5.5); Red Cell Distribution Width 15.7 % (9.3-17.3); White Blood Count 6.2 T/CUMM (4-12)
[2021-11-11 14:51] LABS: Bilirubin,Urine Negative (Negative); Blood, Urine Negative (Negative); Glucose,Urine (UA) Negative (Negative); Ketones,Urine Negative (Negative); Nitrite,Urine Negative (Negative); Protein,Urine Negative (Negative); Urine Appearance Clear (Clear); Urine Color Yellow (Yellow)
[2021-11-11 14:52] LABS: Urine Urobilinogen 0.2 eU/dL (<2.0)
[2021-11-11 14:53] LABS: Bacteria,Urine Occasional /HPF (Few); RBC,Urine <1 /HPF (0-4); Squamous Epithelial Cell,Urine Occasional /HPF (0-10)
[2021-11-11 15:09] LABS: Alanine Aminotransferase 19 U/L (13-56); Albumin 3.1 G/DL (3.4-5.0); Alkaline Phosphatase 71 U/L (45-117); Aspartate Amino Transferase 20 U/L (0-37); Bilirubin,Total < 0.39 MG/DL (0.20-1.00); Blood Urea Nitrogen 5 MG/DL (7-18); Calcium 9.2 MG/DL (8.5-10.1); Carbon Dioxide 30 MMOL/L (21-32); Chloride 106 MMOL/L (98-107); Glucose 88 MG/DL (74-106); Osmolality,Calculated 274.4 MOS/KG (273-304); Potassium 3.8 MMOL/L (3.5-5.1); Sodium 140 MMOL/L (136-145); Total Protein 7.4 G/DL (6.4-8.2)
[2021-11-11 15:41] LABS: Eosinophils 5 % (0-10); Lymphocytes 49 % (20-55); Platelet Estimate Normal; Total Cells Counted 100
[2021-11-11] MEDS: MORPHINE ER 15 MG TABLET PO SCH (15:50)
[2021-11-11] MEDS: INSULIN LISPRO 100 UNIT/ML SUBCUT SCH ×2 (15:50→20:56)
[2021-11-11 15:54] LABS: Barbiturates Screen,Urine Negative (Negative); Benzodiazepines Screen,Urine Negative (Negative); Cannabinoid Screen,Urine Negative (Negative); Opiate Screen,Urine Positive (Negative); Phencyclidine Screen,Urine Negative (Negative)
[2021-11-11] MEDS ORDERED: ENOXAPARIN 40 MG/0.4 ML SYRINGE SUBCUT SCH (16:00)
[2021-11-11] MEDS: ALBUTEROL/IPRATROPIUM 3 ML NEB RESP TX SCH ×2 (16:49→20:20)
[2021-11-11] MEDS: oxyCODONE/ACETAMINOPHEN 5-325 MG TABLET PO PRN (18:50)
[2021-11-11] MEDS: DOCUSATE SODIUM 100 MG CAPSULE PO SCH (21:06)
[2021-11-11] MEDS: ASCORBIC ACID 500 MG TABLET PO SCH (21:07)
[2021-11-12] MEDS: ALBUTEROL/IPRATROPIUM 3 ML NEB RESP TX SCH ×4 (00:21→10:32)
[2021-11-12] MEDS: oxyCODONE/ACETAMINOPHEN 5-325 MG TABLET PO PRN ×2 (02:19→12:20)
[2021-11-12] MEDS: MORPHINE ER 15 MG TABLET PO SCH (05:15)
[2021-11-12 05:57] LABS: Basophils % 0.5 % (0.0-0.8); Eosinophils # 0.3 10*3/uL (0.0-0.87); Eosinophils % 4.4 % (0.00-10.9); Hematocrit 32.7 VOL% (35.7-47.0); Hemoglobin 10.2 GM/DL (12.0-16.0); Immature Granulocytes % 0.2 %; Immature Granulocytes Absolute 0.01 #; Lymphocytes # 3.2 10*3/uL (1.4-4.0); Lymphocytes % 53.3 % (21.3-54.2); Mean Corpuscular HGB Conc 31.2 GM/DL (32-36); Mean Corpuscular Volume 83.8 FL (87-102); Mean Platelet Volume 11.1 FL (9.6-12.0); Monocytes # 0.3 10*3/uL (0.11-0.8); Monocytes % 5.4 % (1.7-12.7); Neutrophils % 36.2 % (38.7-73.9); Platelet Count 338 T/CUMM (130-400); Red Cell Distribution Width 15.8 % (9.3-17.3)
[2021-11-12 06:19] LABS: Eosinophils 8 % (0-10); Hypochromia Slight; Lymphocytes 45 % (20-55); Platelet Estimate Adequate; Total Cells Counted 100
[2021-11-12 06:20] LABS: Microcytosis Slight
[2021-11-12 06:21] LABS: Alanine Aminotransferase 15 U/L (13-56); Albumin 2.8 G/DL (3.4-5.0); Alkaline Phosphatase 66 U/L (45-117); Aspartate Amino Transferase 15 U/L (0-37); Bilirubin,Total < 0.39 MG/DL (0.20-1.00); Blood Urea Nitrogen 6 MG/DL (7-18); Calcium 9.1 MG/DL (8.5-10.1); Carbon Dioxide 28 MMOL/L (21-32); Chloride 105 MMOL/L (98-107); Glucose 104 MG/DL (74-106); Osmolality,Calculated 274.5 MOS/KG (273-304); Potassium 3.3 MMOL/L (3.5-5.1); Sodium 139 MMOL/L (136-145); Total Protein 6.8 G/DL (6.4-8.2)
[2021-11-12] MEDS: LOSARTAN 25 MG TABLET PO SCH (08:11)
[2021-11-12] MEDS: METOPROLOL TARTRATE 50 MG TABLET PO SCH (08:11)
[2021-11-12] MEDS: PANTOPRAZOLE 40 MG TABLET PO SCH (08:11)
[2021-11-12] MEDS: ASCORBIC ACID 500 MG TABLET PO SCH (08:11)
[2021-11-12] MEDS: DOCUSATE SODIUM 100 MG CAPSULE PO SCH (08:11)
[2021-11-12] MEDS: INSULIN LISPRO 100 UNIT/ML SUBCUT SCH ×2 (08:43→12:20)
[2021-11-12] MEDS ORDERED: POTASSIUM CHLORIDE 20 MEQ TABLET PO SCH (09:00)
[2021-11-12] MEDS ORDERED: ESCITALOPRAM 10 MG TABLET PO SCH (09:00)
[2021-11-12] MEDS ORDERED: ASPIRIN CHEW 81 MG TABLET PO SCH (09:00)
== END 2021-11-12 15:38 | disposition home health service (06) ==
LOC: INTOOBSV 12:22 → N.ICU 12:22
PROVIDERS: ADMIT Family Medicine; ATTEND Family Medicine

== ENCOUNTER 2021-12-14 17:06 | Observation (INO) ==
[2021-12-14 18:17] LABS: Basophils % 0.5 % (0.0-0.8); Eosinophils # 0.2 10*3/uL (0.0-0.87); Eosinophils % 3.7 % (0.00-10.9); Hematocrit 37.1 VOL% (35.7-47.0); Hemoglobin 11.2 GM/DL (12.0-16.0); Immature Granulocytes % 0.4 %; Immature Granulocytes Absolute 0.02 #; Lymphocytes # 2.9 10*3/uL (1.4-4.0); Lymphocytes % 50.6 % (21.3-54.2); Mean Corpuscular HGB Conc 30.2 GM/DL (32-36); Mean Corpuscular Volume 87.5 FL (87-102); Mean Platelet Volume 10.7 FL (9.6-12.0); Monocytes # 0.3 10*3/uL (0.11-0.8); Monocytes % 5.1 % (1.7-12.7); Neutrophils % 39.7 % (38.7-73.9); Platelet Count 326 T/CUMM (130-400); Red Blood Count 4.24 MC/CUMM (3.8-5.5); Red Cell Distribution Width 14.6 % (9.3-17.3); White Blood Count 5.7 T/CUMM (4-12)
[2021-12-14 18:27] LABS: Alanine Aminotransferase 22 U/L (13-56); Albumin 3.2 G/DL (3.4-5.0); Alkaline Phosphatase 81 U/L (45-117); Aspartate Amino Transferase 19 U/L (0-37); Bilirubin,Total < 0.39 MG/DL (0.20-1.00); Blood Urea Nitrogen 7 MG/DL (7-18); Calcium 9.5 MG/DL (8.5-10.1); Carbon Dioxide 32 MMOL/L (21-32); Chloride 103 MMOL/L (98-107); Glucose 99 MG/DL (74-106); Osmolality,Calculated 276.4 MOS/KG (273-304); Potassium 4.1 MMOL/L (3.5-5.1); Sodium 140 MMOL/L (136-145)
[2021-12-14] MEDS ORDERED: DIAZEPAM 10 MG/2 ML SYRINGE IV STA (18:35)
[2021-12-14] MEDS ORDERED: SODIUM CHLORIDE 0.9% 1,000 ML IV STA (20:02)
[2021-12-14] MEDS ORDERED: HYDROmorphone 1 MG/1 ML SYRINGE IV STA (20:11)
[2021-12-14] MEDS ORDERED: METOPROLOL TARTRATE 5 MG/5 ML VIAL IV STA (21:37)
[2021-12-14] MEDS ORDERED: ONDANSETRON 4 MG/2 ML VIAL IV PRN ×2 (21:42→23:15)
[2021-12-14] MEDS ORDERED: HYDROmorphone 1 MG/1 ML SYRINGE IV PRN (21:46)
[2021-12-14] MEDS ORDERED: DIAZEPAM 5 MG TABLET PO PRN (21:46)
[2021-12-14] MEDS ORDERED: guaiFENesin/DM ER 600-30 MG TABLET PO PRN (23:15)
[2021-12-14] MEDS ORDERED: ACETAMINOPHEN 325 MG TABLET PO PRN (23:15)
[2021-12-14] MEDS ORDERED: DEXTROSE 10% 250 ML BAG IV PRN (23:15)
[2021-12-14] MEDS ORDERED: GLUCAGON 1 MG VIAL IM PRN ×2 (23:15)
[2021-12-14] MEDS ORDERED: hydrALAZINE 20 MG/1 ML VIAL IV PRN (23:15)
[2021-12-14] MEDS ORDERED: ZALEPLON 5 MG CAPSULE PO PRN (23:15)
[2021-12-14] MEDS ORDERED: diphenhydrAMINE CAP 25 MG CAPSULE PO PRN (23:15)
[2021-12-14] MEDS ORDERED: DEXTROSE 50% 25 GM/50 ML VIAL IV PRN (23:15)
[2021-12-14] MEDS ORDERED: NICOTINE 21 MG/24 HR PATCH TRANSDERM PRN (23:15)
[2021-12-15 02:52] LABS: Barbiturates Screen,Urine Negative (Negative); Benzodiazepines Screen,Urine Negative (Negative); Cannabinoid Screen,Urine Negative (Negative); Opiate Screen,Urine Positive (Negative); Phencyclidine Screen,Urine Negative (Negative)
[2021-12-15 05:29] LABS: Basophils % 0.4 % (0.0-0.8); Eosinophils # 0.3 10*3/uL (0.0-0.87); Hematocrit 33.8 VOL% (35.7-47.0); Hemoglobin 10.5 GM/DL (12.0-16.0); Immature Granulocytes % 0.3 %; Immature Granulocytes Absolute 0.02 #; Lymphocytes # 3.1 10*3/uL (1.4-4.0); Lymphocytes % 44.5 % (21.3-54.2); Mean Corpuscular HGB Conc 31.1 GM/DL (32-36); Mean Corpuscular Volume 85.1 FL (87-102); Mean Platelet Volume 10.1 FL (9.6-12.0); Monocytes # 0.3 10*3/uL (0.11-0.8); Monocytes % 3.6 % (1.7-12.7); Neutrophils % 47.2 % (38.7-73.9); Platelet Count 302 T/CUMM (130-400); Red Blood Count 3.97 MC/CUMM (3.8-5.5); Red Cell Distribution Width 14.5 % (9.3-17.3)
[2021-12-15 05:42] LABS: Calcium 8.9 MG/DL (8.5-10.1); Osmolality,Calculated 275.5 MOS/KG (273-304)
[2021-12-15] MEDS ORDERED: CETIRIZINE 10 MG TABLET PO PRN (06:55)
[2021-12-15] MEDS ORDERED: ALBUTEROL/IPRATROPIUM 3 ML NEB RESP TX PRN ×2 (06:56→09:47)
[2021-12-15] MEDS ORDERED: PANTOPRAZOLE 40 MG TABLET PO SCH (09:00)
[2021-12-15] MEDS ORDERED: METOPROLOL TARTRATE 50 MG TABLET PO SCH ×2 (09:00)
[2021-12-15] MEDS ORDERED: HEPARIN 5,000 UNIT/1 ML VIAL SUBCUT SCH (09:00)
[2021-12-15] MEDS: INSULIN LISPRO 100 UNIT/ML SUBCUT SCH ×3 (09:19→16:37)
[2021-12-15] MEDS ORDERED: POLYETHYLENE GLYCOL POWDER 17 GM PACK PO PRN (09:35)
[2021-12-15] MEDS ORDERED: MELATONIN 3 MG TABLET PO PRN (09:35)
[2021-12-15] MEDS ORDERED: DIAZEPAM 5 MG TABLET PO PRN (09:35)
[2021-12-15] MEDS ORDERED: DOCUSATE SODIUM 100 MG CAPSULE PO PRN (09:35)
[2021-12-15] MEDS ORDERED: DICLOFENAC 1% GEL 100 GM TUBE TOP PRN (09:35)
[2021-12-15] MEDS ORDERED: FUROSEMIDE 40 MG TABLET PO PRN (09:35)
[2021-12-15] MEDS ORDERED: MORPHINE ER 15 MG TABLET PO SCH (11:00)
[2021-12-15] MEDS: oxyCODONE/ACETAMINOPHEN 5-325 MG TABLET PO SCH ×2 (12:31→17:53)
[2021-12-15] MEDS ORDERED: PREGABALIN 100 MG CAPSULE PO SCH (15:00)
[2021-12-15 17:44] VITALS: BP 123/85
[2021-12-15] MEDS ORDERED: cloNIDine 0.1 MG TABLET PO SCH (21:00)
[2021-12-15] MEDS ORDERED: ASCORBIC ACID 500 MG TABLET PO SCH (21:00)
[2021-12-16] MEDS ORDERED: POTASSIUM CHLORIDE 20 MEQ TABLET PO SCH (09:00)
[2021-12-16] MEDS ORDERED: ZINC GLUCONATE 50 MG TABLET PO SCH (09:00)
[2021-12-16] MEDS ORDERED: LOSARTAN 25 MG TABLET PO SCH (09:00)
[2021-12-16] MEDS ORDERED: ESCITALOPRAM 10 MG TABLET PO SCH (09:00)
[2021-12-16] MEDS ORDERED: PANTOPRAZOLE 40 MG TABLET PO SCH (09:00)
[2021-12-16] MEDS ORDERED: CHOLECALCIFEROL 1,000 UNIT TABLET PO SCH (09:00)
== END 2021-12-15 19:00 | disposition home or self-care (01) ==
LOC: EDUNIT# → EDBD → N.EDINP 17:06 → N.ED 17:06 → SUATTDRO 21:42 → N.TELES 23:26
PROVIDERS: ADMIT Family Medicine; ATTEND Internal Medicine Geriatric Medicine